=== PATIENT | female | born 1970 ===

== ENCOUNTER 2020-08-23 11:00 | Outpatient (REF) | payer OTHER, SELFPAY ==
[2020-08-27 07:53] LABS: FIT1 NEGATIVE (NEGATIVE)
[2020-08-27 07:54] LABS: FIT Int Ctl YES; FIT2 NEGATIVE (NEGATIVE)
== END 2020-08-23 11:01 | disposition home or self-care (01) ==
LOC: HO.LNP 11:00
PROVIDERS: Visit Provider Internal Medicine Gastroenterology
DX: Z12.11 Encounter for screening for malignant neoplasm of colon (principal)
CPT/HCPCS: 82274

== ENCOUNTER 2020-08-27 07:40 | Outpatient (REF) | payer OTHER, SELFPAY ==
[2020-08-27 08:12] LABS: MANUAL DIFF FLAG NO
[2020-08-27 08:19] LABS: Basophils Percent Auto 0.7 % (0-2); Eosinophils Absolute Auto 0.1 X10*3/uL (0.0-0.4); Eosinophils Percent Auto 2.4 % (0-4); Hematocrit 40.2 % (37-47); Hemoglobin 13.2 g/dl (12.0-16.0); Imm Gran Abs Auto 0.01 X10*3/uL (0.00-0.03); Imm Gran Pct Auto 0.2 % (0.0-0.4); Lymphocytes Percent Auto 43.7 % (20-40); Mean Corpuscular HGB Conc 32.8 g/dl (31.0-35.0); Mean Corpuscular Hemoglobin 31.3 pg (27.0-33.0); Mean Corpuscular Volume 95.3 fL (80-98); Monocytes Absolute Auto 0.3 X10*3/uL (0.1-1.2); Monocytes Percent Auto 6.8 % (2-11); Neutrophils Absolute Auto 2.1 X10*3/uL (2.0-8.3); Neutrophils Percent Auto 46.2 % (45-73); Platelet Count 242 X10*3/uL (160-400); Red Blood Count 4.22 X10*6/uL (4.20-5.50); Red Cell Distribution Width 12.1 % (11.0-16.0); White Blood Count 4.6 X10*3/uL (4.8-10.8)
[2020-08-27 08:42] LABS: Alanine Aminotransferase 59 U/L (0-31); Albumin Level 4.7 g/dL (3.5-5.0); Alkaline Phosphatase 55 U/L (39-117); Anion Gap 12 (12-20); Aspartate Amino Transferase 37 U/L (5-31); Bilirubin Total 1.2 mg/dL (0.0-1.0); Blood Urea Nitrogen 8 mg/dL (9-16); Calcium 9.5 mg/dL (8.4-10.2); Carbon Dioxide 29 mmol/L (22-29); Chloride 105 mmol/L (96-108); Cholesterol 155 mg/dL; Estimated Glomerular Filt Rate > 60; Glucose Fasting 98 mg/dL (60-99); HDL Cholesterol 49 mg/dL; LDL Cholesterol Calculated 83 mg/dl; Potassium 5.1 mmol/l (3.3-5.1); Sodium 141 mmol/L (135-145); Total Protein 8.3 g/dL (6.5-8.0); Triglycerides 116 mg/dL
[2020-08-27 09:03] LABS: TSH reflex Free T4 2.47 mIU/mL (0.32-4.0)
[2020-08-27 09:08] LABS: Erythrocyte Sedimentation Rate 13 MM/HR (0-20)
[2020-08-27 09:14] LABS: Folate 17.6 ng/mL (> or = 4.0); Vitamin B12 463 pg/mL (200-900)
== END 2020-08-27 07:41 | disposition home or self-care (01) ==
LOC: HO.LAB 07:40
PROVIDERS: PCP Internal Medicine; Visit Provider Internal Medicine
DX: E78.00 Pure hypercholesterolemia, unspecified (principal); R79.89 Other specified abnormal findings of blood chemistry; R20.2 Paresthesia of skin; D72.819 Decreased white blood cell count, unspecified; L40.50 Arthropathic psoriasis, unspecified; E66.3 Overweight
CPT/HCPCS: 36415; 80053; 80061; 82607; 82746; 84443; 85025; 85652

== ENCOUNTER → 2020-09-10 15:22 | Outpatient (BNVA) | payer OTHER, SELFPAY | PROVIDERS: PCP Internal Medicine; Referring Provider Internal Medicine; Visit Provider Student in an Organized Health Care Education/Training Program | DX: L40.50 Arthropathic psoriasis, unspecified (principal); Z79.899 Other long term (current) drug therapy | CPT/HCPCS: 99212 ==

== ENCOUNTER 2020-12-31 07:41 | Outpatient (REF) | payer OTHER, SELFPAY ==
[2020-12-31 08:42] LABS: MANUAL DIFF FLAG NO
[2020-12-31 08:47] LABS: Basophils Percent Auto 0.7 % (0-2); Eosinophils Absolute Auto 0.2 X10*3/uL (0.0-0.4); Eosinophils Percent Auto 2.7 % (0-4); Hematocrit 40.3 % (37-47); Hemoglobin 13.6 g/dl (12.0-16.0); Imm Gran Abs Auto 0.01 X10*3/uL (0.00-0.03); Imm Gran Pct Auto 0.2 % (0.0-0.4); Lymphocytes Absolute Auto 2.9 X10*3/uL (1.2-4.9); Lymphocytes Percent Auto 51.3 % (20-40); Mean Corpuscular HGB Conc 33.7 g/dl (31.0-35.0); Mean Corpuscular Hemoglobin 31.5 pg (27.0-33.0); Mean Corpuscular Volume 93.3 fL (80-98); Mean Platelet Volume 10.1 fL (9.4-12.3); Monocytes Absolute Auto 0.3 X10*3/uL (0.1-1.2); Monocytes Percent Auto 6.1 % (2-11); Neutrophils Absolute Auto 2.2 X10*3/uL (2.0-8.3); Platelet Count 249 X10*3/uL (160-400); Red Blood Count 4.32 X10*6/uL (4.20-5.50); Red Cell Distribution Width 11.7 % (11.0-16.0); White Blood Count 5.6 X10*3/uL (4.8-10.8)
[2020-12-31 09:11] LABS: Alanine Aminotransferase 40 U/L (0-31); Albumin Level 4.5 g/dL (3.5-5.0); Alkaline Phosphatase 58 U/L (39-117); Anion Gap 13 (12-20); Aspartate Amino Transferase 27 U/L (5-31); Bilirubin Total 1.3 mg/dL (0.0-1.0); Blood Urea Nitrogen 10 mg/dL (9-16); Calcium 9.6 mg/dL (8.4-10.2); Carbon Dioxide 28 mmol/L (22-29); Chloride 106 mmol/L (96-108); Cholesterol 160 mg/dL; Estimated Glomerular Filt Rate > 60; Glucose Fasting 95 mg/dL (60-99); HDL Cholesterol 46 mg/dL; LDL Cholesterol Calculated 93 mg/dl; Sodium 142 mmol/L (135-145); Triglycerides 109 mg/dL
[2020-12-31 09:14] LABS: Glucose Urine UA NEG (NEG); Leukocyte Esterase Urine NEG (NEG); Nitrite Urine NEG (NEG); PH 5.5 (5.0-8.0); Specific Gravity - Urine >= 1.030 (1.005-1.025); Urine Blood TRACE (NEG); Urine Ketones NEG (NEG); Urine Protein NEG (NEG-TRACE)
[2020-12-31 09:15] LABS: Appearance Urine HAZY; Color Urine YELLOW
[2020-12-31 09:41] LABS: Bacteria Urine TRACE /LPF; Mucus Urine 2+ /LPF; Squamous Epithelial Cell Urine 2+ /LPF; WBC Urine 0-2 /HPF (0-4)
[2020-12-31 10:09] LABS: Erythrocyte Sedimentation Rate 14 MM/HR (0-20)
== END 2020-12-31 07:42 | disposition home or self-care (01) ==
LOC: HO.LAB 07:41
PROVIDERS: PCP Internal Medicine; Visit Provider Internal Medicine
DX: E78.00 Pure hypercholesterolemia, unspecified (principal); L40.50 Arthropathic psoriasis, unspecified; K58.1 Irritable bowel syndrome with constipation; J45.20 Mild intermittent asthma, uncomplicated
CPT/HCPCS: 36415; 80053; 80061; 81001; 81003; 85025; 85652

== ENCOUNTER → 2021-01-08 13:46 | Outpatient (BNVA) | payer OTHER, SELFPAY | PROVIDERS: PCP Internal Medicine; Visit Provider Internal Medicine Gastroenterology | DX: K58.1 Irritable bowel syndrome with constipation (principal); K76.0 Fatty (change of) liver, not elsewhere classified | CPT/HCPCS: Q3014 ==

== ENCOUNTER 2021-05-02 10:25 | Outpatient (REF) | payer OTHER, SELFPAY ==
[2021-05-02 11:05] LABS: MANUAL DIFF FLAG NO
[2021-05-02 11:12] LABS: Basophils Percent Auto 0.5 % (0-2); Eosinophils Absolute Auto 0.1 X10*3/uL (0.0-0.4); Eosinophils Percent Auto 1.9 % (0-4); Hemoglobin 13.1 g/dl (12.0-16.0); Lymphocytes Absolute Auto 1.7 X10*3/uL (1.2-4.9); Lymphocytes Percent Auto 41.4 % (20-40); Mean Corpuscular HGB Conc 33.6 g/dl (31.0-35.0); Mean Corpuscular Hemoglobin 30.7 pg (27.0-33.0); Mean Corpuscular Volume 91.3 fL (80-98); Mean Platelet Volume 10.2 fL (9.4-12.3); Monocytes Absolute Auto 0.3 X10*3/uL (0.1-1.2); Monocytes Percent Auto 7.1 % (2-11); Neutrophils Absolute Auto 2.1 X10*3/uL (2.0-8.3); Neutrophils Percent Auto 49.1 % (45-73); Platelet Count 224 X10*3/uL (160-400); Red Blood Count 4.27 X10*6/uL (4.20-5.50); Red Cell Distribution Width 11.9 % (11.0-16.0); White Blood Count 4.2 X10*3/uL (4.8-10.8)
[2021-05-02 11:47] LABS: Alanine Aminotransferase 30 U/L (0-31); Albumin Level 4.3 g/dL (3.5-5.0); Alkaline Phosphatase 61 U/L (39-117); Anion Gap 12 (12-20); Aspartate Amino Transferase 25 U/L (5-31); Bilirubin Total 1.5 mg/dL (0.0-1.0); Blood Urea Nitrogen 7 mg/dL (9-16); Calcium 9.7 mg/dL (8.4-10.2); Carbon Dioxide 27 mmol/L (22-29); Chloride 107 mmol/L (96-108); Cholesterol 164 mg/dL; Estimated Glomerular Filt Rate > 60; Glucose Fasting 93 mg/dL (60-99); HDL Cholesterol 45 mg/dL; LDL Cholesterol Calculated 93 mg/dl; Potassium 4.5 mmol/L (3.3-5.1); Sodium 141 mmol/L (135-145); Total Protein 7.6 g/dL (6.5-8.0); Triglycerides 131 mg/dL
[2021-05-02 11:49] LABS: Glucose Urine UA NEG (NEG); Leukocyte Esterase Urine 1+ (NEG); Nitrite Urine NEG (NEG); UACC Culture Trigger YES; Urine Blood TRACE (NEG); Urine Ketones NEG (NEG); Urine Protein NEG (NEG-TRACE)
[2021-05-02 11:56] LABS: Erythrocyte Sedimentation Rate 9 MM/HR (0-20)
[2021-05-02 11:59] LABS: TSH reflex Free T4 0.98 uIU/mL (0.32-4.0)
[2021-05-02 12:12] LABS: Appearance Urine CLEAR; Color Urine YELLOW
[2021-05-02 12:15] LABS: Mucus Urine 2+ /LPF; RBC Urine 0 /HPF (0); Squamous Epithelial Cell Urine 3+ /LPF
== END 2021-05-02 10:26 | disposition home or self-care (01) ==
LOC: HO.LAB 10:25
PROVIDERS: PCP Internal Medicine; Visit Provider Internal Medicine
DX: J45.20 Mild intermittent asthma, uncomplicated (principal); K58.1 Irritable bowel syndrome with constipation; E78.00 Pure hypercholesterolemia, unspecified; E66.3 Overweight; L40.50 Arthropathic psoriasis, unspecified
CPT/HCPCS: 36415; 80053; 80061; 81001; 81003; 84443; 85025; 85652; 87086; 87147

== ENCOUNTER 2021-07-17 13:20 | Outpatient (REF) | payer OTHER, SELFPAY ==
[2021-07-17 13:49] LABS: MANUAL DIFF FLAG NO
[2021-07-17 14:14] LABS: Basophils Percent Auto 0.5 % (0-2); Eosinophils Absolute Auto 0.1 X10*3/uL (0.0-0.4); Eosinophils Percent Auto 2.2 % (0-4); Hematocrit 40.3 % (37-47); Hemoglobin 13.5 g/dl (12.0-16.0); Imm Gran Abs Auto 0.02 X10*3/uL (0.00-0.03); Imm Gran Pct Auto 0.3 % (0.0-0.4); Lymphocytes Absolute Auto 2.2 X10*3/uL (1.2-4.9); Lymphocytes Percent Auto 36.7 % (20-40); Mean Corpuscular HGB Conc 33.5 g/dl (31.0-35.0); Mean Corpuscular Hemoglobin 31.4 pg (27.0-33.0); Mean Corpuscular Volume 93.7 fL (80-98); Mean Platelet Volume 10.1 fL (9.4-12.3); Monocytes Absolute Auto 0.4 X10*3/uL (0.1-1.2); Monocytes Percent Auto 7.5 % (2-11); Neutrophils Absolute Auto 3.1 X10*3/uL (2.0-8.3); Neutrophils Percent Auto 52.8 % (45-73); Platelet Count 255 X10*3/uL (160-400); Red Cell Distribution Width 12.2 % (11.0-16.0); White Blood Count 5.9 X10*3/uL (4.8-10.8)
[2021-07-17 14:48] LABS: Alanine Aminotransferase 34 U/L (0-31); Albumin Level 4.8 g/dL (3.5-5.0); Alkaline Phosphatase 65 U/L (39-117); Anion Gap 12 (12-20); Aspartate Amino Transferase 25 U/L (5-31); Bilirubin Total 1.2 mg/dL (0.0-1.0); Blood Urea Nitrogen 12 mg/dL (9-16); C Reactive Protein 0.05 mg/dL (< or = 0.50); Calcium 9.8 mg/dL (8.4-10.2); Carbon Dioxide 28 mmol/L (22-29); Chloride 105 mmol/L (96-108); Estimated Glomerular Filt Rate > 60; Glucose Random 87 mg/dL (60-115); Potassium 4.5 mmol/L (3.3-5.1); Sodium 140 mmol/L (135-145); Total Protein 8.3 g/dL (6.5-8.0)
[2021-07-17 15:03] LABS: Erythrocyte Sedimentation Rate 14 MM/HR (0-20)
[2021-07-17 17:08] LABS: Appearance Urine CLEAR; Color Urine YELLOW; Glucose Urine UA NEG (NEG); Leukocyte Esterase Urine NEG (NEG); Nitrite Urine NEG (NEG); Urine Blood NEG (NEG); Urine Ketones NEG (NEG); Urine Protein NEG (NEG-TRACE)
== END 2021-07-17 13:21 | disposition home or self-care (01) ==
LOC: HO.LAB 13:20
PROVIDERS: PCP Internal Medicine; Visit Provider Student in an Organized Health Care Education/Training Program
DX: L40.50 Arthropathic psoriasis, unspecified (principal); K58.1 Irritable bowel syndrome with constipation; Z79.899 Other long term (current) drug therapy
CPT/HCPCS: 36415; 80053; 81003; 85025; 85652; 86140; 99212

== ENCOUNTER 2021-07-22 15:50 | Outpatient (REF) | payer OTHER, SELFPAY ==
--- NOTE | ~2021-07-22 | MM_ITS ---
EXAMINATION: MM SCREENING DIGITAL BREAST TOMOSYNTHESIS, BILATERAL CLINICAL INFORMATION: Screening. Asymptomatic. The lifetime risk of breast cancer based on the Tyrer-Cuzick Model is 6%. COMPARISON: Mammography: 07/10/2020, 08/11/2019, 05/10/2019, 03/06/2018 TECHNIQUE: Digital breast tomosynthesis is performed in both the craniocaudal and mediolateral oblique views along with computer-aided detection (CAD). Synthesized 2D images are generated from the tomosynthesis. Additional right MLO view is provided. FINDINGS: There are scattered areas of fibroglandular density (ACR BI-RADS breast composition Category b). There are no significant masses, abnormal calcifications, or other abnormalities. There is a chronic circumscribed nodule mid 8:30 o'clock right breast similar to prior studies. Low left axillary tail node is stable. No significant changes. MM/MM tomosynthesis screening BI IMPRESSION: No mammographic evidence of malignancy. ASSESSMENT: BI-RADS 2: Benign RECOMMENDATION: Routine annual mammography screening. This patient's information was entered into a reminder system with a target due date for their next mammogram.
== END 2021-07-22 15:51 | disposition home or self-care (01) ==
LOC: HO.MAMMO 15:50
PROVIDERS: Visit Provider Internal Medicine
DX: Z12.31 Encounter for screening mammogram for malignant neoplasm of breast (principal)
CPT/HCPCS: 77063; 77067

== ENCOUNTER → 2021-07-29 10:42 | Outpatient (BNVA) | payer OTHER, SELFPAY | PROVIDERS: PCP Internal Medicine; Referring Provider Internal Medicine; Visit Provider Nurse Practitioner Family | DX: K76.0 Fatty (change of) liver, not elsewhere classified (principal); K58.1 Irritable bowel syndrome with constipation | CPT/HCPCS: 99212 ==

== ENCOUNTER 2021-09-02 09:23 | Outpatient (REF) | payer OTHER, SELFPAY ==
--- NOTE | ~2021-09-02 | US_ITS ---
EXAMINATION: US COMPLETE ABDOMEN WITH LIVER ELASTOGRAPHY CLINICAL INFORMATION: Hepatic steatosis COMPARISON: Abdominal ultrasound 05/30/2020 TECHNIQUE: Real-time imaging of the abdominal viscera. Noninvasive ultrasound liver fibrosis assessment is performed using Gayla ElastPQ point quantification shear wave elastography (pSWE) with a C5-2 MHz transducer. Multiple elastography samples are obtained. FINDINGS: PANCREAS: Visualized portions of pancreas are normal in appearance. ABDOMINAL AORTA: The proximal, middle, and distal aortic segments are normal in caliber. INFERIOR VENA CAVA: Visualized portions are normal. LIVER: The liver is normal in size. The liver demonstrates diffusely increased echogenicity. No focal hepatic lesion or intrahepatic biliary ductal dilatation noted. The right lobe measures 17 cm in length. The left lobe measures 10.5 cm in length. Portal flow is hepatopedal Shear wave liver elastography median stiffness is 1.74 m/s (reference: normal median stiffness is 1.3 m/s or less). IQR/median stiffness to assess sampling precision is 0.18 (reference: good quality data set is IQR/median stiffness of 0.15 or less). GALLBLADDER: Normal. The gallbladder is physiologically distended without evidence of stones, sludge, polyps, wall thickening or pericholecystic fluid. Negative sonographic Mejia's sign. COMMON BILE DUCT: 0.8 cm in diameter. RIGHT KIDNEY: The kidney measures 12.6 cm in maximum dimension. Millimeters simple appearing midpole cyst. No renal calculi or hydronephrosis. LEFT KIDNEY: The kidney measures 10.5 cm in maximum dimension. 3 mm nonobstructing lower pole calculus. No hydronephrosis. SPLEEN: Normal. The spleen measures 9.2 cm in maximum dimension. FREE FLUID: None. US/US abdomen comp w elastography IMPRESSION: 1. Diffusely increased liver echogenicity suggesting hepatic steatosis. Correlation with liver enzymes recommended. 2. Liver elastography: Although measurements are suggestive of compensated advanced chronic liver disease, there is statistical variability of the sampling which decreases accuracy. No significant change from imaging last year. REFERENCE: Society of Radiologists in Ultrasound Liver Stiffness Thresholds (2019): LIVER STIFFNESS THRESHOLDS: *Liver Stiffness equal or less than 1.3 m/s: High probability of being normal. *Liver Stiffness less than 1.7 m/s: In the absence of other known clinical signs, rules out compensated advanced chronic liver disease. *Liver Stiffness 1.7-2.1 m/s: Suggestive of compensated advanced chronic liver disease but need further test for confirmation. *Liver Stiffness over 2.1 m/s: Rules in compensated advanced chronic liver disease. *Liver Stiffness over 2.4 m/s: Suggestive of clinically significant portal hypertension. QUALITY OF DATA SET: *IQR/Median value equal or less than 0.15 implies a quality data set. *IQR/Median value over 0.15 implies a poor quality data set. SIGNIFICANT CHANGE FROM PRIOR EXAM: Significant change if liver stiffness measurement is 10% or greater from prior exam. OTHER CONSIDERATIONS: The stage of liver fibrosis may be overestimated in the setting of acute hepatitis, liver inflammation, elevated liver function tests, hepatic vascular congestion, obstructive cholestasis, non-fasting state, and infiltrative diseases such as amyloidosis and lymphoma. In some patients with NAFLD, the liver stiffness thresholds for compensated advanced chronic liver disease may be lower. In causes other than viral hepatitis and NAFLD, liver stiffness thresholds are not well established.
== END 2021-09-02 09:24 | disposition home or self-care (01) ==
LOC: HO.US 09:23
PROVIDERS: PCP Internal Medicine; Visit Provider Nurse Practitioner Family
DX: R79.89 Other specified abnormal findings of blood chemistry (principal)
CPT/HCPCS: 76705; 76981

== ENCOUNTER 2021-10-01 09:52 | Outpatient (REF) | payer OTHER, SELFPAY ==
[2021-10-01 10:10] LABS: MANUAL DIFF FLAG NO
[2021-10-01 10:22] LABS: Basophils Percent Auto 0.7 % (0-2); Eosinophils Absolute Auto 0.3 X10*3/uL (0.0-0.4); Hematocrit 41.6 % (37.0-47.0); Hemoglobin 14.1 g/dl (12.0-16.0); Imm Gran Abs Auto 0.01 X10*3/uL (0.00-0.03); Imm Gran Pct Auto 0.2 % (0.0-0.4); Lymphocytes Percent Auto 36.9 % (20-40); Mean Corpuscular HGB Conc 33.9 g/dl (31.0-35.0); Mean Corpuscular Hemoglobin 31.7 pg (27.0-33.0); Mean Corpuscular Volume 93.5 fL (80.0-98.0); Mean Platelet Volume 9.7 fL (9.4-12.3); Monocytes Absolute Auto 0.4 X10*3/uL (0.1-1.2); Monocytes Percent Auto 6.3 % (2-11); Neutrophils Absolute Auto 2.8 x10*3/uL (2.0-8.3); Neutrophils Percent Auto 49.9 % (45-73); Platelet Count 244 X10*3/uL (160-400); Red Blood Count 4.45 X10*6/uL (4.20-5.50); White Blood Count 5.5 X10*3/uL (4.8-10.8)
[2021-10-01 10:47] LABS: Alanine Aminotransferase 37 U/L (0-31); Albumin Level 4.5 g/dL (3.5-5.0); Alkaline Phosphatase 64 U/L (39-117); Anion Gap 12 (12-20); Aspartate Amino Transferase 29 U/L (5-31); Bilirubin Total 1.4 mg/dL (0.0-1.0); Blood Urea Nitrogen 11 mg/dL (9-16); C Reactive Protein 0.06 mg/dL (< or = 0.50); Calcium 9.7 mg/dL (8.4-10.2); Carbon Dioxide 27 mmol/L (22-29); Chloride 106 mmol/L (96-108); Cholesterol 186 mg/dL; Estimated Glomerular Filt Rate > 60; Glucose Fasting 93 mg/dL (60-99); HDL Cholesterol 41 mg/dL; LDL Cholesterol Calculated 106 mg/dl; Potassium 4.9 mmol/L (3.3-5.1); Sodium 140 mmol/L (135-145); Total Protein 8.2 g/dL (6.5-8.0); Triglycerides 195 mg/dL
[2021-10-01 11:13] LABS: Erythrocyte Sedimentation Rate 16 MM/HR (0-20)
== END 2021-10-01 09:53 | disposition home or self-care (01) ==
LOC: HO.LAB 09:52
PROVIDERS: PCP Internal Medicine; Visit Provider Internal Medicine
DX: I10 Essential (primary) hypertension (principal); E78.00 Pure hypercholesterolemia, unspecified; L40.50 Arthropathic psoriasis, unspecified
CPT/HCPCS: 36415; 80053; 80061; 85025; 85652; 86140

== ENCOUNTER 2021-11-10 10:30 | Outpatient (REF) | payer OTHER, SELFPAY ==
[2021-11-10 10:56] LABS: Binax Internal Control QC Valid; Binax Now Covid-19 Ag Negative (Negative)
== END 2021-11-10 10:31 | disposition home or self-care (01) ==
LOC: HO.LAB 10:30
PROVIDERS: PCP Internal Medicine; Visit Provider Internal Medicine
DX: Z20.822 Contact with and (suspected) exposure to COVID-19 (principal)
CPT/HCPCS: C9803

== ENCOUNTER → 2021-11-12 12:42 | Outpatient (BNVA) | payer OTHER, SELFPAY | PROVIDERS: PCP Internal Medicine; Visit Provider Nurse Practitioner Family | DX: L40.50 Arthropathic psoriasis, unspecified (principal) | CPT/HCPCS: 99212 ==

== ENCOUNTER 2022-02-26 07:39 | Outpatient (REF) | payer SELFPAY ==
[2022-02-26 08:04] LABS: MANUAL DIFF FLAG NO
[2022-02-26 08:41] LABS: Basophils Percent Auto 0.4 % (0-2); Eosinophils Absolute Auto 0.1 X10*3/uL (0.0-0.4); Eosinophils Percent Auto 2.8 % (0-4); Hematocrit 38.3 % (37.0-47.0); Hemoglobin 12.8 g/dl (12.0-16.0); Imm Gran Abs Auto 0.01 X10*3/uL (0.00-0.03); Imm Gran Pct Auto 0.2 % (0.0-0.4); Lymphocytes Percent Auto 40.8 % (20-40); Mean Corpuscular HGB Conc 33.4 g/dl (31.0-35.0); Mean Corpuscular Hemoglobin 30.8 pg (27.0-33.0); Mean Corpuscular Volume 92.3 fL (80.0-98.0); Mean Platelet Volume 9.9 fL (9.4-12.3); Monocytes Absolute Auto 0.4 X10*3/uL (0.1-1.2); Monocytes Percent Auto 7.5 % (2-11); Neutrophils Absolute Auto 2.4 x10*3/uL (2.0-8.3); Neutrophils Percent Auto 48.3 % (45-73); Platelet Count 213 X10*3/uL (160-400); Red Blood Count 4.15 X10*6/uL (4.20-5.50); Red Cell Distribution Width 12.3 % (11.0-16.0)
[2022-02-26 09:25] LABS: Alanine Aminotransferase 34 U/L (0-31); Albumin Level 4.3 g/dL (3.5-5.0); Alkaline Phosphatase 52 U/L (39-117); Anion Gap 14 (12-20); Aspartate Amino Transferase 24 U/L (5-31); Bilirubin Total 0.8 mg/dL (0.0-1.0); Blood Urea Nitrogen 14 mg/dL (9-16); C Reactive Protein 0.04 mg/dL (< or = 0.50); Calcium 9.6 mg/dL (8.4-10.2); Carbon Dioxide 21 mmol/L (22-29); Chloride 108 mmol/L (96-108); Cholesterol 181 mg/dL; Erythrocyte Sedimentation Rate 12 MM/HR (0-20); Estimated Glomerular Filt Rate > 60; Glucose Fasting 104 mg/dL (60-99); HDL Cholesterol 33 mg/dL; Potassium 4.3 mmol/L (3.3-5.1); Sodium 139 mmol/L (135-145); Total Protein 7.7 g/dL (6.5-8.0); Triglycerides 412 mg/dL
[2022-02-26 09:32] LABS: TSH reflex Free T4 2.14 uIU/mL (0.32-4.0); Vitamin D 25-OH Total 21.6 ng/mL (>30)
== END 2022-02-26 07:40 | disposition home or self-care (01) ==
LOC: HO.LAB 07:39
PROVIDERS: Absent Provider Nurse Practitioner Family; PCP Internal Medicine; Visit Provider Internal Medicine
DX: E78.00 Pure hypercholesterolemia, unspecified (principal); E55.9 Vitamin D deficiency, unspecified; L40.50 Arthropathic psoriasis, unspecified
CPT/HCPCS: 36415; 80053; 80061; 82306; 84443; 85025; 85652; 86140

== ENCOUNTER 2022-03-09 11:26 | Outpatient (REF) | payer SELFPAY ==
--- NOTE | ~2022-03-09 | XR_ITS ---
EXAMINATION: X-RAY BILATERAL FEET CLINICAL INFORMATION: Psoriatic arthritis COMPARISON: X-ray 04/09/2014 TECHNIQUE: Left foot 3 views. Right foot 3 views. FINDINGS: Left foot: No acute fracture or malalignment. No periarticular osteopenia or active erosions are seen. Mild fourth DIP joint osteoarthritis. Mild fifth tarsometatarsal joint osteoarthritis. Plantar and posterior calcaneus spurring. No abnormal soft tissue calcification. Right foot: No acute fracture or malalignment. Toes are flexed in positioning. No significant arthropathy is otherwise seen. No active erosions or periarticular osteopenia. Moderate plantar and posterior calcaneus spurring. XR/XR foot LT 2V IMPRESSION: No evidence of active inflammatory arthropathy in bilateral feet. Bilateral calcaneus spurring.
--- NOTE | ~2022-03-09 | XR_ITS ---
EXAMINATION: X-RAY BILATERAL HANDS CLINICAL INFORMATION: Psoriatic arthropathy COMPARISON: X-ray right hand 09/04/2018 TECHNIQUE: Right hand 3 views. Left hand 3 views. FINDINGS: Left hand: Normal bone mineralization. No fracture or dislocation. Minimal first CMC osteoarthritis. No significant arthropathy is otherwise evident. No erosions or periosteal changes seen. No abnormal soft tissue calcification. Right hand: Normal bone mineralization. No fracture or dislocation. Minimal first IP joint arthritis. Minimal first CMC joint arthritis. No erosions or abnormal soft tissue calcification is seen. XR/XR hand RT min 3V IMPRESSION: -Mild left first CMC osteoarthritis. -Minimal right first IP joint and CMC joint osteoarthritis.
--- NOTE | ~2022-03-09 | XR_ITS ---
EXAMINATION: X-RAY BILATERAL FEET CLINICAL INFORMATION: Psoriatic arthritis COMPARISON: X-ray 04/09/2014 TECHNIQUE: Left foot 3 views. Right foot 3 views. FINDINGS: Left foot: No acute fracture or malalignment. No periarticular osteopenia or active erosions are seen. Mild fourth DIP joint osteoarthritis. Mild fifth tarsometatarsal joint osteoarthritis. Plantar and posterior calcaneus spurring. No abnormal soft tissue calcification. Right foot: No acute fracture or malalignment. Toes are flexed in positioning. No significant arthropathy is otherwise seen. No active erosions or periarticular osteopenia. Moderate plantar and posterior calcaneus spurring. XR/XR foot RT 2V IMPRESSION: No evidence of active inflammatory arthropathy in bilateral feet. Bilateral calcaneus spurring.
--- NOTE | ~2022-03-09 | XR_ITS ---
EXAMINATION: X-RAY BILATERAL HANDS CLINICAL INFORMATION: Psoriatic arthropathy COMPARISON: X-ray right hand 09/04/2018 TECHNIQUE: Right hand 3 views. Left hand 3 views. FINDINGS: Left hand: Normal bone mineralization. No fracture or dislocation. Minimal first CMC osteoarthritis. No significant arthropathy is otherwise evident. No erosions or periosteal changes seen. No abnormal soft tissue calcification. Right hand: Normal bone mineralization. No fracture or dislocation. Minimal first IP joint arthritis. Minimal first CMC joint arthritis. No erosions or abnormal soft tissue calcification is seen. XR/XR hand LT min 3V IMPRESSION: -Mild left first CMC osteoarthritis. -Minimal right first IP joint and CMC joint osteoarthritis.
== END 2022-03-09 11:27 | disposition home or self-care (01) ==
LOC: HO.XRAY 11:26
PROVIDERS: PCP Internal Medicine; Visit Provider Nurse Practitioner Family
DX: L40.50 Arthropathic psoriasis, unspecified (principal); E55.9 Vitamin D deficiency, unspecified
CPT/HCPCS: 73130; 73620; 99212

== ENCOUNTER → 2022-04-01 13:09 | Outpatient (BNVA) | payer SELFPAY | PROVIDERS: PCP Internal Medicine; Referring Provider Internal Medicine; Visit Provider Nurse Practitioner Family | DX: K58.1 Irritable bowel syndrome with constipation (principal); K76.0 Fatty (change of) liver, not elsewhere classified | CPT/HCPCS: 99212 ==

== ENCOUNTER 2022-04-30 09:25 | Outpatient (REF) | payer SELFPAY ==
[2022-05-01 04:58] LABS: CT PCR NOT DETECTED (Not Detect.); NG PCR NOT DETECTED (Not Detect.)
[2022-05-01 09:22] LABS: BV Int Neg Control Negative (Negative); BV Int Pos Control Positive (Positive)
[2022-05-04 21:12] LABS: HPV mRNA E6/E7 rflx Not Detected (Not Detected)
== END 2022-04-30 09:26 | disposition home or self-care (01) ==
LOC: HO.LAB 09:25
PROVIDERS: Visit Provider Advanced Practice Midwife
DX: Z01.419 Encounter for gynecological examination (general) (routine) without abnormal findings (principal); Z11.51 Encounter for screening for human papillomavirus (HPV)
CPT/HCPCS: 87480; 87491; 87510; 87591; 87624; 87660; 88142

== ENCOUNTER 2022-11-23 13:11 | Outpatient (REF) | payer OTHER, SELFPAY ==
--- NOTE | ~2022-11-23 | XR_ITS ---
EXAMINATION: XR CHEST 2 VIEWS CLINICAL INFORMATION: Fatigue. COMPARISON: Chest radiographs dated 12/20/2019. TECHNIQUE: Frontal and lateral views of the chest were obtained. FINDINGS: The heart, great vessels, pulmonary vasculature and mediastinum are normal. The lungs show no focal infiltrate, effusion or pneumothorax. There is no acute osseous abnormality. XR/XR chest 2V IMPRESSION: No active cardiopulmonary disease.
[2022-11-23 16:36] LABS: Hematocrit 38.9 % (37.0-47.0); Mean Corpuscular HGB Conc 33.4 g/dl (31.0-35.0); Mean Corpuscular Hemoglobin 30.2 pg (27.0-33.0); Mean Corpuscular Volume 90.5 fL (80.0-98.0); Mean Platelet Volume 9.8 fL (9.4-12.3); Platelet Count 315 X10*3/uL (160-400); Red Cell Distribution Width 12.2 % (11.0-16.0); White Blood Count 6.2 X10*3/uL (4.8-10.8)
[2022-11-23 17:09] LABS: Alanine Aminotransferase 24 U/L (0-31); Albumin Level 4.5 g/dL (3.5-5.0); Alkaline Phosphatase 77 U/L (39-117); Anion Gap 12 (12-20); Aspartate Amino Transferase 20 U/L (5-31); Bilirubin Direct 0.2 mg/dL (0.0-0.5); Bilirubin Total 1.3 mg/dL (0.0-1.0); Blood Urea Nitrogen 8 mg/dL (9-16); C Reactive Protein 0.59 mg/dL (< or = 0.50); Calcium 9.5 mg/dL (8.4-10.2); Carbon Dioxide 26 mmol/L (22-29); Chloride 105 mmol/L (96-108); Cholesterol 241 mg/dL; Estimated Glomerular Filt Rate > 60; Glucose Random 85 mg/dL (60-115); HDL Cholesterol 42 mg/dL; LDL Cholesterol Calculated 166 mg/dl; Potassium 3.8 mmol/L (3.3-5.1); Sodium 139 mmol/L (135-145); Total Protein 8.2 g/dL (6.5-8.0); Triglycerides 168 mg/dL
[2022-11-23 17:25] LABS: Thyroid Stimulating Hormone 1.24 uIU/mL (0.32-4.0)
== END 2022-11-23 13:12 | disposition home or self-care (01) ==
LOC: HO.HMGCX 13:11
PROVIDERS: PCP Internal Medicine; Visit Provider Internal Medicine
DX: R53.83 Other fatigue (principal)
CPT/HCPCS: 36415; 71046; 80048; 80061; 80076; 84443; 85027; 86140

== ENCOUNTER → 2022-11-25 10:50 | Outpatient (BNVA) | payer OTHER, SELFPAY | PROVIDERS: PCP Internal Medicine; Visit Provider Nurse Practitioner Family | DX: L40.50 Arthropathic psoriasis, unspecified (principal) | CPT/HCPCS: 99212 ==

== ENCOUNTER 2022-12-01 12:14 | Outpatient (REF) | payer OTHER, SELFPAY ==
[2022-12-01 14:39] LABS: Erythrocyte Sedimentation Rate 65 MM/HR (0-20)
[2022-12-01 15:21] LABS: C Reactive Protein 0.84 mg/dL (< or = 0.50); Rheumatoid Factor < 13.0 IU/mL (<15.0)
[2022-12-03 06:59] LABS: Prot Elec - Albumin 4.2 g/dL (3.8-4.8); Prot Elec - Alpha1 0.6 g/dL (0.2-0.3); Prot Elec - Alpha2 0.9 g/dL (0.5-0.9); Prot Elec - Beta 1 0.5 g/dL (0.4-0.6); Prot Elec - Beta 2 0.5 g/dL (0.2-0.5); Prot Elec - Gamma 1.5 g/dL (0.8-1.7); Prot Elec - Total Protein 8.2 g/dL (6.1-8.1)
[2022-12-03 14:23] LABS: Anti Nuclear Antibody Screen NEGATIVE (NEGATIVE)
== END 2022-12-01 12:15 | disposition home or self-care (01) ==
LOC: HO.LAB 12:14
PROVIDERS: PCP Internal Medicine; Visit Provider Internal Medicine
DX: M25.50 Pain in unspecified joint (principal); M79.10 Myalgia, unspecified site; R53.83 Other fatigue
CPT/HCPCS: 36415; 84165; 85652; 86038; 86039; 86140; 86431

== ENCOUNTER 2023-01-19 14:53 | Outpatient (REF) | payer OTHER, SELFPAY ==
[2023-01-19 18:16] LABS: Erythrocyte Sedimentation Rate 96 MM/HR (0-20)
[2023-01-20 07:49] LABS: HBS Num1 12.74 mIU/mL (0-7.99); HBc Num1 0.07 S/CO (0.00-0.79); HBsAGNum1 0.32 S/CO (0.00-0.99); Hepatitis A Antibody IgM 0.27 Index (0-0.79); Hepatitis B Core Antibody Nonreactive (Nonreactive); Hepatitis B Surface Antigen Negative (Negative); ~HepC Num1 0.16 S/CO (0.00-0.79); ~Hepatitis A Antibody IgM Nonreactive (Nonreactive); ~Hepatitis B Surface Antibody REACTIVE (Nonreactive); ~Hepatitis C Antibody Nonreactive (Nonreactive)
[2023-01-21 15:14] LABS: TS Negative Control Passed; TS Panel A 0; TS Panel B 0; TS Positive Control Passed; TSpotTB Negative (Negative)
== END 2023-01-19 14:54 | disposition home or self-care (01) ==
LOC: HO.LAB 14:53
PROVIDERS: PCP Internal Medicine; Visit Provider Nurse Practitioner Family
DX: L40.50 Arthropathic psoriasis, unspecified (principal)
CPT/HCPCS: 36415; 85652; 86481; 86704; 86706; 86709; 86803; 87340; 99212

== ENCOUNTER → 2023-01-26 10:39 | Outpatient (BNVA) | payer OTHER, SELFPAY | PROVIDERS: PCP Internal Medicine; Visit Provider Nurse Practitioner Family | DX: L40.50 Arthropathic psoriasis, unspecified (principal) | CPT/HCPCS: 99212 ==

== ENCOUNTER 2023-02-19 09:16 | Outpatient (REF) | payer OTHER, SELFPAY ==
[2023-02-19 09:25] LABS: MANUAL DIFF FLAG NO
[2023-02-19 09:54] LABS: Basophils Percent Auto 0.6 % (0-2); Eosinophils Absolute Auto 0.1 X10*3/uL (0.0-0.4); Hematocrit 36.2 % (37.0-47.0); Hemoglobin 11.4 g/dl (12.0-16.0); Imm Gran Abs Auto 0.02 X10*3/uL (0.00-0.03); Imm Gran Pct Auto 0.3 % (0.0-0.4); Lymphocytes Absolute Auto 1.4 X10*3/uL (1.2-4.9); Lymphocytes Percent Auto 22.4 % (20-40); Mean Corpuscular HGB Conc 31.5 g/dl (31.0-35.0); Mean Corpuscular Hemoglobin 27.8 pg (27.0-33.0); Mean Corpuscular Volume 88.3 fL (80.0-98.0); Mean Platelet Volume 9.1 fL (9.4-12.3); Monocytes Absolute Auto 0.4 X10*3/uL (0.1-1.2); Monocytes Percent Auto 6.9 % (2-11); Neutrophils Absolute Auto 4.3 x10*3/uL (2.0-8.3); Neutrophils Percent Auto 67.8 % (45-73); Platelet Count 361 X10*3/uL (160-400); Red Cell Distribution Width 13.1 % (11.0-16.0); White Blood Count 6.4 X10*3/uL (4.8-10.8)
[2023-02-19 10:31] LABS: Erythrocyte Sedimentation Rate 88 MM/HR (0-20)
[2023-02-19 10:32] LABS: Alanine Aminotransferase 14 U/L (0-31); Albumin Level 4.1 g/dL (3.5-5.0); Alkaline Phosphatase 84 U/L (39-117); Anion Gap 15 (12-20); Aspartate Amino Transferase 16 U/L (5-31); Bilirubin Total 0.7 mg/dL (0.0-1.0); Blood Urea Nitrogen 7 mg/dL (9-16); C Reactive Protein 2.78 mg/dL (< or = 0.50); Calcium 9.8 mg/dL (8.4-10.2); Carbon Dioxide 25 mmol/L (22-29); Chloride 106 mmol/L (96-108); Cholesterol 187 mg/dL; Estimated Glomerular Filt Rate > 60; Glucose Fasting 87 mg/dL (60-99); Glucose Random 87 mg/dL (60-115); HDL Cholesterol 36 mg/dL; LDL Cholesterol Calculated 120 mg/dl; Potassium 4.7 mmol/L (3.3-5.1); Sodium 141 mmol/L (135-145); Total Protein 7.8 g/dL (6.5-8.0); Triglycerides 158 mg/dL
[2023-02-19 10:43] LABS: TSH reflex Free T4 1.01 uIU/mL (0.32-4.0)
== END 2023-02-19 09:17 | disposition home or self-care (01) ==
LOC: HO.LAB 09:16
PROVIDERS: Absent Provider Internal Medicine; PCP Internal Medicine; Visit Provider Nurse Practitioner Family
DX: E78.00 Pure hypercholesterolemia, unspecified (principal); L40.50 Arthropathic psoriasis, unspecified
CPT/HCPCS: 36415; 80053; 80061; 84443; 85025; 85652; 86140

== ENCOUNTER 2023-02-22 15:14 | Outpatient (AMB) | payer OTHER, SELFPAY ==
[2023-02-22 15:15] VITALS: BP 98/62; PULSE 91; O2SAT 98; BMI 25.1
--- NOTE | 2023-02-22 15:15 | A.OFFPC_ITS ---
Vital Signs 02/22/23 15:15 Height 5 ft 2 in Weight 137 lb 2 oz BMI 25.1 BP 98/62 Blood Pressure Location Lt brachial Position Sitting Pulse 91 Pulse Source Pulse Oximeter Pulse Oximetry (%) 98 Oxygen Delivery Method Room Air Intake Visit Reasons: hyperlipdiemia, psoriatic arthritis, fibromyalgia Intake Note: Patient is here to follow up hyperlipidemia, psoriatic arthritis, and fibromyalgia. Instructional Coach Required: No Accompanied by: Self / Same As Patient Allergies acetaminophen [From Vicodin] Adverse Reaction (Intermediate, Verified 09/08/23 15:30) Nausea, vomiting, dizziness hydrocodone [From Vicodin] Adverse Reaction (Intermediate, Verified 09/08/23 15:30) Nausea, vomiting, dizziness atorvastatin Adverse Reaction (Mild, Verified 09/08/23 15:30) Swelling Medication List - Last Reconciled 02/22/23 by Jared Hernandez MD albuterol sulfate 1.25 mg (3 mL) continuous nebulization QID PRN 30 days clotrimazole 1% 1 appful vaginal BEDTIME fluticasone furoate-vilanterol 200-25 mcg/dose (Breo Ellipta) 1 inh inhalation DAILY 30 days hydrocortisone 2.5% 1 appl topical BID PRN hydrocortisone 1% (Anti-Itch (hydrocortisone)) 1 appl topical BID-QID PRN linaclotide (Linzess) 290 mcg PO DAILY magnesium oxide 400 mg PO BID [id number]-eypw-FA-lutein 8 mg iron-400 mcg-300 mcg (Multivitamin Women 50 Plus) 1 tab PO DAILY naproxen 500 mg PO BID [nebulizer Use as directed 4 times a day as needed] omega-3 fatty acids 1,000 mg PO DAILY triamcinolone acetonide 0.1% 1 appl topical BID PRN ustekinumab (Stelara) 45 mg (0.5 mL) subcut Q12W ustekinumab (Stelara) 45 mg (0.5 mL) subcut Q4W 2 doses vitamin E (dl, acetate) 400 units PO BID Tobacco use date assessed: 02/22/23 HPI hyperlipdiemia, psoriatic arthritis, fibromyalgia HPI Details Patient comes in today for her follow up visit States that her left hand is currently still swollen - has been swollen since November 2022 and she presently cannot even make a fist with her hand due to the swelling Also relates (+) increased right shoulder pain lately, and that she is unable to lift her right arm on her own without assistance at present She was started on Stelara by rheumatology a couple of weeks ago for psoriatic arthritis States that she feels okay otherwise She denies any fever, headaches or dizziness Denies any chest pains, no SOB No nausea/vomiting, no abdominal pain No change in bowel habits noted Had her follow up labs done a few days ago - to discuss her results [facility] Medical History Depression Hepatic steatosis Overweight (BMI 25.0-29.9) Psoriatic arthritis Carpal tunnel syndrome of right wrist Irritable bowel syndrome with constipation Pure hypercholesterolemia Asthma Surgical History Hx of colonoscopy History of tubal ligation Family History Mother Arthritis Diabetes Sister Uterine cancer Maternal Aunt Cervical cancer Colon cancer Maternal Uncle Colon cancer Household Members: Family and Children Housing: Apartment Alcohol intake: never Patient Tobacco Use Status: Never used Tobacco e-Cigarette/Vaping Use: Never Used Second Hand Smoke Exposure: Yes service: No Current occupational status: employed 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 1. Little interest or pleasure in doing things: several days 2. Feeling down, depressed, or hopeless: several days 3. Trouble falling or staying asleep, or sleeping too much: several days 4. Feeling tired or having little energy: several days 5. Poor appetite or overeating: not at all 6. Feeling bad about yourself - or that you are a failure or have let yourself or your family down: not at all 7. Trouble concentrating on things, such as reading the newspaper or watching television: not at all 8. Moving or speaking so slowly that other people could have noticed. Or the opposite - being so fidgety or restless that you have been moving around a lot more than usual: not at all 9. Thoughts that you would be better off or of hurting yourself in some way: not at all Total score: 4 Depression Screening Interpretation: Positive Depression Screening Follow-up: Existing condition, New Medication prescribed and Follow-up Visit Requested 13906 - PHQ-9 Billing: Yes Source: Developed by Drs. Bonifacio Prince, Shaila Cano, eRyes Palmer and colleagues, with an educational christiane from [employer]. Thrive Questionnaire Date Thrive assessed: 02/22/23 I am a: Patient What is your living situation today?: I have a steady place to live Within the past 12 months, did the food you bought not last and you didn't have the money to get more?: Never true Within the past 12 months, did you worry whether your food would run out before you got money to buy more?: Never true Currently or been in a relationship where the following occur: no concerns reported AUDIT C Alcohol Use Questionnaire (AUDIT-C) 1. How often do you have a drink containing alcohol?: Never 3. How often do you have six or more drinks on one occasion?: Never Total Score: 0 Score Reviewed/Action Taken: Yes JUANITA-7 AMB Questionnaire JUANITA-7 Date JUAINTA - 7 assessed: 02/22/23 Feeling nervous, anxious, or on edge: 1 = Several days Not being able to stop or control worryin = Not at all Worrying too much about different things: 0 = Not at all Trouble relaxin = Not at all Being so restless that it is hard to sit still: 0 = Not at all Becoming easily annoyed or irritable: 0 = Not at all Feeling afraid as if something awful might happen: 0 = Not at all Total JUANITA-7 score (0-4 normal; 5-9 mild; 10-14 moderate; 15-21 severe): 1 Source: Developed by Drs. Bonifacio Prince, Shaila Cano, Reyes Palmer and colleagues, with an educational christiane from [employer]. Review of Systems Const Reports body aches (diffuse), Reports fatigue, Denies fever(s) and Denies headache(s) ENT Denies dysphagia, Denies dizziness, Denies otalgia, Denies headache(s), Reports neck pain, Denies odynophagia and Denies sore throat Card Denies chest pain, Denies rapid heart rate, Denies palpitations and Denies dyspnea Resp Denies chest congestion, Denies cough, Denies dyspnea and Denies wheezing GI Denies abdominal pain, Denies constipation (controlled on Rx), Denies dysphagia, Denies diarrhea, Denies nausea, Denies odynophagia and Denies vomiting Denies hematuria, Denies difficulty voiding, Denies nocturia and Denies dysuria Musc Reports back pain, Reports myalgias, Reports arthralgias (involving multiple joints), Reports neck pain and Reports stiffness Skin/Breast Reports rash (on and off scaling rash) Neuro Denies dizziness and Denies headache(s) Psych Reports anxiety and Reports depression Endo Reports fatigue and Denies palpitations Aller/Immun Denies wheezing Physical exam (Primary Care) Vital Signs: Last Vital Signs Pulse 91 02/22/23 15:15 BP 98/62 02/22/23 15:15 Pulse Ox 98 02/22/23 15:15 Oxygen Delivery Method Room Air 02/22/23 15:15 BMI result Body Mass Index 25.1 Tobacco/Smoking Status: Tobacco use Status Tobacco use date assessed 02/22/23 02/22/23 15:22 Patient Tobacco Use Status Never used Tobacco 02/22/23 15:22 e-Cigarette/Vaping Use Never Used 02/22/23 15:22 PHQ-9: PHQ-9 Score PHQ-9: Total score 4 02/22/23 16:10 Depression Screening Interpretation: Positive Depression Screening Follow-up: Existing condition, New Medication prescribed and Follow-up Visit Requested Thrive Assessment: Date of Thrive Assessment Date Thrive assessed 02/22/23 02/22/23 15:22 Currently or been in a relationship where the following occur: no concerns reported Const General: no acute distress and alert HENMT Ears: TM's normal bilaterally and EAC's normal Throat: Yes posterior oropharynx normal and Yes tonsils normal Neck Neck: Yes no lymphadenopathy and Yes supple Resp Auscultation: clear to auscultation bilaterally, no crackles, no rales and no wheezes Cardio Rate: regular rate Rhythm: regular rhythm Heart sounds: no murmurs GI Palpation (GI): Soft to palpation and nontender Auscultation: normal bowel sounds General: Yes no CVA tenderness Back/Spine/Pelvis Back: no CVA tenderness Extrem Other: (+) tenderness and swelling noted on several fingers of both hands General: Yes no clubbing, cyanosis or edema Results Reviewed Results Reviewed: Laboratory Tests 02/19/23 02/19/23 09:24 09:24 WBC 6.4 Hgb 11.4 L Hct 36.2 L Plt Count 361 Sodium 141 Potassium 4.7 D Creatinine 0.75 Estimated GFR > 60 Fasting Glucose 87 Calcium 9.8 AST 16 ALT 14 Triglycerides 158 Cholesterol 187 LDL Cholesterol, Calc 120 HDL Cholesterol 36 TSH 1.01 Assessment and Plan Assessment & Plan (1) Psoriatic arthritis: Comment: Methotrexate- October 2013 stopped due to elevated LFTs, Enbrel- 09/2014- stopped due to fatigue, and feeling sick, injection site r eaction. Humira- 11/2014- April 202201/2023-03/2023 Stelara, not helpful 04/2023 - Jason Code(s): L40.50 - Arthropathic psoriasis, unspecified Plan: Is currently on Stelara - started by rheumatology a couple of weeks ago Follow up with rheumatology as scheduled Have discussed consideration of starting her on Gabapentin for pain if her pain gets worse - patient does not wish to take more Rx at this time but will consider it if needed (2) Pure hypercholesterolemia: Code(s): E78.00 - Pure hypercholesterolemia, unspecified Plan: Results of her labs done a few days ago reviewed and discussed with patient - is advised that her cholesterol levels have improved significantly from previous She was started back on Atorvastatin 20 mg QD earlier this year but could not tolerate the Rx and had to stop taking it after a few weeks due to increasing edema Reinforced low cholesterol diet - patient is advised to try to continue working on her diet for now as she does not wish to be started on any other Rx for her cholesterol at this time Will recheck her labs and fasting lipids in 3 months for follow up (3) Asthma: Code(s): J45.909 - Unspecified asthma, uncomplicated Qualifiers: Asthma severity: mild Asthma persistence: persistent Asthma complication type: with acute exacerbation Qualified Code(s): J45.31 - Mild persistent asthma with (acute) exacerbation Plan: Appears stable Continue Breo Ellipta to 200-25 mcg 1 inhalation QD and Albuterol HFA 2 inhalations every 6 hours PRN - goal is again to not have to use her Albuterol inhaler more than 3 to 4 times a week Continue Albuterol via nebulizer as well every 6 to 8 hours as needed - advised using this rather than her Albuterol inhaler when she has access to her n ebulizer (4) Myalgia: Code(s): M79.10 - Myalgia, unspecified site Plan: Advised that her current symptoms are most likely related to her psoriatic arthritis and also suggestive of fibromyalgia She was started on Naproxen by rheumatology previously but could not tolerate Rx (GI symptoms) She was started on Duloxetine 60 mg QD in the past but it appears that she is no longer on this Rx - is not clear at this time why she is not on it but she does not wish to go back on it at this time (5) Irritable bowel syndrome with constipation: Code(s): K58.1 - Irritable bowel syndrome with constipation Plan: Continue Linzess 290 mcg QD - symptoms have been well-controlled on Rx so far Patient has failed to respond to Amitiza and other laxatives/stool softeners in the past Follow up with GI as scheduled (6) Hepatic steatosis: Code(s): K76.0 - Fatty (change of) liver, not elsewhere classified Plan: LFTs have improved and have remained normal on her recent labs done yesterday Will continue to monitor her LFTs regularly Last ultrasound done on 01/29/2020 showed (+) potential risk of developing fibrosis and a repeat ultrasound with elastography would be needed in 18-24 months for follow up (7) Right shoulder pain: Code(s): M25.511 - Pain in right shoulder Qualifiers: Chronicity: unspecified Qualified Code(s): M25.511 - Pain in right shoulder Plan: Will send her for x-rays of the right shoulder for further evaluation (8) Carpal tunnel syndrome of right wrist: Code(s): G56.01 - Carpal tunnel syndrome, right upper limb Plan: NCV done back in May 2020 revealed (+) findings of mild CTS on the right wrist; EMG was normal (NCV in 2010 revealed moderate CTS) Encouraged to continue using her wrist splints as often as she can to help minimize/manage her wrist symptoms (9) Depression: Code(s): F32.A - Depression, unspecified Qualifiers: Depression Type: unspecified Qualified Code(s): F32.A - Depression, unspecified Plan: Was started on Duloxetine 60 mg QD earlier this year - is again not sure why she is no longer taking this (10) Overweight (BMI 25.0-29.9): Code(s): E66.3 - Overweight Plan: Reinforced diet; exercise and weight loss are unrealistic at this time given her current multiple issues and conditions Plan Follow up in 3 months Orders: Orders XR shoulder RT min 2V 02/23/23 M25.511 - Pain in right shoulder Complete Blood Count Auto Diff 3 Months I10 - Essential (primary) hypertension Lipid Panel 3 Months E78.00 - Pure hypercholesterolemia, unspecified TSH reflex Free T4 3 Months E78.00 - Pure hypercholesterolemia, unspecified UA CC w/rflx Micro + Cult 3 Months R30.0 - Dysuria C Reactive Protein 3 Months L40.50 - Arthropathic psoriasis, unspecified Comprehensive [place]. Panel Fast 3 Months E78.00 - Pure hypercholesterolemia, unspecified Vitamin D 25-OH Total 3 Months E55.9 - Vitamin D deficiency, unspecified Erythrocyte Sedimentation Rate 3 Months L40.50 - Arthropathic psoriasis, unspecified Coding Level of Care Code Est Pt Level 4 (19475) Diagnoses Psoriatic arthritis L40.50 Pure hypercholesterolemia E78.00 Mild persistent asthma with acute exacerbation J45.31 Asthma severity: mild Asthma persistence: persistent Asthma complication type: with acute exacerbation Myalgia M79.10 Irritable bowel syndrome with constipation K58.1 Hepatic steatosis K76.0 Right shoulder pain, unspecified chronicity M25.511 Chronicity: unspecified Carpal tunnel syndrome of right wrist G56.01 Depression, unspecified depression type F32.A Depression Type: unspecified Overweight (BMI 25.0-29.9) E66.3
== END 2023-02-22 16:24 | disposition home or self-care (01) ==
LOC: HO.HMGH 15:14
PROVIDERS: PCP Internal Medicine; Visit Provider Internal Medicine
DX: L40.50 Arthropathic psoriasis, unspecified (principal); E78.00 Pure hypercholesterolemia, unspecified; J45.31 Mild persistent asthma with (acute) exacerbation; M79.10 Myalgia, unspecified site; K58.1 Irritable bowel syndrome with constipation; K76.0 Fatty (change of) liver, not elsewhere classified; M25.511 Pain in right shoulder; G56.01 Carpal tunnel syndrome, right upper limb; F32.A Depression, unspecified; E66.3 Overweight
CPT/HCPCS: 99214

== ENCOUNTER 2023-02-23 15:02 | Outpatient (REF) | payer OTHER, SELFPAY ==
--- NOTE | ~2023-02-23 | XR_ITS ---
EXAMINATION: XR SHOULDER, RIGHT CLINICAL INFORMATION: Pain COMPARISON: None available. TECHNIQUE: AP external rotation, Grashey, scapular Y, and axillary views of the right shoulder. FINDINGS: There is mild loss of right AC joint space.. The glenohumeral joint space is preserved. No visible acute fracture, dislocation or loose body seen. No bony erosive changes. Soft tissues are normal. XR/XR shoulder RT min 2V IMPRESSION: Mild degenerative changes right AC joint. No visible acute fracture, dislocation or subluxation seen. Mild degenerative changes right AC joint.
== END 2023-02-23 15:03 | disposition home or self-care (01) ==
LOC: HO.XRAY 15:02
PROVIDERS: PCP Internal Medicine; Visit Provider Internal Medicine
DX: M25.511 Pain in right shoulder (principal)
CPT/HCPCS: 73030

== ENCOUNTER 2023-03-29 14:39 | Outpatient (REF) | payer OTHER, SELFPAY ==
[2023-03-29 16:09] LABS: MANUAL DIFF FLAG NO
[2023-03-29 16:15] LABS: Basophils Percent Auto 0.5 % (0-2); Eosinophils Absolute Auto 0.1 X10*3/uL (0.0-0.4); Eosinophils Percent Auto 1.6 % (0-4); Hematocrit 36.2 % (37.0-47.0); Hemoglobin 11.4 g/dl (12.0-16.0); Imm Gran Abs Auto 0.03 X10*3/uL (0.00-0.03); Imm Gran Pct Auto 0.5 % (0.0-0.4); Lymphocytes Absolute Auto 1.5 X10*3/uL (1.2-4.9); Lymphocytes Percent Auto 23.4 % (20-40); Mean Corpuscular HGB Conc 31.5 g/dl (31.0-35.0); Mean Corpuscular Hemoglobin 27.5 pg (27.0-33.0); Mean Corpuscular Volume 87.4 fL (80.0-98.0); Mean Platelet Volume 8.9 fL (9.4-12.3); Monocytes Absolute Auto 0.5 X10*3/uL (0.1-1.2); Monocytes Percent Auto 7.3 % (2-11); Neutrophils Absolute Auto 4.3 x10*3/uL (2.0-8.3); Neutrophils Percent Auto 66.7 % (45-73); Platelet Count 372 X10*3/uL (160-400); Red Blood Count 4.14 X10*6/uL (4.20-5.50); Red Cell Distribution Width 13.5 % (11.0-16.0); White Blood Count 6.4 X10*3/uL (4.8-10.8)
[2023-03-29 17:01] LABS: Alanine Aminotransferase 12 U/L (0-31); Albumin Level 4.2 g/dL (3.5-5.0); Alkaline Phosphatase 79 U/L (39-117); Anion Gap 15 (12-20); Aspartate Amino Transferase 14 U/L (5-31); Bilirubin Total 0.5 mg/dL (0.0-1.0); Blood Urea Nitrogen 10 mg/dL (9-16); C Reactive Protein 2.57 mg/dL (< or = 0.50); Calcium 10.3 mg/dL (8.4-10.2); Carbon Dioxide 27 mmol/L (22-29); Chloride 104 mmol/L (96-108); Estimated Glomerular Filt Rate > 60; Glucose Random 96 mg/dL (60-115); Potassium 4.7 mmol/L (3.3-5.1); Sodium 141 mmol/L (135-145); Total Protein 8.3 g/dL (6.5-8.0)
[2023-03-29 17:14] LABS: Erythrocyte Sedimentation Rate 86 MM/HR (0-20)
[2023-03-31 19:23] LABS: TS Negative Control Passed; TS Panel A 0; TS Panel B 0; TS Positive Control Passed; TSpotTB Negative (Negative)
== END 2023-03-29 14:40 | disposition home or self-care (01) ==
LOC: HO.LAB 14:39
PROVIDERS: PCP Internal Medicine; Visit Provider Internal Medicine Rheumatology
DX: Z11.1 Encounter for screening for respiratory tuberculosis (principal); M75.81 Other shoulder lesions, right shoulder; L40.50 Arthropathic psoriasis, unspecified; Z79.60 Long term (current) use of unspecified immunomodulators and immunosuppressants
CPT/HCPCS: 36415; 80053; 85025; 85652; 86140; 86481; 99212

== ENCOUNTER 2023-04-05 15:14 | Outpatient (REF) | payer OTHER, SELFPAY ==
--- NOTE | ~2023-04-05 | MM_ITS ---
EXAMINATION: MM SCREENING DIGITAL BREAST TOMOSYNTHESIS, BILATERAL CLINICAL INFORMATION: Screening. Asymptomatic. The lifetime risk of breast cancer based on the Tyrer-Cuzick Model is 5%. COMPARISON: Mammography: 07/22/2021, 07/10/2020, 08/11/2019, 05/10/2019 TECHNIQUE: Digital breast tomosynthesis is performed in both the craniocaudal and mediolateral oblique views along with computer-aided detection (CAD). Synthesized 2D images are generated from the tomosynthesis. FINDINGS: There are scattered areas of fibroglandular density (ACR BI-RADS breast composition Category b). There are no significant masses, abnormal calcifications, or other abnormalities. Parenchymal pattern is similar to prior studies and there is no developing density or architectural abnormality. There is a chronic circumscribed nodule mid 9:00 right breast possibly intramammary node. The axilla and skin contours are unremarkable. MM/MM tomosynthesis screening BI IMPRESSION: No mammographic evidence of malignancy. ASSESSMENT: BI-RADS 2: Benign RECOMMENDATION: Routine annual mammography screening. This patient's information was entered into a reminder system with a target due date for their next mammogram.
== END 2023-04-05 15:15 | disposition home or self-care (01) ==
LOC: HO.MAMMO 15:14
PROVIDERS: PCP Internal Medicine; Visit Provider Internal Medicine
DX: Z12.31 Encounter for screening mammogram for malignant neoplasm of breast (principal)
CPT/HCPCS: 77063; 77067

== ENCOUNTER → 2023-04-21 10:21 | Outpatient (BNVA) | payer OTHER, SELFPAY | PROVIDERS: PCP Internal Medicine; Visit Provider Physician Assistant | DX: S63.502D Unspecified sprain of left wrist, subsequent encounter (principal); W50.2XXD Accidental twist by another person, subsequent encounter | CPT/HCPCS: 29125; 73110; 99204 ==

== ENCOUNTER → 2023-04-28 15:23 | Outpatient (BNVA) | payer OTHER, SELFPAY | PROVIDERS: PCP Internal Medicine; Visit Provider Physician Assistant | DX: M25.532 Pain in left wrist (principal) | CPT/HCPCS: 99213 ==

== ENCOUNTER 2023-05-10 13:21 | Outpatient (AMB) | payer OTHER, SELFPAY ==
--- NOTE | 2023-05-10 13:24 | A.OFFVIS_ITS ---
Intake Vital Signs 05/10/23 13:28 Height 5 ft 2 in Weight 139 lb 5.314 oz BMI 25.5 BP 116/62 Blood Pressure Location Rt brachial Position Sitting Pulse 84 Pulse Source Pulse Oximeter Temp 97.0 F Temp Source Skin Pulse Oximetry (%) 99 Intake Visit Reasons: PSA Intake Note: * Pt seen today for PsA follow up. * C/o bl hand pain, left is worse * States hand pain is not better and is making her depressed * ? hand specialist [employer] Required: No Accompanied by: Self / Same As Patient Allergies acetaminophen [From Vicodin] Adverse Reaction (Intermediate, Verified 05/10/23 13:30) Nausea, vomiting, dizziness hydrocodone [From Vicodin] Adverse Reaction (Intermediate, Verified 05/10/23 13:30) Nausea, vomiting, dizziness atorvastatin Adverse Reaction (Mild, Verified 05/10/23 13:30) Swelling Medication List - Last Reconciled 05/10/23 by Franklin Hernandez MD albuterol sulfate 1.25 mg (3 mL) continuous nebulization QID PRN 30 days clotrimazole 1% 1 appful vaginal BEDTIME PRN fluticasone furoate-vilanterol 200-25 mcg/dose (Breo Ellipta) 1 inh inhalation DAILY 30 days hydrocortisone 2.5% 1 appl topical BID PRN hydrocortisone 1% (Anti-Itch (hydrocortisone)) 1 appl topical BID-QID PRN linaclotide (Linzess) 290 mcg PO DAILY magnesium oxide 400 mg PO BID [id number]-[id number]-FA-lutein 8 mg iron-400 mcg-300 mcg (Multivitamin Women 50 Plus) 1 tab PO DAILY naproxen 500 mg PO BID [nebulizer Use as directed 4 times a day as needed] omega-3 fatty acids 1,000 mg PO DAILY prednisone 3 tablet once daily for 3 days, then 2 tablets once daily for 3 days, then 1 tablet daily thereafter. risankizumab-rzaa (Skyrizi) 150 mg SC at weeks 0, 4 and then every 12 weeks triamcinolone acetonide 0.1% 1 appl topical BID PRN vitamin E (dl, acetate) 400 units PO BID HPI HPI Comments History of Present Illness Details The patient returns today for evaluation of her psoriatic arthritis. She has received 1 shot of the Skyrizi so far. This went okay without any adverse effects. It was about 2 and half to 3 weeks ago that she got the shot. She is due for another one at the 4 week interval. Unfortunately there has not really been much improvement in her symptoms. I had given her a course of prednisone and she felt better at the 20-30 mg daily dose but when she got down to 10 mg daily there was some return of symptoms particularly in the left hand. This is more notable over the MCP and the thumb region. The shoulder remains painful as well. She also gets back pain in the night. That seems to get better when she is up and about. She is out of work currently. She had some overuse of the hand at work and then got seen by were connection. 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 There has been no psoriasis recently. [facility] Medical History Asthma Carpal tunnel syndrome of right wrist Depression Hepatic steatosis Irritable bowel syndrome with constipation Overweight (BMI 25.0-29.9) Psoriatic arthritis Pure hypercholesterolemia Surgical History History of tubal ligation Hx of colonoscopy Family History Mother Arthritis Diabetes Sister Uterine cancer Maternal Aunt Cervical cancer Colon cancer Maternal Uncle Colon cancer Social History Household Members: Family and Children Housing: Apartment Alcohol intake: never Patient Tobacco Use Status: Never used Tobacco e-Cigarette/Vaping Use: Never Used Second Hand Smoke Exposure: Yes service: No Current occupational status: employed Current occupational exposures/hazards: No Cognitive needs: No Hearing needs: No Vision needs: No Female Reproductive History Menstrual Age of Menarche: 13 Review of Systems Const Details: Negative for appetite change, weight change, fever, chills, malaise and fatigue Eyes Details: Negative for vision change, dry eyes,headaches and dizziness ENT Details: Negative for hearing change, tinnitus, oral ulcer, nose bleeds and oral dryness. Card Details: Negative chest pain, edema and syncope Resp Details: Negative for SOB, cough and wheezing GI Details: Negative indigestion/heartburn, nausea, abdominal pain, bowel changes, diarrhea, constipation and bloody stool. Skin/Breast Details: Negative for itching, rash, hives, Raynaud's symptoms, sun sensitivity, and skin cancer Kan/Lymph Details: Negative for excessive bruising or bleeding. Physical Exam Vital Signs: Last Vital Signs Temp 97.0 F 05/10/23 13:28 Pulse 84 05/10/23 13:28 BP 116/62 05/10/23 13:28 Pulse Ox 99 05/10/23 13:28 BMI result Body Mass Index 25.5 APPEARANCE: Patient in no acute distress EYES no redness, pupils equal and reactive to light, eyelids normal EARS: External ear normal, canal clear and tympanic membrane normal. NOSE/SINUS: Airflow through both nares, no nasal discharge, no bleeding THROAT: Oral mucosa moist, no ulcerations NECK: No thyromegaly or masses, no adenopathy, trachea midline. HEART: Regulrar rhythm, S1-S2 heard, no murmurs, rubs or gallops. LUNG: Clear to percussion and auscultation ABD: Normal bowel sounds, no organomegaly, masses or tenderness. EXTREMITIES: No edema, no calf tenderness, normal peripheral pulses. NEURO: Oriented and alert x3. No focal weakness. Reflexes symmetric. Gait normal. SKIN: No inflammatory or neoplastic lesions. Normal color and turgor JOINT EXAM:.?? Cervical Spine:.? Full range of motion without pain; no tenderness. Thoracic Spine:.? No scoliosis.? No tenderness on palpation. Lumbar Spine:.? Alignment normal.? Full range of motion without pain, no tenderness. Chest Wall:.? No tenderness, swelling, increased warmth or erythema. Hands:.? Normal pain-free range of motion without tenderness, swelling, increased warmth or erythema. Able to make a full fist and has a good rn clinical resource strength. Wrists:.? Normal pain-free range of motion without tenderness, swelling, increased warmth or erythema. Elbows:. Normal pain-free range of motion without tenderness, swelling, increased warmth or erythema. Shoulders:.?? Full range of motion without pain. No tenderness, weakness, swelling, increased warmth or erythema. Hips:.? Full range of motion without pain. Hip bursa:.? No tenderness. Knees:.?? Normal pain-free range of motion without tenderness, swelling, increased warmth or erythema.? There is no effusion or crepitation Ankles:.? Normal pain-free range of motion without tenderness, swelling, increased warmth or erythema. Feet:.? Normal pain-free range of motion without tenderness, swelling, increased warmth or erythema. Tender points:.? No tenderness to digital palpation at the occiput, trapezius, second rib, lateral epicondyle, knees, greater trochanter and gluteal area bilaterally. ? Office Procedures Joint Injection/Drain Joint Injection/Drain Primary Site: other Injected: 20 mg of, Kenalog, with 0.25 mL of and 1% plain lidocaine Coding Details: The dorsum of the left wrist was prepped with ChloraPrep and alcohol. Under topical ethyl chloride spray the left thumb extensor tendon sheath was injected with 20 mg of triamcinolone and 0.2 cc of 1% lidocaine. The patient tolerated the procedure without any acute complications. 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 Humira- 11/2014- April 2022 Code(s): L40.50 - Arthropathic psoriasis, unspecified Plan There still is synovitis evident, even with the 10 mg daily prednisone. As expected the prednisone improvement wears off towards the night. She has an asymmetric inflammatory picture currently with some tendinitis of the left thumb and some dactylitis of the left 2nd finger. 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 This is certainly likely to be part of her active psoriatic arthritis. So far the psoriasis remains controlled. We will switch the prednisone to 5 mg b.i.d. to give her a bit more coverage on the anti-inflammatory effect. It is still too early to decide whether not the Skrizi is going to be effective. Most of her pain seems to be localized along the thumb extensor tendon indicating some de Quervain tenosynovitis as part of her psoriatic arthritis. So today a corticosteroid injection there is recommended. We reviewed potential benefits and side effects of such injection. The dorsum of the left wrist was prepped with ChloraPrep and alcohol. Under topical ethyl chloride spray the thumb extensor flexor tendon sheath was injected with 20 mg of triamcinolone and 0.2 cc of 1% lidocaine. The patient tolerated the procedure without any acute complications. She will follow through with the the Isabellai injection. We will see her back in about 6 weeks to see if there has been any response so far. Orders: Orders AMB Joint Injection/Aspiration Today M65.4 - Radial styloid tenosynovitis [de Quervain] Medications: New prednisone 5 mg PO BID 60 tabs 3RF L40.50 - Arthropathic psoriasis, unspecified Discontinued naproxen Discontinued Reason: Doctor's Order 500 mg PO BID 60 tabs 1RF M94.0 - Chondrocostal junction syndrome [Tietze] prednisone Discontinued Reason: Patient Completed Course 3 tablet once daily for 3 days, then 2 tablets once daily for 3 days, then 1 tablet daily thereafter. 40 tabs 0RF L40.50 - Arthropathic psoriasis, unspecified Coding Level of Care Code Est Pt Level 3 (62491) Diagnoses De Quervain's tenosynovitis, left M65.4 Long-term use of immunosuppressant medication Z79.60 Psoriatic arthritis L40.50
[2023-05-10 13:28] VITALS: BP 116/62; PULSE 84; TEMP 36.1; O2SAT 99; BMI 25.5
== END 2023-05-10 14:14 | disposition home or self-care (01) ==
PROVIDERS: PCP Internal Medicine; Visit Provider Internal Medicine Rheumatology
DX: M65.4 Radial styloid tenosynovitis [de Quervain] (principal); Z79.60 Long term (current) use of unspecified immunomodulators and immunosuppressants; L40.50 Arthropathic psoriasis, unspecified
CPT/HCPCS: 20550; 99213

== ENCOUNTER → 2023-05-10 13:21 | Outpatient (BNVA) | payer OTHER, SELFPAY | PROVIDERS: PCP Internal Medicine; Visit Provider Internal Medicine Rheumatology | DX: M65.4 Radial styloid tenosynovitis [de Quervain] (principal); Z79.60 Long term (current) use of unspecified immunomodulators and immunosuppressants; L40.50 Arthropathic psoriasis, unspecified | CPT/HCPCS: 20550; 99212; J3301 ==

== ENCOUNTER → 2023-05-12 11:02 | Outpatient (BNVA) | payer OTHER, SELFPAY | PROVIDERS: PCP Internal Medicine; Visit Provider Physician Assistant | DX: S63.502D Unspecified sprain of left wrist, subsequent encounter (principal); S63.602D Unspecified sprain of left thumb, subsequent encounter; W50.2XXD Accidental twist by another person, subsequent encounter | CPT/HCPCS: 99213 ==

== ENCOUNTER → 2023-06-02 10:51 | Outpatient (BNVA) | payer OTHER, SELFPAY | PROVIDERS: PCP Internal Medicine; Visit Provider Physician Assistant | DX: S63.502D Unspecified sprain of left wrist, subsequent encounter (principal); W50.2XXD Accidental twist by another person, subsequent encounter | CPT/HCPCS: 99213 ==

== ENCOUNTER 2023-06-03 09:03 | Outpatient (REF) | payer OTHER, SELFPAY ==
[2023-06-03 10:02] LABS: Basophils Absolute Auto 0.1 X10*3/uL (0.0-0.2); Basophils Percent Auto 0.9 % (0-2); Eosinophils Absolute Auto 0.1 X10*3/uL (0.0-0.4); Eosinophils Percent Auto 1.2 % (0-4); Hematocrit 39.7 % (37.0-47.0); Hemoglobin 12.5 g/dl (12.0-16.0); Imm Gran Abs Auto 0.03 X10*3/uL (0.00-0.03); Imm Gran Pct Auto 0.4 % (0.0-0.4); Lymphocytes Absolute Auto 2.8 X10*3/uL (1.2-4.9); Lymphocytes Percent Auto 40.6 % (20-40); MANUAL DIFF FLAG NO; Mean Corpuscular HGB Conc 31.5 g/dl (31.0-35.0); Mean Corpuscular Hemoglobin 28.1 pg (27.0-33.0); Mean Corpuscular Volume 89.2 fL (80.0-98.0); Mean Platelet Volume 9.8 fL (9.4-12.3); Monocytes Absolute Auto 0.4 X10*3/uL (0.1-1.2); Monocytes Percent Auto 5.9 % (2-11); Neutrophils Absolute Auto 3.5 x10*3/uL (2.0-8.3); Platelet Count 259 X10*3/uL (160-400); Red Blood Count 4.45 X10*6/uL (4.20-5.50); Red Cell Distribution Width 14.2 % (11.0-16.0); White Blood Count 6.9 X10*3/uL (4.8-10.8)
[2023-06-03 10:49] LABS: Erythrocyte Sedimentation Rate 25 MM/HR (0-20)
[2023-06-03 11:15] LABS: Alanine Aminotransferase 19 U/L (0-31); Alkaline Phosphatase 51 U/L (39-117); Anion Gap 12 (12-20); Aspartate Amino Transferase 16 U/L (5-31); Bilirubin Total 0.5 mg/dL (0.0-1.0); Blood Urea Nitrogen 10 mg/dL (9-16); C Reactive Protein 0.31 mg/dL (< or = 0.50); Calcium 9.6 mg/dL (8.4-10.2); Carbon Dioxide 28 mmol/L (22-29); Chloride 108 mmol/L (96-108); Cholesterol 214 mg/dL; Estimated Glomerular Filt Rate > 60; Glucose Fasting 77 mg/dL (60-99); HDL Cholesterol 54 mg/dL; LDL Cholesterol Calculated 131 mg/dl; Potassium 4.1 mmol/L (3.3-5.1); Sodium 144 mmol/L (135-145); Total Protein 7.7 g/dL (6.5-8.0); Triglycerides 149 mg/dL
[2023-06-03 11:16] LABS: Appearance Urine Clear; Color Urine Yellow; Glucose Urine UA Negative (Negative); Leukocyte Esterase Urine Small (1+) (Negative); Nitrite Urine Negative (Negative); PH 5.5 (5.0-9.0); Specific Gravity - Urine 1.015 (1.005-1.025); UMIC TRIGGER UACC YES; Urine Blood Negative (Negative); Urine Ketones Negative (Negative); Urine Protein Negative (Neg-Trace)
[2023-06-03 11:22] LABS: TSH reflex Free T4 2.55 uIU/mL (0.32-4.0); Vitamin D 25-OH Total 30.4 ng/mL (>30)
[2023-06-03 11:30] LABS: Bacteria Urine None Seen (None Seen); Hyaline Casts Urine 0-2 /LPF (0-2); RBC Urine 0-2 /HPF (0-2); UACC Culture Trigger YES; WBC Urine 0-5 /HPF (0-5)
== END 2023-06-03 09:04 | disposition home or self-care (01) ==
LOC: HO.LAB 09:03
PROVIDERS: PCP Internal Medicine; Visit Provider Internal Medicine
DX: E55.9 Vitamin D deficiency, unspecified (principal); E78.00 Pure hypercholesterolemia, unspecified; I10 Essential (primary) hypertension; L40.50 Arthropathic psoriasis, unspecified; R30.0 Dysuria
CPT/HCPCS: 36415; 80053; 80061; 81001; 81003; 82306; 84443; 85025; 85652; 86140; 87086; 87147

== ENCOUNTER 2023-06-04 14:40 | Outpatient (AMB) | payer OTHER, SELFPAY ==
[2023-06-04 14:41] VITALS: BP 116/80; PULSE 70; O2SAT 98; BMI 25.7
--- NOTE | 2023-06-04 14:41 | MHC.PC.OV ---
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 Accompanied by: Self / Same As Patient Allergies acetaminophen [From Vicodin] Adverse Reaction (Intermediate, Verified 06/04/23 15:23) Nausea, vomiting, dizziness hydrocodone [From Vicodin] Adverse Reaction (Intermediate, Verified 06/04/23 15:23) Nausea, vomiting, dizziness atorvastatin Adverse Reaction (Mild, Verified 06/04/23 15:23) Swelling Medication List - Last Reconciled 06/04/23 by Jared Hernandez MD albuterol sulfate 1.25 mg (3 mL) continuous nebulization QID PRN 30 days clotrimazole 1% 1 appful vaginal BEDTIME PRN fluticasone furoate-vilanterol 200-25 mcg/dose (Breo Ellipta) 1 inh inhalation DAILY 30 days hydrocortisone 2.5% 1 appl topical BID PRN hydrocortisone 1% (Anti-Itch (hydrocortisone)) 1 appl topical BID-QID PRN linaclotide (Linzess) 290 mcg PO DAILY magnesium oxide 400 mg PO BID ozdsedxb-dvt-furh-FA-vit K-lut 8 mg iron-400 mcg-50 mcg (Multivitamin Women 50 Plus) 1 tab PO DAILY [nebulizer Use as directed 4 times a day as needed] omega-3 fatty acids 1,000 mg PO DAILY prednisone 5 mg PO BID risankizumab-rzaa (Skyrizi) 150 mg SC at weeks 0, 4 and then every 12 weeks triamcinolone acetonide 0.1% 1 appl topical BID PRN vitamin E (dl, acetate) 400 units PO BID Tobacco use date assessed: 06/04/23 Dental Screening Dental Screen Date: 06/04/23 Did you have a dental visit in the last 12 months?: No Did you have a dental problem in the last 6 months where you did not have access to dental care?: No Was dental information given to patient?: No HPI 3 month f/u HPI Details Patient comes in today for her follow up visit States that she continues to experience increased pain all over - has mutliple joint pains due to her psoriatic arthritis Was just switched over from Stelara to Skyrizi last month (April 2023) as Stelara did not seem to be helping her any longer Had one dose of Skyrizi last month and her second dose a few days ago and so far she's had no adverse effects from the medication States that she has been out of work for a month and a half now and was just reassessed whether she can return to work or not last week, and that her employer will try to see if they can start easing her slowly back to work sometime in the next few weeks Relates (+) fatigue; denies any headaches or dizziness States that she has frequent chest wall/rib cage pains that feel worse with increased activity and exertion and sometimes even when she is just taking deep breaths Denies any increased SOB No nausea/vomiting, no abdominal pain No change in bowel habits noted Had her follow up labs done yesterday - to discuss her results [facility] Medical History Asthma Carpal tunnel syndrome of right wrist Depression Hepatic steatosis Irritable bowel syndrome with constipation Overweight (BMI 25.0-29.9) Psoriatic arthritis Pure hypercholesterolemia Surgical History History of tubal ligation Hx of colonoscopy Family History Mother Arthritis Diabetes Sister Uterine cancer Maternal Aunt Cervical cancer Colon cancer Maternal Uncle Colon cancer Social History Household Members: Family and Children Housing: Apartment Alcohol intake: never Patient Tobacco Use Status: Never used Tobacco e-Cigarette/Vaping Use: Never Used Second Hand Smoke Exposure: Yes service: No Current occupational status: employed Current occupational exposures/hazards: No Cognitive needs: No Hearing needs: No Vision needs: No Female Reproductive History Menstrual Age of Menarche: 13 Questionnaire PHQ-9 Over the last 2 weeks, how often have you been bothered by any of the following problems? 1. Little interest or pleasure in doing things: several days 2. Feeling down, depressed, or hopeless: several days 3. Trouble falling or staying asleep, or sleeping too much: several days 4. Feeling tired or having little energy: several days 5. Poor appetite or overeating: not at all 6. Feeling bad about yourself - or that you are a failure or have let yourself or your family down: not at all 7. Trouble concentrating on things, such as reading the newspaper or watching television: not at all 8. Moving or speaking so slowly that other people could have noticed. Or the opposite - being so fidgety or restless that you have been moving around a lot more than usual: not at all 9. Thoughts that you would be better off or of hurting yourself in some way: not at all Total score: 4 Depression Screening Interpretation: Positive Depression Screening Follow-up: Existing condition and Follow-up Visit Requested [id number] - PHQ-9 Billing: Yes Source: Developed by Drs. Bonifacio Prince, Shaila Cano, Reyes Palmer and colleagues, with an educational christiane from [employer]. Thrive Questionnaire Date Thrive assessed: 06/04/23 I am a: Patient What is your living situation today?: I have a steady place to live Within the past 12 months, did the food you bought not last and you didn't have the money to get more?: Never true Within the past 12 months, did you worry whether your food would run out before you got money to buy more?: Never true Do you have trouble paying for medicines?: No Do you have trouble getting transportation to medical appointments?: No Do you have trouble paying your heating and electricity bill?: No Do you have trouble taking care of your child, family member or friend?: No Do you have trouble with day-to-day activities such as bathing, preparing meals, shopping, managing finances, etc.?: No Are you currently unemployed and looking for a job?: No Are you interested in more education?: No Please select the resources that you would like help with: None Currently or been in a relationship where the following occur: no concerns reported AUDIT C Alcohol Use Questionnaire (AUDIT-C) 1. How often do you have a drink containing alcohol?: Never 3. How often do you have six or more drinks on one occasion?: Never Total Score: 0 Score Reviewed/Action Taken: Yes JUANITA-7 AMB Questionnaire JUANITA-7 Date JUANITA - 7 assessed: 06/04/23 Feeling nervous, anxious, or on edge: 1 = Several days Not being able to stop or control worryin = Not at all Worrying too much about different things: 0 = Not at all Trouble relaxin = Not at all Being so restless that it is hard to sit still: 0 = Not at all Becoming easily annoyed or irritable: 0 = Not at all Feeling afraid as if something awful might happen: 0 = Not at all Total JUANITA-7 score (0-4 normal; 5-9 mild; 10-14 moderate; 15-21 severe): 1 Source: Developed by Drs. Bonifacio Prince, Shaila Cano, Reyes Palmer and colleagues, with an educational christiane from [employer]. Review of Systems Const Reports body aches (diffuse), Denies chills, Reports fatigue, Denies fever(s) and Denies headache(s) ENT Denies dysphagia, Denies dizziness, Denies otalgia, Denies headache(s), Reports neck pain, Denies odynophagia and Denies sore throat Card Reports chest pain (mostly over anterior chest wall/rib cage), Denies rapid heart rate, Denies palpitations and Denies dyspnea Resp Denies chest congestion, Denies cough, Denies dyspnea and Denies wheezing GI Denies abdominal pain, Denies constipation, Denies dysphagia, Denies diarrhea, Denies nausea, Denies odynophagia and Denies vomiting Denies difficulty voiding, Denies nocturia and Denies dysuria Musc Reports back pain, Reports myalgias, Reports arthralgias (involving multiple joints), Reports neck pain and Reports stiffness Skin/Breast Denies rash Neuro Denies dizziness and Denies headache(s) Psych Reports anxiety and Reports depression Endo Reports fatigue and Denies palpitations Aller/Immun Denies wheezing Physical exam (Primary Care) Vital Signs: Last Vital Signs Pulse 70 06/04/23 14:41 BP 116/80 06/04/23 14:41 Pulse Ox 98 06/04/23 14:41 Oxygen Delivery Method Room Air 06/04/23 14:41 BMI result Body Mass Index 25.7 Tobacco/Smoking Status: Tobacco use Status Tobacco use date assessed 06/04/23 06/04/23 14:45 Patient Tobacco Use Status Never used Tobacco 06/04/23 14:45 e-Cigarette/Vaping Use Never Used 06/04/23 14:45 PHQ-9: PHQ-9 Score PHQ-9: Total score 4 06/04/23 14:45 Depression Screening Interpretation: Positive Depression Screening Follow-up: Existing condition and Follow-up Visit Requested Thrive Assessment: Date of Thrive Assessment Date Thrive assessed 06/04/23 06/04/23 14:45 Currently or been in a relationship where the following occur: no concerns reported Const General: no acute distress and alert HENMT Ears: TM's normal bilaterally and EAC's normal Throat: Yes posterior oropharynx normal and Yes tonsils normal Neck Neck: Yes no lymphadenopathy and Yes supple Chest Chest palpation & inspection: tenderness (over the rib cage on palpation bilaterally) Resp Auscultation: clear to auscultation bilaterally, no crackles, no rales and no wheezes Cardio Rate: regular rate Rhythm: regular rhythm Heart sounds: no murmurs GI Palpation (GI): Soft to palpation and nontender Auscultation: normal bowel sounds Extrem Other: (+) tenderness and swelling noted on several fingers of both hands General: Yes no pedal edema, No clubbing and No cyanosis Results Reviewed Results Reviewed: Laboratory Tests 06/03/23 06/03/23 06/03/23 09:06 09:23 Unknown WBC 6.9 Hgb 12.5 Hct 39.7 Plt Count 259 D ESR 25 H Sodium Potassium Creatinine Estimated GFR Fasting Glucose Calcium AST ALT C-Reactive Protein Triglycerides Cholesterol LDL Cholesterol, Calc HDL Cholesterol 25-OH Vitamin D Total TSH Ur Specific [place] 1.015 Urine Protein Negative Urine Glucose (UA) Negative Urine Blood Negative 06/03/23 Unknown WBC Hgb Hct Plt Count ESR Sodium 144 Potassium 4.1 Creatinine 0.78 Estimated GFR > 60 Fasting Glucose 77 Calcium 9.6 D AST 16 ALT 19 C-Reactive Protein 0.31 Triglycerides 149 Cholesterol 214 LDL Cholesterol, Calc 131 HDL Cholesterol 54 25-OH Vitamin D Total 30.4 TSH 2.55 Ur Specific [place] Urine Protein Urine Glucose (UA) Urine Blood Assessment and Plan Assessment & Plan (1) Psoriatic arthritis: Comment: Methotrexate- October 2013 stopped due to elevated LFTs, Enbrel- 09/2014- stopped due to fatigue, and feeling sick, injection site reaction. Humira- 11/2014- April 2022 Code(s): L40.50 - Arthropathic psoriasis, unspecified Plan: Was recently switched over from Stelara to Skyrizi by rheumatology last month Patient has had a couple of doses of Skyrizi already and appears to be tolerating the medication so far although she states that she has not yet noticed any significant improvement in terms of her symptoms Still has recurrent pain and swelling of her joints, especially of her fingers Have discussed previously that if necessary, we can start her on a trial of Gabapentin to help manage her chronic pain but she declined as she does not wishto take any more medications at this time if she can avoid them Follow up with rheumatology (Dr. Hernandez) as scheduled (2) Pure hypercholesterolemia: Code(s): E78.00 - Pure hypercholesterolemia, unspecified Plan: Results of her labs done yesterday reviewed and discussed with patient - cautioned that her cholesterol levels have increased again slightly from previous, especially her LDL cholesterol She was started back on Atorvastatin 10 mg QD earlier this year but could not tolerate the Rx and had to stop taking it due to increasing edema Reinforced low cholesterol diet - patient is advised to try to continue working on her diet for now and that if her cholesterol numbers really cannot be improved with diet alone, then we will need to explore other options and Rx Will recheck her labs in 3 months for follow up (3) Asthma: Code(s): J45.909 - Unspecified asthma, uncomplicated Qualifiers: Asthma severity: mild Asthma persistence: persistent Asthma complication type: with acute exacerbation Qualified Code(s): J45.31 - Mild persistent asthma with (acute) exacerbation Plan: Appears stable Continue Breo Ellipta to 200-25 mcg 1 inhalation QD and Albuterol HFA 2 inhalations every 6 hours PRN - goal is again to not have to use her Albuterol inhaler more than 3 to 4 times a week Continue Albuterol via nebulizer as well every 6 to 8 hours as needed - advised using this rather than her Albuterol inhaler when she has access to her nebulizer (4) Myalgia: Code(s): M79.10 - Myalgia, unspecified site Plan: Advised that majority of her current symptoms are most likely related to her psoriatic arthritis flare up Symptoms are also suggestive of possible fibromyalgia Was started on Naproxen by rheumatology previously but patient could not tolerate Rx (GI symptoms) She was started on Duloxetine 60 mg QD in the past but it appears that she is no longer on this Rx - is not clear at this time why she is not on it (5) Irritable bowel syndrome with constipation: Code(s): K58.1 - Irritable bowel syndrome with constipation Plan: Continue Linzess 290 mcg QD - symptoms have been well-controlled on Rx so far Patient has failed to respond to Amitiza and other laxatives/stool softeners in the past Follow up with GI as scheduled (6) Hepatic steatosis: Code(s): K76.0 - Fatty (change of) liver, not elsewhere classified Plan: LFTs have improved and have remained normal on her recent labs done yesterday Will continue to monitor her LFTs regularly Last ultrasound done on 01/29/2020 showed (+) potential risk of developing fibrosis and a repeat ultrasound with elastography would be needed in 18-24 months for follow up (7) Carpal tunnel syndrome of right wrist: Code(s): G56.01 - Carpal tunnel syndrome, right upper limb Plan: NCV done back in May 2020 revealed (+) findings of mild CTS on the right wrist; EMG was normal (NCV in 2010 revealed moderate CTS) Encouraged to continue using her wrist splints as often as she can to help minimize/manage her wrist symptoms (8) Depression: Code(s): F32.A - Depression, unspecified Qualifiers: Depression Type: unspecified Qualified Code(s): F32.A - Depression, unspecified Plan: Was started on Duloxetine 60 mg QD earlier this year - is again not sure why she is no longer taking this (9) Overweight (BMI 25.0-29.9): Code(s): E66.3 - Overweight Plan: Reinforced diet; exercise and weight loss are unrealistic at this time given her current multiple issues and conditions Plan Follow up in 3 months Orders: Orders Comprehensive [facility]. Panel Fast 3 Months E78.00 - Pure hypercholesterolemia, unspecified Lipid Panel 3 Months E78.00 - Pure hypercholesterolemia, unspecified C Reactive Protein 3 Months L40.50 - Arthropathic psoriasis, unspecified TSH reflex Free T4 3 Months E78.00 - Pure hypercholesterolemia, unspecified, L40.50 - Arthropathic psoriasis, unspecified Vitamin D 25-OH Total 3 Months E55.9 - Vitamin D deficiency, unspecified, L40.50 - Arthropathic psoriasis, unspecified Complete Blood Count Auto Diff 3 Months I10 - Essential (primary) hypertension, L40.50 - Arthropathic psoriasis, unspecified Erythrocyte Sedimentation Rate 3 Months L40.50 - Arthropathic psoriasis, unspecified, M79.7 - Fibromyalgia UA CC w/rflx Micro + Cult 3 Months L40.50 - Arthropathic psoriasis, unspecified, R30.0 - Dysuria Coding Level of Care Code Est Pt Level 4 (81391) Diagnoses Psoriatic arthritis L40.50 Pure hypercholesterolemia E78.00 Asthma J45.31 Asthma severity: mild Asthma persistence: persistent Asthma complication type: with acute exacerbation Myalgia M79.10 Irritable bowel syndrome with constipation K58.1 Hepatic steatosis K76.0 Carpal tunnel syndrome of right wrist G56.01 Depression F32.A Depression Type: unspecified Overweight (BMI 25.0-29.9) E66.3
== END 2023-06-04 15:42 | disposition home or self-care (01) ==
PROVIDERS: Visit Provider Internal Medicine
DX: J45.31 Mild persistent asthma with (acute) exacerbation (principal); L40.50 Arthropathic psoriasis, unspecified; K58.1 Irritable bowel syndrome with constipation; E78.00 Pure hypercholesterolemia, unspecified; M79.10 Myalgia, unspecified site; K76.0 Fatty (change of) liver, not elsewhere classified; G56.01 Carpal tunnel syndrome, right upper limb; F32.A Depression, unspecified; E66.3 Overweight
CPT/HCPCS: 99214

== ENCOUNTER → 2023-06-14 13:02 | Outpatient (BNVA) | payer OTHER, SELFPAY | PROVIDERS: PCP Internal Medicine; Visit Provider Physician Assistant Medical | DX: S63.502D Unspecified sprain of left wrist, subsequent encounter (principal); S63.602D Unspecified sprain of left thumb, subsequent encounter; W50.2XXD Accidental twist by another person, subsequent encounter | CPT/HCPCS: 99213 ==

== ENCOUNTER 2023-06-16 14:30 | Outpatient (RCR) | payer OTHER, SELFPAY ==
--- NOTE | 2023-06-24 12:09 | MHC.OT.DC ---
[address] [phone] F: [phone] Occupational Therapy Discharge Note Patient Name: Yessenia Woody Provider: Jyothi Marie Diagnosis: Left wrist /thumb sprain (pre multi joint stiffness , pain, edema from reaction from statin drug. Thumb and index worsening after accident in March) Date of Surgery: Date of Evaluation: 05/14/23 Date of Discharge: Treatments to Date: 10 Cancellations to Date: No Shows to Date: Discharge Status: Achieved Goals Improved Function Discharge Summary: Improved left hand and wrist pain, ROM and strength. Goals met. Pt reports she is at her prior level with home and work tasks Continued left hand thumb IPj and index stiffness due to arthritis Continued complaint of constant paresthesia. Positive Tinels , with impaired light touch sensation on the right hand and diminished light touch on the left . Pt has been encouraged to continue to wear wrist splint at night for CTS sx and continue tendon glides and median nerve glides Electronically Signed By: Ramona Jiménez OT CHT CLT Reviewed/agree with student documentation: Therapist: Please Sign and return to therapist, thank you for your referral.
== END 2023-06-24 12:10 | disposition home or self-care (01) ==
LOC: HO.OT 14:30
PROVIDERS: PCP Internal Medicine; Visit Provider Physician Assistant
DX: S63.502D Unspecified sprain of left wrist, subsequent encounter (principal); S63.602D Unspecified sprain of left thumb, subsequent encounter
CPT/HCPCS: 97035; 97110; 97166; 97530

== ENCOUNTER 2023-06-22 11:33 | Outpatient (AMB) | payer OTHER, SELFPAY ==
--- NOTE | 2023-06-22 11:36 | MHC.OFFVIS ---
Intake Vital Signs 06/22/23 11:37 Height 5 ft 2 in Weight 143 lb 8.335 oz BMI 26.2 BP 132/60 Blood Pressure Location Lt brachial Position Sitting Pulse 70 Pulse Source Pulse Oximeter Temp 98 F Temp Source Skin Pulse Oximetry (%) 97 Oxygen Delivery Method Room Air Intake Visit Reasons: psa Intake Note: Here to follow up on PsA. 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 She is currently taking prednisone 5 mg twice a day and takes Skyrizi. She has received 2 doses of the Skyrizi and would be due for the next interval dose( 12 weeks) around mid July. She thinks there has been improvement but she still has discomfort aching across a few the MCPs in the left hand and the left 2nd PIP which is also somewhat swollen. She takes Tylenol on days that she goes to work and that helps her. She did get back to work on June 16 after having taking time off because of the painful hand swelling. She does not seem to have any side effects with the Skyrizi. She is complaining of some pleuritic pains in her chest. Basically this is in the lower rib margins. She does have asthma but it sounds like she takes the Breo Ellipta inhaler just when she thinks she needs it. She also has some albuterol inhaler. She lives in apartment complex with apparently a lot of smokers so feels she gets exposed to lot of secondhand smoke. [facility] Medical History (Updated 06/22/23 @ 13:01 by Franklin Hernandez MD) Asthma Carpal tunnel syndrome of right wrist Depression Hepatic steatosis Irritable bowel syndrome with constipation Overweight (BMI 25.0-29.9) Psoriatic arthritis Pure hypercholesterolemia Surgical History History of tubal ligation Hx of colonoscopy Family History Mother Arthritis Diabetes Sister Uterine cancer Maternal Aunt Cervical cancer Colon cancer Maternal Uncle Colon cancer Social History (Updated 06/22/23 @ 11:47 by MADISYN Nick) Household Members: Family and Children Housing: Apartment Alcohol intake: never Patient Tobacco Use Status: Never used Tobacco e-Cigarette/Vaping Use: Never Used Second Hand Smoke Exposure: Yes service: No Current occupational status: employed 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 Negative palpitations, edema and syncope Resp Details: Negative for SOB, cough and wheezing GI Details: Negative indigestion/heartburn, nausea, abdominal pain, bowel changes, diarrhea, constipation and bloody stool. Skin/Breast Details: Negative for itching, rash, hives, Raynaud's symptoms, sun sensitivity, and skin cancer Endo Details: Negative for polyuria and polydypsia Kan/Lymph Details: Negative for excessive bruising or bleeding. Physical Exam Vital Signs: Last Vital Signs Temp 98 F 06/22/23 11:37 Pulse 70 06/22/23 11:37 BP 132/60 06/22/23 11:37 Pulse Ox 97 06/22/23 11:37 Oxygen Delivery Method Room Air 06/22/23 11:37 BMI result Body Mass Index 26.2 APPEARANCE: Patient in no acute distress EYES no redness, pupils equal and reactive to light, eyelids normal LUNG: Clear to percussion and auscultation ABD: Normal bowel sounds, no organomegaly, masses or tenderness. EXTREMITIES: No edema, no calf tenderness, normal peripheral pulses. SKIN: Some dryness over the elbows but otherwise no psoriatic lesions. JOINT EXAM:.?? Cervical Spine:.? Full range of motion without pain; no tenderness. Thoracic Spine:.? No scoliosis.? No tenderness on palpation. Lumbar Spine:.? Alignment normal.? Full range of motion without pain, no tenderness. Chest Wall:.? No tenderness, swelling, increased warmth or erythema. Hands:.? Left: Mild tenderness and questionable swelling of the 1st 3 MCP joints. There is slight swelling and mild tenderness at the 2nd PIP where there is painful range of motion. Other joints seem to have no tenderness or swelling. Right: Normal pain-free range of motion without tenderness, swelling, increased warmth or erythema. Able to make a full fist and has a good slitter and rewinder strength. Wrists:.? Left: Slight discomfort with 75 degrees flexion or extension with some mild tenderness but no swelling. Right: Normal pain-free range of motion without tenderness, swelling, increased warmth or erythema. Elbows:. Normal pain-free range of motion without tenderness, swelling, increased warmth or erythema. Shoulders:.?? Full range of motion without pain. No tenderness, weakness, swelling, increased warmth or erythema. Hips:.? Full range of motion without pain. Hip bursa:.? No tenderness. Knees:.?? Normal pain-free range of motion without tenderness, swelling, increased warmth or erythema.? There is no effusion or crepitation Ankles:.? Normal pain-free range of motion without tenderness, swelling, increased warmth or erythema. Feet:.? Normal pain-free range of motion without tenderness, swelling, increased warmth or erythema. Results Reviewed Results Reviewed: Laboratory Tests 01/19/23 02/19/23 03/29/23 16:24 09:24 16:06 WBC 6.4 Hgb 11.4 L ESR 86 H Creatinine AST ALT C-Reactive Protein Hep Bs Antigen Negative Hep Bs Antibody REACTIVE Hepatitis C Ab (EIA) Nonreactive 03/29/23 06/03/23 06/03/23 16:06 09:06 Unknown WBC 6.9 Hgb 12.5 ESR 25 H Creatinine AST ALT C-Reactive Protein 2.57 H Hep Bs Antigen Hep Bs Antibody Hepatitis C Ab (EIA) 06/03/23 Unknown WBC Hgb ESR Creatinine 0.78 AST 16 ALT 19 C-Reactive Protein 0.31 Hep Bs Antigen Hep Bs Antibody Hepatitis C Ab (EIA) Assessment & Plan Assessment & Plan (1) Long-term use of immunosuppressant medication: Code(s): Z79.60 - long term acute care registered nurse (current) use of unspecified immunomodulators and immunosuppressants (2) Psoriasis: Code(s): L40.9 - Psoriasis, unspecified (3) Psoriatic arthritis: Comment: Methotrexate- October 2013 stopped due to elevated LFTs, Enbrel- 09/2014- stopped due to fatigue, and feeling sick, injection site reaction. Humira- 11/2014- April 202201/2023-03/2023 Guilhermelara, not helpful 04/2023 - Skyrizi Code(s): L40.50 - Arthropathic psoriasis, unspecified Plan She still has some swelling and tenderness at 2nd MCP and some tenderness at the MCPs in that left hand. This is an improvement from previously but still she has some synovitis. She is also on prednisone which may be giving her more improvement than the Skyrizi. The ESR and CRP have shown good improvement on the new medication. We will recheck her blood work before next visit. We will try to get her in before the next dose of Skyrizi to see if the improvement continues or backs off. I put in lab work to be done before that visit. The pleuritic pains do sound like chest wall pains; I told her to get back on regular use of the Breo Ellipta inhaler to control her asthma. She may have some intercostal inflammation from her inflammatory disease but if the asthma is not well controlled there porsha be more stress on those joints. She will stay with the prednisone at 5 mg twice a day for now. Orders: Orders Alanine Aminotransferase Today L40.50 - Arthropathic psoriasis, unspecified, Z79.899 - Other parts counterman (current) drug therapy Aspartate Amino Transferase Today L40.50 - Arthropathic psoriasis, unspecified, Z79.899 - Other parts counterman (current) drug therapy Creatinine Today L40.50 - Arthropathic psoriasis, unspecified, Z79.899 - Other senior care (current) drug therapy C Reactive Protein Today L40.50 - Arthropathic psoriasis, unspecified Complete Blood Count Auto Diff Today L40.50 - Arthropathic psoriasis, unspecified, Z79.899 - Other senior care (current) drug therapy Erythrocyte Sedimentation Rate Today L40.50 - Arthropathic psoriasis, unspecified Coding Level of Care Code Est Pt Level 3 (11834) Diagnoses Long-term use of immunosuppressant medication Z79.60 Psoriasis L40.9 Psoriatic arthritis L40.50
[2023-06-22 11:37] VITALS: BP 132/60; PULSE 70; TEMP 36.6; O2SAT 97; BMI 26.2
== END 2023-06-22 12:15 | disposition home or self-care (01) ==
PROVIDERS: PCP Internal Medicine; Visit Provider Internal Medicine Rheumatology
DX: Z79.60 Long term (current) use of unspecified immunomodulators and immunosuppressants (principal); L40.9 Psoriasis, unspecified; L40.50 Arthropathic psoriasis, unspecified
CPT/HCPCS: 99213

== ENCOUNTER → 2023-06-22 11:33 | Outpatient (BNVA) | payer OTHER, SELFPAY | PROVIDERS: PCP Internal Medicine; Visit Provider Internal Medicine Rheumatology | DX: L40.50 Arthropathic psoriasis, unspecified (principal); L40.9 Psoriasis, unspecified; Z79.52 Long term (current) use of systemic steroids; Z79.60 Long term (current) use of unspecified immunomodulators and immunosuppressants | CPT/HCPCS: 99212 ==

== ENCOUNTER 2023-08-03 11:55 | Outpatient (REF) | payer OTHER, SELFPAY ==
[2023-08-03 12:20] LABS: MANUAL DIFF FLAG NO
[2023-08-03 12:44] LABS: Basophils Absolute Auto 0.1 X10*3/uL (0.0-0.2); Eosinophils Absolute Auto 0.1 X10*3/uL (0.0-0.4); Hematocrit 39.1 % (37.0-47.0); Hemoglobin 12.9 g/dl (12.0-16.0); Imm Gran Abs Auto 0.01 X10*3/uL (0.00-0.03); Imm Gran Pct Auto 0.2 % (0.0-0.4); Lymphocytes Absolute Auto 1.3 X10*3/uL (1.2-4.9); Lymphocytes Percent Auto 25.9 % (20-40); Mean Corpuscular Hemoglobin 29.3 pg (27.0-33.0); Mean Corpuscular Volume 88.9 fL (80.0-98.0); Mean Platelet Volume 9.8 fL (9.4-12.3); Monocytes Absolute Auto 0.3 X10*3/uL (0.1-1.2); Monocytes Percent Auto 5.3 % (2-11); Neutrophils Absolute Auto 3.3 x10*3/uL (2.0-8.3); Neutrophils Percent Auto 65.6 % (45-73); Platelet Count 281 X10*3/uL (160-400); Red Cell Distribution Width 13.5 % (11.0-16.0); White Blood Count 5.1 X10*3/uL (4.8-10.8)
[2023-08-03 13:18] LABS: Alanine Aminotransferase 17 U/L (0-31); Aspartate Amino Transferase 28 U/L (5-31); C Reactive Protein 0.18 mg/dL (< or = 0.50); Estimated Glomerular Filt Rate > 60
[2023-08-03 13:32] LABS: Erythrocyte Sedimentation Rate 28 MM/HR (0-20)
== END 2023-08-03 11:56 | disposition home or self-care (01) ==
LOC: HO.LAB 11:55
PROVIDERS: PCP Internal Medicine; Visit Provider Internal Medicine Rheumatology
DX: L40.50 Arthropathic psoriasis, unspecified (principal); Z79.899 Other long term (current) drug therapy
CPT/HCPCS: 36415; 82565; 84450; 84460; 85025; 85652; 86140

== ENCOUNTER 2023-08-04 08:58 | Outpatient (AMB) | payer OTHER, SELFPAY ==
--- NOTE | 2023-08-04 09:06 | MHC.OFFVIS ---
Intake Vital Signs 08/04/23 09:07 Height 5 ft 2 in Weight 143 lb 4.807 oz BMI 26.2 BP 102/70 Blood Pressure Location Lt brachial Position Sitting Pulse 85 Pulse Source Pulse Oximeter Temp 97.9 F Temp Source Skin Pulse Oximetry (%) 97 Oxygen Delivery Method Room Air Intake Visit Reasons: PSA Intake Note: Patient presents today to follow up on PsA and test results. 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 Accompanied by: Self / Same As Patient Allergies acetaminophen [From Vicodin] Adverse Reaction (Intermediate, Verified 08/04/23 09:09) Nausea, vomiting, dizziness hydrocodone [From Vicodin] Adverse Reaction (Intermediate, Verified 08/04/23 09:09) Nausea, vomiting, dizziness atorvastatin Adverse Reaction (Mild, Verified 08/04/23 09:09) Swelling Medication List - Last Reconciled 08/04/23 by Franklin Hernandez MD albuterol sulfate 1.25 mg (3 mL) continuous nebulization QID PRN 30 days magnesium oxide 400 mg PO BID phmfxcoe-[id number]-[id number]-FA-vit K-lut 8 mg iron-400 mcg-50 mcg (Multivitamin Women 50 Plus) 1 tab PO DAILY [nebulizer Use as directed 4 times a day as needed] omega-3 fatty acids 1,000 mg PO DAILY prednisone 5 mg PO BID risankizumab-rzaa (Skyrizi) 150 mg SC at weeks 0, 4 and then every 12 weeks vitamin E (dl, acetate) 400 units PO BID HPI HPI Comments History of Present Illness Details The patient returns for evaluation of her psoriatic arthritis. She remains on prednisone 5 mg tablets, supposedly 5 mg twice a day. 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 On other days when she is not going to work she does not take any prednisone. This does not seem to make a difference in terms of synovitis on the non-working days. 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 She has received now 3 doses of the Skyrizi. There has been no evidence of psoriasis recently. Most of her pain when it occurs seems to be in the left hand across the MCP and PIP regions. There is also some left ankle and left shoulder pain at times. [facility] Medical History (Updated 06/22/23 @ 13:01 by Franklin Hernandez MD) Depression Hepatic steatosis Overweight (BMI 25.0-29.9) Psoriatic arthritis Carpal tunnel syndrome of right wrist Irritable bowel syndrome with constipation Pure hypercholesterolemia Asthma Surgical History Hx of colonoscopy History of tubal ligation Family History Mother Arthritis Diabetes Sister Uterine cancer Maternal Aunt Cervical cancer Colon cancer Maternal Uncle Colon cancer Social History Household Members: Family and Children Housing: Apartment Alcohol intake: never Patient Tobacco Use Status: Never used Tobacco e-Cigarette/Vaping Use: Never Used Second Hand Smoke Exposure: Yes service: No Current occupational status: employed 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 Skin/Breast Details: Negative for itching, rash, hives, Raynaud's symptoms, sun sensitivity, and skin cancer Endo Details: Negative for polyuria and polydypsia Kan/Lymph Details: Negative for excessive bruising or bleeding. Physical Exam Vital Signs: Last Vital Signs Temp 97.9 F 08/04/23 09:07 Pulse 85 08/04/23 09:07 BP 102/70 08/04/23 09:07 Pulse Ox 97 08/04/23 09:07 Oxygen Delivery Method Room Air 08/04/23 09:07 BMI result Body Mass Index 26.2 APPEARANCE: Patient in no acute distress EYES no redness, pupils equal and reactive to light, eyelids normal EXTREMITIES: No edema, no calf tenderness, normal peripheral pulses. NEURO: Oriented and alert x3. No focal weakness. Reflexes symmetric. Gait normal. SKIN: No inflammatory or neoplastic lesions. Normal color and turgor JOINT EXAM: Cervical Spine:.? Full range of motion without pain; no tenderness. Thoracic Spine:.? No scoliosis.? No tenderness on palpation. Lumbar Spine:.? Alignment normal.? Full range of motion without pain, no tenderness. Chest Wall:.? No tenderness, swelling, increased warmth or erythema. Hands:.? Left: There is slight swelling of the 1st 3 MCP joints. The 2nd 3rd have some minimal tenderness. There is slight swelling and mild tenderness at the 2nd PIP where there is painful range of motion. Other joints seem to have no tenderness or swelling. Right: Normal pain-free range of motion without tenderness, swelling, increased warmth or erythema. Able to make a full fist and has a good forest biometrics professor strength. Wrists:.? Left: Slight discomfort with 75 degrees flexion or extension with some mild tenderness but no swelling. Right: Normal pain-free range of motion without tenderness, swelling, increased warmth or erythema. Elbows:. Normal pain-free range of motion without tenderness, swelling, increased warmth or erythema. Shoulders:.?? Full range of motion without pain. No tenderness, weakness, swelling, increased warmth or erythema. Hips:.? Full range of motion without pain. Hip bursa:.? No tenderness. Knees:.?? Normal pain-free range of motion without tenderness, swelling, increased warmth or erythema.? There is no effusion or crepitation Ankles:.? Normal pain-free range of motion without tenderness, swelling, increased warmth or erythema. Feet:.? Normal pain-free range of motion without tenderness, swelling, increased warmth or erythema. epicondyle, knees, greater trochanter and gluteal area bilaterally. ? Results Reviewed Results Reviewed: Laboratory Tests 08/03/23 08/03/23 08/03/23 12:16 12:16 Unknown WBC 5.1 Hgb 12.9 ESR 28 H Creatinine 0.76 C-Reactive Protein 0.[address] [address] XRay Report Signed Patient: Yessenia Woody MR#: [id number] : [birth year] Acct:[id number] Age/Sex: 51 / F ADM Date: 03/09/[address]: Cathy Jacobs NP Ordering Physician: Cathy Jacobs NP Date of Service: 03/09/22 Procedure(s): XR hand RT min 3V Accession Number(s): [id number] cc: Cathy Jacobs GENERAL MACHINE OPERATOR~ EXAMINATION: X-RAY BILATERAL HANDS CLINICAL INFORMATION: Psoriatic arthropathy COMPARISON: X-ray right hand 09/04/2018 TECHNIQUE: Right hand 3 views. Left hand 3 views. FINDINGS: Left hand: Normal bone mineralization. No fracture or dislocation. Minimal first CMC osteoarthritis. No significant arthropathy is otherwise evident. No erosions or periosteal changes seen. No abnormal soft tissue calcification. Right hand: Normal bone mineralization. No fracture or dislocation. Minimal first IP joint arthritis. Minimal first CMC joint arthritis. No erosions or abnormal soft tissue calcification is seen. XR/XR hand RT min 3V IMPRESSION: -Mild left first CMC osteoarthritis. -Minimal right first IP joint and CMC joint osteoarthritis. Dictated By: Bryson Hawkins MD Assessment & Plan Assessment & Plan (1) Long-term use of immunosuppressant medication: Code(s): Z79.60 - penitentiary (current) use of unspecified immunomodulators and immunosuppressants (2) Psoriatic arthritis: Comment: Methotrexate- October 2013 stopped due to elevated LFTs, Enbrel- 09/2014- stopped due to fatigue, and feeling sick, injection site reaction. Humira- 11/2014- April 202201/2023-03/2023 Guilhermela, not helpful 04/2023 - Skyrizi Code(s): L40.50 - Arthropathic psoriasis, unspecified Plan The patient still has a few tender joints in the left hand but there is minimal swelling. There also some radiographic changes suggesting that previous synovitis may have caused some damage to the joints. I think in general she has done better with the Skyrizi, particularly there has been improvement in the acute phase reactant levels. We will continue with the Skyrizi for now. I think she could do with less prednisone. We discussed potential side effects with even low-dose prednisone. I told her to reduce the prednisone to just 5 mg on the nights she does do her work. We will see how that helps her over the next few months. A return in 3 months or so is reasonable. 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
[2023-08-04 09:07] VITALS: BP 102/70; PULSE 85; TEMP 36.6; O2SAT 97; BMI 26.2
== END 2023-08-04 10:12 | disposition home or self-care (01) ==
PROVIDERS: PCP Internal Medicine; Visit Provider Internal Medicine Rheumatology
DX: Z79.60 Long term (current) use of unspecified immunomodulators and immunosuppressants (principal); L40.50 Arthropathic psoriasis, unspecified
CPT/HCPCS: 99213

== ENCOUNTER → 2023-08-04 08:58 | Outpatient (BNVA) | payer OTHER, SELFPAY | PROVIDERS: PCP Internal Medicine; Visit Provider Internal Medicine Rheumatology | DX: L40.50 Arthropathic psoriasis, unspecified (principal); Z79.60 Long term (current) use of unspecified immunomodulators and immunosuppressants | CPT/HCPCS: 99212 ==

== ENCOUNTER 2023-09-07 07:45 | Outpatient (REF) | payer OTHER, SELFPAY ==
[2023-09-07 07:57] LABS: MANUAL DIFF FLAG NO
[2023-09-07 08:01] LABS: Basophils Percent Auto 0.8 % (0-2); Eosinophils Absolute Auto 0.1 X10*3/uL (0.0-0.4); Hematocrit 40.7 % (37.0-47.0); Hemoglobin 13.3 g/dl (12.0-16.0); Imm Gran Abs Auto 0.02 X10*3/uL (0.00-0.03); Imm Gran Pct Auto 0.4 % (0.0-0.4); Lymphocytes Absolute Auto 1.7 X10*3/uL (1.2-4.9); Lymphocytes Percent Auto 32.8 % (20-40); Mean Corpuscular HGB Conc 32.7 g/dl (31.0-35.0); Mean Corpuscular Volume 91.9 fL (80.0-98.0); Mean Platelet Volume 9.2 fL (9.4-12.3); Monocytes Absolute Auto 0.3 X10*3/uL (0.1-1.2); Monocytes Percent Auto 6.7 % (2-11); Neutrophils Absolute Auto 2.9 x10*3/uL (2.0-8.3); Neutrophils Percent Auto 57.3 % (45-73); Platelet Count 278 X10*3/uL (160-400); Red Blood Count 4.43 X10*6/uL (4.20-5.50); White Blood Count 5.1 X10*3/uL (4.8-10.8)
[2023-09-07 08:25] LABS: Alanine Aminotransferase 23 U/L (0-31); Albumin Level 4.6 g/dL (3.5-5.0); Alkaline Phosphatase 70 U/L (39-117); Anion Gap 10 (12-20); Aspartate Amino Transferase 20 U/L (5-31); Bilirubin Total 0.9 mg/dL (0.0-1.0); Blood Urea Nitrogen 10 mg/dL (9-16); C Reactive Protein 0.21 mg/dL (< or = 0.50); Calcium 10.1 mg/dL (8.4-10.2); Carbon Dioxide 30 mmol/L (22-29); Chloride 104 mmol/L (96-108); Cholesterol 249 mg/dL (<200); Estimated Glomerular Filt Rate > 60; Glucose Fasting 93 mg/dL (60-99); HDL Cholesterol 41 mg/dL (>40); LDL Cholesterol Calculated 158 mg/dL (<100); Potassium 4.2 mmol/L (3.3-5.1); Sodium 140 mmol/L (135-145); Total Protein 8.7 g/dL (6.5-8.0); Triglycerides 251 mg/dL (<150)
[2023-09-07 08:32] LABS: Appearance Urine Clear; Color Urine Yellow; Glucose Urine UA Negative (Negative); Leukocyte Esterase Urine Trace (Negative); Nitrite Urine Negative (Negative); PH 5.5 (5.0-9.0); UMIC TRIGGER UACC YES; Urine Blood Negative (Negative); Urine Ketones Negative (Negative); Urine Protein Negative (Neg-Trace)
[2023-09-07 08:42] LABS: TSH reflex Free T4 1.36 uIU/mL (0.32-4.0); Vitamin D 25-OH Total 35.6 ng/mL (>30)
[2023-09-07 08:44] LABS: Bacteria Urine None Seen (None Seen); Hyaline Casts Urine 0-2 /LPF (0-2); Other Crystals Urine Present; WBC Urine 0-5 /HPF (0-5)
[2023-09-07 08:47] LABS: Erythrocyte Sedimentation Rate 32 MM/HR (0-20)
== END 2023-09-07 07:46 | disposition home or self-care (01) ==
LOC: HO.LAB 07:45
PROVIDERS: Internal Medicine Rheumatology; PCP Internal Medicine; Visit Provider Internal Medicine
DX: E78.00 Pure hypercholesterolemia, unspecified (principal); E55.9 Vitamin D deficiency, unspecified; L40.50 Arthropathic psoriasis, unspecified; I10 Essential (primary) hypertension; Z79.60 Long term (current) use of unspecified immunomodulators and immunosuppressants
CPT/HCPCS: 36415; 80053; 80061; 81001; 82306; 84443; 85025; 85652; 86140

== ENCOUNTER 2023-09-08 15:01 | Outpatient (AMB) | payer OTHER, SELFPAY ==
[2023-09-08 15:02] VITALS: BP 122/86; PULSE 70; O2SAT 98; BMI 25.5
--- NOTE | 2023-09-08 15:02 | A.OFFPC_ITS ---
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 Accompanied by: Self / Same As Patient Allergies acetaminophen [From Vicodin] Adverse Reaction (Intermediate, Verified 09/08/23 15:30) Nausea, vomiting, dizziness hydrocodone [From Vicodin] Adverse Reaction (Intermediate, Verified 09/08/23 15:30) Nausea, vomiting, dizziness atorvastatin Adverse Reaction (Mild, Verified 09/08/23 15:30) Swelling Medication List - Last Reconciled 09/08/23 by Jared Hernandez MD albuterol sulfate 1.25 mg (3 mL) continuous nebulization QID PRN 30 days magnesium oxide 400 mg PO BID vjbtkrmn-[id number]-uskx-FA-vit K-lut 8 mg iron-400 mcg-50 mcg (Multivitamin Women 50 Plus) 1 tab PO DAILY [nebulizer Use as directed 4 times a day as needed] omega-3 fatty acids 1,000 mg PO DAILY prednisone 5 mg PO BID risankizumab-rzaa (Skyrizi) 150 mg SC at weeks 0, 4 and then every 12 weeks vitamin E (dl, acetate) 400 units PO BID Tobacco use date assessed: 09/08/23 Dental Screening Dental Screen Date: 09/08/23 Did you have a dental visit in the last 12 months?: No Did you have a dental problem in the last 6 months where you did not have access to dental care?: No Was dental information given to patient?: No HPI 3 month f/u HPI Details Patient comes in today for her follow up visit States that she has been experiencing a frequent sensation of increased mucus/phlegm in her throat and chest area often lately and she is unable to clear up or relieve her sensation of congestion no matter how hard or how often she coughs or tries to clear her throat States that the symptoms will get so bad sometimes that she feels like she is choking when she swallows during eating or drinking She denies any fever or sore throat and denies any recent cough/cold symptoms Her psoriatic arthritis is currently being treated with Skyrizi, which is managed by Dr. Hernandez but she was informed at her recent follow up visit with him that he is planning on retiring soon and she will be seeing another provider for her next follow up visit She denies any headaches or dizziness lately Denies any chest pains, no increased SOB No nausea/vomiting, no abdominal pain No change in bowel habits noted She would also like to get a dermatology referral to see if she can have her numerous skin tags on the right side of her neck removed as they are started to irritate/bother her Had her follow up labs done yesterday - to discuss her results Would also like to get her flu shot today [facility] Medical History Depression Hepatic steatosis Overweight (BMI 25.0-29.9) Psoriatic arthritis Carpal tunnel syndrome of right wrist Irritable bowel syndrome with constipation Pure hypercholesterolemia Asthma Surgical History Hx of colonoscopy History of tubal ligation Family History Mother Arthritis Diabetes Sister Uterine cancer Maternal Aunt Cervical cancer Colon cancer Maternal Uncle Colon cancer Household Members: Family and Children Housing: Apartment Alcohol intake: never Patient Tobacco Use Status: Never used Tobacco e-Cigarette/Vaping Use: Never Used Second Hand Smoke Exposure: Yes service: No Current occupational status: employed 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 1. Little interest or pleasure in doing things: several days 2. Feeling down, depressed, or hopeless: several days 3. Trouble falling or staying asleep, or sleeping too much: several days 4. Feeling tired or having little energy: several days 5. Poor appetite or overeating: not at all 6. Feeling bad about yourself - or that you are a failure or have let yourself or your family down: not at all 7. Trouble concentrating on things, such as reading the newspaper or watching television: not at all 8. Moving or speaking so slowly that other people could have noticed. Or the opposite - being so fidgety or restless that you have been moving around a lot more than usual: not at all 9. Thoughts that you would be better off or of hurting yourself in some way: not at all Total score: 4 Depression Screening Interpretation: Positive Depression Screening Follow-up: Existing condition and Declines treatment Depression Screening Done: Yes 15350 - PHQ-9 Billing: Yes Source: Developed by Drs. Bonifacio Prince, Shaila Cano, Reyes Palmer and colleagues, with an educational christiane from [employer]. Thrive Questionnaire Date Thrive assessed: 09/08/23 I am a: Patient What is your living situation today?: I have a steady place to live Within the past 12 months, did the food you bought not last and you didn't have the money to get more?: Never true Within the past 12 months, did you worry whether your food would run out before you got money to buy more?: Never true Do you have trouble paying for medicines?: No Do you have trouble getting transportation to medical appointments?: No Do you have trouble paying your heating and electricity bill?: No Do you have trouble taking care of your child, family member or friend?: No Do you have trouble with day-to-day activities such as bathing, preparing meals, shopping, managing finances, etc.?: No Are you currently unemployed and looking for a job?: No Are you interested in more education?: No Please select the resources that you would like help with: None Currently or been in a relationship where the following occur: no concerns reported AUDIT C Alcohol Use Questionnaire (AUDIT-C) 1. How often do you have a drink containing alcohol?: Never 3. How often do you have six or more drinks on one occasion?: Never Total Score: 0 Score Reviewed/Action Taken: Yes JUANITA-7 AMB Questionnaire JUANITA-7 Date JUANITA - 7 assessed: 09/08/23 Feeling nervous, anxious, or on edge: 1 = Several days Not being able to stop or control worryin = Not at all Worrying too much about different things: 0 = Not at all Trouble relaxin = Not at all Being so restless that it is hard to sit still: 0 = Not at all Becoming easily annoyed or irritable: 0 = Not at all Feeling afraid as if something awful might happen: 0 = Not at all Total JUANITA-7 score (0-4 normal; 5-9 mild; 10-14 moderate; 15-21 severe): 1 Source: Developed by Drs. Bonifacio Prince, Shaila Cano, Reyes Palmer and colleagues, with an educational christiaen from [employer]. Review of Systems Const Reports body aches (diffuse), Denies chills, Reports fatigue, Denies fever(s) and Denies headache(s) Eyes Denies blurry vision ENT Details: frequent sensation of increased mucus/phlegm in her throat and chest area often Denies dysphagia (but feels like choking at times due to the increased phlegm in throat), Denies dizziness, Denies otalgia, Denies headache(s), Denies nasal congestion, Reports neck pain, Denies odynophagia and Denies sore throat Card Denies chest pain, Denies rapid heart rate, Denies palpitations and Denies dyspnea Resp Denies chest congestion, Denies cough, Denies dyspnea and Denies wheezing GI Denies abdominal pain, Denies constipation, Denies dysphagia (but feels like choking at times due to the increased phlegm in throat), Denies diarrhea, Denies nausea, Denies odynophagia and Denies vomiting Denies difficulty voiding, Denies nocturia and Denies dysuria Musc Reports back pain, Reports myalgias, Reports arthralgias (involving multiple joints), Reports neck pain and Reports stiffness Skin/Breast Denies rash Neuro Denies dizziness and Denies headache(s) Psych Reports anxiety and Reports depression Endo Reports fatigue and Denies palpitations Aller/Immun Denies wheezing Physical exam (Primary Care) Vital Signs: Last Vital Signs Pulse 70 09/08/23 15:02 BP 122/86 09/08/23 15:02 Pulse Ox 98 09/08/23 15:02 Oxygen Delivery Method Room Air 09/08/23 15:02 BMI result Body Mass Index 25.5 Tobacco/Smoking Status: Tobacco use Status Tobacco use date assessed 09/08/23 09/08/23 15:03 Patient Tobacco Use Status Never used Tobacco 09/08/23 15:03 e-Cigarette/Vaping Use Never Used 09/08/23 15:03 PHQ-9: PHQ-9 Score PHQ-9: Total score 4 09/08/23 15:31 Depression Screening Interpretation: Positive Depression Screening Follow-up: Existing condition and Declines treatment Thrive Assessment: Date of Thrive Assessment Date Thrive assessed 09/08/23 09/08/23 15:03 Currently or been in a relationship where the following occur: no concerns reported Const General: no acute distress and alert HENMT Ears: TM's normal bilaterally and EAC's normal Throat: Yes posterior oropharynx normal, Yes tonsils normal, Yes uvula midline and No postnasal drainage Neck Neck: Yes no lymphadenopathy and Yes supple Chest Chest palpation & inspection: normal inspection of the chest and no tenderness Resp Auscultation: clear to auscultation bilaterally, no crackles, no rales and no wheezes Cardio Rate: regular rate Rhythm: regular rhythm Heart sounds: no murmurs GI Palpation (GI): Soft to palpation and nontender Auscultation: normal bowel sounds General: Yes no CVA tenderness Back/Spine/Pelvis Back: no CVA tenderness Skin Rashes: no rashes Extrem Other: (+) tenderness and swelling noted on several fingers of both hands General: Yes no clubbing, cyanosis or edema Office Procedures Flu Questionnaire Does the patient have a severe egg allergy?: No Does the patient have severe life threatening allergies?: No Does the patient have a fever or illness today?: No Has the patient ever had Guillain-Axson Syndrome?: No Has the patient ever had any past reaction to a flu shot?: No Immunizations flu vacc [id number] 6mos up(PF) 60 mcg(15 mcgx4)/0.5 mL IM syringe Performing Provider: Jared Hernandez MD [facility] Administered by: Soledad Pretty on 09/08/23 15:33 Dose Route Admin Location Dispensed Lot Number Expiration Date NDC [employer] 0.5 mL IM Left Deltoid 0.5 mL [id number] 04/16/24 [id number] Amanda Huff DBA [employer] VIS Given Date VIS Provided VIS Publication Date 09/08/23 Single Vaccine 21 Eligibility Eligibility Date Funding Source Not [facility] Eligible 09/08/23 Private Results Reviewed Results Reviewed: Laboratory Tests 09/07/23 09/07/23 07:50 07:53 WBC 5.1 Hgb 13.3 Hct 40.7 Plt Count 278 ESR 32 H Sodium 140 Potassium 4.2 Creatinine 0.75 Estimated GFR > 60 Fasting Glucose 93 Calcium 10.1 AST 20 ALT 23 Triglycerides 251 H Cholesterol 249 H LDL Cholesterol, Calc 158 H HDL Cholesterol 41 25-OH Vitamin D Total 35.6 TSH 1.36 Ur Specific [place] 1.020 Urine Protein Negative Urine Glucose (UA) Negative Urine Blood Negative Assessment and Plan Assessment & Plan (1) Psoriatic arthritis: Comment: Methotrexate- October 2013 stopped due to elevated LFTs, Enbrel- 09/2014- stopped due to fatigue, and feeling sick, injection site reaction. Humira- 11/2014- April 202201/2023-03/2023 Guilhermelara, not helpful 04/2023 - Skyrizi Code(s): L40.50 - Arthropathic psoriasis, unspecified Plan: Is currently on Skyrizi that is being managed by rheumatology (Dr. Hernandez) - has had 3 doses so far and she appears to be tolerating the medication Rx also seems to be helping as she's had no breakouts of psoriasis so far lately although she still has recurrent pain of her joints, especially of her fingers Have discussed previously that if needed, we can start her on a trial of Gabapentin to help manage her chronic pain - patient previously declined and continues to decline as she does not wish to take any more medications if she can avoid them Follow up with rheumatology as scheduled (2) Pure hypercholesterolemia: Code(s): E78.00 - Pure hypercholesterolemia, unspecified Plan: Results of her labs done yesterday reviewed and discussed with patient - cautioned that her cholesterol levels have increased again from previous; her LDL cholesterol is now at 148 mg/dl and her total cholesterol is at 249 mg/dl She was started back on Atorvastatin 10 mg QD earlier this year but could not tolerate the Rx and had to stop taking it due to increasing edema Does not wish to take anything else for her cholesterol at this time and would like to continue working on her diet for now Reinforced low cholesterol diet - is advised that if her cholesterol numbers really cannot be improved with diet alone, then we will need to explore other options and Rx, including the new PCSK( inhibitors Will recheck her labs and fasting lipids in 4 months for follow up (3) Asthma: Code(s): J45.909 - Unspecified asthma, uncomplicated Qualifiers: Asthma complication type: with acute exacerbation Asthma persistence: persistent Asthma severity: mild Qualified Code(s): J45.31 - Mild persistent asthma with (acute) exacerbation Plan: Appears stable Continue Breo Ellipta to 200-25 mcg 1 inhalation QD and Albuterol HFA 2 inhalations every 6 hours PRN - goal is again to not have to use her Albuterol inhaler more than 3 to 4 times a week Continue Albuterol via nebulizer as well every 6 to 8 hours as needed - advised using this rather than her Albuterol inhaler when she has access to her nebulizer (4) Throat congestion: Code(s): R68.89 - Other general symptoms and signs Plan: She is advised that her exam today did not reveal any abnormality to help explain her throat and upper chest symptoms Discussed that allergy is a likely possibility although patient refutes this Will refer her to ENT for further evaluation and management (5) Myalgia: Code(s): M79.10 - Myalgia, unspecified site Plan: Were most likely related to her psoriatic arthritis flare up as her myalgia seems to have subsided somewhat lately Her symptoms are also suggestive of fibromyalgia Was started on Naproxen by rheumatology previously but patient could not tolerate Rx (due to GI symptoms) She was started on Duloxetine 60 mg QD in the past but it appears that she is no longer on this Rx - is not clear at this time why she is not on it and she has no interest to go back on it at this time (6) Irritable bowel syndrome with constipation: Code(s): K58.1 - Irritable bowel syndrome with constipation Plan: Continue Linzess 290 mcg QD - symptoms have been well-controlled on Rx so far Patient has failed to respond to Amitiza and other laxatives/stool softeners in the past Follow up with GI as scheduled (7) Hepatic steatosis: Code(s): K76.0 - Fatty (change of) liver, not elsewhere classified Plan: LFTs have improved and have remained normal on her recent labs done yesterday Will continue to monitor her LFTs regularly Last ultrasound done on 01/29/2020 showed (+) potential risk of developing fibrosis and a repeat ultrasound with elastography would be needed in 18-24 months for follow up She did have a liver elastography done back in 08/2021 that revealed (+) diffusely increased liver echogenicity suggesting hepatic steatosis. Liver elastography showed that although measurements are suggestive of compensated advanced chronic liver disease, there is statistical variability of the sampling which decreases accuracy. No significant change from imaging from a year ago (8) Carpal tunnel syndrome of right wrist: Code(s): G56.01 - Carpal tunnel syndrome, right upper limb Plan: NCV done back in May 2020 revealed (+) findings of mild CTS on the right wrist; EMG was normal (NCV in 2010 revealed moderate CTS) She is encouraged to continue using her wrist splints as often as she can to help minimize/manage her wrist symptoms (9) Skin tags, multiple acquired: Code(s): L91.8 - Other hypertrophic disorders of the skin Plan: Per request, will refer her to dermatology for consideration for excision/removal of the numnerous skin tags that she's had over the right side of her neck (10) Depression: Code(s): F32.A - Depression, unspecified Qualifiers: Depression Type: unspecified Qualified Code(s): F32.A - Depression, unspecified Plan: Was started on Duloxetine 60 mg QD earlier this year - is again not sure why she is no longer taking this and she states that she does not want to be started back on Rx at this time (11) Overweight (BMI 25.0-29.9): Code(s): E66.3 - Overweight Plan: Reinforced diet; exercise and weight loss are unrealistic at this time given her current multiple issues and conditions Plan Flu vaccine given today Follow up in 4 months Orders: Orders Complete Blood Count Auto Diff 4 Months I10 - Essential (primary) hypertension Comprehensive [place]. Panel Fast 4 Months E78.00 - Pure hypercholesterolemia, unspecified TSH reflex Free T4 4 Months E78.00 - Pure hypercholesterolemia, unspecified UA CC w/rflx Micro + Cult 4 Months R30.0 - Dysuria Influenza [id number] Immunization Today Z23 - Encounter for immunization Lipid Panel 4 Months E78.00 - Pure hypercholesterolemia, unspecified Referrals Ear/Nose/Throat Referral R68.89 - Other general symptoms and signs Dermatology Referral L91.8 - Other hypertrophic disorders of the skin Coding Level of Care Code Est Pt Level 4 (63799) Diagnoses Psoriatic arthritis L40.50 Pure hypercholesterolemia E78.00 Mild persistent asthma with acute exacerbation J45.31 Asthma complication type: with acute exacerbation Asthma persistence: persistent Asthma severity: mild Throat congestion R68.89 Myalgia M79.10 Irritable bowel syndrome with constipation K58.1 Hepatic steatosis K76.0 Carpal tunnel syndrome of right wrist G56.01 Skin tags, multiple acquired L91.8 Depression, unspecified depression type F32.A Depression Type: unspecified Overweight (BMI 25.0-29.9) E66.3
== END 2023-09-08 15:45 | disposition home or self-care (01) ==
PROVIDERS: PCP Internal Medicine; Visit Provider Internal Medicine
DX: L40.50 Arthropathic psoriasis, unspecified (principal); E78.00 Pure hypercholesterolemia, unspecified; J45.31 Mild persistent asthma with (acute) exacerbation; R68.89 Other general symptoms and signs; M79.10 Myalgia, unspecified site; K58.1 Irritable bowel syndrome with constipation; K76.0 Fatty (change of) liver, not elsewhere classified; G56.01 Carpal tunnel syndrome, right upper limb; L91.8 Other hypertrophic disorders of the skin; F32.A Depression, unspecified; E66.3 Overweight; Z23 Encounter for immunization
CPT/HCPCS: 90471; 90686; 99214

== ENCOUNTER 2023-11-03 12:40 | Outpatient (AMB) | payer OTHER, SELFPAY ==
[2023-11-03 13:02] VITALS: BP 100/70; PULSE 74; TEMP 36.1; O2SAT 98; BMI 25.7
--- NOTE | 2023-11-03 13:02 | MHC.OFFVIS ---
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 Hernandez, presents today for follow up and test results. Reports left hand swelling is still present. 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 Casas 53yoF patient returns for follow-up of her psoriatic arthritis. She has stopped the prednisone 5 mg tablets QD since last visit (08/2023). On other days when she is not going to work she does not take any prednisone. This does not seem to make a difference in terms of synovitis on the non-working days. 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 She has received now 3 doses of the Skyrizi. There has been no evidence of psoriasis recently. Most of her pain when it occurs seems to be in the left hand across the MCP and PIP regions. There is also some left ankle and left shoulder pain at times. [facility] Medical History Depression Hepatic steatosis Overweight (BMI 25.0-29.9) Psoriatic arthritis Carpal tunnel syndrome of right wrist Irritable bowel syndrome with constipation Pure hypercholesterolemia Asthma Surgical History Hx of colonoscopy History of tubal ligation Family History Mother Arthritis Diabetes Sister Uterine cancer Maternal Aunt Cervical cancer Colon cancer Maternal Uncle Colon cancer Social History Household Members: Family and Children Housing: Apartment Alcohol intake: never Patient Tobacco Use Status: Never used Tobacco e-Cigarette/Vaping Use: Never Used Second Hand Smoke Exposure: Yes service: No Current occupational status: employed 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 Current occupational exposures/hazards: No Cognitive needs: No Hearing needs: No Vision needs: No Female Reproductive History Menstrual Age of Menarche: 13 Review of Systems Const All systems reviewed & are unremarkable except as noted in HPI and below Physical Exam Vital Signs: Last Vital Signs Temp 97 F 11/03/23 13:02 Pulse 74 11/03/23 13:02 BP 100/70 11/03/23 13:02 Pulse Ox 98 11/03/23 13:02 Oxygen Delivery Method Room Air 11/03/23 13:02 BMI result Body Mass Index 25.7 APPEARANCE: Patient in no acute distress EYES no redness, pupils equal and reactive to light, eyelids normal EXTREMITIES: No edema, no calf tenderness, normal peripheral pulses. NEURO: Oriented and alert x3. No focal weakness. Reflexes symmetric. Gait normal. SKIN: No inflammatory or neoplastic lesions. Normal color and turgor JOINT EXAM: Cervical Spine:.? Full range of motion without pain; no tenderness. Thoracic Spine:.? No scoliosis.? No tenderness on palpation. Lumbar Spine:.? Alignment normal.? Full range of motion without pain, no tenderness. Chest Wall:.? No tenderness, swelling, increased warmth or erythema. Hands:.? Left: There is slight swelling of the 1st 3 MCP joints. The 2nd 3rd have some minimal tenderness. There is slight swelling and mild tenderness at the 2nd PIP where there is painful range of motion. Other joints seem to have no tenderness or swelling. Right: Normal pain-free range of motion without tenderness, swelling, increased warmth or erythema. Able to make a full fist and has a good pediatric associate strength. Wrists:.? Left: Slight discomfort with 75 degrees flexion or extension with some mild tenderness but no swelling. Right: Normal pain-free range of motion without tenderness, swelling, increased warmth or erythema. Elbows:. Normal pain-free range of motion without tenderness, swelling, increased warmth or erythema. Shoulders:.?? Full range of motion without pain. No tenderness, weakness, swelling, increased warmth or erythema. Hips:.? Full range of motion without pain. Hip bursa:.? No tenderness. Knees:.?? Normal pain-free range of motion without tenderness, swelling, increased warmth or erythema.? There is no effusion or crepitation Ankles:.? Normal pain-free range of motion without tenderness, swelling, increased warmth or erythema. Feet:.? Normal pain-free range of motion without tenderness, swelling, increased warmth or erythema. epicondyle, knees, greater trochanter and gluteal area bilaterally. ? Assessment & Plan Assessment & Plan (1) Long-term use of immunosuppressant medication: Code(s): Z79.60 - superintendent container terminal (current) use of unspecified immunomodulators and immunosuppressants (2) Psoriatic arthritis: Comment: Methotrexate- October 2013 stopped due to elevated LFTs, Enbrel- 09/2014- stopped due to fatigue, and feeling sick, injection site reaction. Humira- 11/2014- April 202201/2023-03/2023 Stelara, not helpful 04/2023 - Skyrizi Code(s): L40.50 - Arthropathic psoriasis, unspecified (3) Psoriasis: Code(s): L40.9 - Psoriasis, unspecified Plan #PsA/PsO: Ms. Casas 53 yoF here for follow-up of PsA/PsO. The patient still has a few tender joints in the left hand but there is minimal swelling. There also some radiographic changes suggesting that previous synovitis may have caused some damage to the joints. I think she continues to do well with the Skyrizi, particularly there has been improvement in the acute phase reactant levels. We will continue with the Skyrizi for now. I will consider to start her on Leflunomide at next visit and reassess. It does not appear that the hand pain has worsened other joints has flared since she stopped the prednisone. 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 Patient knows to stop her medication if she develops fever or any infections. I spent 30 minutes reviewing chart, evaluating patient and documenting. A return in 3 months or so is reasonable. Orders: Orders Erythrocyte Sedimentation Rate Today L40.50 - Arthropathic psoriasis, unspecified, Z79.60 - superintendent container terminal (current) use of unspecified immunomodulators and immunosuppressants Complete Blood Count Auto Diff Today L40.50 - Arthropathic psoriasis, unspecified, Z79.60 - superintendent container terminal (current) use of unspecified immunomodulators and immunosuppressants, Z79.899 - Other long term care pharmacist (current) drug therapy Alanine Aminotransferase Today L40.50 - Arthropathic psoriasis, unspecified, Z79.60 - residential (current) use of unspecified immunomodulators and immunosuppressants, Z79.899 - Other long term care pharmacist (current) drug therapy Creatinine Today L40.50 - Arthropathic psoriasis, unspecified, Z79.60 - superintendent container terminal (current) use of unspecified immunomodulators and immunosuppressants, Z79.899 - Other long term care pharmacist (current) drug therapy C Reactive Protein Today L40.50 - Arthropathic psoriasis, unspecified, Z79.60 - superintendent container terminal (current) use of unspecified immunomodulators and immunosuppressants Aspartate Amino Transferase Today L40.50 - Arthropathic psoriasis, unspecified, Z79.60 - superintendent container terminal (current) use of unspecified immunomodulators and immunosuppressants, Z79.899 - Other long term care pharmacist (current) drug therapy Medications: New diclofenac sodium 3% Apply to hands and fingers twice per day 1 appl topical BID 100 grams 0RF L40.50 - Arthropathic psoriasis, unspecified Coding Level of Care Code Est Pt Level 3 (58056) Diagnoses Long-term use of immunosuppressant medication Z79.60 Psoriatic arthritis L40.50 Psoriasis L40.9
== END 2023-11-03 13:48 | disposition home or self-care (01) ==
PROVIDERS: PCP Internal Medicine; Visit Provider Nurse Practitioner Family
DX: Z79.60 Long term (current) use of unspecified immunomodulators and immunosuppressants (principal); L40.50 Arthropathic psoriasis, unspecified; L40.9 Psoriasis, unspecified
CPT/HCPCS: 99213

== ENCOUNTER → 2023-11-03 12:40 | Outpatient (BNVA) | payer OTHER, SELFPAY | PROVIDERS: PCP Internal Medicine; Visit Provider Nurse Practitioner Family | DX: L40.50 Arthropathic psoriasis, unspecified (principal); L40.9 Psoriasis, unspecified; Z79.60 Long term (current) use of unspecified immunomodulators and immunosuppressants | CPT/HCPCS: 99212 ==

== ENCOUNTER 2024-01-31 09:28 | Outpatient (REF) | payer OTHER, SELFPAY ==
[2024-01-31 09:46] LABS: MANUAL DIFF FLAG NO
[2024-01-31 10:54] LABS: Basophils Percent Auto 0.7 % (0-2); Eosinophils Absolute Auto 0.1 X10*3/uL (0.0-0.4); Eosinophils Percent Auto 2.2 % (0-4); Hematocrit 39.8 % (37.0-47.0); Hemoglobin 13.2 g/dl (12.0-16.0); Imm Gran Abs Auto 0.01 X10*3/uL (0.00-0.03); Imm Gran Pct Auto 0.2 % (0.0-0.4); Lymphocytes Absolute Auto 1.7 X10*3/uL (1.2-4.9); Lymphocytes Percent Auto 37.9 % (20-40); Mean Corpuscular HGB Conc 33.2 g/dl (31.0-35.0); Mean Corpuscular Hemoglobin 30.3 pg (27.0-33.0); Mean Corpuscular Volume 91.3 fL (80.0-98.0); Mean Platelet Volume 10.2 fL (9.4-12.3); Monocytes Absolute Auto 0.3 X10*3/uL (0.1-1.2); Monocytes Percent Auto 6.5 % (2-11); Neutrophils Absolute Auto 2.4 x10*3/uL (2.0-8.3); Neutrophils Percent Auto 52.5 % (45-73); Platelet Count 264 X10*3/uL (160-400); Red Blood Count 4.36 X10*6/uL (4.20-5.50); Red Cell Distribution Width 12.6 % (11.0-16.0); White Blood Count 4.5 X10*3/uL (4.8-10.8)
[2024-01-31 11:59] LABS: Alanine Aminotransferase 44 U/L (0-31); Albumin Level 4.6 g/dL (3.5-5.0); Alkaline Phosphatase 59 U/L (39-117); Anion Gap 14 (12-20); Aspartate Amino Transferase 31 U/L (5-31); Bilirubin Total 0.7 mg/dL (0.0-1.0); Blood Urea Nitrogen 10 mg/dL (9-16); Calcium 9.9 mg/dL (8.4-10.2); Carbon Dioxide 26 mmol/L (22-29); Chloride 106 mmol/L (96-108); Cholesterol 264 mg/dL (<200); Estimated Glomerular Filt Rate > 60; Glucose Fasting 102 mg/dL (60-99); HDL Cholesterol 42 mg/dL (>40); LDL Cholesterol Calculated 183 mg/dL (<100); Potassium 4.7 mmol/L (3.3-5.1); Sodium 141 mmol/L (135-145); Total Protein 8.3 g/dL (6.5-8.0); Triglycerides 199 mg/dL (<150)
[2024-01-31 12:00] LABS: TSH reflex Free T4 1.23 uIU/mL (0.32-4.0)
[2024-01-31 14:10] LABS: Appearance Urine Clear; Color Urine Yellow; Glucose Urine UA Negative (Negative); Leukocyte Esterase Urine Negative (Negative); Nitrite Urine Negative (Negative); Urine Blood Negative (Negative); Urine Ketones Negative (Negative); Urine Protein Negative (Neg-Trace)
== END 2024-01-31 09:29 | disposition home or self-care (01) ==
LOC: HO.LAB 09:28
PROVIDERS: PCP Internal Medicine; Visit Provider Nurse Practitioner Family
DX: E78.00 Pure hypercholesterolemia, unspecified (principal); R30.0 Dysuria; L40.50 Arthropathic psoriasis, unspecified; I10 Essential (primary) hypertension
CPT/HCPCS: 36415; 80053; 80061; 81003; 84443; 85025

== ENCOUNTER 2024-02-03 14:22 | Outpatient (AMB) | payer OTHER, SELFPAY ==
--- NOTE | 2024-02-03 14:27 | A.OFFVIS_ITS ---
Vital Signs 02/03/24 14:34 Height 5 ft 2 in Weight 145 lb 15.136 oz BMI 26.7 BP 110/80 Blood Pressure Location Rt brachial Pulse 72 Pulse Source Pulse Oximeter Pulse Oximetry (%) 98 Oxygen Delivery Method Room Air Intake Visit Reasons: PsA/PSO Finger pain left Intake Note: Patient last seen 11/03/23, presents today for follow up and test results. Channel Account Manager Required: No Accompanied by: Self / Same As Patient Allergies acetaminophen [From Vicodin] Adverse Reaction (Intermediate, Verified 02/03/24 14:29) Nausea, vomiting, dizziness hydrocodone [From Vicodin] Adverse Reaction (Intermediate, Verified 02/03/24 14:29) Nausea, vomiting, dizziness atorvastatin Adverse Reaction (Mild, Verified 02/03/24 14:29) Swelling HPI Comments Details: Ms. Casas 53yoF patient returns for follow-up of her psoriatic arthritis. She has stopped the prednisone 5 mg tablets QD since last visit (08/2023). On other days when she is not going to work she does not take any prednisone. This does not seem to make a difference in terms of synovitis on the non-working days. 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 She has received now 4 doses of the Skyrizi. There has been no evidence of psoriasis recently. Most of her pain when it occurs seems to be in the left hand across the MCP and PIP regions - There is also some left ankle and left shoulder pain at times. [facility] Medical History Depression Hepatic steatosis Overweight (BMI 25.0-29.9) Psoriatic arthritis Carpal tunnel syndrome of right wrist Irritable bowel syndrome with constipation Pure hypercholesterolemia Asthma Surgical History Hx of colonoscopy History of tubal ligation Family History Mother Arthritis Diabetes Sister Uterine cancer Maternal Aunt Cervical cancer Colon cancer Maternal Uncle Colon cancer Social History Household Members: Family and Children Housing: Apartment Alcohol intake: never Patient Tobacco Use Status: Never used Tobacco e-Cigarette/Vaping Use: Never Used Second Hand Smoke Exposure: Yes service: No Current occupational status: employed 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 Current occupational exposures/hazards: No Cognitive needs: No Hearing needs: No Vision needs: No Female Reproductive History Menstrual Age of Menarche: 13 Review of Systems Const All systems reviewed & are unremarkable except as noted in HPI and below Physical Exam Vital Signs: Last Vital Signs Pulse 72 02/03/24 14:34 BP 110/80 02/03/24 14:34 Pulse Ox 98 02/03/24 14:34 Oxygen Delivery Method Room Air 02/03/24 14:34 BMI result Body Mass Index 26.7 APPEARANCE: Patient in no acute distress EYES no redness, pupils equal and reactive to light, eyelids normal EXTREMITIES: No edema, no calf tenderness, normal peripheral pulses. NEURO: Oriented and alert x3. No focal weakness. Reflexes symmetric. Gait normal. SKIN: No inflammatory or neoplastic lesions. Normal color and turgor JOINT EXAM: Cervical Spine:.? Full range of motion without pain; no tenderness. Thoracic Spine:.? No scoliosis.? No tenderness on palpation. Lumbar Spine:.? Alignment normal.? Full range of motion without pain, no tenderness. Chest Wall:.? No tenderness, swelling, increased warmth or erythema. Hands:.? Left: There is slight swelling of the 1st 3 MCP joints. The 2nd 3rd have some minimal tenderness. There is slight swelling and mild tenderness at the 2nd PIP where there is painful range of motion. Other joints seem to have no tenderness or swelling. Right: Normal pain-free range of motion without tenderness, swelling, increased warmth or erythema. Able to make a full fist and has a good electronic drafter strength. Wrists:.? Left: Slight discomfort with 75 degrees flexion or extension with some mild tenderness but no swelling. Right: Normal pain-free range of motion without tenderness, swelling, increased warmth or erythema. Elbows:. Normal pain-free range of motion without tenderness, swelling, increased warmth or erythema. Shoulders:.?? Full range of motion without pain. No tenderness, weakness, swelling, increased warmth or erythema. Hips:.? Full range of motion without pain. Hip bursa:.? No tenderness. Knees:.?? Normal pain-free range of motion without tenderness, swelling, increased warmth or erythema.? There is no effusion or crepitation Ankles:.? Normal pain-free range of motion without tenderness, swelling, increased warmth or erythema. Feet:.? Normal pain-free range of motion without tenderness, swelling, increased warmth or erythema. epicondyle, knees, greater trochanter and gluteal area bilaterally. ? 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 Humira- 11/2014- April 202201/2023-03/2023 Stelara, not helpful 04/2023 - Skyrizi Code(s): L40.50 - Arthropathic psoriasis, unspecified Category: Medical (3) Psoriasis: Code(s): L40.9 - Psoriasis, unspecified Category: Medical Plan #PsA/PsO: Ms. Casas 53 yoF here for follow-up of PsA/PsO. The patient still has a few tender joints in the left hand but there is minimal swelling. There also some radiographic changes suggesting that previous synovitis may have caused some damage to the joints. I think she continues to do well with the Skyrizi, particularly there has been improvement in the acute phase reactant levels. We will continue with the Skyrizi for now. I recommended to start her on Otezla but she refuses any other oral medication. It does not appear that the hand pain has worsened other joints has flared since she stopped the prednisone. There has been a small increase in the CRP which appears chronic, but ESR is at goal #[facility] Use of Immunosupp: Mild Elevation in AST. I will continue to monitor labs for blood dyscrasia and liver toxicity. Patient knows to stop her medication if she develops fever or any infections. I spent 30 minutes reviewing chart, evaluating patient and documenting. A return in 3 months or so is reasonable.
[2024-02-03 14:34] VITALS: BP 110/80; PULSE 72; O2SAT 98; BMI 26.7
== END 2024-02-03 15:16 | disposition home or self-care (01) ==
PROVIDERS: PCP Internal Medicine; Visit Provider Nurse Practitioner Family
DX: Z79.60 Long term (current) use of unspecified immunomodulators and immunosuppressants (principal); L40.50 Arthropathic psoriasis, unspecified; L40.9 Psoriasis, unspecified
CPT/HCPCS: 99214

== ENCOUNTER → 2024-02-03 14:22 | Outpatient (BNVA) | payer OTHER, SELFPAY | PROVIDERS: PCP Internal Medicine; Visit Provider Nurse Practitioner Family | DX: L40.50 Arthropathic psoriasis, unspecified (principal); L40.9 Psoriasis, unspecified; Z79.60 Long term (current) use of unspecified immunomodulators and immunosuppressants | CPT/HCPCS: 99212 ==

== ENCOUNTER 2024-02-23 16:14 | Outpatient (AMB) | payer OTHER, SELFPAY ==
[2024-02-23 16:17] VITALS: BP 108/64; PULSE 89; O2SAT 98; BMI 26.7
--- NOTE | 2024-02-23 16:17 | A.OFFPC_ITS ---
Vital Signs 02/23/24 16:17 Height 5 ft 2 in Weight 146 lb 0.6 oz BMI 26.7 BP 108/64 Blood Pressure Location Lt brachial Position Sitting Pulse 89 Pulse Source Pulse Oximeter Pulse Oximetry (%) 98 Oxygen Delivery Method Room Air Intake Visit Reasons: hyperlipidemia, psoriatic arthritis Uniform Designer Required: No Allergies acetaminophen [From Vicodin] Adverse Reaction (Intermediate, Verified 02/24/24 05:44) Nausea, vomiting, dizziness hydrocodone [From Vicodin] Adverse Reaction (Intermediate, Verified 02/24/24 05:44) Nausea, vomiting, dizziness atorvastatin Adverse Reaction (Mild, Verified 02/24/24 05:44) Swelling Medication List - Last Reconciled 02/24/24 by Jared Hernandez MD albuterol sulfate 1.25 mg (3 mL) continuous nebulization QID PRN 30 days diclofenac sodium 3% 1 appl topical BID magnesium oxide 400 mg PO BID fsecouzd-wcg-llrs-FA-vit K-lut 8 mg iron-400 mcg-50 mcg (Multivitamin Women 50 Plus) 1 tab PO DAILY [nebulizer Use as directed 4 times a day as needed] omega-3 fatty acids 1,000 mg PO DAILY risankizumab-rzaa (Skyrizi) 150 mg SC at weeks 0, 4 and then every 12 weeks vitamin E (dl, acetate) 400 units PO BID Tobacco use date assessed: 02/23/24 Dental Screening Dental Screen Date: 02/23/24 HPI hyperlipidemia, psoriatic arthritis HPI Details Patient comes in today for her follow up visit States that she feels okay She has been on Skyrizi for her psoriatic arthritis for at least a couple of months now and has stopped taking her oral Prednisone few months ago - notes that she does not feel much difference in her symptoms whether she is on Prednisone or not She feels that Skyrizi has not been helping as much as she thought it would as she still has on and off stiffness and pain, especially in her hands (L>R) She has failed or was unable to tolerate multiple other meds in the past, including Methotrexate, Enbrel, Humira and Stelara She was seen by rheumatology last month and was advised that she appears to be doing well on her current regimen, which she disagrees with She denies any headaches or dizziness Denies any chest pains, no SOB No nausea/vomiting, no abdominal pain No change in bowel habits noted She had her follow up labs done last month - to discuss her results [facility] Medical History (Updated 02/24/24 @ 05:55 by Jared Hernandez MD) Depression Hepatic steatosis Overweight (BMI 25.0-29.9) Psoriatic arthritis Carpal tunnel syndrome of right wrist Irritable bowel syndrome with constipation Pure hypercholesterolemia Asthma Surgical History Hx of colonoscopy History of tubal ligation Family History Mother Arthritis Diabetes Sister Uterine cancer Maternal Aunt Cervical cancer Colon cancer Maternal Uncle Colon cancer Social History Household Members: Family and Children Housing: Apartment Alcohol intake: never Patient Tobacco Use Status: Never used Tobacco e-Cigarette/Vaping Use: Never Used Second Hand Smoke Exposure: Yes service: No Current occupational status: employed 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 1. Little interest or pleasure in doing things: several days 2. Feeling down, depressed, or hopeless: several days 3. Trouble falling or staying asleep, or sleeping too much: several days 4. Feeling tired or having little energy: several days 5. Poor appetite or overeating: not at all 6. Feeling bad about yourself - or that you are a failure or have let yourself or your family down: not at all 7. Trouble concentrating on things, such as reading the newspaper or watching television: not at all 8. Moving or speaking so slowly that other people could have noticed. Or the opposite - being so fidgety or restless that you have been moving around a lot more than usual: not at all 9. Thoughts that you would be better off or of hurting yourself in some way: not at all Total score: 4 Depression Screening Interpretation: Positive Depression Screening Follow-up: Existing condition and Declines treatment Depression Screening Done: Yes 21494 - PHQ-9 Billing: Yes Source: Developed by Drs. Bonifacio Prince, Shaila Cano, Reyes Palmer and colleagues, with an educational christiane from [employer]. Thrive Questionnaire Date Thrive assessed: 02/23/24 I am a: Patient What is your living situation today?: I have a steady place to live Within the past 12 months, did the food you bought not last and you didn't have the money to get more?: Never true Within the past 12 months, did you worry whether your food would run out before you got money to buy more?: Never true Do you have trouble paying for medicines?: No Do you have trouble getting transportation to medical appointments?: No Do you have trouble paying your heating and electricity bill?: No Do you have trouble taking care of your child, family member or friend?: No Do you have trouble with day-to-day activities such as bathing, preparing meals, shopping, managing finances, etc.?: No Are you currently unemployed and looking for a job?: No Are you interested in more education?: No Please select the resources that you would like help with: None Currently or been in a relationship where the following occur: no concerns reported THRIVE Score: 0 AUDIT C Alcohol Use Questionnaire (AUDIT-C) 1. How often do you have a drink containing alcohol?: Never 3. How often do you have six or more drinks on one occasion?: Never Total Score: 0 Score Reviewed/Action Taken: Yes JUANITA-7 AMB Questionnaire JUANITA-7 Date JUANITA - 7 assessed: 02/23/24 Feeling nervous, anxious, or on edge: 0 = Not at all Not being able to stop or control worryin = Not at all Worrying too much about different things: 0 = Not at all Trouble relaxin = Not at all Being so restless that it is hard to sit still: 0 = Not at all Becoming easily annoyed or irritable: 0 = Not at all Feeling afraid as if something awful might happen: 0 = Not at all Total JUANITA-7 score (0-4 normal; 5-9 mild; 10-14 moderate; 15-21 severe): 0 Source: Developed by Drs. Bonifacio Prince, Reyes Gaxiola and colleagues, with an educational christiane from [employer]. Review of Systems Const Reports body aches (diffuse), Denies chills, Reports fatigue, Denies fever(s) and Denies headache(s) ENT Denies dysphagia, Denies dizziness, Denies otalgia, Denies headache(s), Reports neck pain, Denies odynophagia and Denies sore throat Card Denies chest pain, Denies rapid heart rate, Denies palpitations and Denies dyspnea Resp Denies chest congestion, Denies cough, Denies dyspnea and Denies wheezing GI Denies abdominal pain, Denies constipation, Denies dysphagia, Denies diarrhea, Denies nausea, Denies odynophagia and Denies vomiting Denies difficulty voiding, Denies nocturia, Denies dysuria and Denies urinary urgency Musc Reports back pain, Reports myalgias, Reports arthralgias (involving multiple joints), Reports neck pain and Reports stiffness Skin/Breast Denies rash Neuro Denies dizziness and Denies headache(s) Psych Reports anxiety and Reports depression Endo Reports fatigue and Denies palpitations Aller/Immun Denies wheezing Physical exam (Primary Care) Vital Signs: Last Vital Signs Pulse 89 02/23/24 16:17 BP 108/64 02/23/24 16:17 Pulse Ox 98 02/23/24 16:17 Oxygen Delivery Method Room Air 02/23/24 16:17 BMI result Body Mass Index 26.7 Tobacco/Smoking Status: Tobacco use Status Tobacco use date assessed 02/23/24 02/23/24 16:18 Patient Tobacco Use Status Never used Tobacco 02/23/24 16:18 e-Cigarette/Vaping Use Never Used 02/23/24 16:18 PHQ-9: PHQ-9 Score PHQ-9: Total score 4 02/23/24 16:51 Depression Screening Interpretation: Positive Depression Screening Follow-up: Existing condition and Declines treatment Thrive Assessment: Date of Thrive Assessment Date Thrive assessed 09/08/23 02/23/24 16:18 Currently or been in a relationship where the following occur: no concerns reported Const General: no acute distress and alert HENMT Ears: TM's normal bilaterally and EAC's normal Throat: Yes posterior oropharynx normal and Yes tonsils normal Neck Neck: Yes no lymphadenopathy and Yes supple Thyroid: Thyroid normal Resp Auscultation: clear to auscultation bilaterally, no rales and no wheezes Cardio Rate: regular rate Rhythm: regular rhythm Heart sounds: no murmurs GI Palpation (GI): Soft to palpation and nontender Auscultation: normal bowel sounds General: Yes no CVA tenderness Back/Spine/Pelvis Back: no CVA tenderness Thoracic/Lumbar Spine: lumbar spinal tenderness Skin Rashes: no rashes Extrem Other: (+) tenderness and swelling noted on several fingers of both hands General: Yes no clubbing, cyanosis or edema Results Reviewed Results Reviewed: Laboratory Tests 01/31/24 01/31/24 09:44 13:49 WBC 4.5 L Hgb 13.2 Hct 39.8 Plt Count 264 Sodium 141 Potassium 4.7 Creatinine 0.74 Estimated GFR > 60 Fasting Glucose 102 H Calcium 9.9 AST 31 ALT 44 H Triglycerides 199 H Cholesterol 264 H LDL Cholesterol, Calc 183 H HDL Cholesterol 42 TSH 1.23 Ur Specific Whitman 1.020 Urine Protein Negative Urine Glucose (UA) Negative Urine Blood Negative Urine Nitrite Negative Ur Leukocyte Esterase Negative Assessment and Plan Assessment & Plan (1) Psoriatic arthritis: Comment: Methotrexate: October 2013 - stopped due to elevated LFTs; Enbrel: 09/2014- stopped due to fatigue, and feeling sick, injection site reaction; Humira: Nov 2014 to April 2022; Stelara: 01/2023 to 03/2023 - not helpful; Skyrizi: 04/2023 to present Code(s): L40.50 - Arthropathic psoriasis, unspecified Plan: Patient is currently still on Skyrizi that is being managed by rheumatology (was started on by Dr. Hernandez last year) - she has had 4 doses so far and she appears to be tolerating the medication Rx also seems to be helping as she's had no breakouts of psoriasis so far lately although she still has recurrent pain of her joints, especially of her fingers on the left hand Have discussed with her previously and again at present that if needed, we can start her on a trial of Gabapentin to help manage her chronic pain - patient continues to decline as she does not wish to take any more oral medications if she can avoid them Follow up with rheumatology as scheduled - she states that she does not completely agree with rheumatology that her current Rx is effective enough although rheumatology has apparently discussed with her the option of trying her on Otezla instead that she declined Per request, will refer her to rheumatology at [facility] for a second opinion (2) Pure hypercholesterolemia: Code(s): E78.00 - Pure hypercholesterolemia, unspecified Plan: Results of her labs done last month reviewed and discussed with patient - cautioned that her cholesterol levels have increased again from previous; her LDL cholesterol is now at 183 mg/dl and her total cholesterol is at 264 mg/dl She was started back on Atorvastatin 10 mg QD last year but could not tolerate the Rx and had to stop taking it due to increasing edema She still does NOT wish to take or try anything else for her cholesterol (at this time) and would like to continue working on her diet for now Reinforced low cholesterol diet - is advised that if her cholesterol numbers really cannot be improved with diet alone, then we will need to explore other options and Rx, including the new PCSK9 inhibitors, which she seems opposed to as well Will recheck her labs and fasting lipids in 4 months for follow up (3) Asthma: Code(s): J45.909 - Unspecified asthma, uncomplicated Qualifiers: Asthma complication type: with acute exacerbation Asthma persistence: persistent Asthma severity: mild Qualified Code(s): J45.31 - Mild persistent asthma with (acute) exacerbation Plan: Appears stable Continue Breo Ellipta to 200-25 mcg 1 inhalation QD and Albuterol HFA 2 inhalations every 6 hours PRN - goal is again to not have to use her Albuterol inhaler more than 3 to 4 times a week Continue Albuterol via nebulizer as well every 6 to 8 hours as needed - advised using this rather than her Albuterol inhaler when she has access to her nebulizer (4) Myalgia: Code(s): M79.10 - Myalgia, unspecified site Plan: Were most likely related to her psoriatic arthritis flare up as her myalgia seems to have subsided somewhat lately Her symptoms are also suggestive of fibromyalgia Was started on Naproxen by rheumatology previously but patient could not tolerate Rx (due to GI symptoms) She was started on Duloxetine 60 mg QD in the past but it appears that she is no longer on this Rx - is not clear at this time why she is not on it and she has no interest to go back on it at this time as she remains very opposed to taking medications in general (5) Irritable bowel syndrome with constipation: Code(s): K58.1 - Irritable bowel syndrome with constipation Plan: She was on Linzess 290 mcg QD in the past and her symptoms were apparently well- controlled on the Rx but she has also self-discontinued the medication at some point - states that her symptoms have not flared up so far since she quit taking her meds Patient has also failed to respond to Amitiza and other laxatives/stool softeners in the past Follow up with GI as scheduled (6) Hepatic steatosis: Code(s): K76.0 - Fatty (change of) liver, not elsewhere classified Plan: Her LFTs have improved although her serum ALT level remains slightly elevated on her recent labs Will continue to monitor her LFTs regularly Last ultrasound done on 01/29/2020 showed (+) potential risk of developing fibrosis and a repeat ultrasound with elastography would be needed in 18-24 months for follow up She did have a liver elastography done back in 08/2021 that revealed (+) diffusely increased liver echogenicity suggesting hepatic steatosis. Liver elastography showed that although measurements are suggestive of compensated advanced chronic liver disease, there is statistical variability of the sampling which decreases accuracy. No significant change from imaging from a year ago (7) Carpal tunnel syndrome of right wrist: Code(s): G56.01 - Carpal tunnel syndrome, right upper limb Plan: NCV done back in May 2020 revealed (+) findings of mild CTS on the right wrist; EMG was normal (NCV in 2010 revealed moderate CTS) She is encouraged to continue using her wrist splints as often as she can to help minimize/manage her wrist symptoms (8) Depression: Code(s): F32.A - Depression, unspecified Qualifiers: Depression Type: unspecified Qualified Code(s): F32.A - Depression, unspecified Plan: Was started on Duloxetine 60 mg QD earlier this year - is again not sure why she is no longer taking this and she states that she does not want to be started back on Rx at this time (9) Overweight (BMI 25.0-29.9): Code(s): E66.3 - Overweight Plan: Reinforced diet; exercise and weight loss are unrealistic at this time given her current multiple issues and conditions Plan Follow up in 4 months Orders: Orders Complete Blood Count Auto Diff 4 Months D64.9 - Anemia, unspecified, E78.00 - Pure hypercholesterolemia, unspecified, L40.50 - Arthropathic psoriasis, unspecified Comprehensive [place]. Panel Fast 4 Months E78.00 - Pure hypercholesterolemia, unspecified, L40.50 - Arthropathic psoriasis, unspecified TSH reflex Free T4 4 Months E78.00 - Pure hypercholesterolemia, unspecified, L40.50 - Arthropathic psoriasis, unspecified Vitamin D 25-OH Total 4 Months E55.9 - Vitamin D deficiency, unspecified, E78.00 - Pure hypercholesterolemia, unspecified, L40.50 - Arthropathic psoriasis, unspecified Lipid Panel 4 Months E78.00 - Pure hypercholesterolemia, unspecified, L40.50 - Arthropathic psoriasis, unspecified UA CC w/rflx Micro + Cult 4 Months E78.00 - Pure hypercholesterolemia, unspecified, L40.50 - Arthropathic psoriasis, unspecified, R30.0 - Dysuria Homocysteine 4 Months E78.00 - Pure hypercholesterolemia, unspecified, L40.50 - Arthropathic psoriasis, unspecified Referrals Rheumatology Referral L40.50 - Arthropathic psoriasis, unspecified Coding Level of Care Code Est Pt Level 4 (18757) Diagnoses Psoriatic arthritis L40.50 Pure hypercholesterolemia E78.00 Mild persistent asthma with acute exacerbation J45.31 Asthma complication type: with acute exacerbation Asthma persistence: persistent Asthma severity: mild Myalgia M79.10 Irritable bowel syndrome with constipation K58.1 Hepatic steatosis K76.0 Carpal tunnel syndrome of right wrist G56.01 Depression, unspecified depression type F32.A Depression Type: unspecified Overweight (BMI 25.0-29.9) E66.3
== END 2024-02-23 17:06 | disposition home or self-care (01) ==
PROVIDERS: PCP Internal Medicine; Visit Provider Internal Medicine
DX: L40.50 Arthropathic psoriasis, unspecified (principal); E78.00 Pure hypercholesterolemia, unspecified; J45.31 Mild persistent asthma with (acute) exacerbation; M79.10 Myalgia, unspecified site; K58.1 Irritable bowel syndrome with constipation; K76.0 Fatty (change of) liver, not elsewhere classified; G56.01 Carpal tunnel syndrome, right upper limb; F32.A Depression, unspecified; E66.3 Overweight
CPT/HCPCS: 99214

== ENCOUNTER 2024-04-06 14:55 | Outpatient (REF) | payer OTHER, SELFPAY | END 2024-04-06 14:56 | disposition home or self-care (01) | LOC: HO.MAMMO 14:55 | PROVIDERS: PCP Internal Medicine; Visit Provider Internal Medicine | DX: Z12.31 Encounter for screening mammogram for malignant neoplasm of breast (principal) | CPT/HCPCS: 77063; 77067 ==

== ENCOUNTER → 2024-04-06 15:30 | Outpatient (BNV) | payer OTHER, SELFPAY | PROVIDERS: PCP Internal Medicine; Visit Provider Radiology Diagnostic Radiology | DX: Z12.31 Encounter for screening mammogram for malignant neoplasm of breast (principal) | CPT/HCPCS: 77063; 77067 ==

== ENCOUNTER 2024-06-26 08:47 | Outpatient (REF) | payer OTHER, SELFPAY ==
[2024-06-26 09:15] LABS: MANUAL DIFF FLAG NO
[2024-06-26 09:34] LABS: Basophils Percent Auto 0.9 % (0-2); Eosinophils Absolute Auto 0.1 X10*3/uL (0.0-0.4); Eosinophils Percent Auto 2.8 % (0-4); Hematocrit 41.7 % (37.0-47.0); Hemoglobin 13.9 g/dl (12.0-16.0); Imm Gran Abs Auto 0.01 X10*3/uL (0.00-0.03); Imm Gran Pct Auto 0.2 % (0.0-0.4); Lymphocytes Absolute Auto 1.8 X10*3/uL (1.2-4.9); Lymphocytes Percent Auto 38.7 % (20-40); Mean Corpuscular HGB Conc 33.3 g/dl (31.0-35.0); Mean Corpuscular Hemoglobin 30.2 pg (27.0-33.0); Mean Corpuscular Volume 90.7 fL (80.0-98.0); Monocytes Absolute Auto 0.3 X10*3/uL (0.1-1.2); Monocytes Percent Auto 6.1 % (2-11); Neutrophils Absolute Auto 2.4 x10*3/uL (2.0-8.3); Neutrophils Percent Auto 51.3 % (45-73); Platelet Count 250 X10*3/uL (160-400); Red Cell Distribution Width 12.4 % (11.0-16.0); White Blood Count 4.6 X10*3/uL (4.8-10.8)
[2024-06-26 09:35] LABS: Basophils Percent Auto 0.8 % (0-2); Eosinophils Absolute Auto 0.2 X10*3/uL (0.0-0.4); Eosinophils Percent Auto 3.1 % (0-4); Hematocrit 41.6 % (37.0-47.0); Hemoglobin 13.9 g/dl (12.0-16.0); Imm Gran Abs Auto 0.01 X10*3/uL (0.00-0.03); Imm Gran Pct Auto 0.2 % (0.0-0.4); Lymphocytes Absolute Auto 1.9 X10*3/uL (1.2-4.9); Lymphocytes Percent Auto 39.4 % (20-40); Mean Corpuscular HGB Conc 33.4 g/dl (31.0-35.0); Mean Corpuscular Hemoglobin 30.2 pg (27.0-33.0); Mean Corpuscular Volume 90.2 fL (80.0-98.0); Mean Platelet Volume 10.2 fL (9.4-12.3); Monocytes Absolute Auto 0.3 X10*3/uL (0.1-1.2); Monocytes Percent Auto 6.7 % (2-11); Neutrophils Absolute Auto 2.4 x10*3/uL (2.0-8.3); Neutrophils Percent Auto 49.8 % (45-73); Platelet Count 244 X10*3/uL (160-400); Red Blood Count 4.61 X10*6/uL (4.20-5.50); Red Cell Distribution Width 12.5 % (11.0-16.0); White Blood Count 4.8 X10*3/uL (4.8-10.8)
[2024-06-26 09:46] LABS: Appearance Urine Clear; Color Urine Yellow; Glucose Urine UA Negative (Negative); Leukocyte Esterase Urine Trace (Negative); Nitrite Urine Negative (Negative); Specific Gravity - Urine 1.015 (1.005-1.025); UMIC TRIGGER UACC YES; Urine Blood Negative (Negative); Urine Ketones Negative (Negative); Urine Protein Negative (Neg-Trace)
[2024-06-26 09:50] LABS: Bacteria Urine None Seen (None Seen); Hyaline Casts Urine 0-2 /LPF (0-2); RBC Urine 0-2 /HPF (0-2); WBC Urine 0-5 /HPF (0-5)
[2024-06-26 10:01] LABS: Alanine Aminotransferase 39 U/L (0-31); Aspartate Amino Transferase 28 U/L (5-31)
[2024-06-26 10:10] LABS: Erythrocyte Sedimentation Rate 14 MM/HR (0-20)
[2024-06-26 10:13] LABS: Alanine Aminotransferase 38 U/L (0-31); Albumin Level 4.4 g/dL (3.5-5.0); Alkaline Phosphatase 69 U/L (39-117); Anion Gap 13 (12-20); Aspartate Amino Transferase 29 U/L (5-31); Bilirubin Total 0.8 mg/dL (0.0-1.0); Blood Urea Nitrogen 7 mg/dL (9-16); C Reactive Protein 0.14 mg/dL (< or = 0.50); Calcium 9.9 mg/dL (8.4-10.2); Carbon Dioxide 25 mmol/L (22-29); Chloride 107 mmol/L (96-108); Cholesterol 240 mg/dL (<200); Estimated Glomerular Filt Rate > 60; Glucose Fasting 93 mg/dL (60-99); HDL Cholesterol 38 mg/dL (>40); LDL Cholesterol Calculated 139 mg/dL (<100); Potassium 4.3 mmol/L (3.3-5.1); Sodium 141 mmol/L (135-145); Triglycerides 319 mg/dL (<150)
[2024-06-26 10:19] LABS: TSH reflex Free T4 1.47 uIU/mL (0.32-4.0); Vitamin D 25-OH Total 22.8 ng/mL (>30)
[2024-06-27 17:54] LABS: Homocysteine 8.1 umol/L (<10.4)
== END 2024-06-26 08:48 | disposition home or self-care (01) ==
LOC: HO.LAB 08:47
PROVIDERS: Nurse Practitioner Family; PCP Internal Medicine; Visit Provider Internal Medicine
DX: L40.50 Arthropathic psoriasis, unspecified (principal); E78.00 Pure hypercholesterolemia, unspecified; D64.9 Anemia, unspecified; E55.9 Vitamin D deficiency, unspecified; Z79.60 Long term (current) use of unspecified immunomodulators and immunosuppressants; Z79.899 Other long term (current) drug therapy
CPT/HCPCS: 36415; 80053; 80061; 81001; 82306; 83090; 84443; 84450; 84460; 85025; 85652; 86140

== ENCOUNTER 2024-06-28 14:08 | Outpatient (AMB) | payer OTHER, SELFPAY ==
[2024-06-28 14:14] VITALS: BP 102/78; PULSE 78; O2SAT 97; BMI 26.3
--- NOTE | 2024-06-28 14:14 | MHC.PC.OV ---
Vital Signs 06/28/24 14:14 Height 5 ft 2 in Weight 144 lb BMI 26.3 BP 102/78 Blood Pressure Location Lt brachial Position Sitting Pulse 78 Pulse Source Pulse Oximeter Pulse Oximetry (%) 97 Oxygen Delivery Method Room Air Intake Visit Reasons: 4 Months Glass Calibrator Required: No Accompanied by: Self / Same As Patient Allergies acetaminophen [From Vicodin] Adverse Reaction (Intermediate, Verified 06/28/24 14:49) Nausea, vomiting, dizziness hydrocodone [From Vicodin] Adverse Reaction (Intermediate, Verified 06/28/24 14:49) Nausea, vomiting, dizziness atorvastatin Adverse Reaction (Mild, Verified 06/28/24 14:49) Swelling Medication List - Last Reconciled 06/28/24 by Jared Hernandez MD albuterol sulfate 1.25 mg (3 mL) continuous nebulization QID PRN 30 days diclofenac sodium 3% 1 appl topical BID magnesium oxide 400 mg PO BID hmrmglwh-gov-ilmo-FA-vit K-lut 8 mg iron-400 mcg-50 mcg (Multivitamin Women 50 Plus) 1 tab PO DAILY [nebulizer Use as directed 4 times a day as needed] omega-3 fatty acids 1,000 mg PO DAILY Skyrizi (risankizumab-rzaa) 150 mg subcut Q12W NS vitamin E (dl, acetate) 400 units PO BID Tobacco use date assessed: 06/28/24 Dental Screening Dental Screen Date: 06/28/24 Did you have a dental visit in the last 12 months?: No Did you have a dental problem in the last 6 months where you did not have access to dental care?: No Was dental information given to patient?: Patient has dentist HPI 4 Months HPI Details Patient comes in today for her follow up visit States that she is currently still experiencing diffuse joint stiffness and pain due to her psoriatic arthritis She is currently still on Skyrizi and at her last [place] [facility] [place] advised to continue on her current Rx as she appears to be responding well to her Tx, which patient disagrees with She requested for a referral to another fruit 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 for another opinion at her last visit - a referral was made out then to rheumatology at [facility] and she is now scheduled to be seen sometime in October 2024 She has again failed or was unable to tolerate multiple other meds in the past, including Methotrexate, Enbrel, Humira and Stelara and Skyrizi is the most recent Rx that she was tried on since last year She denies any headaches or dizziness; denies any fever Denies any chest pains, no increased SOB No nausea/vomiting, no abdominal pain No change in bowel habits noted She had her follow up labs done a couple of days ago - to discuss her results [facility] Medical History Depression Hepatic steatosis Overweight (BMI 25.0-29.9) Psoriatic arthritis Carpal tunnel syndrome of right wrist Irritable bowel syndrome with constipation Pure hypercholesterolemia Asthma Surgical History Hx of colonoscopy History of tubal ligation Family History Mother Arthritis Diabetes Sister Uterine cancer Maternal Aunt Cervical cancer Colon cancer Maternal Uncle Colon cancer Social History Household Members: Family and Children Housing: Apartment Alcohol intake: never Patient Tobacco Use Status: Never used Tobacco e-Cigarette/Vaping Use: Never Used Second Hand Smoke Exposure: Yes service: No Current occupational status: employed 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 1. Little interest or pleasure in doing things: several days 2. Feeling down, depressed, or hopeless: several days 3. Trouble falling or staying asleep, or sleeping too much: several days 4. Feeling tired or having little energy: several days 5. Poor appetite or overeating: not at all 6. Feeling bad about yourself - or that you are a failure or have let yourself or your family down: not at all 7. Trouble concentrating on things, such as reading the newspaper or watching television: not at all 8. Moving or speaking so slowly that other people could have noticed. Or the opposite - being so fidgety or restless that you have been moving around a lot more than usual: not at all 9. Thoughts that you would be better off or of hurting yourself in some way: not at all Total score: 4 Depression Screening Interpretation: Positive Depression Screening Follow-up: Existing condition and Declines treatment Depression Screening Done: Yes 53587 - PHQ-9 Billing: Yes Source: Developed by Drs. Bonifacio Prince, Shaila Cano, Reyes Palmer and colleagues, with an educational christiane from [employer]. Thrive Questionnaire Date Thrive assessed: 06/28/24 I am a: Patient What is your living situation today?: I have a steady place to live Within the past 12 months, did the food you bought not last and you didn't have the money to get more?: Never true Within the past 12 months, did you worry whether your food would run out before you got money to buy more?: Never true Do you have trouble paying for medicines?: No Do you have trouble getting transportation to medical appointments?: No Do you have trouble paying your heating and electricity bill?: No Do you have trouble taking care of your child, family member or friend?: No Do you have trouble with day-to-day activities such as bathing, preparing meals, shopping, managing finances, etc.?: No Are you currently unemployed and looking for a job?: No Are you interested in more education?: No Please select the resources that you would like help with: None Currently or been in a relationship where the following occur: No concerns reported THRIVE Score: 0 AUDIT C Alcohol Use Questionnaire (AUDIT-C) 1. How often do you have a drink containing alcohol?: Never 3. How often do you have six or more drinks on one occasion?: Never Total Score: 0 Score Reviewed/Action Taken: Yes JUANITA-7 AMB Questionnaire JUANITA-7 Date JUANITA - 7 assessed: 06/28/24 Feeling nervous, anxious, or on edge: 0 = Not at all Not being able to stop or control worryin = Not at all Worrying too much about different things: 0 = Not at all Trouble relaxin = Not at all Being so restless that it is hard to sit still: 0 = Not at all Becoming easily annoyed or irritable: 0 = Not at all Feeling afraid as if something awful might happen: 0 = Not at all Total JUANITA-7 score (0-4 normal; 5-9 mild; 10-14 moderate; 15-21 severe): 0 Source: Developed by Drs. Bonifacio Prince, Shaila Cano, Reyes Palmer and colleagues, with an educational christiane from [employer]. Review of Systems Const Reports body aches (diffuse), Denies chills, Reports fatigue, Denies fever(s) and Denies headache(s) ENT Denies dysphagia, Denies dizziness, Denies otalgia, Denies headache(s), Reports neck pain, Denies odynophagia and Denies sore throat Card Denies chest pain, Denies rapid heart rate, Denies palpitations and Denies dyspnea Resp Denies chest congestion, Denies cough, Denies dyspnea and Denies wheezing GI Denies abdominal pain, Denies constipation, Denies dysphagia, Denies diarrhea, Denies nausea, Denies odynophagia and Denies vomiting Denies difficulty voiding, Denies nocturia, Denies dysuria and Denies urinary urgency Musc Reports back pain, Reports myalgias, Reports arthralgias (involving multiple joints), Reports neck pain and Reports stiffness Skin/Breast Denies rash Neuro Denies dizziness and Denies headache(s) Psych Reports anxiety and Reports depression Endo Reports fatigue and Denies palpitations Aller/Immun Denies wheezing Physical exam (Primary Care) Vital Signs: Last Vital Signs Pulse 78 06/28/24 14:14 BP 102/78 06/28/24 14:14 Pulse Ox 97 06/28/24 14:14 Oxygen Delivery Method Room Air 06/28/24 14:14 BMI result Body Mass Index 26.3 Tobacco/Smoking Status: Tobacco use Status Tobacco use date assessed 06/28/24 06/28/24 14:19 Patient Tobacco Use Status Never used Tobacco 06/28/24 14:19 e-Cigarette/Vaping Use Never Used 06/28/24 14:19 PHQ-9: PHQ-9 Score PHQ-9: Total score 4 06/28/24 14:51 Depression Screening Interpretation: Positive Depression Screening Follow-up: Existing condition and Declines treatment Thrive Assessment: Date of Thrive Assessment Date Thrive assessed 06/28/24 06/28/24 14:19 Currently or been in a relationship where the following occur: No concerns reported Const General: no acute distress and alert HENMT Ears: TM's normal bilaterally and EAC's normal Throat: Yes posterior oropharynx normal and Yes tonsils normal Neck Neck: Yes no lymphadenopathy and Yes supple Thyroid: Thyroid normal Resp Auscultation: clear to auscultation bilaterally, no rales and no wheezes Cardio Rate: regular rate Rhythm: regular rhythm Heart sounds: no murmurs GI Palpation (GI): Soft to palpation and nontender Auscultation: normal bowel sounds General: Yes no CVA tenderness Back/Spine/Pelvis Back: no CVA tenderness Thoracic/Lumbar Spine: lumbar spinal tenderness Skin Rashes: no rashes Extrem Other: (+) tenderness and swelling noted on several fingers of both hands General: Yes no clubbing, cyanosis or edema Results Reviewed Results Reviewed: Laboratory Tests 06/26/24 06/26/24 09:13 Unknown WBC 4.8 Hgb 13.9 Hct 41.6 Plt Count 244 ESR 14 Sodium 141 Potassium 4.3 Creatinine 0.75 Estimated GFR > 60 Fasting Glucose 93 Calcium 9.9 AST 29 ALT 38 H Triglycerides 319 H Cholesterol 240 H LDL Cholesterol, Calc 139 H HDL Cholesterol 38 L 25-OH Vitamin D Total 22.8 L Homocysteine 8.1 TSH 1.47 Ur Specific [place] 1.015 Urine Protein Negative Urine Glucose (UA) Negative Urine Blood Negative Urine Nitrite Negative Ur Leukocyte Esterase Trace H Assessment and Plan Assessment & Plan (1) Psoriatic arthritis: Comment: Methotrexate: October 2013 - stopped due to elevated LFTs; Enbrel: 09/2014- stopped due to fatigue, and feeling sick, injection site reaction; Humira: Nov 2014 to April 2022; Stelara: 01/2023 to 03/2023 - not helpful; Skyrizi: 04/2023 to present Code(s): L40.50 - Arthropathic psoriasis, unspecified Plan: Patient is currently still on Skyrizi that is being managed by rheumatology (was started on Rx by Dr. Hernandez last year) - she has had 4 doses so far and she appears to be tolerating the medication Rx seems to be helping as she's had no breakouts of psoriasis so far lately although she still has recurrent pain of her joints, especially of her fingers on the left hand so she feels that this is not helping enough Patient states that she does not completely agree with rheumatology that her current Rx is effective enough although rheumatology has apparently discussed with her the option of trying her on Otezla instead that she declined Per request, we referred her to rheumatology at [facility] for a second opinion at her last visit and she is now scheduled to be seen there sometime in October 2024 We have discussed with patient previously and again at present that if she wants, we can start her on a trial of Gabapentin to help manage her chronic pain but patient continues to decline as she states that she does not wish to take any more oral medications if she can avoid them (2) Pure hypercholesterolemia: Code(s): E78.00 - Pure hypercholesterolemia, unspecified Plan: Results of her labs done a couple of days ago reviewed and discussed with patient She is advised that her cholesterol levels have improved slightly from previous but they are still elevated - her LDL cholesterol is now at 139 mg/dl (183 previously) and her total cholesterol is at 240 mg/dl (264 previously) She was started back on Atorvastatin 10 mg QD last year but could not tolerate the Rx and had to stop taking it due to increasing edema She still does NOT wish to take or try anything else for her cholesterol at this time and would like to continue working on her diet Reinforced low cholesterol diet Will recheck her labs and fasting lipids in 4 months for follow up (3) Asthma: Code(s): J45.909 - Unspecified asthma, uncomplicated Qualifiers: Asthma complication type: with acute exacerbation Asthma persistence: persistent Asthma severity: mild Qualified Code(s): J45.31 - Mild persistent asthma with (acute) exacerbation Plan: Appears stable Continue Breo Ellipta to 200-25 mcg 1 inhalation QD and Albuterol HFA 2 inhalations every 6 hours PRN - goal is again to not have to use her Albuterol inhaler more than 3 to 4 times a week Continue Albuterol via nebulizer as well every 6 to 8 hours as needed - advised using this rather than her Albuterol inhaler when she has access to her nebulizer (4) Myalgia: Code(s): M79.10 - Myalgia, unspecified site Plan: Were most likely related to her psoriatic arthritis flare up as her myalgia seems to have subsided somewhat lately Her symptoms are also suggestive of fibromyalgia She was started on Naproxen by rheumatology previously but patient could not tolerate Rx (due to GI symptoms) She was started on Duloxetine 60 mg QD in the past but it appears that she is no longer on this Rx - is not clear at this time why she is not on it and she has no interest to go back on it at this time as she personally remains very opposed to taking medications in general (5) Irritable bowel syndrome with constipation: Code(s): K58.1 - Irritable bowel syndrome with constipation Plan: She was on Linzess 290 mcg QD in the past and her symptoms were apparently well-controlled on the Rx but she has also self-discontinued the medication at some point - states that her symptoms have not flared up so far since she quit taking her meds Patient has also failed to respond to Amitiza and other laxatives/stool softeners in the past Follow up with GI as scheduled (6) Hepatic steatosis: Code(s): K76.0 - Fatty (change of) liver, not elsewhere classified Plan: Her LFTs have improved although her serum ALT level remains slightly elevated on her recent labs Will continue to monitor her LFTs regularly Last ultrasound done on 01/29/2020 showed (+) potential risk of developing fibrosis and a repeat ultrasound with elastography would be needed in 18-24 months for follow up She did have a liver elastography done back in 08/2021 that revealed (+) diffusely increased liver echogenicity suggesting hepatic steatosis. Liver elastography showed that although measurements are suggestive of compensated advanced chronic liver disease, there is statistical variability of the sampling which decreases accuracy. No significant change from imaging from a year ago Will repeat a liver fibrosis panel in a few months for follow up (7) Carpal tunnel syndrome of right wrist: Code(s): G56.01 - Carpal tunnel syndrome, right upper limb Plan: NCV done back in May 2020 revealed (+) findings of mild CTS on the right wrist; EMG was normal (NCV in 2010 revealed moderate CTS) She is encouraged to continue using her wrist splints as often as she can to help minimize/manage her wrist symptoms (8) Depression: Code(s): F32.A - Depression, unspecified Qualifiers: Depression Type: unspecified Qualified Code(s): F32.A - Depression, unspecified Plan: She was started on Duloxetine 60 mg QD earlier this year - is again not sure why she is no longer taking this and she states that she does not want to be started back on any Rx at this time (9) Overweight (BMI 25.0-29.9): Code(s): E66.3 - Overweight Plan: Reinforced diet; exercise and weight loss are unrealistic at this time given her current multiple issues and conditions Plan Follow up in 4 months Orders: Orders Comprehensive [place]. Panel Fast 4 Months E78.00 - Pure hypercholesterolemia, unspecified Erythrocyte Sedimentation Rate 4 Months L40.50 - Arthropathic psoriasis, unspecified, M79.7 - Fibromyalgia C Reactive Protein 4 Months L40.50 - Arthropathic psoriasis, unspecified Complete Blood Count Auto Diff 4 Months D64.9 - Anemia, unspecified Lipid Panel 4 Months E78.00 - Pure hypercholesterolemia, unspecified Liver Fibrosis Pnl 4 Months L40.50 - Arthropathic psoriasis, unspecified, R79.89 - Other specified abnormal findings of blood chemistry UA CC w/rflx Micro + Cult 4 Months L40.50 - Arthropathic psoriasis, unspecified, R30.0 - Dysuria Vitamin D 25-OH Total 4 Months E55.9 - Vitamin D deficiency, unspecified, L40.50 - Arthropathic psoriasis, unspecified Coding Level of Care Code Est Pt Level 4 (20334) Diagnoses Psoriatic arthritis L40.50 Pure hypercholesterolemia E78.00 Mild persistent asthma with acute exacerbation J45.31 Asthma complication type: with acute exacerbation Asthma persistence: persistent Asthma severity: mild Myalgia M79.10 Irritable bowel syndrome with constipation K58.1 Hepatic steatosis K76.0 Carpal tunnel syndrome of right wrist G56.01 Depression, unspecified depression type F32.A Depression Type: unspecified Overweight (BMI 25.0-29.9) E66.3
== END 2024-06-28 14:57 | disposition home or self-care (01) ==
PROVIDERS: PCP Internal Medicine; Visit Provider Internal Medicine
DX: L40.50 Arthropathic psoriasis, unspecified (principal); E78.00 Pure hypercholesterolemia, unspecified; J45.31 Mild persistent asthma with (acute) exacerbation; M79.10 Myalgia, unspecified site; K58.1 Irritable bowel syndrome with constipation; K76.0 Fatty (change of) liver, not elsewhere classified; G56.01 Carpal tunnel syndrome, right upper limb; F32.A Depression, unspecified; E66.3 Overweight
CPT/HCPCS: 99214

== ENCOUNTER 2024-07-27 10:47 | Outpatient (AMB) | payer OTHER, SELFPAY ==
--- NOTE | 2024-07-27 10:58 | A.OFFPC_ITS ---
Vital Signs 07/27/24 11:01 Height 5 ft 2 in Weight 144 lb 4 oz BMI 26.4 BP 110/62 Blood Pressure Location Lt brachial Position Sitting Pulse 78 Pulse Source Pulse Oximeter Pulse Oximetry (%) 97 Oxygen Delivery Method Room Air Intake Visit Reasons: [facility] 08/14 Intake Note: Patient is here for a Pre-op for upper eyelid surgery scheduled with [facility] in [place] on 08/14/24. 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 Allergies acetaminophen [From Vicodin] Adverse Reaction (Intermediate, Verified 07/27/24 11:25) Nausea, vomiting, dizziness hydrocodone [From Vicodin] Adverse Reaction (Intermediate, Verified 07/27/24 11:25) Nausea, vomiting, dizziness atorvastatin Adverse Reaction (Mild, Verified 07/27/24 11:25) Swelling Medication List - Last Reconciled 07/27/24 by Jared Hernandez MD albuterol sulfate 1.25 mg (3 mL) continuous nebulization QID PRN 30 days diclofenac sodium 3% 1 appl topical BID magnesium oxide 400 mg PO BID xlesceyf-yjk-pift-FA-vit K-lut 8 mg iron-400 mcg-50 mcg (Multivitamin Women 50 Plus) 1 tab PO DAILY [nebulizer Use as directed 4 times a day as needed] omega-3 fatty acids 1,000 mg PO DAILY Skyrizi (risankizumab-rzaa) 150 mg subcut Q12W NS vitamin E (dl, acetate) 400 units PO BID Tobacco use date assessed: 06/28/24 Dental Screening Dental Screen Date: 06/28/24 HPI [facility] 08/14 HPI Details Patient comes in today at the request of Dr. Hilton Nichole for a preoperative medical examination for clearance for surgery She is scheduled for bilateral upper eyelid blepharoplasty and bilateral upper eyelid ptosis repair under MAC on 08/14/2024 Patient's medical history is significant for psoriatic arthritis, for which she is on Skyrizi injections She has been seeing rheumatology here at [facility] but is scheduled to see another assistant to the vice president at [facility] sometime in October 2024 for a second opinion regarding her treatment, which she feels is not helping with her joint symptoms as much as she thinks it should She also has (+) Hx of asthma and hyperlipidemia but otherwise has no concerning cardiac or significant pulmonary issues She denies any headaches or dizziness; denies any fever Denies any chest pains, no increased SOB No nausea/vomiting, no abdominal pain No change in bowel habits noted She would also like to get her flu shot today [facility] Medical History (Updated 07/28/24 @ 04:56 by Jared Hernandez MD) 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 Depression Hepatic steatosis Overweight (BMI 25.0-29.9) Psoriatic arthritis Carpal tunnel syndrome of right wrist Irritable bowel syndrome with constipation Pure hypercholesterolemia Asthma Surgical History Hx of colonoscopy History of tubal ligation Family History Mother Arthritis Diabetes Sister Uterine cancer Maternal Aunt Cervical cancer Colon cancer Maternal Uncle Colon cancer Social History Household Members: Family and Children Housing: Apartment Alcohol intake: never Patient Tobacco Use Status: Never used Tobacco e-Cigarette/Vaping Use: Never Used Second Hand Smoke Exposure: Yes service: No Current occupational status: employed 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 Bonifacio Prince, Shaila Cano, Reyes Palmer and colleagues, with an educational christiane from [employer]. Review of Systems Const Reports body aches (diffuse), Reports fatigue, Denies fever(s) and Denies headache(s) ENT Denies dysphagia, Denies dizziness, Denies otalgia, Denies headache(s), Reports neck pain, Denies odynophagia and Denies sore throat Card Denies chest pain, Denies rapid heart rate, Denies palpitations and Denies dyspnea Resp Denies chest congestion, Denies cough, Denies dyspnea and Denies wheezing GI Denies abdominal pain, Denies constipation, Denies dysphagia, Denies diarrhea, Denies nausea, Denies odynophagia and Denies vomiting Denies difficulty voiding, Denies nocturia, Denies dysuria and Denies urinary urgency Musc Reports back pain, Reports myalgias, Reports arthralgias (involving multiple joints), Reports neck pain and Reports stiffness Skin/Breast Denies rash Neuro Denies dizziness and Denies headache(s) Psych Reports anxiety and Reports depression Endo Reports fatigue and Denies palpitations Aller/Immun Denies wheezing Physical exam (Primary Care) Vital Signs: Last Vital Signs Pulse 78 07/27/24 11:01 BP 110/62 07/27/24 11:01 Pulse Ox 97 07/27/24 11:01 Oxygen Delivery Method Room Air 07/27/24 11:01 BMI result Body Mass Index 26.4 Tobacco/Smoking Status: Tobacco use Status Tobacco use date assessed 06/28/24 07/27/24 11:02 Patient Tobacco Use Status Never used Tobacco 07/27/24 11:02 e-Cigarette/Vaping Use Never Used 07/27/24 11:02 Thrive Assessment: Date of Thrive Assessment Date Thrive assessed 06/28/24 07/27/24 11:02 Const General: no acute distress and alert HENMT Throat: Yes posterior oropharynx normal and Yes tonsils normal Neck Neck: Yes no lymphadenopathy and Yes supple Thyroid: Thyroid normal Resp Auscultation: clear to auscultation bilaterally, no rales and no wheezes Cardio Rate: regular rate Rhythm: regular rhythm Heart sounds: no murmurs GI Palpation (GI): Soft to palpation and nontender Auscultation: normal bowel sounds General: Yes no CVA tenderness Back/Spine/Pelvis Back: no CVA tenderness Thoracic/Lumbar Spine: lumbar spinal tenderness Skin Rashes: no rashes Extrem Other: (+) tenderness and swelling noted on several fingers of both hands General: Yes no clubbing, cyanosis or edema Office Procedures Flu Questionnaire Does the patient have a severe egg allergy?: No Does the patient have severe life threatening allergies?: No Does the patient have a fever or illness today?: No Has the patient ever had Guillain-[place] Syndrome?: No Has the patient ever had any past reaction to a flu shot?: No Immunizations Fluarix Triv 6652-4144 (PF) 45 mcg (15 mcg x 3)/0.5 mL IM syringe Performing Provider: Jared Hernandez MD Performing Location: [facility] Administered by: ALISE Tomlinson on 07/27/24 11:10 Dose Route Admin Location Dispensed Lot Number Expiration Date [facility] Pearler 0.5 mL IM Left Deltoid 0.5 mL [id number] 04/16/25 20114-828-16 GLAXOSMZulaKLINE VIS Given Date VIS Provided VIS Publication Date 07/27/24 Single Vaccine 21 Eligibility Eligibility Date Funding Source Not [facility] Eligible 07/27/24 Private Coding Level of Care Code Est Pt Level 3 (47458) Diagnoses Preoperative examination Z01.818 Dermatochalasis of both upper eyelids H02.831; H02.834 Ptosis of both upper eyelids H02.403 Psoriatic arthritis L40.50 Mild persistent asthma with acute exacerbation J45.31 Asthma severity: mild Asthma persistence: persistent Asthma complication type: with acute exacerbation Pure hypercholesterolemia E78.00 Myalgia M79.10 Irritable bowel syndrome with constipation K58.1 Depression, unspecified depression type F32.A Depression Type: unspecified Overweight (BMI 25.0-29.9) E66.3 Assessment & Plan Assessment & Plan (1) Preoperative examination: Code(s): Z01.818 - Encounter for other preprocedural examination Category: Medical Plan: Patient presents with acceptable risks for planned low cardiac risk procedure and currently appears to be medically optimized for surgery She had some follow up labs done last month and other than high cholesterol levels (which are improving), her labs were mostly okay (2) Dermatochalasis of both upper eyelids: Code(s): H02.831 - Dermatochalasis of right upper eyelid; H02.834 - Dermatochalasis of left upper eyelid Category: Medical Plan: She is scheduled for bilateral upper eyelid blepharoplasty under MAC with Dr. Nichole on 08/14/2024 (3) Ptosis of both upper eyelids: Code(s): H02.403 - Unspecified ptosis of bilateral eyelids Category: Medical Plan: She is also scheduled for bilateral upper eyelid ptosis repair under MAC on 08/14/2024 (4) Psoriatic arthritis: Comment: Methotrexate: October 2013 - stopped due to elevated LFTs; Enbrel: 09/2014- stopped due to fatigue, and feeling sick, injection site reaction; Humira: Nov 2014 to April 2022; Stelara: 01/2023 to 03/2023 - not helpful; Skyrizi: 04/2023 to present Code(s): L40.50 - Arthropathic psoriasis, unspecified Category: Medical Plan: Patient is currently still on Skyrizi that is being managed by rheumatology (was started on Rx by Dr. Hernandez last year in April 2023) - she has had 4 doses so far and she appears to be tolerating the medication Rx appears to be helping as she's had no breakouts of psoriasis so far lately although she still has recurrent pain of her joints, especially of her fingers on the left hand so she feels that the Rx is not helping well enough Patient did not completely agree with her current assistant to the vice president that her Rx is effective enough although they have apparently discussed with her the option of trying her on Otezla instead, which she declined She is scheduled to see another assistant to the vice president at [facility] for a second opinion sometime in October 2024 She has also declined our offer to start her on Gabapentin to see if this will help with her pain (5) Asthma: Code(s): J45.909 - Unspecified asthma, uncomplicated Category: Medical Qualifiers: Asthma severity: mild Asthma persistence: persistent Asthma complication type: with acute exacerbation Qualified Code(s): J45.31 - Mild persistent asthma with (acute) exacerbation Plan: Stable lately Continue Breo Ellipta to 200-25 mcg 1 inhalation QD and Albuterol HFA 2 inhalations every 6 hours PRN - goal is again to not have to use her Albuterol inhaler more than 3 to 4 times a week Continue Albuterol via nebulizer as well every 6 to 8 hours as needed - advised using this rather than her Albuterol inhaler when she has access to her nebulizer (6) Pure hypercholesterolemia: Code(s): E78.00 - Pure hypercholesterolemia, unspecified Category: Medical Plan: Patient could not tolerate Atorvastatin (edema) and still does NOT wish to take or try anything else for her cholesterol at this time She wants to continue working on her diet alone for now and not have to take any additional medication yet Reinforced low cholesterol diet (7) Myalgia: Code(s): M79.10 - Myalgia, unspecified site Category: Medical Plan: These were most likely related to her psoriatic arthritis flare up; are also suggestive of fibromyalgia She was started on Naproxen by rheumatology previously but patient could not tolerate Rx (due to GI symptoms) She was started on Duloxetine 60 mg QD in the past but it appears that she is no longer on this Rx - she personally remains very opposed to taking medications in general and wants to take as minimum as possible (8) Irritable bowel syndrome with constipation: Code(s): K58.1 - Irritable bowel syndrome with constipation Category: Medical Plan: She was on Linzess 290 mcg QD in the past and her symptoms were apparently well- controlled on the Rx but she self-discontinued the medication at some point - states that her symptoms have not flared up so far since she quit taking her meds Patient has also failed to respond to Amitiza and other laxatives/stool softeners in the past Follow up with GI as scheduled (9) Depression: Code(s): F32.A - Depression, unspecified Category: Medical Qualifiers: Depression Type: unspecified Qualified Code(s): F32.A - Depression, unspecified Plan: She was previously on Duloxetine but she self-discontinued taking the Rx at some point and states that she feels okay without any Rx for her mood disorder (10) Overweight (BMI 25.0-29.9): Code(s): E66.3 - Overweight Category: Medical Plan: Reinforced diet/exercise as tolerated/lose weight Plan Patient is currently medically optimized and has no contraindications to undergo her proposed eye surgeries bilaterally under MAC as planned on 08/14/2024 As requested , flu vaccine given to patient today Follow up as scheduled in October 2024 Orders: Orders Influenza [id number] Immunization 07/27/24 Z23 - Encounter for immunization
[2024-07-27 11:01] VITALS: BP 110/62; PULSE 78; O2SAT 97; BMI 26.4
== END 2024-07-27 11:31 | disposition home or self-care (01) ==
PROVIDERS: PCP Internal Medicine; Visit Provider Internal Medicine
DX: L40.50 Arthropathic psoriasis, unspecified (principal); Z01.818 Encounter for other preprocedural examination; E66.811 Obesity, class 1; Z68.26 Body mass index [BMI] 26.0-26.9, adult; H02.831 Dermatochalasis of right upper eyelid; H02.834 Dermatochalasis of left upper eyelid; H02.403 Unspecified ptosis of bilateral eyelids; J45.31 Mild persistent asthma with (acute) exacerbation; E78.00 Pure hypercholesterolemia, unspecified; M79.10 Myalgia, unspecified site; K58.1 Irritable bowel syndrome with constipation; F32.A Depression, unspecified

== ENCOUNTER → 2024-07-27 10:47 | Outpatient (BNVA) | payer OTHER, SELFPAY | PROVIDERS: PCP Internal Medicine; Visit Provider Internal Medicine | DX: Z01.818 Encounter for other preprocedural examination (principal); Z23 Encounter for immunization; H02.831 Dermatochalasis of right upper eyelid; H02.834 Dermatochalasis of left upper eyelid; H02.403 Unspecified ptosis of bilateral eyelids; L40.50 Arthropathic psoriasis, unspecified; J45.31 Mild persistent asthma with (acute) exacerbation; E78.00 Pure hypercholesterolemia, unspecified; M79.10 Myalgia, unspecified site; K58.1 Irritable bowel syndrome with constipation; F32.A Depression, unspecified; E66.3 Overweight | CPT/HCPCS: 90471; 90656; 99212 ==

== ENCOUNTER 2024-10-27 08:30 | Outpatient (REF) | payer OTHER, SELFPAY ==
--- OUTSIDE RECORDS SUMMARY | 2024-10-27 08:37 | XMS_ITS | Data Portability ---
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 Fiberoptic laryngoscopy today was benign. Her symptoms have been present for over 5 years. Recommend modified barium swallow. We may review results through the portal [facility] Access Not available 05/23/2024 14:20:43 Plan of Treatment Reminders Order Date Submit Date Provider Last Modified By Organization Details Last Modified Time Details Appointments None recorded. Lab None recorded. Referral None recorded. Procedures None recorded. Surgeries None recorded. Imaging [place], modified barium swallow study 2023 08 024 [facility] Diagnosit Imaging Dept, [address] [place] [address], [place], [address], 10:35:54 Medication Orders None recorded. Patient TargetsNo targets recorded. Patient InstructionsNo instructions recorded. Reason for Referral None Reported. Results Created Date Observation Date Name Description Value Unit Range Abnormal Flag Note LastModifiedBy Organization Detail LastModifiedTime 08/29/2008/29/2024 kristie kern No observ ation record ed. [email or web address] [facility] ([facility] Central Scheduling) Any [facility], [place], [address], 09/19/2024 12:16:55 08/29/20 08/29/2024 xr bariu m swall ow with video and speec h See Note [facility] , a member of [facility] Masha rothman Name: YESSENIA WOODY Date of : 1969 Reason for Exam: dyspha celso Exam Date: 2023 [id number] EST Report Status : Final Orderi ng Provid er: TABATHA CHAMBERS PCP: AALIYAH JORDAN NO HISTOR Y: Masha rothman is a 54-yea r-old female with histor y of dyspha celso. COMPAR VERO: None. TECHNI QUE: Multip le sequen tial fluoro scopic images of the latera l neck were obtain ed for a swallo wing functi on study. Barium enhanc ed consis tencie s of puddin g, honey, nectar , thin liquid , semi-s olid, and a 13 mm barium tablet were utiliz ed for evalua tion. Examin ation was perfor med with the speech therap ist presen t. FINDIN GS: Flash laryng eal penetr ation withou t radha aspira tion noted with thin barium consis tency. There was no eviden ce for penetr ation or aspira tion with any of the other variou s consis tencie s. 13mm barium tablet was swallo wed withou t diffic ulty with prompt passag e of pill from the esopha ad into the stomac h. IMPRES LYNDSEY: No eviden ce of trache al aspira tion. Please refer to the [facility] speech pathol ogist report for furthe r detail s as clinic paras [place]. DAP: 0.55 Gycm^2 Exam perfor med and dictat ed by: DANIEL Mckenna physic sobeida: Quique nj MD ------ -- FINAL REPORT ------ -- Dictat ed By: Trudi Garnett Dictat ed Date: 2023 12:43 ET Assign ed Physic sobeida: Quique Bergman Review ed and Electr onical ly Signed By: Quique Bergman Signed Date: 2023 18:14 ET Workst ation ID: [id number] Transc ribed By: Self Edit Transc ribed Date: 2023 12:46 ET Reside nt/PA/ CHIROPRACTIC PHYSICIAN: Garnett Trudi [address] (Central Scheduling Radiology) [address] [place], [address], 09/19/2024 12:16:55 Result Notes None recorded. 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 Procedures Surgical History Date Name Laterality Status Provider Name and Address Organization Details Recorded Time 05/23/2024 FOL_DP completed TABATHA CHAMBERS MD [address] [place] [address], [phone], [facility] 05/23/2024 08:16:21 Imaging Results Imaging Date Name Status LastModified by Organiz ation Details LastModified Time 08/29/2024 procedures completed [address] ([facility] Central Scheduling) Any [facility], [place], [address], 09/19/2024 12:16:55 08/29/2024 xr barium swallow with video and speech completed [address] (Central Scheduling Radiology) [address] [place], [address], 09/19/2024 12:16:55 Procedure Notes None recorded. Medical Equipment None Reported. Allergies Allergen ID Allergen Name Allergen Category Reaction Reaction Severity Criticality Documentation Date Start Date Code Code System Note Provider Name and Address Organization Details Recorded Time 620178 acetamino phen / hydrocodo ne medicatio n other Not available Not available 02/29/2024 69022 2 RxNorm React ion: unkno wn, unspe cifie d;; Not Available [facility] 4 01:22:21 Medications Name Sig Start Date Stop Date Status Note LastModified by Organization Details LastModified Time diclofenac 3 % topical gel USE 1 APPL TOPICALLY 2 TIMES A DAY APPLY TO HANDS AND FINGERS TWICE PER DAY active Not Available Not Available No t Available azithromyc in 250 mg tablet TAKE 2 TABLETS BY MOUTH TODAY, THEN TAKE 1 TABLET DAILY FOR 4 DAYS DIRECTED active Not Available Not Available No t Available albuterol sulfate 1.25 mg/3 mL solution for nebulizati on INHALE 1 VIAL VIA NEBULIZER 4 TIMES A DAY NEEDED FOR SHORTNESS OF BREATH OR WHEEZING FOR 30 DAYS active Not Available Not Available No t Available prednisone 5 mg tablet TAKE 1 TABLET BY MOUTH TWICE A DAY active Not Available Not Available No t Available Humira Pen 40 mg/0.8 mL subcutaneo us kit 2018 active Medicatio n ID: [id number] Du ration Value: 28 Brand Name: Humira Pen Send Method: E-Prescri bed Subs Allowed: subs [place] Medica tionGener icName: Humira Pen Not Available Not Available Not Available Linzess 290 mcg capsule 2018 active Medicatio n ID: [id number] Du ration Value: 30 Brand Name: Linzess S end Method: E-Prescri bed Subs Allowed: subs [place] Specia l Instructi on: TAKE 1 CAPSULE BY MOUTH EVERY DAY Medic ationGene ricName: Linzess Not Available Not Available Not Available Skyrizi 150 mg/mL subcutaneo us pen injector active Not Available Not Available Not Available Vitals None Recorded Social History None recorded. Functional Status None recorded. Mental Status None recorded. Family History Nothing Reported. Medical History No medical history recorded. Gynecological HistoryNo gynecological history recorded. Obstetrics History GPAL:G 0 P 0 0 0 0 Past Encounters Encounter ID Performer Location Encounter Start Date Encounter Closed Date Diagnosis/Indication Diagnosis SNOMED-CT Code Diagnosis ICD10 Code Diagnosis Note [id number] TABATHA CAHMBERS MD [facility] [address] [place] [address] 05/23/2024 13:36:37 05/23/2024 14:27:22 Dysphagia 67150556 R13.10 Health Concerns Section Related Observation LastModified by Organization Detai ls LastModified Time None Recorded Concern Status LastModified by Organization Details LastModified Time None Recorded Advance Directives Directive None Recorded Payers Encounter Date Sequence Insurance Name Policy Number Policy Parrish Covered Member ID Parrish Member ID Guarantor Name 05/23/2024 1 [facility] [id number] Yessenia Woody [id number] Yessenia Woody Notes Date Note Type Note Provider Name and Address Organization Details Recorded Time 05/23/2024 text/html dysphagia with h er saliva and liquidsfrequency is intermittentthroat clearing is non productiveonset earlier than 2019no relief with cough medicinesindicates it is located mid neck to mid chestdenies heartburn - no relief with empiric trial of reflux meds TABATHA CHAMBERS MD [address] [address], [place], [phone], [facility] - [facility] 05/23/2024 14:21:15 OBGyn Episode No OBEpisode recorded.
[2024-10-27 09:04] LABS: MANUAL DIFF FLAG NO
[2024-10-27 09:29] LABS: Basophils Percent Auto 0.6 % (0-2); Eosinophils Absolute Auto 0.2 X10*3/uL (0.0-0.4); Eosinophils Percent Auto 3.2 % (0-4); Hematocrit 40.9 % (37.0-47.0); Hemoglobin 13.9 g/dl (12.0-16.0); Imm Gran Abs Auto 0.02 X10*3/uL (0.00-0.03); Imm Gran Pct Auto 0.4 % (0.0-0.4); Lymphocytes Absolute Auto 1.6 X10*3/uL (1.2-4.9); Lymphocytes Percent Auto 34.7 % (20-40); Mean Corpuscular Hemoglobin 30.3 pg (27.0-33.0); Mean Corpuscular Volume 89.3 fL (80.0-98.0); Mean Platelet Volume 9.6 fL (9.4-12.3); Monocytes Absolute Auto 0.4 X10*3/uL (0.1-1.2); Monocytes Percent Auto 7.6 % (2-11); Neutrophils Absolute Auto 2.5 x10*3/uL (2.0-8.3); Neutrophils Percent Auto 53.5 % (45-73); Platelet Count 251 X10*3/uL (160-400); Red Blood Count 4.58 X10*6/uL (4.20-5.50); Red Cell Distribution Width 12.7 % (11.0-16.0); White Blood Count 4.7 X10*3/uL (4.8-10.8)
[2024-10-27 09:47] LABS: Appearance Urine Clear; Color Urine Yellow; Glucose Urine UA Negative (Negative); Leukocyte Esterase Urine Negative (Negative); Nitrite Urine Negative (Negative); Specific Gravity - Urine 1.015 (1.005-1.025); Urine Blood Negative (Negative); Urine Ketones Negative (Negative); Urine Protein Negative (Neg-Trace)
[2024-10-27 10:09] LABS: Erythrocyte Sedimentation Rate 12 MM/HR (0-20)
[2024-10-27 10:17] LABS: Alanine Aminotransferase 61 U/L (0-31); Albumin Level 4.3 g/dL (3.5-5.0); Alkaline Phosphatase 60 U/L (39-117); Anion Gap 11 (12-20); Aspartate Amino Transferase 40 U/L (5-31); Bilirubin Total 0.9 mg/dL (0.0-1.0); Blood Urea Nitrogen 8 mg/dL (9-16); C Reactive Protein 0.13 mg/dL (< or = 0.50); Calcium 9.6 mg/dL (8.4-10.2); Carbon Dioxide 27 mmol/L (22-29); Chloride 107 mmol/L (96-108); Cholesterol 251 mg/dL (<200); Estimated Glomerular Filt Rate > 60; Glucose Fasting 95 mg/dL (60-99); HDL Cholesterol 37 mg/dL (>40); LDL Cholesterol Calculated 165 mg/dL (<100); Potassium 4.4 mmol/L (3.3-5.1); Sodium 141 mmol/L (135-145); Total Protein 7.8 g/dL (6.5-8.0); Triglycerides 249 mg/dL (<150)
[2024-11-01 15:37] LABS: FIB-ALT 44 U/L (6-29); FIB-Alpha-2-Macroglobulin 285 mg/dL (106-279); FIB-Apolipoprotein A1 143 mg/dL (101-198); FIB-GGT 21 U/L (3-70); FIB-Haptoglobin 113 mg/dL (43-212); FIB-Total Bilirubin 0.7 mg/dL (0.2-1.2); Liver Fibrosis Score 0.37; Liver Fibrosis Stage F1-F2; Nec Inflam Act Grade A0-A1; Nec Inflam Act Score 0.27; Reference ID 5287128
== END 2024-10-27 08:31 | disposition home or self-care (01) ==
LOC: HO.LAB 08:30
PROVIDERS: PCP Internal Medicine; Visit Provider Internal Medicine
DX: E78.00 Pure hypercholesterolemia, unspecified (principal); M79.7 Fibromyalgia; L40.50 Arthropathic psoriasis, unspecified; R30.0 Dysuria; D64.9 Anemia, unspecified; R79.89 Other specified abnormal findings of blood chemistry; E55.9 Vitamin D deficiency, unspecified
CPT/HCPCS: 36415; 80053; 80061; 81003; 81596; 82306; 85025; 85652; 86140

== ENCOUNTER 2024-10-30 12:58 | Outpatient (AMB) | payer OTHER, SELFPAY ==
--- NOTE | 2024-10-29 22:46 | MHC.PC.OV ---
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: No Accompanied by: Self / Same As Patient Allergies acetaminophen [From Vicodin] Adverse Reaction (Intermediate, Verified 10/30/24 13:14) Nausea, vomiting, dizziness hydrocodone [From Vicodin] Adverse Reaction (Intermediate, Verified 10/30/24 13:14) Nausea, vomiting, dizziness atorvastatin Adverse Reaction (Mild, Verified 10/30/24 13:14) Swelling Medication List - Last Reconciled 10/30/24 by AURELIA Perkins albuterol sulfate 1.25 mg (3 mL) continuous nebulization QID PRN 30 days diclofenac sodium 3% 1 appl topical BID magnesium oxide 400 mg PO BID vwtnsgts-nel-azzl-FA-vit K-lut 8 mg iron-400 mcg-50 mcg (Multivitamin Women 50 Plus) 1 tab PO DAILY [nebulizer Use as directed 4 times a day as needed] omega-3 fatty acids 1,000 mg PO DAILY Skyrizi (risankizumab-rzaa) 150 mg subcut Q12W NS vitamin E (dl, acetate) 400 units PO BID Tobacco use date assessed: 10/30/24 Dental Screening Dental Screen Date: 10/30/24 Did you have a dental visit in the last 12 months?: No Did you have a dental problem in the last 6 months where you did not have access to dental care?: No Was dental information given to patient?: Patient has dentist HPI 4 month f/u HPI Details Patient is a 54 year old female with significant past medical history of psoriasis arthritis, pure hypercholesterolemia, dermatochalasis of both upper eyelids, asthma myalgia, IBS with constipation and depression The patient is presenting for a follow up appointment-she had labs done few days ago- to discuss She reports that she continues on the skyrizi but this medication wears off close to when the medication is due and sometimes intermittently when the medication is not due. She reports that she has a follow up appointment in November and plans to address this with her Care Program Resident. She also reports that she has an upcoming appointment with another Care Program Resident for a 2nd opinion. She also reports that they are a lot of smokers in her apartment building and she lives on the top floor and the smoke rises and comes into her apartment. She has been addressing this situation with the landlord with no positive outcome so far. She denies chest pain, shortness of breath, dizziness, heart palpitation She reports that her constipation has been better she has been doing some natural remedies and she had been going like two times a day. [facility] Medical History 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 Depression Hepatic steatosis Overweight (BMI 25.0-29.9) Psoriatic arthritis Carpal tunnel syndrome of right wrist Irritable bowel syndrome with constipation Pure hypercholesterolemia Asthma Surgical History Hx of colonoscopy History of tubal ligation Family History Mother Arthritis Diabetes Sister Uterine cancer Maternal Aunt Cervical cancer Colon cancer Maternal Uncle Colon cancer Social History Household Members: Family and Children Housing: Apartment Alcohol intake: never Patient Tobacco Use Status: Never used Tobacco e-Cigarette/Vaping Use: Never Used Second Hand Smoke Exposure: Yes service: No Current occupational status: employed 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 1. Little interest or pleasure in doing things: several days 2. Feeling down, depressed, or hopeless: several days 3. Trouble falling or staying asleep, or sleeping too much: several days 4. Feeling tired or having little energy: several days 5. Poor appetite or overeating: not at all 6. Feeling bad about yourself - or that you are a failure or have let yourself or your family down: not at all 7. Trouble concentrating on things, such as reading the newspaper or watching television: not at all 8. Moving or speaking so slowly that other people could have noticed. Or the opposite - being so fidgety or restless that you have been moving around a lot more than usual: not at all 9. Thoughts that you would be better off or of hurting yourself in some way: not at all Total score: 4 Depression Screening Interpretation: Positive Depression Screening Follow-up: Existing condition and Declines treatment Depression Screening Done: Yes 53675 - PHQ-9 Billing: Yes Source: Developed by Drs. Bonifacio Prince, Shaila Cano, Reyes Palmer and colleagues, with an educational christiane from [employer]. Thrive Questionnaire Date Thrive assessed: 10/30/24 I am a: Patient What is your living situation today?: I have a steady place to live Within the past 12 months, did the food you bought not last and you didn't have the money to get more?: Never true Within the past 12 months, did you worry whether your food would run out before you got money to buy more?: Never true Do you have trouble paying for medicines?: No Do you have trouble getting transportation to medical appointments?: No Do you have trouble paying your heating and electricity bill?: No Do you have trouble taking care of your child, family member or friend?: No Do you have trouble with day-to-day activities such as bathing, preparing meals, shopping, managing finances, etc.?: No Are you currently unemployed and looking for a job?: No Are you interested in more education?: No Please select the resources that you would like help with: None Currently or been in a relationship where the following occur: No concerns reported THRIVE Score: 0 AUDIT C Alcohol Use Questionnaire (AUDIT-C) 1. How often do you have a drink containing alcohol?: Never 3. How often do you have six or more drinks on one occasion?: Never Total Score: 0 Score Reviewed/Action Taken: Yes JUANITA-7 AMB Questionnaire JUANITA-7 Date JUANITA - 7 assessed: 10/30/24 Feeling nervous, anxious, or on edge: 0 = Not at all Not being able to stop or control worryin = Not at all Worrying too much about different things: 0 = Not at all Trouble relaxin = Not at all Being so restless that it is hard to sit still: 0 = Not at all Becoming easily annoyed or irritable: 0 = Not at all Feeling afraid as if something awful might happen: 0 = Not at all Total JUANITA-7 score (0-4 normal; 5-9 mild; 10-14 moderate; 15-21 severe): 0 Source: Developed by Drs. Bonifacio Prince, Shaila Cano, Reyes Palmer and colleagues, with an educational christiane from [employer]. JUANITA-7 Assessment Billing JUANITA-7 Assessment Tool: JUANITA-7 Assessment 51286 Review of Systems Const Details: Denies chills, Denies fatigue, Denies fever(s), Denies headache(s) and Denies weakness HEENT Denies change in vision, Denies dizziness, Denies headache(s), Denies hearing loss, Denies nasal congestion, Denies sinus pain, Denies sinus pressure and Denies sore throat Card Denies chest pain, Denies lightheadedness, Denies dyspnea and Denies other (palpitations) Resp Denies cough, Denies dyspnea and Denies wheezing GI Denies abdominal pain, Denies melena, Denies hematochezia, reports decrease constipation, more frequent bowel movements with home remedies, Denies dyspepsia and Denies nausea Denies hematuria and Denies dysuria Musc Denies abnormal gait, reports recurrent myalgias, reports recurrent arthralgias and stiffness, Denies numbness and Denies tingling Skin/Breast Denies rash, Denies unusual bruising and Denies wounds Neuro Denies abnormal gait, Denies dizziness, Denies headache(s), Denies memory loss, Denies numbness, Denies Sensory deficit (Neuro), Denies tingling and Denies weakness Psych Denies anxiety, reports situational depression(right now is her living condition and feeling like she is not being heard by the landlord) and Denies memory loss Endo Denies cold intolerance, Denies fatigue, Denies heat intolerance, Denies polydipsia and Denies polyuria Kan/Lymph Denies easy bleeding and Denies easy bruising Aller/Immun Denies wheezing Physical exam (Primary Care) Vital Signs: Last Vital Signs Temp 97.9 F 10/30/24 13:00 Pulse 84 10/30/24 13:00 BP 102/68 10/30/24 13:00 Pulse Ox 97 10/30/24 13:00 Oxygen Delivery Method Room Air 10/30/24 13:00 BMI result Body Mass Index 26.7 Tobacco/Smoking Status: Tobacco use Status Tobacco use date assessed 10/30/24 10/30/24 13:06 Patient Tobacco Use Status Never used Tobacco 10/29/24 22:49 e-Cigarette/Vaping Use Never Used 10/29/24 22:49 PHQ-9: PHQ-9 Score PHQ-9: Total score 4 10/30/24 21:00 Depression Screening Interpretation: Positive Depression Screening Follow-up: Existing condition and Declines treatment Thrive Assessment: Date of Thrive Assessment Date Thrive assessed 10/30/24 10/30/24 13:06 Currently or been in a relationship where the following occur: No concerns reported Const Other: General: no acute distress, well developed, alert and awake Nutritional Appearance: well nourished Orientation/consciousness: patient oriented x3 HENMT Head: Yes normocephalic and Yes atraumatic Pupils: Equal, round and reactive pupils present and Pupil accommodation reflex normal EOM: EOMs intact bilaterally Neck Lymphatic: no lymphadenopathy noted Resp Effort & Inspection: normal respiratory effort Auscultation: clear to auscultation bilaterally Cardio Rate: regular rate Rhythm: regular rhythm Heart sounds: S1 normal heart sound present, S2 normal heart sound present, no gallops, no murmurs and no rubs GI Palpation (GI): No Abdominal aortic bruit present, Soft to palpation, nontender, No hepatosplenomegaly present and No Rebound tenderness present Auscultation: normal bowel sounds General: Yes no CVA tenderness Back/Spine/Pelvis Back: no CVA tenderness Cervical Spine: cervical ROM normal and No Cervical spine tenderness Thoracic/Lumbar Spine: lumbar spinal tenderness. Puffiness in fingers bilateral hands Skin General: warm and dry. Normal skin color. Normal skin turgor Lesions: no lesions Rashes: no rashes Trauma: no lacerations or abrasions Wounds: no wounds Nails: normal Neuro General: patient oriented x3, gait normal and CN's II-XI intact bilaterally Cranial nerves: Yes Equal, round and reactive pupils present Cognition (Neuro): normal cognition Gait exam (Neuro): Normal gait present Sensory Exam: No Sensory deficit (Neuro) Extrem General: Yes normal to inspection, No calf tenderness Psych Appearance: grossly normal Affect: normal affect Attitude: cooperative Thought process: Normal thought process present Results Reviewed Results Reviewed: Laboratory Tests 10/27/24 10/27/24 08:59 09:02 WBC 4.7 L RBC 4.58 Hgb 13.9 Hct 40.9 Plt Count 251 ESR 12 Sodium 141 Potassium 4.4 Chloride 107 Carbon Dioxide 27 BUN 8 L Creatinine 0.78 Estimated GFR > 60 Fasting Glucose 95 AST 40 H ALT 61 H C-Reactive Protein 0.13 Triglycerides 249 H Cholesterol 251 H LDL Cholesterol, Calc 165 H HDL Cholesterol 37 L 25-OH Vitamin D Total 20.0 L Urine Color Yellow Urine Appearance Clear Urine pH 8.0 Ur Specific [place] 1.015 Urine Protein Negative Urine Glucose (UA) Negative Urine Ketones Negative Urine Blood Negative Urine Nitrite Negative Ur Leukocyte Esterase Negative Coding Level of Care Code Est Pt Level 4 (37860) Diagnoses Psoriatic arthritis L40.50 Irritable bowel syndrome with constipation K58.1 Pure hypercholesterolemia E78.00 Mild persistent asthma with acute exacerbation J45.31 Asthma complication type: with acute exacerbation Asthma persistence: persistent Asthma severity: mild Elevated transaminase level R74.01 Vitamin D deficiency E55.9 Dermatochalasis of both upper eyelids H02.831; H02.834 Depression, unspecified depression type F32.A Depression Type: unspecified Overweight (BMI 25.0-29.9) E66.3 Additional Codes JUANITA-7 Assessment Billing - JUANITA-7 Assessment Tool: JUANITA-7 Assessment 90480 ([id number]) PHQ-9 - 59381 - PHQ-9 Billing: Yes ([id number]) Assessment & Plan Assessment & Plan (1) Psoriatic arthritis: Comment: Methotrexate: October 2013 - stopped due to elevated LFTs; Enbrel: 09/2014- stopped due to fatigue, and feeling sick, injection site reaction; Humira: Nov 2014 to April 2022; Stelara: 01/2023 to 03/2023 - not helpful; Skyrizi: 04/2023 to present Code(s): L40.50 - Arthropathic psoriasis, unspecified Category: Medical Plan: She this Currently on skyrizi- reports that the medication is working-but prior to getting the other shot, that is when her joints start swelling up. 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 --Follow up with rheumatology as scheduled (2) Irritable bowel syndrome with constipation: Code(s): K58.1 - Irritable bowel syndrome with constipation Category: Medical Plan: She was on Linzess 290 mcg QD in the past and her symptoms were apparently well-controlled on the Rx but she self-discontinued the medication at some point - states that her symptoms have not flared up so far since she quit taking her meds Patient has also failed to respond to Amitiza and other laxatives/stool softeners in the past: reports that she has not follow up with GI over two years now. She has been doing her own natural remedy with positive effect: Reports that she is going to make an appt with GI soon. Follow up with GI as scheduled (3) Pure hypercholesterolemia: Code(s): E78.00 - Pure hypercholesterolemia, unspecified Category: Medical Plan: ASCVD: 2.6%, discussed with patient that even though her triglycerides are still elevated even though it is trending down. In addition, her to the cholesterol and LDL both are elevated and trending upward. Patient reports that her diet has not been the best over the holidays and she will continue to work on this. -Encouraged low in cholesterol/activity as tolerated (4) Asthma: Code(s): J45.909 - Unspecified asthma, uncomplicated Category: Medical Qualifiers: Asthma complication type: with acute exacerbation Asthma persistence: persistent Asthma severity: mild Qualified Code(s): J45.31 - Mild persistent asthma with (acute) exacerbation Plan: Stable lately: Continue Breo Ellipta to 200-25 mcg 1 inhalation QD and Albuterol HFA 2 inhalations every 6 hours PRN - goal is again to not have to use her Albuterol inhaler more than 3 to 4 times a week Continue Albuterol via nebulizer as well every 6 to 8 hours as needed - advised using this rather than her Albuterol inhaler when she has access to her nebulizer. She lives in a building with a lot of smokers, she is trying to get into a non-smoking apartment. Reports that she is unable to avoid the triggers at this time but she is still doing ok. (5) Elevated transaminase level: Code(s): R74.01 - Elevation of levels of liver transaminase levels Category: Medical Plan: Discussed with patient that her AST/ALT are elevated. The patient has an US abdomin in the past that showed: Diffusely increased liver echogenicity suggesting hepatic steatosis --Discussed with the patient that her elevated triglycerides, and cholesterol might be playing a role in the increase of these enzymes Will repeat labs in few months. Continue working on lower cholesterol by changing diet and increasing activity as tolerated. (6) Vitamin D deficiency: Code(s): E55.9 - Vitamin D deficiency, unspecified Category: Medical Plan: The patient was informed that her vitamin-D level continues to trend downward Patient verbalized understanding but is adamant on dealing with this issue through the natural route. The patient report that the vitamin-D cause her to be constipated in the past and she rather not taking the chance. (7) Dermatochalasis of both upper eyelids: Code(s): H02.831 - Dermatochalasis of right upper eyelid; H02.834 - Dermatochalasis of left upper eyelid Category: Medical Plan: She had bilateral upper eyelid blepharoplasty under MAC with Dr. Nichole on 08/14/24, resolved with procedure (8) Depression: Code(s): F32.A - Depression, unspecified Category: Medical Qualifiers: Depression Type: unspecified Qualified Code(s): F32.A - Depression, unspecified Plan: She previously was on Duloxetine but she self-discontinued taking the Rx at some point and states that she feels okay without any Rx for her mood disorder: Today the patient reports that her depression is situational but does not last (it is not present all the time). She still would like to deal with her depression through the natural route. --She denies si/hi (9) Overweight (BMI 25.0-29.9): Code(s): E66.3 - Overweight Category: Medical Plan: Diet/exercise discussed in detail Encouraged to exercise for at least 30 minutes a day/5 days a week Healthy eating discussed. Encouraged to eat fruits/vegetables, protein-fish/baked chicken, and to avoid salty/fried foods, sweets, caffeine and carbohydrates. Encouraged to increase water intake 6-8 glasses a day Plan Follow up in 4 months Orders: Orders Comprehensive [place]. Panel Fast 4 Months E55.9 - Vitamin D deficiency, unspecified, E66.3 - Overweight, E78.00 - Pure hypercholesterolemia, unspecified, F32.A - Depression, unspecified, J45.31 - Mild persistent asthma with (acute) exacerbation, K58.1 - Irritable bowel syndrome with constipation, K76.0 - Fatty (change of) liver, not elsewhere classified, L40.9 - Psoriasis, unspecified, R68.89 - Other general symptoms and signs Glucose Fasting 4 Months E55.9 - Vitamin D deficiency, unspecified, E66.3 - Overweight, E78.00 - Pure hypercholesterolemia, unspecified, F32.A - Depression, unspecified, J45.31 - Mild persistent asthma with (acute) exacerbation, K58.1 - Irritable bowel syndrome with constipation, K76.0 - Fatty (change of) liver, not elsewhere classified, L40.9 - Psoriasis, unspecified, R68.89 - Other general symptoms and signs Complete Blood Count Auto Diff 4 Months E55.9 - Vitamin D deficiency, unspecified, E66.3 - Overweight, E78.00 - Pure hypercholesterolemia, unspecified, F32.A - Depression, unspecified, J45.31 - Mild persistent asthma with (acute) exacerbation, K58.1 - Irritable bowel syndrome with constipation, K76.0 - Fatty (change of) liver, not elsewhere classified, L40.9 - Psoriasis, unspecified, R68.89 - Other general symptoms and signs Lipid Panel 4 Months E55.9 - Vitamin D deficiency, unspecified, E66.3 - Overweight, E78.00 - Pure hypercholesterolemia, unspecified, F32.A - Depression, unspecified, J45.31 - Mild persistent asthma with (acute) exacerbation, K58.1 - Irritable bowel syndrome with constipation, K76.0 - Fatty (change of) liver, not elsewhere classified, L40.9 - Psoriasis, unspecified, R68.89 - Other general symptoms and signs Vitamin D 25-OH Total 4 Months E55.9 - Vitamin D deficiency, unspecified, E66.3 - Overweight, E78.00 - Pure hypercholesterolemia, unspecified, F32.A - Depression, unspecified, J45.31 - Mild persistent asthma with (acute) exacerbation, K58.1 - Irritable bowel syndrome with constipation, K76.0 - Fatty (change of) liver, not elsewhere classified, L40.9 - Psoriasis, unspecified, R68.89 - Other general symptoms and signs UA CC w/rflx Micro + Cult 4 Months E55.9 - Vitamin D deficiency, unspecified, E66.3 - Overweight, E78.00 - Pure hypercholesterolemia, unspecified, F32.A - Depression, unspecified, J45.31 - Mild persistent asthma with (acute) exacerbation, K58.1 - Irritable bowel syndrome with constipation, K76.0 - Fatty (change of) liver, not elsewhere classified, L40.9 - Psoriasis, unspecified, R68.89 - Other general symptoms and signs
[2024-10-30 13:00] VITALS: BP 102/68; PULSE 84; TEMP 36.6; O2SAT 97; BMI 26.7
== END 2024-10-30 13:40 | disposition home or self-care (01) ==
PROVIDERS: PCP Internal Medicine
DX: K58.1 Irritable bowel syndrome with constipation (principal); L40.50 Arthropathic psoriasis, unspecified; E78.00 Pure hypercholesterolemia, unspecified; J45.31 Mild persistent asthma with (acute) exacerbation; R74.01 Elevation of levels of liver transaminase levels; E55.9 Vitamin D deficiency, unspecified; H02.831 Dermatochalasis of right upper eyelid; H02.834 Dermatochalasis of left upper eyelid; F32.A Depression, unspecified; E66.3 Overweight

== ENCOUNTER → 2024-10-30 12:58 | Outpatient (BNVA) | payer OTHER, SELFPAY | PROVIDERS: PCP Internal Medicine | DX: L40.50 Arthropathic psoriasis, unspecified (principal); K58.1 Irritable bowel syndrome with constipation; E78.00 Pure hypercholesterolemia, unspecified; J45.31 Mild persistent asthma with (acute) exacerbation; R74.01 Elevation of levels of liver transaminase levels; E55.9 Vitamin D deficiency, unspecified; H02.831 Dermatochalasis of right upper eyelid; H02.834 Dermatochalasis of left upper eyelid; F32.A Depression, unspecified; E66.3 Overweight; Z68.26 Body mass index [BMI] 26.0-26.9, adult; Z71.3 Dietary counseling and surveillance | CPT/HCPCS: 96127; 99212 ==

== ENCOUNTER 2025-01-26 15:14 | Outpatient (AMB) | payer OTHER, SELFPAY ==
--- OUTSIDE RECORDS SUMMARY | 2025-01-26 15:18 | XMS_ITS | Data Portability ---
Author Organization [place] - [facility], Allergy Address [address] [place] [address] Care Team Providers Care Manager Of Recruiting Name Role Phone MICHAEL LORENZ Primary Care Provider [phone] Assessment Encounter Date Assessment Date Assessment LastModified by Organization Details LastModified Time 05/23/2024 05/23/2024 Patient describes dysphagia for liquids with frequent cough and clearing of the throat. Fiberoptic laryngoscopy today was benign. Her symptoms have been present for over 5 years. Recommend modified barium swallow. We may review results through the portal General Assembly Not available 05/23/2024 14:20:43 Plan of Treatment Reminders Order Date Submit Date Provider Last Modified By Organization Details Last Modified Time Details Appointments None recorded. Lab None recorded. Referral None recorded. Procedures None recorded. Surgeries None recorded. Imaging [place], modified barium swallow study 2023 024 [facility] Dept, [address] [place] [address], [place], [address], 10:35:54 Medication Orders None recorded. Patient TargetsNo targets recorded. Patient InstructionsNo instructions recorded. Reason for Referral None Reported. Results Created Date Observation Date Name Description Value Unit Range Abnormal Flag Note LastModifiedBy Organization Detail LastModifiedTime 08/29/2008/29/2024 kristie kern No observ ation record ed. [email or web address] [facility] ([facility] Central Scheduling) Any [facility], [place], [address], 09/19/2024 12:16:55 08/29/20 08/29/2024 xr bariu m swall ow with video and speec h See Note [facility] , a member of [facility] Masha rothman Name: YESSENIA WOODY Date of : 1969 Reason for Exam: dyspha celso Exam Date: 2023 [id number] EST Report Status : Final Orderi ng [...] perfor med and dictat ed by: DANIEL Mcknena physic sobeida: Quique nj MD ------ -- FINAL REPORT ------ -- Dictat ed By: Trudi Garnett Dictat ed Date: 2023 12:43 ET Assign ed Physic sobeida: Quique Bergman Review ed and Electr onical ly Signed By: Quique Bergman Signed Date: 2023 18:14 ET Workst ation ID: [id number] Transc ribed By: Self Edit Transc ribed Date: 2023 12:46 ET Reside nt/PA/ TRANSMISSION INSPECTOR: Garnett Trudi [address] (Central Scheduling Radiology) [address] [place], [address], 09/19/2024 12:16:55 Result Notes None recorded. Problems Name Problem SNOMED Code Status Onset Date Resolution Date Notes Provider Name and Address Organization Details Recorded Time Bilateral tinnitus 53218707260 02 Active 2018 Tinnitus, bilateral ; Note: Date Diagnosed : 03/15/2019 11:18 AM (H93.13) Not Available [facility] 4 03:15:22 Somatofor m disorder 78443230 Active 2018 Psychogen ic dysphagia , including 'globus hystericu s'; Note: Date Diagnosed : 04/06/2019 1:58 PM (F45.8) Not Available [facility] 4 03:15:23 Dysphagia 62053154 Active 2023 TABATHA CHAMBERS MD [address] [place] [address], [phone] , [facility] 4 14:18:50 Problem Notes None recorded. Procedures Surgical History Date Name Laterality Status Provider Name and Address Organization Details Recorded Time 05/23/2024 FOL_DP completed TABATHA CHAMBERS MD [address] [place] [address], [phone], [facility] 05/23/2024 08:16:21 Imaging Results Imaging Date Name Status LastModified by Organiz ation Details LastModified Time 08/29/2024 procedures completed [address] ([facility] Central Scheduling) Any [facility], [place], [address], 09/19/2024 12:16:55 08/29/2024 xr barium swallow with video and speech completed [address] (Central Scheduling Radiology) [address] [place], [address], 09/19/2024 12:16:55 Procedure Notes None recorded. Medical Equipment None Reported. Allergies Allergen ID Allergen Name Allergen Category Reaction Reaction Severity Criticality Documentation Date Start Date Code Code System Note Provider Name and Address Organization Details Recorded Time 049348 acetamino phen / hydrocodo ne medicatio n other Not available Not available 02/29/2024 01026 2 RxNorm React ion: unkno wn, unspe cifie d;; Not Available [facility] 4 01:22:21 Medications Name Sig Start Date [...] us kit 2018 active Medicatio n ID: [id number] Du ration Value: 28 Brand Name: Humira Pen Send Method: E-Prescri bed Subs Allowed: subs [place] Medica tionGener icName: Humira Pen Not Available Not Available Not Available Linzess 290 mcg capsule 2018 active Medicatio n ID: [id number] Du ration Value: 30 Brand Name: Linzess [...] SNOMED-CT Code Diagnosis ICD10 Code Diagnosis Note [id number] TABATHA CHAMBERS MD ENTS [facility] [address] [place] [address] 05/23/2024 13:36:37 05/23/2024 14:27:22 Dysphagia 05960394 R13.10 Health Concerns Section Related Observation LastModified by Organization Detai ls LastModified Time None Recorded Concern Status LastModified by Organization Details LastModified Time None Recorded Advance Directives Directive None Recorded Payers Encounter Date Sequence Insurance Name Policy Number Policy Parrish Covered Member ID Parrish Member ID Guarantor Name 05/23/2024 1 [facility] [id number] Yessenia Woody [id number] 1 Yessenia Woody Notes Date Note Type Note Provider Name and Address Organization Details Recorded Time 05/23/2024 text/html dysphagia with h er saliva and liquidsfrequency is intermittentthroat clearing is non productiveonset earlier than 2019no relief with cough medicinesindicates it is located mid neck to mid chestdenies heartburn - no relief with empiric trial of reflux meds TABATHA CHAMBERS MD [address] [address], [place], [address], [facility] - [facility] 05/23/2024 14:21:15 OBGyn Episode No OBEpisode recorded.
--- OUTSIDE RECORDS SUMMARY | 2025-01-26 15:18 | XMS_ITS | Clinical Summary ---
Author Organization [facility] Address [address] [place] [address] Care Team Providers Care Residential Fee Appraiser Name Role Phone Jared Hernandez MD Primary Care Provider Social History Tobacco Use Types Packs/Day Years Used Date Smoking Tobacco: Never Assessed Comments Unknown Sex and Gender Information Value Date Recorded Sex Assigned at Not on file Legal Sex Female 11:12 AM EDT Gender Identity Not on file Sexual Orientation Not on file Plan of Treatment Health Maintenance Due Date Last Done Comments Breast Cancer Screening 1970 Hepatitis B Vaccines (1 of 3 - 19+ 3-dose series) 1989 Cervical Cancer Screening: Pap Smear 1991 Pneumococcal Vaccine: 50+ Years (1 of 1 - PCV) 2020 Zoster Vaccines (1 of 2) 2020 DTaP,Tdap,and Td Vaccines (2 - Td or Tdap) 01/03/2024 01/02/2014 COVID-19 Vaccine (2 - season) 2024 12/03/2021 Colorectal Cancer Screening: Colonoscopy 08/05/2024 Depression Screening 08/05/2024 HIV Screening 08/05/2024 Hepatitis C Screening 08/05/2024 Social Influencers of Health Screening 08/05/2024 Influenza Vaccine Completed 07/27/2024, , 08/12/2022, Additional history exists HIB Vaccines Aged Out No longer eligi ble based on patient's age to complete this topic HPV Vaccines Aged Out No longer eligi ble based on patient's age to complete this topic Hepatitis A Vaccines Aged Out No long er eligible based on patient's age to complete this topic IPV Vaccines Aged Out No longer eligi ble based on patient's age to complete this topic MMR Vaccines Aged Out No longer eligi ble based on patient's age to complete this topic Meningococcal ACWY Vaccine Aged Out N o longer eligible based on patient's age to complete this topic Meningococcal B Vaccine Aged Out No l onger eligible based on patient's age to complete this topic Pneumococcal Vaccine: Pediatrics (0 to 5 Years) and At-Risk Patients (6 to 64 Years) Aged Out No longer eligible based on patient's age to complete this topic RSV Immunization Patients Under 20 months Aged Out No longer eligible based on patient's age to complete this topic Varicella Vaccines Aged Out No longer eligible based on patient's age to complete this topic Insurance [facility] Care Teams Residential Fee Appraiser Relationship Specialty Start Date End Date Jared Hernandez MD [address] [place] [address] PCP - General Internal Medicine 08/29/24
--- NOTE | 2025-01-26 15:34 | A.OFFVIS_ITS ---
Vital Signs 01/26/25 15:39 Height 5 ft 2 in Weight 145 lb 15.136 oz BMI 26.7 BP 112/66 Blood Pressure Location Rt brachial Position Sitting Pulse 74 Pulse Source Pulse Oximeter Pulse Oximetry (%) 100 Oxygen Delivery Method Room Air Intake Visit Reasons: Hepatic steatosis Intake Note: ESTABLISHED PATIENT for mgmt of hepatic steatosis and CIC. Chief Complaint; Pt denies any GI sx or concerns at this time. Pt reports her PCP had her come back to GI for a periodic eval / monitoring of FINCH. 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 Discussed with patient increase activity. Eat food that is low in fat, lose weight Irritable bowel syndrome with constipation Occasional postprandial cramping and constipation. Patient reports that she has been doing much better and is able to move her bowels without issues. Continue current treatment. I will see her in 1 year, sooner on as needed basis. Patient is agreeable to this plan and verbalizes understanding of instructions. She was given the opportunity to ask questions all questions answered. TODAY'S VISIT Patient is here today for follow-up. Has not been seen since 2021. Patient had repeated liver enzymes repeated in October were elevated. Liver fibrosis panel F1/F2. Patient is here for evaluation and further workup. Currently she is moving her bowels without any issues. Stop taking Linzess and reports that currently she is moving her bowels daily. Denies any epigastric pain or discomfort. Denies any GI concerning symptoms today. ? PFSH Medical History 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 Depression Hepatic steatosis Overweight (BMI 25.0-29.9) Psoriatic arthritis Carpal tunnel syndrome of right wrist Irritable bowel syndrome with constipation Pure hypercholesterolemia Asthma Surgical History Hx of colonoscopy History of tubal ligation Family History Mother Arthritis Diabetes Sister Uterine cancer Maternal Aunt Cervical cancer Colon cancer Maternal Uncle Colon cancer Social History Household Members: Family and Children Housing: Apartment Alcohol intake: never Patient Tobacco Use Status: Never used Tobacco e-Cigarette/Vaping Use: Never Used Second Hand Smoke Exposure: Yes service: No Current occupational status: employed 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 Current occupational exposures/hazards: No Cognitive needs: No Hearing needs: No Vision needs: No Female Reproductive History Menstrual Age of Menarche: 13 Review of Systems Const Denies weight gain and Denies weight loss ENT Reports no additional complaints, Denies dysphagia and Denies odynophagia Card Reports no additional complaints Resp Reports no additional complaints GI Denies abdominal pain, Denies belching, Denies melena, Denies bloating, Denies change in bowel habits, Denies dysphagia, Denies excessive flatus, Denies dyspepsia, Denies heartburn, Denies diarrhea, Denies loose stools, Denies nausea, Denies odynophagia and Denies vomiting Musc Reports no additional complaints Neuro Reports no additional complaints Psych Reports no additional complaints Endo Reports no additional complaints Physical Exam Vital Signs: Last Vital Signs Pulse 74 01/26/25 15:39 BP 112/66 01/26/25 15:39 Pulse Ox 100 01/26/25 15:39 Oxygen Delivery Method Room Air 01/26/25 15:39 BMI result Body Mass Index 26.7 Const General: healthy appearing, no acute distress and well developed Nutritional Appearance: well nourished Orientation/consciousness: patient oriented x3 Resp Effort & Inspection: normal respiratory effort, able to speak in complete sentences, no tracheal deviation and symmetric chest movement Auscultation: clear to auscultation bilaterally Cardio Rate: regular rate GI Inspection: Yes normal to inspection and No distended Palpation (GI): Soft to palpation, not firm, nontender and No hepatosplenomegaly present Auscultation: normal bowel sounds General: Yes no CVA tenderness Back/Spine/Pelvis Back: no CVA tenderness Skin General skin exam: elasticity normal, turgor normal and dry skin Neuro General: patient oriented x3 Psych Appearance: grossly normal Mental Status: mental status grossly normal Results Reviewed Results Reviewed: Laboratory Tests 01/31/24 06/26/24 10/27/24 09:44 09:13 09:02 AST 31 28 40 H ALT 44 H 39 H 61 H Alkaline Phosphatase 59 69 60 Liver Fibrosis Stage F1-F2 Assessment & Plan Assessment & Plan (1) Elevated transaminase level: Code(s): R74.01 - Elevation of levels of liver transaminase levels Category: Medical (2) Hepatic steatosis: Code(s): K76.0 - Fatty (change of) liver, not elsewhere classified Category: Medical (3) Irritable bowel syndrome with constipation: Code(s): K58.1 - Irritable bowel syndrome with constipation Category: Medical Plan FIB-4 fibrosis calculated 1.10?points Advanced fibrosis excluded Approximate fibrosis stage: Antolin 0-1 (Dinh et al 2006) However we will rule out any autoimmune disorders. Patient will be sent for ultrasound of the liver with elastography. Patient was encouraged to follow a low-fat, low-salt, low carb and high protein diet. Patient was encouraged to exercise. Patient will return in 3 months, we will discuss going for colonoscopy. Patient is agreeable to this plan and verbalizes understanding of instructions. She was given the opportunity to ask questions and all questions answered. Thank you for allowing me to participate in her care Orders: Orders Smooth Muscle Antibody 01/29/25. - Other specified abnormal findings of blood chemistry Mitochondrial Antibody 01/29/25 - Other specified abnormal findings of blood chemistry Alpha Fetoprotein 01/29/25 - Other specified abnormal findings of blood chemistry Hepatitis A,B,C Profile 01/29/25 - Other specified abnormal findings of blood chemistry C Reactive Protein 01/29/25 K58.9 - Irritable bowel syndrome, unspecified HIV Ab/Ag 04/14/25 R79.89 - Other specified abnormal findings of blood chemistry Prothrombin Time INR 01/29/25 R74.8 - Abnormal levels of other serum enzymes Ceruloplasmin 01/29/25 R79.89 - Other specified abnormal findings of blood chemistry Liver Panel 01/29/25 R74.01 - Elevation of levels of liver transaminase levels Ferritin 01/29/25 R74.8 - Abnormal levels of other serum enzymes US abdomen delgado w elastography 01/26/25 K76.0 - Fatty (change of) liver, not elsewhere classified Coding Level of Care Code Est Pt Level 3 (93567) Diagnoses Elevated transaminase level R74.01 Hepatic steatosis K76.0 Irritable bowel syndrome with constipation K58.1 Time Spent (min) 30 Comment 20 minutes spent with patient and additional 10 minutes spent reviewing her records
[2025-01-26 15:39] VITALS: BP 112/66; PULSE 74; O2SAT 100; BMI 26.7
== END 2025-01-26 16:06 | disposition home or self-care (01) ==
PROVIDERS: PCP Internal Medicine; Visit Provider Nurse Practitioner Family
DX: R74.01 Elevation of levels of liver transaminase levels (principal); K76.0 Fatty (change of) liver, not elsewhere classified; K58.1 Irritable bowel syndrome with constipation
CPT/HCPCS: 99213

== ENCOUNTER → 2025-01-26 15:14 | Outpatient (BNVA) | payer OTHER, SELFPAY | PROVIDERS: PCP Internal Medicine; Visit Provider Nurse Practitioner Family | DX: K76.0 Fatty (change of) liver, not elsewhere classified (principal); K58.1 Irritable bowel syndrome with constipation; R74.01 Elevation of levels of liver transaminase levels | CPT/HCPCS: 99212 ==

== ENCOUNTER 2025-01-29 07:30 | Outpatient (REF) | payer OTHER, SELFPAY ==
--- OUTSIDE RECORDS SUMMARY | 2025-01-29 07:33 | XMS_ITS | Data Portability ---
Author Organization [place] - [facility], Allergy Address [address] [place] [address] Care Team Providers Care Sterilization Tech Name Role Phone MICHAEL LORENZ Primary Care Provider [phone] Assessment Encounter Date Assessment Date Assessment LastModified by Organization Details LastModified Time 05/23/2024 05/23/2024 Patient describes dysphagia for liquids with frequent cough and clearing of the throat. Fiberoptic laryngoscopy today was benign. Her symptoms have been present for over 5 years. Recommend modified barium swallow. We may review results through the portal [place] Not available 05/23/2024 14:20:43 Plan of Treatment Reminders Order Date Submit Date Provider Last Modified By Organization Details Last Modified Time Details Appointments None recorded. Lab None recorded. Referral None recorded. Procedures None recorded. Surgeries None recorded. Imaging [place], modified barium swallow study 2023 024 [facility] Imaging Dept, [address] [place] [address], [place], [address], 10:35:54 Medication Orders None recorded. Patient TargetsNo targets recorded. Patient InstructionsNo instructions recorded. Reason for Referral None Reported. Results Created Date Observation Date Name Description Value Unit Range Abnormal Flag Note LastModifiedBy Organization Detail LastModifiedTime 08/29/2008/29/2024 kristie kern No observ ation record ed. [email or web address] [facility] ([facility] Central Scheduling) Any [facility], [place], [address], 09/19/2024 12:16:55 08/29/20 08/29/2024 xr bariu m swall ow with video and speec h See Note [facility] , a member of [facility] Masha rothman Name: YESSENIA WOODY Date of : 1969 Reason for Exam: dyspha celso Exam Date: 2023 [id number] EST Report Status : Final Orderi ng [...] ribed Date: 2023 12:46 ET Reside nt/PA/ IT BUSINESS PROCESS ARCHITECT: Garnett Trudi [address] (Central Scheduling Radiology) [address] [place], [address], 09/19/2024 12:16:55 Result Notes None recorded. Problems Name Problem SNOMED Code Status Onset Date Resolution Date Notes Provider Name and Address Organization Details Recorded Time Bilateral tinnitus 69919626030 02 Active 2018 Tinnitus, bilateral ; Note: Date Diagnosed : 03/15/2019 11:18 AM (H93.13) Not Available [facility] 4 03:15:22 Somatofor m disorder 52943430 Active 2018 Psychogen ic dysphagia , including 'globus hystericu s'; Note: Date Diagnosed : 04/06/2019 1:58 PM (F45.8) Not Available [facility] 4 03:15:23 Dysphagia 18134039 Active 2023 TABATHA CHAMBERS MD [address] [place] [address], [phone] , [facility] 4 14:18:50 Problem Notes None recorded. Procedures Surgical History Date Name Laterality Status Provider Name and Address Organization Details Recorded Time 05/23/2024 FOL_DP completed TABATHA CHAMBERS MD [address] [place] [address], [phone], [facility] 05/23/2024 08:16:21 Imaging Results Imaging Date Name Status LastModified by Organiz ation Details LastModified Time 08/29/2024 procedures completed [address] ([facility] Central Scheduling) Any [facility], [place], [address], 09/19/2024 12:16:55 08/29/2024 xr barium swallow with video and speech completed [address] (Central Scheduling Radiology) [address] [place], [address], 09/19/2024 12:16:55 Procedure Notes None recorded. Medical Equipment None Reported. Allergies Allergen ID Allergen Name Allergen Category Reaction Reaction Severity Criticality Documentation Date Start Date Code Code System Note Provider Name and Address Organization Details Recorded Time 293233 acetamino phen / hydrocodo ne medicatio n other Not available Not available 02/29/2024 77807 2 RxNorm React ion: unkno wn, unspe cifie d;; Not Available [facility] 4 01:22:21 Medications Name Sig Start [...] us kit 2018 active Medicatio n ID: [id number] Du ration Value: 28 Brand Name: Humira Pen Send Method: E-Prescri bed Subs Allowed: subs [place] Medica tionGener icName: Humira Pen Not Available Not Available Not Available Linzess 290 mcg capsule 2018 active Medicatio n ID: [id number] Du ration Value: 30 Brand Name: Linzess [...] SNOMED-CT Code Diagnosis ICD10 Code Diagnosis Note [id number] TABATHA CHAMBERS MD E[facility] [address] [place] [address] 05/23/2024 13:36:37 05/23/2024 14:27:22 Dysphagia 97601275 R13.10 Health Concerns Section Related Observation LastModified by Organization Detai ls LastModified Time None Recorded Concern Status LastModified by Organization Details LastModified Time None Recorded Advance Directives Directive None Recorded Payers Encounter Date Sequence Insurance Name Policy Number Policy Parrish Covered Member ID Parrish Member ID Guarantor Name 05/23/2024 1 [facility] [id number] Yessenia Woody [id number] 1 Yessenia Woody Notes Date Note Type Note Provider Name and Address Organization Details Recorded Time 05/23/2024 text/html dysphagia with h er saliva and liquidsfrequency is intermittentthroat clearing is non productiveonset earlier than 2019no relief with cough medicinesindicates it is located mid neck to mid chestdenies heartburn - no relief with empiric trial of reflux meds TABATHA CHAMBERS MD [address] [address], [place], [address], [facility] - [facility] 05/23/2024 14:21:15 OBGyn Episode No OBEpisode recorded.
--- OUTSIDE RECORDS SUMMARY | 2025-01-29 07:33 | XMS_ITS | Clinical Summary ---
Author Organization [employer] [facility] Address [address] [place] [address] Care Team Providers Care Swatcher Name Role Phone Jared Hernandez MD Primary [...] patient's age to complete this topic Insurance [facility] [employer] Care Teams Swatcher Relationship Specialty Start Date End Date Jared Hernandez MD [address] [place] [address] PCP - General Internal Medicine 08/29/24
[2025-01-29 08:13] LABS: Prothrombin Time 11.2 SEC (10.9-12.4)
[2025-01-29 08:51] LABS: Alanine Aminotransferase 56 U/L (0-31); Albumin Level 4.8 g/dL (3.5-5.0); Alkaline Phosphatase 61 U/L (39-117); Aspartate Amino Transferase 36 U/L (5-31); Bilirubin Direct 0.2 mg/dL (0.0-0.5); Bilirubin Total 0.7 mg/dL (0.0-1.0); Total Protein 8.4 g/dL (6.5-8.0)
[2025-01-29 09:10] LABS: Ferritin 76 ng/mL (10-250)
[2025-01-29 09:30] LABS: HBS Num1 14.82 mIU/mL (0-7.99); HBc Num1 0.11 S/CO (0.00-0.79); HBsAGNum1 0.63 S/CO (0.00-0.99); HIV AB/AG Nonreactive (Nonreactive); HIV Num 1 0.06 S/CO (0.00-0.99); Hepatitis B Core Antibody Nonreactive (Nonreactive); Hepatitis B Surface Antigen Negative (Negative); ~HepC Num1 0.16 S/CO (0.00-0.79); ~Hepatitis B Surface Antibody REACTIVE (Nonreactive); ~Hepatitis C Antibody Nonreactive (Nonreactive)
[2025-01-30 08:13] LABS: Hepatitis A Antibody IgM 0.17 Index (0-0.79); ~Hepatitis A Antibody IgM Nonreactive (Nonreactive)
[2025-01-30 11:24] LABS: Alpha Fetoprotein 3.3 ng/mL
[2025-01-30 11:28] LABS: Ceruloplasmin 22 mg/dL (14-48)
[2025-01-30 15:03] LABS: Mitochondrial Antibodies NEGATIVE (NEGATIVE)
[2025-02-01 05:31] LABS: Smooth Muscle Antibody <20 U (<20)
== END 2025-01-29 07:31 | disposition home or self-care (01) ==
LOC: HO.LAB 07:30
PROVIDERS: PCP Internal Medicine; Visit Provider Nurse Practitioner Family
DX: R79.89 Other specified abnormal findings of blood chemistry (principal); K58.9 Irritable bowel syndrome, unspecified; R74.8 Abnormal levels of other serum enzymes; R74.01 Elevation of levels of liver transaminase levels
CPT/HCPCS: 36415; 80076; 82105; 82390; 82728; 85610; 86015; 86140; 86381; 86704; 86706; 86709; 86803; 87340; 87389

== ENCOUNTER 2025-02-24 09:11 | Outpatient (REF) | payer OTHER, SELFPAY ==
[2025-02-24 09:28] LABS: MANUAL DIFF FLAG NO
[2025-02-24 10:13] LABS: Basophils Percent Auto 0.9 % (0-2); Eosinophils Absolute Auto 0.2 X10*3/uL (0.0-0.4); Eosinophils Percent Auto 3.2 % (0-4); Hematocrit 41.3 % (37.0-47.0); Hemoglobin 13.7 g/dl (12.0-16.0); Imm Gran Abs Auto 0.01 X10*3/uL (0.00-0.03); Imm Gran Pct Auto 0.2 % (0.0-0.4); Lymphocytes Absolute Auto 1.4 X10*3/uL (1.2-4.9); Lymphocytes Percent Auto 29.2 % (20-40); Mean Corpuscular HGB Conc 33.2 g/dl (31.0-35.0); Mean Corpuscular Hemoglobin 30.1 pg (27.0-33.0); Mean Corpuscular Volume 90.8 fL (80.0-98.0); Monocytes Absolute Auto 0.4 X10*3/uL (0.1-1.2); Monocytes Percent Auto 7.5 % (2-11); Neutrophils Absolute Auto 2.8 x10*3/uL (2.0-8.3); Platelet Count 258 X10*3/uL (160-400); Red Blood Count 4.55 X10*6/uL (4.20-5.50); Red Cell Distribution Width 12.5 % (11.0-16.0); White Blood Count 4.7 X10*3/uL (4.8-10.8)
[2025-02-24 10:16] LABS: Appearance Urine Clear; Color Urine Yellow; Glucose Urine UA Negative (Negative); Leukocyte Esterase Urine Moderate (2+) (Negative); Nitrite Urine Negative (Negative); Specific Gravity - Urine 1.025 (1.005-1.025); UMIC TRIGGER UACC YES; Urine Blood Negative (Negative); Urine Ketones Trace mg/dL (Negative); Urine Protein Trace mg/dL (Neg-Trace)
[2025-02-24 10:20] LABS: Alanine Aminotransferase 53 U/L (0-31); Albumin Level 4.4 g/dL (3.5-5.0); Alkaline Phosphatase 60 U/L (39-117); Anion Gap 13 (12-20); Aspartate Amino Transferase 35 U/L (5-31); Bilirubin Total 1.2 mg/dL (0.0-1.0); Blood Urea Nitrogen 13 mg/dL (9-16); Calcium 9.4 mg/dL (8.4-10.2); Carbon Dioxide 25 mmol/L (22-29); Chloride 108 mmol/L (96-108); Cholesterol 251 mg/dL (<200); Estimated Glomerular Filt Rate > 60; Glucose Fasting 100 mg/dL (60-99); HDL Cholesterol 41 mg/dL (>40); LDL Cholesterol Calculated 183 mg/dL (<100); Sodium 142 mmol/L (135-145); Total Protein 7.9 g/dL (6.5-8.0); Triglycerides 139 mg/dL (<150)
[2025-02-24 10:39] LABS: Vitamin D 25-OH Total 18.7 ng/mL (>30)
[2025-02-24 11:04] LABS: Bacteria Urine None Seen (None Seen); Hyaline Casts Urine 0-2 /LPF (0-2); RBC Urine 0-2 /HPF (0-2); UACC Culture Trigger YES
== END 2025-02-24 09:12 | disposition home or self-care (01) ==
LOC: HO.LAB 09:11
PROVIDERS: PCP Internal Medicine; Visit Provider Internal Medicine
DX: J45.31 Mild persistent asthma with (acute) exacerbation (principal); E78.00 Pure hypercholesterolemia, unspecified; K58.1 Irritable bowel syndrome with constipation; E66.3 Overweight; K76.0 Fatty (change of) liver, not elsewhere classified; E55.9 Vitamin D deficiency, unspecified; F32.A Depression, unspecified; L40.9 Psoriasis, unspecified; R68.89 Other general symptoms and signs
CPT/HCPCS: 36415; 80053; 80061; 81001; 82306; 85025; 87086

== ENCOUNTER 2025-02-27 12:25 | Outpatient (AMB) | payer OTHER, SELFPAY ==
--- NOTE | 2025-02-27 12:40 | A.OFFPC_ITS ---
Vital Signs 02/27/25 12:41 Height 5 ft 2 in Weight 146 lb 2 oz BMI 26.7 BP 100/78 Blood Pressure Location Lt brachial Position Sitting Pulse 75 Pulse Source Pulse Oximeter Pulse Oximetry (%) 98 Oxygen Delivery Method Room Air Intake Visit Reasons: hld/asthma Event Decorator Required: No Accompanied by: Self / Same As Patient Allergies acetaminophen [From Vicodin] Adverse Reaction (Intermediate, Verified 02/27/25 13:12) Nausea, vomiting, dizziness hydrocodone [From Vicodin] Adverse Reaction (Intermediate, Verified 02/27/25 13:12) Nausea, vomiting, dizziness atorvastatin Adverse Reaction (Mild, Verified 02/27/25 13:12) Swelling Medication List - Last Reconciled 02/27/25 by Jared Hernandez MD albuterol sulfate 1.25 mg (3 mL) continuous nebulization QID PRN 30 days diclofenac sodium 3% 1 appl topical BID magnesium oxide 400 mg PO BID hxnhcocr-rhn-cbqe-FA-vit K-lut 8 mg iron-400 mcg-50 mcg (Multivitamin Women 50 Plus) 1 tab PO DAILY [nebulizer Use as directed 4 times a day as needed] omega-3 fatty acids 1,000 mg PO DAILY Skyrizi (risankizumab-rzaa) 150 mg subcut Q12W NS vitamin E (dl, acetate) 400 units PO BID Tobacco use date assessed: 02/27/25 Dental Screening Dental Screen Date: 02/27/25 Did you have a dental visit in the last 12 months?: No Did you have a dental problem in the last 6 months where you did not have access to dental care?: No Was dental information given to patient?: No HPI hld/asthma HPI Details Patient comes in today for her follow up visit States that she feels okay Relates that she still feels fatigued often but is aware that this is because she is working too much and does not allow any time for herself to relax and she often feels exhausted when she gets home from work everyday She denies any headaches or dizziness Denies any chest pains, no SOB No nausea/vomiting, no abdominal pain No change in bowel habits noted She continues to experience diffuse joint pains and is scheduled to see Dr. 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 Depression Hepatic steatosis Overweight (BMI 25.0-29.9) Psoriatic arthritis Carpal tunnel syndrome of right wrist Irritable bowel syndrome with constipation Pure hypercholesterolemia Asthma Surgical History Hx of colonoscopy History of tubal ligation Family History Mother Arthritis Diabetes Sister Uterine cancer Maternal Aunt Cervical cancer Colon cancer Maternal Uncle Colon cancer Social History Household Members: Family and Children Housing: Apartment Alcohol intake: never Patient Tobacco Use Status: Never used Tobacco e-Cigarette/Vaping Use: Never Used Second Hand Smoke Exposure: Yes service: No Current occupational status: employed 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 1. Little interest or pleasure in doing things: not at all 2. Feeling down, depressed, or hopeless: not at all 3. Trouble falling or staying asleep, or sleeping too much: not at all 4. Feeling tired or having little energy: not at all 5. Poor appetite or overeating: not at all 6. Feeling bad about yourself - or that you are a failure or have let yourself or your family down: not at all 7. Trouble concentrating on things, such as reading the newspaper or watching television: not at all 8. Moving or speaking so slowly that other people could have noticed. Or the opposite - being so fidgety or restless that you have been moving around a lot more than usual: not at all 9. Thoughts that you would be better off or of hurting yourself in some way: not at all Total score: 0 Depression Screening Interpretation: Negative Depression Screening Done: Yes 28986 - PHQ-9 Billing: Yes Source: Developed by Drs. Bonifacio Prince, Shaila Cano, Reyes Palmer and colleagues, with an educational christiane from [employer]. Thrive Questionnaire Date Thrive assessed: 02/27/25 I am a: Patient What is your living situation today?: I choose not to answer this question Within the past 12 months, did the food you bought not last and you didn't have the money to get more?: I choose not to answer this question Within the past 12 months, did you worry whether your food would run out before you got money to buy more?: I choose not to answer this question Do you have trouble paying for medicines?: I choose not to answer this question Do you have trouble getting transportation to medical appointments?: I choose not to answer this question Do you have trouble paying your heating and electricity bill?: I choose not to answer this question Do you have trouble taking care of your child, family member or friend?: I choose not to answer this question Do you have trouble with day-to-day activities such as bathing, preparing meals, shopping, managing finances, etc.?: I choose not to answer this question Are you currently unemployed and looking for a job?: I choose not to answer this question Are you interested in more education?: I choose not to answer this question Please select the resources that you would like help with: None Currently or been in a relationship where the following occur: I choose not to answer THRIVE Score: 0 AUDIT C Alcohol Use Questionnaire (AUDIT-C) 1. How often do you have a drink containing alcohol?: Never 3. How often do you have six or more drinks on one occasion?: Never Total Score: 0 Score Reviewed/Action Taken: Yes JUANITA-7 AMB Questionnaire JUANITA-7 Date JUANITA - 7 assessed: 02/27/25 Feeling nervous, anxious, or on edge: 0 = Not at all Not being able to stop or control worryin = Not at all Worrying too much about different things: 0 = Not at all Trouble relaxin = Not at all Being so restless that it is hard to sit still: 0 = Not at all Becoming easily annoyed or irritable: 0 = Not at all Feeling afraid as if something awful might happen: 0 = Not at all Total JUANITA-7 score (0-4 normal; 5-9 mild; 10-14 moderate; 15-21 severe): 0 Source: Developed by Drs. Bonifacio Prince, Shaila Cano, Reyes Palmer and colleagues, with an educational christiane from [employer]. Review of Systems Const Reports body aches (diffuse), Reports fatigue, Denies fever(s) and Denies headache(s) ENT Denies dysphagia, Denies dizziness, Denies otalgia, Denies headache(s), Reports neck pain, Denies odynophagia and Denies sore throat Card Denies chest pain, Denies rapid heart rate, Denies palpitations and Denies dyspnea Resp Denies chest congestion, Denies cough and Denies dyspnea GI Denies abdominal pain, Denies constipation, Denies dysphagia, Denies diarrhea, Denies nausea, Denies odynophagia and Denies vomiting Denies difficulty voiding, Denies nocturia, Denies dysuria and Denies urinary urgency Musc Reports back pain, Reports myalgias, Reports arthralgias (involving multiple joints), Reports neck pain and Reports stiffness Skin/Breast Denies rash Neuro Denies dizziness and Denies headache(s) Psych Reports anxiety and Reports depression Endo Reports fatigue and Denies palpitations Physical exam (Primary Care) Vital Signs: Last Vital Signs Pulse 75 02/27/25 12:41 BP 100/78 02/27/25 12:41 Pulse Ox 98 02/27/25 12:41 Oxygen Delivery Method Room Air 02/27/25 12:41 BMI result Body Mass Index 26.7 Tobacco/Smoking Status: Tobacco use Status Tobacco use date assessed 02/27/25 02/27/25 12:48 Patient Tobacco Use Status Never used Tobacco 02/27/25 12:48 e-Cigarette/Vaping Use Never Used 02/27/25 12:48 PHQ-9: PHQ-9 Score PHQ-9: Total score 0 02/27/25 13:14 Depression Screening Interpretation: Negative Thrive Assessment: Date of Thrive Assessment Date Thrive assessed 02/27/25 02/27/25 12:48 Currently or been in a relationship where the following occur: I choose not to answer Const General: no acute distress and alert HENMT Ears: TM's normal bilaterally and EAC's normal Throat: Yes posterior oropharynx normal and Yes tonsils normal Neck Neck: Yes supple and No lymphadenopathy Thyroid: Thyroid normal Resp Auscultation: clear to auscultation bilaterally, no rales and no wheezes Cardio Rate: regular rate Rhythm: regular rhythm Heart sounds: no murmurs GI Palpation (GI): Soft to palpation and nontender Auscultation: normal bowel sounds General: Yes no CVA tenderness Back/Spine/Pelvis Back: no CVA tenderness Thoracic/Lumbar Spine: lumbar spinal tenderness Skin Rashes: no rashes Extrem Other: (+) tenderness and swelling noted on several fingers of both hands General: Yes no clubbing, cyanosis or edema Results Reviewed Results Reviewed: Laboratory Tests 06/26/24 02/24/25 02/24/25 09:13 09:20 09:25 WBC 4.8 4.7 L Hgb 13.7 Hct 41.3 Plt Count 258 Sodium 142 Potassium 4.0 Creatinine 0.78 Estimated GFR > 60 Fasting Glucose 100 H Calcium 9.4 AST 35 H ALT 53 H Triglycerides 139 Cholesterol 251 H LDL Cholesterol, Calc 183 H HDL Cholesterol 41 25-OH Vitamin D Total 18.7 L Ur Specific [place] 1.025 Urine Protein Trace Urine Glucose (UA) Negative Urine Blood Negative Urine Nitrite Negative Ur Leukocyte Esterase Moderate (2+) H Coding Level of Care Code Est Pt Level 4 (31878) Complex EM visit Add On G2211 Diagnoses Psoriatic arthritis L40.50 Mild persistent asthma with acute exacerbation J45.31 Asthma complication type: with acute exacerbation Asthma persistence: persistent Asthma severity: mild Pure hypercholesterolemia E78.00 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 K76.0; K74.00 Myalgia M79.10 Irritable bowel syndrome with constipation K58.1 Depression, unspecified depression type F32.A Depression Type: unspecified Overweight (BMI 25.0-29.9) E66.3 Additional Codes PHQ-9 - 44759 - PHQ-9 Billing: Yes ([id number]) Assessment & Plan Assessment & Plan (1) Psoriatic arthritis: Comment: Methotrexate: October 2013 - stopped due to elevated LFTs; Enbrel: 09/2014- stopped due to fatigue, and feeling sick, injection site reaction; Humira: Nov 2014 to April 2022; Stelara: 01/2023 to 03/2023 - not helpful; Skyrizi: 04/2023 to present Code(s): L40.50 - Arthropathic psoriasis, unspecified Category: Medical Plan: Patient is currently still on Skyrizi 150 mg SQ Q 12 weeks that is being managed by rheumatology (she was started on the Rx by Dr. Hernandez back in April 2023) - she has been tolerating the medication so far and Rx appears to be helping as she's had no significant breakouts of psoriasis so far although she still has recurrent pain of her joints, especially of her fingers on the left hand so she feels that the Rx may not helping as well as it should Rheumatology has apparently discussed with her the option of trying her on Otezla instead, which she declined She will be seeing Dr. Jaskaran francisco at [facility] next month for rheumatology follow up She has declined our offer to start her on Gabapentin in the past to see if this will help with her pain (2) Asthma: Code(s): J45.909 - Unspecified asthma, uncomplicated Category: Medical Qualifiers: Asthma complication type: with acute exacerbation Asthma persistence: persistent Asthma severity: mild Qualified Code(s): J45.31 - Mild persistent asthma with (acute) exacerbation Plan: Controlled lately Continue Breo Ellipta to 200-25 mcg 1 inhalation QD and Albuterol HFA 2 inhalations every 6 hours PRN - goal is again to not have to use her Albuterol inhaler more than 3 to 4 times a week Continue Albuterol via nebulizer as well every 6 to 8 hours as needed - she is advised to use her nebulizer rather than her Albuterol inhaler when she has access to her nebulizer (3) Pure hypercholesterolemia: Code(s): E78.00 - Pure hypercholesterolemia, unspecified Category: Medical Plan: Reinforced low cholesterol diet Results of her labs done a few days ago reviewed and discussed with patient - she is advised that her cholesterol levels are still elevated and has not changed much from previous Patient could not tolerate Atorvastatin (edema) in the past and still does NOT wish to take or try anything else for her cholesterol at this time and wants to continue working on her diet alone for now Have cautioned patient that her recent liver fibrosis score is already at F1-F2 (minimal fibrosis) and that high cholesterol alone can contribute to and make liver fibrosis and fatty liver disease worse so she should reconsider addressing this urgently Have advised her of the newer PCSK9 inhibitors as an option and that these have absolutely nothing to do with the statins Patient states that she will look into these and will call us back if she decides to try these newer meds Will recheck her labs and fasting lipids in 4 months for follow up (4) 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: Code(s): K76.0 - Fatty (change of) liver, not elsewhere classified; K74.00 - Hepatic fibrosis, unspecified Category: Medical Plan: Her most recent liver fibrosis score is F1-F2 (minimal fibrosis) She is advised that this is most likely related to her FINCH (fatty liver) but her high cholesterol can also contribute to this significantly so she should try to get her cholesterol levels down and better controlled as much as possible (5) Myalgia: Code(s): M79.10 - Myalgia, unspecified site Category: Medical Plan: These were most likely related to her psoriatic arthritis flare up; are also likely partly due to her fibromyalgia She was started on Naproxen by rheumatology previously but patient could not tolerate Rx (due to GI symptoms) She was started on Duloxetine 60 mg QD in the past but it appears that she is no longer on this Rx - she personally remains very opposed to taking medications in general and wants to take as minimum as possible (6) Irritable bowel syndrome with constipation: Code(s): K58.1 - Irritable bowel syndrome with constipation Category: Medical Plan: She was on Linzess 290 mcg QD in the past and her symptoms were apparently well- controlled on the Rx but she self-discontinued the medication at some point - states that her symptoms have not flared up so far since she quit taking her meds Patient has also failed to respond to Amitiza and other laxatives/stool softeners in the past Follow up with GI as scheduled (7) Depression: Code(s): F32.A - Depression, unspecified Category: Medical Qualifiers: Depression Type: unspecified Qualified Code(s): F32.A - Depression, unspecified Plan: She was previously on Duloxetine but she self-discontinued her Rx as well at some point and states that she feels okay without any Rx for her mood disorder (8) Overweight (BMI 25.0-29.9): Code(s): E66.3 - Overweight Category: Medical Plan: Reinforced diet/exercise as tolerated/lose weight Plan Follow up in 4 months Orders: Orders Lipid Panel 4 Months E78.00 - Pure hypercholesterolemia, unspecified Comprehensive [place]. Panel Fast 4 Months E78.00 - Pure hypercholesterolemia, unspecified TSH reflex Free T4 4 Months E78.00 - Pure hypercholesterolemia, unspecified Vitamin D 25-OH Total 4 Months E55.9 - Vitamin D deficiency, unspecified Complete Blood Count Auto Diff 4 Months D64.9 - Anemia, unspecified UA CC w/rflx Micro + Cult 4 Months R30.0 - Dysuria
[2025-02-27 12:41] VITALS: BP 100/78; PULSE 75; O2SAT 98; BMI 26.7
--- OUTSIDE RECORDS SUMMARY | 2025-02-27 13:33 | XMS_ITS | Clinical Summary ---
Author Organization [employer] [facility] Address [address] [place] [address] Care Team Providers Care Fitness Director Name Role Phone Jared Hernandez MD Primary [...] patient's age to complete this topic Insurance [facility] Care Teams Fitness Director Relationship Specialty Start Date End Date Jared Hernandez MD [address] [place] [address] PCP - General Internal Medicine 08/29/24
== END 2025-02-27 13:24 | disposition home or self-care (01) ==
LOC: HO.HMCH 12:27
PROVIDERS: PCP Internal Medicine; Visit Provider Internal Medicine
DX: L40.50 Arthropathic psoriasis, unspecified (principal); J45.31 Mild persistent asthma with (acute) exacerbation; E78.00 Pure hypercholesterolemia, unspecified; K76.0 Fatty (change of) liver, not elsewhere classified; K74.00 Hepatic fibrosis, unspecified; M79.10 Myalgia, unspecified site; K58.1 Irritable bowel syndrome with constipation; F32.A Depression, unspecified; E66.3 Overweight

== ENCOUNTER → 2025-02-27 12:25 | Outpatient (BNVA) | payer OTHER, SELFPAY | PROVIDERS: PCP Internal Medicine; Visit Provider Internal Medicine | DX: L40.50 Arthropathic psoriasis, unspecified (principal); J45.31 Mild persistent asthma with (acute) exacerbation; E78.00 Pure hypercholesterolemia, unspecified; K76.0 Fatty (change of) liver, not elsewhere classified; K74.00 Hepatic fibrosis, unspecified; M79.10 Myalgia, unspecified site; K58.1 Irritable bowel syndrome with constipation; F32.A Depression, unspecified; E66.3 Overweight; Z68.26 Body mass index [BMI] 26.0-26.9, adult | CPT/HCPCS: 96127; 99212 ==

== ENCOUNTER 2025-03-15 09:10 | Outpatient (REF) | payer OTHER, SELFPAY ==
--- NOTE | ~2025-03-15 | US_ITS ---
EXAMINATION: US ABDOMEN LIMITED WITH LIVER ELASTOGRAPHY HISTORY: K76.0 - Fatty (change of) liver, not elsewhere classified TECHNIQUE: Real-time grayscale ultrasound imaging of the right upper quadrant was performed and images were reviewed. COMPARISON: Comparison is made with the prior examination dated 09/02/2021. FINDINGS: Liver: The right lobe of the liver measures 15.7 cm in size. The left lobe of the liver measures 10.3 cm in size. The liver demonstrates increased echotexture, consistent with steatosis. There is focal fatty sparing adjacent to the gallbladder. No focal mass or intrahepatic biliary ductal dilatation is identified. There is normal hepatopedal flow in the portal vein. Ultrasound elastography of the liver was performed with 10 separate measurements of the liver parenchyma with the patient in the supine position. Measurements were obtained approximately 2 cm below Sven's capsule and perpendicular to the capsule. Images are of satisfactory quality. The median shear wave velocity is 1.30 m/s (previously 1.74 m/s). The interquartile range/median (IQR/median) is 0.11. Gallbladder and biliary tree: The gallbladder is unremarkable, without evidence of calculi, wall thickening, or pericholecystic fluid. There is no sonographic Mejia sign. The common bile duct is normal in caliber measuring 4 mm. Right Kidney: The right kidney measures 11.5 cm in length. The right kidney is unremarkable, without evidence of masses, hydronephrosis, or calculi. Pancreas: The pancreatic head, neck, and body are unremarkable. The pancreatic tail is obscured by bowel gas. Abdominal aorta and inferior vena cava: The visualized portions of the abdominal aorta and inferior vena cava are normal in caliber. There is no free fluid in the right upper quadrant. US/US abdomen delgado w elastography IMPRESSION: Hepatic steatosis. The median shear wave velocity in the liver is 1.30 m/s, corresponding to a median liver stiffness of 5.11 kPa. The IQR/median value is 0.11. This is indicative of a quality data set. Findings are indicative of a low elastography value which rules out advanced chronic liver disease in asymptomatic patients. This is improved from the prior study. REFERENCE: Society of Radiologists in Ultrasound Liver Stiffness Thresholds (2020): LIVER STIFFNESS THRESHOLDS: *Shear wave velocity less than 1.3 m/s (Liver Stiffness equal or less than 5 kPa): High probability of being normal. *Shear wave velocity less than 1.7 m/s (Liver Stiffness less than 9 kPa): In the absence of other known clinical signs, rules out compensated advanced chronic liver disease. *Shear wave velocity between 1.7-2.1 m/s (Liver Stiffness 9-13 kPa): Suggestive of compensated advanced chronic liver disease but need further test for confirmation. *Shear wave velocity between 2.1-2.4 m/s (Liver Stiffness 13-17 kPa): Rules in compensated advanced chronic liver disease. *Shear wave velocity greater than 2.4 m/s (Liver Stiffness over 17 kPa): Suggestive of clinically significant portal hypertension. QUALITY OF DATA SET: *IQR/Median value equal or less than 0.15 implies a quality data set. *IQR/Median value over 0.15 implies a poor quality data set. SIGNIFICANT CHANGE FROM PRIOR EXAM: Significant change if liver stiffness measurement is 10% or greater from prior exam. OTHER CONSIDERATIONS: The stage of liver fibrosis may be overestimated in the setting of acute hepatitis, liver inflammation, elevated liver function tests, hepatic vascular congestion, obstructive cholestasis, non-fasting state, and infiltrative diseases such as amyloidosis and lymphoma. In some patients with NAFLD, the liver stiffness thresholds for compensated advanced chronic liver disease may be lower. In causes other than viral hepatitis and NAFLD, liver stiffness thresholds are not well established. Electronically signed by: Bonifacio Garcia MD 03/15/2025 10:15 AM EDT
== END 2025-03-15 09:11 | disposition home or self-care (01) ==
LOC: HO.US 09:10
PROVIDERS: PCP Internal Medicine; Visit Provider Nurse Practitioner Family
DX: K76.0 Fatty (change of) liver, not elsewhere classified (principal)
CPT/HCPCS: 76705; 76981

== ENCOUNTER → 2025-03-15 09:13 | Outpatient (BNV) | payer OTHER, SELFPAY | PROVIDERS: PCP Internal Medicine; Visit Provider Radiology Diagnostic Radiology | DX: K76.0 Fatty (change of) liver, not elsewhere classified (principal) | CPT/HCPCS: 76705; 76981 ==

== ENCOUNTER 2025-03-30 13:21 | Outpatient (AMB) | payer OTHER, SELFPAY ==
[2025-03-30 13:28] VITALS: BP 110/62; PULSE 78; O2SAT 97; BMI 26.7
--- NOTE | 2025-03-30 13:28 | A.OFFVIS_ITS ---
Vital Signs 03/30/25 13:28 Height 5 ft 2 in Weight 146 lb 2.664 oz BMI 26.7 BP 110/62 Blood Pressure Location Lt brachial Position Sitting Pulse 78 Pulse Source Pulse Oximeter Pulse Oximetry (%) 97 Oxygen Delivery Method Room Air Intake Visit Reasons: PsA / labs Intake Note: Patient last seen by Rebekah Famrer on 02/03/24. Patient presents for PsA follow up and test results. Patient complains of swelling in both of her hands today. Allergies acetaminophen (From Vicodin) Adverse Reaction (Intermediate, Verified 03/30/25 13:32) Nausea, vomiting, dizziness hydrocodone (From Vicodin) Adverse Reaction (Intermediate, Verified 03/30/25 13:32) Nausea, vomiting, dizziness atorvastatin Adverse Reaction (Mild, Verified 03/30/25 13:32) Swelling Medication List - Last Reconciled 03/30/25 by Marisol Jessica MD albuterol sulfate 1.25 mg (3 mL) continuous nebulization QID PRN 30 days cholecalciferol (vitamin D3) 10 mcg PO DAILY magnesium oxide 400 mg PO BID qhdqkawc-gld-swue-FA-vit K-lut 8 mg iron-400 mcg-50 mcg (Multivitamin Women 50 Plus) 1 tab PO DAILY [nebulizer Use as directed 4 times a day as needed] omega-3 fatty acids 1,000 mg PO DAILY Skyrizi (risankizumab-rzaa) 150 mg subcut Q12W NS vitamin E (dl, acetate) 400 units PO BID HPI Comments Details: Patient is a 54 y.o. 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 At that time she was on prednisone prn without any improvement in her joint pain or swelling. At that time she did not want to add any medication to her regimen and no changes were made Today, She continues to complain of joint pain and swelling Rheumatologic History: PsA Methotrexate- October 2013 stopped due to elevated LFTs, Enbrel- 09/2014- stopped due to fatigue, and feeling sick, injection site r eaction. 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 Depression Hepatic steatosis Overweight (BMI 25.0-29.9) Psoriatic arthritis Carpal tunnel syndrome of right wrist Irritable bowel syndrome with constipation Pure hypercholesterolemia Asthma Surgical History Hx of colonoscopy History of tubal ligation Family History Mother Arthritis Diabetes Sister Uterine cancer Maternal Aunt Cervical cancer Colon cancer Maternal Uncle Colon cancer Social History Household Members: Family and Children Housing: Apartment Alcohol intake: never Patient Tobacco Use Status: Never used Tobacco e-Cigarette/Vaping Use: Never Used Second Hand Smoke Exposure: Yes service: No Current occupational status: employed 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 Current occupational exposures/hazards: No Cognitive needs: No Hearing needs: No Vision needs: No Female Reproductive History Menstrual Age of Menarche: 13 Review of Systems Const Details: Review of Systems Constitutional: Denies fever, chills, weight loss ENT: Denies vision changes, eye pain or eye redness, dental caries, dry mouth GI: Denies nausea, vomiting, diarrhea, abdominal pain, change in BM Pulm: Denies SOB, PRAKASH, hemoptysis, wheezing Cards: Denies chest pain, palpitations Skin: Denies Raynaud's, rash, nail changes, photosensitivity, [employer] SALESPERSON: Denies headaches, weakness, paresthesias, recurrent falls MSK: as per HPI All other systems reviewed and are unremarkable except noted above Physical Exam Vital Signs: Last Vital Signs Pulse 78 03/30/25 13:28 BP 110/62 03/30/25 13:28 Pulse Ox 97 03/30/25 13:28 Oxygen Delivery Method Room Air 03/30/25 13:28 BMI result Body Mass Index 26.7 Vital signs reviewed Physical Examination CONSTITUITIONAL Patient alert and cooperative. Well appearing and in no apparent painful distress HEENT Conjunctiva and sclera clear. ?Pupils equal round and reactive to light. ?No lymphadenopathy. ? CHEST/RESPIRATORY SYSTEM Normal respiratory effort and able to speak in complete sentences. ?Clear to auscultation bilaterally. ?No crackles, rales, rhonchi, wheezes heard. CARDIAC SYSTEM Regular rate and rhythm. ?S1 and S2 heard no murmurs. ?Radial pulses intact bilaterally MSK Hands: ?Not able to make a fist. swelling noted to fingers with TTP of the 2nd and 3rd MCPs, 2nd and 3rd DIPs and 2-4th PIPs bilaterally. Herbeden's nodes. positive 1st CMC grind test Wrists: ?Full range of motion at the wrists without pain. ?No tenderness to palpation or synovitis noted to the wrists. Elbows: Full range of motion without pain. No tenderness, weakness, swelling, increased warmth or erythema. Shoulders: Full range of active range of motion without pain. No tenderness, weakness, swelling, increased warmth or erythema. Knees: ?Full range of motion. ?No tenderness, swelling, increased warmth or erythema.?No effusion. Crepitations felt bilaterally Ankles: Full range of motion. ?No tenderness, swelling, increased warmth or erythema.? Feet: ?Negative squeeze test. ?No tenderness to palpation or swelling of the MTPs. Tender points:?No tenderness to palpation of the bilateral trapezius, supraspin atus, greater trochanters, anterior costochondral junctions, bilateral gluteal areas, bilateral suboccipital muscle insertions SKIN Skin intact without rashes. Results Reviewed Results Reviewed: Laboratory Tests 10/27/24 01/29/25 02/24/25 09:02 07:41 09:25 WBC 4.7 L RBC 4.55 Hgb 13.7 Hct 41.3 Plt Count 258 ESR 12 Sodium 142 Potassium 4.0 Chloride 108 Carbon Dioxide 25 BUN 13 Creatinine 0.78 Total Bilirubin 0.7 1.2 H AST 36 H 35 H ALT 56 H 53 H Alkaline Phosphatase 61 60 C-Reactive Protein 0.10 Total Protein 8.4 H 7.9 Albumin 4.8 4.4 25-OH Vitamin D Total 18.7 L Infectious serologies 03/29/23 01/29/25 16:06 07:41 Hepatitis A IgM Ab Nonreactive Hep Bs Antigen Negative Hep Bs Antibody REACTIVE Hep B Core Total Ab Nonreactive Hepatitis C Ab (EIA) Nonreactive HIV 1&2 Ab/P24 Ag 4thGn Nonreactive TB Test (T-Spot) Com Negative Assessment & Plan Assessment & Plan (1) Psoriatic arthritis: Comment: Methotrexate: October 2013 - stopped due to elevated LFTs; Enbrel: 09/2014- stopped due to fatigue, and feeling sick, injection site reaction; Humira: Nov 2014 to April 2022; Stelara: 01/2023 to 03/2023 - not helpful; Skyrizi: 04/2023 to present Code(s): L40.50 - Arthropathic psoriasis, unspecified Category: Medical Plan: #PsA Patient is a 54 y.o. 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 Evidence of synovitis despite Skyrizi and hydroxychloroquine. PsA not controlled. Start additional DMARD with leflunomide. If no improvement will switch to otezla Plan - Start Leflunomide 10mg - Plaquenil 400mg daily - Skyrizi 150mg every 12 weeks - RTC 3 months - Labs before visit: CBC, CMP, ESR, CRP (2) shelter current use of risankizumab: Code(s): Z79.620 - shelter (current) use of immunosuppressive biologic Plan: #Long-term IL 23 Inhibitors: Rizankizumab Risks and benefits of IL 23 inhibitors in the management of psoriatic arthritis and psoriasis discussed with the patient Benefits include improved psoriasis and psoriatic arthritis Risks include GI upset, injection site reactions, increased risk of fungal infections and other serious infections (3) Long-term use of Plaquenil: Code(s): Z79.899 - Other alf (current) drug therapy Plan: #Long-term Use of Hydroxychloroquine Discussed with patient the risks and benefits of hydroxychloroquine in managing the rheumatic condition Benefits include: - Reduced pain, reduce mortality, maintenance of remission and reduction of flares Risks include: - GI upset, skin hyperpigmentation, retinal toxicity (especially after more than 5 years of use), myopathy Advised yearly ophthalmology visits (4) Encounter for monitoring leflunomide therapy: Code(s): Z51.81 - Encounter for therapeutic drug level monitoring; Z79.69 - buttermaker continuous churn (current) use of other immunomodulators and immunosuppressants Plan: #Long-term leflunomide Discussed with patient the benefits and risks of leflunomide for managing the rheumatic condition Benefits include: - Reduced pain, maintenance of remission and reduction of flares Risks include: - GI upset especially diarrhea, skin rash, cytopenias, hepatotoxicity, weight loss, neuropathy Initiation: CBC, BMP, LFTs, hepatitis-B and C serologies every 2-4 weeks for 3 months Monitoring: CBC, BMP, LFTs, hepatitis B and C serologies Plan I spent 38 minutes reviewing the record and labs, taking a history, examining the patient, discussing the treatment plan, ordering diagnostic work up and documenting in the medical record Orders: Orders Complete Blood Count Auto Diff 3 Months L40.50 - Arthropathic psoriasis, unspecified C Reactive Protein 3 Months L40.50 - Arthropathic psoriasis, unspecified Erythrocyte Sedimentation Rate 3 Months L40.50 - Arthropathic psoriasis, unspecified Comprehensive Met. Panel 3 Months L40.50 - Arthropathic psoriasis, unspecified Medications: New hydroxychloroquine (Plaquenil) 400 mg (2 x 200 mg) PO DAILY 180 tabs 0RF 90 days L40.50 - Arthropathic psoriasis, unspecified leflunomide 10 mg PO DAILY 90 tabs 1RF 90 days L40.50 - Arthropathic psoriasis, unspecified Coding Level of Care Code Est Pt Level 4 (36830) Complex EM visit Add On G2211 Diagnoses Psoriatic arthritis L40.50 buttermaker continuous churn current use of risankizumab Z79.620 Long-term use of Plaquenil Z79.899 Encounter for monitoring leflunomide therapy Z51.81; Z79.69
--- OUTSIDE RECORDS SUMMARY | 2025-03-30 13:40 | XMS_ITS | Data Portability ---
Author Organization [place] - [facility], Allergy Address [address] [place] [phone] Care Team Providers Care Skiing Instructor Name Role Phone MICHAEL LORENZ Primary Care Provider Assessment Encounter Date Assessment Date Assessment LastModified by Organization Details LastModified Time 05/23/2024 05/23/2024 Patient describes dysphagia for liquids with frequent cough and clearing of the throat. Fiberoptic laryngoscopy today was benign. Her symptoms have been present for over 5 years. Recommend modified barium swallow. We may review results through the portal [email or web address] Not available 05/23/2024 14:20:43 Plan of Treatment Reminders Order Date Submit Date Provider Last Modified By Organization Details Last Modified Time Details Appointments None recorded. Lab None recorded. Referral None recorded. Procedures None recorded. Surgeries None recorded. Imaging [place], modified barium swallow study [address] [facility] Diagnosit Imaging Dept, [address] [place] [address], [place], [address], 10:35:54 Medication Orders None recorded. Patient TargetsNo targets recorded. Patient InstructionsNo instructions recorded. Reason for Referral None Reported. Results Created Date Observation Date Name Description Value Unit Range Abnormal Flag Note LastModifiedBy Organization Detail LastModifiedTime 08/29/2008/29/2024 kristie kern No observ ation record ed. [email or web address] [facility] ([facility] Central Scheduling) Any [facility], [place], [address], 09/19/2024 12:16:55 08/29/20 08/29/2024 xr bariu m swall ow with video and speec h See Note [facility] , a member of [employer] Masha rothman Name: YESSENIA WOODY Date of : 1969 Reason for Exam: dyspha celso Exam Date: 2023 [id number] EST Report Status : Final Orderi ng Provid er: TABATHA CHAMBERS PCP: AALIYAH JORDAN NO HISTOR Y: Masha rothamn is a 54-yea r-old female with histor [...] Date: 2023 18:14 ET Workst ation ID: [id number] Transc ribed By: Self Edit Transc ribed Date: 2023 12:46 ET Reside nt/PA/ MARKET EDITOR: Trudi Garnett [email or web address] [facility] (Central Scheduling Radiology) [address] [facility], [place], [address], 09/19/2024 12:16:55 Result Notes None recorded. 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 Procedures Surgical History Date Name Laterality Status Provider Name and Address Organization Details Recorded Time 05/23/2024 FOL_DP completed TABATHA CHAMBERS MD [address] [place] [address], [phone], [facility] 05/23/2024 08:16:21 Imaging Results None recorded. Procedure Notes None recorded. Medical Equipment None Reported. Allergies Allergen ID Allergen Name Allergen Category Reaction Reaction Severity Criticality Documentation Date Start Date Code Code System Note Provider Name and Address Organization Details Recorded Time 951659 acetamino phen / hydrocodo ne medicatio n other Not available Not available 02/29/2024 93496 2 RxNorm React ion: unkno wn, unspe cifie d;; Not Available [facility] 4 01:22:21 Medications Name Sig Start [...] us kit 2018 active Medicatio n ID: [id number] Du ration Value: 28 Brand Name: Humira Pen Send Method: E-Prescri bed Subs Allowed: subs [place] Medica tionGener icName: Humira Pen Not Available Not Available Not Available Linzess 290 mcg capsule 2018 active Medicatio n ID: [id number] Du ration Value: 30 Brand Name: Linzess [...] SNOMED-CT Code Diagnosis ICD10 Code Diagnosis Note [id number] TABATHA CHAMBERS MD [facility] [address] [address] 05/23/2024 13:36:37 05/23/2024 14:27:22 Dysphagia 44996178 R13.10 Health Concerns Section Related Observation LastModified by Organization Detai ls LastModified Time None Recorded Concern Status LastModified by Organization Details LastModified Time None Recorded Advance Directives Directive None Recorded Payers Insurance Date Sequence Insurance Name Policy Number Policy Parrish Covered Member ID Parrish Member ID Guarantor Name 05/23/2024 1 [facility] [id number] Yessenia Woody [id number] 1 Yessenia Woody 05/23/2024 1 [facility] [id number] Yessenia Woody [id number] 1 Yessenia Woody Notes Date Note Type Note Provider Name and Address Organization Details Recorded Time 05/23/2024 text/html dysphagia with h er saliva and liquidsfrequency is intermittentthroat clearing is non productiveonset earlier than 2019no relief with cough medicinesindicates it is located mid neck to mid chestdenies heartburn - no relief with empiric trial of reflux meds TABATHA CHAMBERS MD [address] [place] [address], [phone], [place] - [facility] 05/23/2024 14:21:15 OBGyn Episode No OBEpisode recorded.
== END 2025-03-30 14:07 | disposition home or self-care (01) ==
LOC: HO.RHE 13:22
PROVIDERS: PCP Internal Medicine; Visit Provider Student in an Organized Health Care Education/Training Program
DX: L40.50 Arthropathic psoriasis, unspecified (principal); Z79.620 Long term (current) use of immunosuppressive biologic; Z79.899 Other long term (current) drug therapy; Z51.81 Encounter for therapeutic drug level monitoring; Z79.69 Long term (current) use of other immunomodulators and immunosuppressants
CPT/HCPCS: 99214; G2211

== ENCOUNTER → 2025-03-30 13:21 | Outpatient (BNVA) | payer OTHER, SELFPAY | PROVIDERS: PCP Internal Medicine; Visit Provider Student in an Organized Health Care Education/Training Program | DX: R22.33 Localized swelling, mass and lump, upper limb, bilateral (principal); L40.50 Arthropathic psoriasis, unspecified; Z79.620 Long term (current) use of immunosuppressive biologic; Z79.899 Other long term (current) drug therapy; Z51.81 Encounter for therapeutic drug level monitoring; Z76.89 Persons encountering health services in other specified circumstances; J45.909 Unspecified asthma, uncomplicated | CPT/HCPCS: 99212 ==

== ENCOUNTER → 2025-04-03 08:36 | Outpatient (BNVA) | payer OTHER, SELFPAY | PROVIDERS: PCP Internal Medicine; Visit Provider Physician Assistant Medical | DX: Z77.21 Contact with and (suspected) exposure to potentially hazardous body fluids (principal) | CPT/HCPCS: 92002; 99202 ==

== ENCOUNTER 2025-04-12 13:56 | Outpatient (REF) | payer OTHER, SELFPAY ==
--- NOTE | ~2025-04-12 | MM_ITS ---
EXAMINATION: MM SCREENING DIGITAL BREAST TOMOSYNTHESIS, BILATERAL CLINICAL INFORMATION: Screening. Asymptomatic. COMPARISON: Mammography: Comparison is made with available priors TECHNIQUE: Digital breast mammography with tomosynthesis is performed in both the craniocaudal and mediolateral oblique views along with computer-aided detection (CAD). FINDINGS: There are scattered areas of fibroglandular density (ACR BI-RADS breast composition Category b). There are no significant masses, abnormal calcifications, or other abnormalities. MM/MM tomosynthesis screening BI IMPRESSION: No mammographic evidence of malignancy. ASSESSMENT: BI-RADS BI-RADS 1 - Negative RECOMMENDATION: Routine annual mammography screening. 1 year F/U This examination should not preclude the clinical evaluation of a suspicious palpable abnormality. This patient's information was entered into a reminder system with a target due date for their next mammogram. Electronically signed by: Debbie Villatoro DO 04/28/2025 04:46 PM EDT
--- OUTSIDE RECORDS SUMMARY | 2025-04-12 16:48 | XMS_ITS | Data Portability ---
Author Organization [place] - [facility], Allergy Address [address] [address] Care Team Providers Care Welfare Worker Name Role Phone MICHAEL LORENZ Primary Care Provider Assessment Encounter Date Assessment Date Assessment LastModified by Organization Details LastModified Time 05/23/2024 05/23/2024 Patient describes dysphagia for liquids with frequent cough and clearing of the throat. Fiberoptic laryngoscopy today was benign. Her symptoms have been present for over 5 years. Recommend modified barium swallow. We may review results through the portal Flywheel Not available 05/23/2024 14:20:43 Plan of Treatment Reminders Order Date Submit Date Provider Last Modified By Organization Details Last Modified Time Details Appointments None recorded. Lab None recorded. Referral None recorded. Procedures None recorded. Surgeries None recorded. Imaging [place], modified barium swallow study 2023 08 024 [facility] Diagnosit Imaging Dept, [address] [place] [address], [address], 10:35:54 Medication Orders None recorded. Patient TargetsNo targets recorded. Patient InstructionsNo instructions recorded. Reason for Referral None Reported. Results Created Date Observation Date Name Description Value Unit Range Abnormal Flag Note LastModifiedBy Organization Detail LastModifiedTime 08/29/20 24 08/29/2024 kristie kern No observ ation record ed. [email or web address] [facility] ([facility] Central Scheduling) Any [facility], [place], [address], 09/19/2024 12:16:55 08/29/20 24 08/29/2024 xr bariu m swall ow with video and speec h See Note [facility] , a member of [facility] [facility] [employer] Masha rothman Name: YESSENIA WOODY Date of : 1969 Reason for Exam: dyspha celso Exam Date: 2023 [id number] EST Report Status : Final Orderi ng [...] for furthe r detail s as [facility] [place]. DAP: 0.55 Gycm^2 Exam perfor med [...] ribed Date: 2023 12:46 ET Reside nt/PA/ FOUNDATION ASSISTANT: Trudi Garnett [email or web address] [facility] (Central Scheduling Radiology) [address] [facility], [place], [address], 09/19/2024 12:16:55 Result Notes None recorded. Problems Name Problem SNOMED Code Status Onset Date Resolution Date Notes Provider Name and Address Organization Details Recorded Time Bilateral tinnitus 32088810753 02 Active 2018 Tinnitus, bilateral ; Note: Date Diagnosed : 03/15/2019 11:18 AM (H93.13) Not Available [facility] 4 03:15:22 Somatofor m disorder 43582149 Active 2018 Psychogen ic dysphagia , including 'globus hystericu s'; Note: Date Diagnosed : 04/06/2019 1:58 PM (F45.8) Not Available [facility] 4 03:15:23 Dysphagia 56847885 Active 2023 TABATHA CHAMBERS MD [address] [place] [address], [phone] , [facility] 4 14:18:50 Problem Notes None recorded. Procedures Surgical History Date Name Laterality Status Provider Name and Address Organization Details Recorded Time 05/23/2024 FOL_DP completed TABATHA CHAMBERS MD [address] [place] [address], [phone], [place] [facility] 05/23/2024 08:16:21 Imaging Results None recorded. Procedure Notes None recorded. Medical Equipment None Reported. Allergies Allergen ID Allergen Name Allergen Category Reaction Reaction Severity Criticality Documentation Date Start Date Code Code System Note Provider Name and Address Organization Details Recorded Time 349869 acetamino phen / hydrocodo ne medicatio n other Not available Not available 02/29/2024 93507 2 RxNorm React ion: unkno wn, unspe cifie d;; Not Available [facility] 4 01:22:21 Medications Name Sig Start Date [...] us kit 2018 active Medicatio n ID: [id number] Du ration Value: 28 Brand Name: Humira Pen Send Method: E-Prescri bed Subs Allowed: subs [place] Medica tionGener icName: Humira Pen Not Available Not Available Not Available Linzess 290 mcg capsule 2018 active Medicatio n ID: [id number] Du ration Value: 30 Brand Name: Linzess [...] SNOMED-CT Code Diagnosis ICD10 Code Diagnosis Note [id number] TABATHA CHAMBERS MD [facility] [address] [address] 05/23/2024 13:36:37 05/23/2024 14:27:22 Dysphagia 57599251 R13.10 Health Concerns Section Related Observation LastModified by Organization Detai ls LastModified Time None Recorded Concern Status LastModified by Organization Details LastModified Time None Recorded Advance Directives Directive None Recorded Payers Insurance Date Sequence Insurance Name Policy Number Policy Parrish Covered Member ID Parrish Member ID Guarantor Name 05/23/2024 1 [facility] [id number] Yessenia Woody [id number] 1 Yessenia Woody 05/23/2024 1 [facility] [id number] Yessenia Woody [id number] 1 Yessenia Woody Notes Date Note Type Note Provider Name and Address Organization Details Recorded Time 05/23/2024 text/html dysphagia with h er saliva and liquidsfrequency is intermittentthroat clearing is non productiveonset earlier than 2019no relief with cough medicinesindicates it is located mid neck to mid chestdenies heartburn - no relief with empiric trial of reflux meds TABATHA CHAMBERS MD [address] [place] [address], [phone], [place] - [facility] 05/23/2024 14:21:15 OBGyn Episode No OBEpisode recorded.
== END 2025-04-12 13:57 | disposition home or self-care (01) ==
LOC: HO.MAMMO 13:56
PROVIDERS: PCP Internal Medicine; Visit Provider Internal Medicine
DX: Z12.31 Encounter for screening mammogram for malignant neoplasm of breast (principal)
CPT/HCPCS: 77063; 77067

== ENCOUNTER → 2025-04-12 15:00 | Outpatient (BNV) | payer OTHER, SELFPAY | PROVIDERS: PCP Internal Medicine; Visit Provider Internal Medicine | DX: Z12.31 Encounter for screening mammogram for malignant neoplasm of breast (principal) | CPT/HCPCS: 77063; 77067 ==

== ENCOUNTER 2025-04-24 15:17 | Outpatient (AMB) | payer OTHER, SELFPAY ==
[2025-04-24 15:32] VITALS: BP 110/72; PULSE 68; O2SAT 98; BMI 27.1
--- NOTE | 2025-04-24 15:32 | MHC.OFFVIS ---
Vital Signs 04/24/25 15:32 Height 5 ft 2 in Weight 148 lb BMI 27.1 BP 110/72 Blood Pressure Location Rt brachial Position Sitting Pulse 68 Pulse Source Pulse Oximeter Pulse Oximetry (%) 98 Oxygen Delivery Method Room Air Intake Visit Reasons: Discuss results and [place] Intake Note: Est pt for Transaminitis, hepatic steatosis, US results. Discuss colo. CC; Pt denies any new changes or concerns since last visit. Pt is supposed to discuss possible colo today. Maintenance Leader Required: No Accompanied by: Self / Same As Patient Allergies acetaminophen (From Vicodin) Adverse Reaction (Intermediate, Verified 04/24/25 15:41) Nausea, vomiting, dizziness hydrocodone (From Vicodin) Adverse Reaction (Intermediate, Verified 04/24/25 15:41) Nausea, vomiting, dizziness atorvastatin Adverse Reaction (Mild, Verified 04/24/25 15:41) Swelling HPI HPI Discuss results and [place]: Details: LAST VISIT: Elevated transaminase level Hepatic steatosis Irritable bowel syndrome with constipation Plan FIB-4 fibrosis calculated 1.10?points Advanced fibrosis excluded Approximate fibrosis stage: Antolin 0-1 (Dinh et al 2006) However we will rule out any autoimmune disorders. Patient will be sent for ultrasound of the liver with elastography. Patient was encouraged to follow a low-fat, low-salt, low carb and high protein diet. Patient was encouraged to exercise. Patient will return in 3 months, we will discuss going for colonoscopy. Patient is agreeable to this plan and verbalizes understanding of instructions. She was given the opportunity to ask questions and all questions answered. ? Thank you for allowing me to participate in her care Orders Smooth Muscle Antibody 01/29/25 R79.89 Mitochondrial Antibody 01/29/25 R79.89 Alpha Fetoprotein 01/29/25 R79.89 Hepatitis A,B,C Profile 01/29/25 R79.89 C Reactive Protein 01/29/25 K58.9 HIV Ab/Ag 01/29/25 R79.89 Prothrombin Time INR 01/29/25 R74.8 Ceruloplasmin 01/29/25 R79.89 Liver Panel 01/29/25 R74.01 Ferritin 01/29/25 R74.8 US abdomen delgado w elastography 01/26/25 K76.0 TODAY'S VISIT Patient is here today for follow-up, discuss results of lab values, ultrasound as well as talk about colonoscopy. Patient reports that she has been feeling well. Patient change her diet and reports that her symptoms of acid reflux, abdominal bloating are under control with diet. Patient is moving her bowels without any issues. Currently she is taking Dulcolax as needed. Denies melena, hematochezia, unintentional weight loss or ribbon like stools. Patient denies any dyspepsia, dysphagia or odynophagia. Patient reports that she is eating better. Mostly she is cooking at home. Avoiding fast and greasy food patient also reports making smoothies. Patient reports stable weight. No trouble with anesthesia in the past. No history of sleep apnea. 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 Depression Hepatic steatosis Overweight (BMI 25.0-29.9) Psoriatic arthritis Carpal tunnel syndrome of right wrist Irritable bowel syndrome with constipation Pure hypercholesterolemia Asthma Surgical History Hx of colonoscopy History of tubal ligation Family History Mother Arthritis Diabetes Sister Uterine cancer Maternal Aunt Cervical cancer Colon cancer Maternal Uncle Colon cancer Social History Household Members: Family and Children Housing: Apartment Alcohol intake: never Patient Tobacco Use Status: Never used Tobacco e-Cigarette/Vaping Use: Never Used Second Hand Smoke Exposure: Yes service: No Current occupational status: employed 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 Current occupational exposures/hazards: No Cognitive needs: No Hearing needs: No Vision needs: No Female Reproductive History Menstrual Age of Menarche: 13 Physical Exam Vital Signs: Last Vital Signs Pulse 68 04/24/25 15:32 BP 110/72 04/24/25 15:32 Pulse Ox 98 04/24/25 15:32 Oxygen Delivery Method Room Air 04/24/25 15:32 BMI result Body Mass Index 27.1 Results Reviewed Results Reviewed: Laboratory Tests 01/29/25 07:41 Ferritin 76 C-Reactive Protein 0.10 Ceruloplasmin 22 Alpha Fetoprotein 3.3 Laboratory Tests 01/29/25 02/24/25 07:41 09:25 AST 36 H 35 H ALT 56 H 53 H Alkaline Phosphatase 61 60 Triglycerides 139 Cholesterol 251 H LDL Cholesterol, Calc 183 H HDL Cholesterol 41 25-OH Vitamin D Total 18.7 L Laboratory Tests 01/29/25 07:41 Anti-Mitochondrial Ab NEGATIVE Anti-Smooth Muscle Ab <20 Hepatitis A IgM Ab Nonreactive Hep Bs Antigen Negative Hep Bs Antibody REACTIVE Hep B Core Total Ab Nonreactive Hepatitis C Ab (EIA) Nonreactive ABDOMINAL ULTRASOUND WITH LIVER ELASTOGRAPHY FINDINGS: Liver: The right lobe of the liver measures 15.7 cm in size. The left lobe of the liver measures 10.3 cm in size. The liver demonstrates increased echotexture, consistent with steatosis. There is focal fatty sparing adjacent to the gallbladder. No focal mass or intrahepatic biliary ductal dilatation is identified. There is normal hepatopedal flow in the portal vein. Ultrasound elastography of the liver was performed with 10 separate measurements of the liver parenchyma with the patient in the supine position. Measurements were obtained approximately 2 cm below Sven's capsule and perpendicular to the capsule. Images are of satisfactory quality. The median shear wave velocity is 1.30 m/s (previously 1.74 m/s). The interquartile range/median (IQR/median) is 0.11. Gallbladder and biliary tree: The gallbladder is unremarkable, without evidence of calculi, wall thickening, or pericholecystic fluid. There is no sonographic Mejia sign. The common bile duct is normal in caliber measuring 4 mm. Right Kidney: The right kidney measures 11.5 cm in length. The right kidney is unremarkable, without evidence of masses, hydronephrosis, or calculi. Pancreas: The pancreatic head, neck, and body are unremarkable. The pancreatic tail is obscured by bowel gas. Abdominal aorta and inferior vena cava: The visualized portions of the abdominal aorta and inferior vena cava are normal in caliber. There is no free fluid in the right upper quadrant. US/US abdomen delgado w elastography IMPRESSION: Hepatic steatosis. The median shear wave velocity in the liver is 1.30 m/s, corresponding to a median liver stiffness of 5.11 kPa. The IQR/median value is 0.11. This is indicative of a quality data set. Findings are indicative of a low elastography value which rules out advanced chronic liver disease in asymptomatic patients. This is improved from the prior study. Assessment & Plan Assessment & Plan (1) Hepatic steatosis: Code(s): K76.0 - Fatty (change of) liver, not elsewhere classified Category: Medical (2) Irritable bowel syndrome with constipation: Code(s): K58.1 - Irritable bowel syndrome with constipation Category: Medical (3) Elevated transaminase level: Code(s): R74.01 - Elevation of levels of liver transaminase levels Category: Medical (4) Screen for colon cancer: Code(s): Z12.11 - Encounter for screening for malignant neoplasm of colon Plan Patient will continue current diet. Improved elastography since last ultrasound. Low-fat, low-salt, low carb and high-protein diet recommended. Labs discussed with patient. We will repeat lab work again in 6 months. Patient will be sent for colonoscopy. What to expect before, during and after procedure discussed with patient. Stressed the importance of good bowel prep and clear liquid diet day before procedure. Patient is agreeable to current plan of care and verbalizes understanding of instructions. She was given the opportunity to ask questions and all questions answered. Thank you for allowing me to participate in her care Medications: New bisacodyl (Dulcolax (bisacodyl)) 10 mg (2 x 5 mg) PO BEDTIME 180 tabs 4RF polyethylene glycol 3350 (Miralax) As directed by gastroenterology department at [facility] 238 grams PO ONCE 238 grams 0RF Z12.11 - Encounter for screening for malignant neoplasm of colon Coding Level of Care Code Est Pt Level 4 (05423) Complex EM visit Add On G2211 Diagnoses Hepatic steatosis K76.0 Irritable bowel syndrome with constipation K58.1 Elevated transaminase level R74.01 Screen for colon cancer Z12.11 Time Spent (min) 35 Comment 25 minutes spent with patient and additional 10 minutes spent reviewing her records
--- OUTSIDE RECORDS SUMMARY | 2025-04-24 15:51 | XMS_ITS | Data Portability ---
Author Organization [place] - [facility], Allergy Address [address] [address] Care Team Providers Care Canoe Builder Name Role Phone MICHAEL LORENZ Primary Care Provider Assessment Encounter Date Assessment Date Assessment LastModified by Organization Details LastModified Time 05/23/2024 05/23/2024 Patient describes dysphagia for liquids with frequent cough and clearing of the throat. Fiberoptic laryngoscopy today was benign. Her symptoms have been present for over 5 years. Recommend modified barium swallow. We may review results through the portal [facility] Not available 05/23/2024 14:20:43 Plan of Treatment Reminders Order Date Submit Date Provider Last Modified By Organization Details Last Modified Time Details Appointments None recorded. Lab None recorded. Referral None recorded. Procedures None recorded. Surgeries None recorded. Imaging [place], modified barium swallow study 2023 08 024 [facility] Diagnosit Imaging Dept, [address] [place] [address], [address], 10:35:54 Medication Orders None recorded. Patient TargetsNo targets recorded. Patient InstructionsNo instructions recorded. Reason for Referral None Reported. Results Created Date Observation Date Name Description Value Unit Range Abnormal Flag Note LastModifiedBy Organization Detail LastModifiedTime 08/29/20 24 08/29/2024 kristie kern No observ ation record ed. [email or web address] [facility] ([facility] Central Scheduling) Any [facility], [place], [address], 09/19/2024 12:16:55 08/29/20 24 08/29/2024 xr bariu m swall ow with video and speec h See Note [facility] , a member of [employer] Masha rothman Name: YESSENIA WOODY Date of : 1969 Reason for Exam: dyspha celso Exam Date: 2023 [id number] EST Report Status : Final Orderi ng [...] ribed Date: 2023 12:46 ET Reside nt/PA/ RAKE OPERATOR: Trudi Garnett [email or web address] [facility] (Central Scheduling Radiology) [address] [facility], [place], [address], 09/19/2024 12:16:55 Result Notes None recorded. 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 Procedures Surgical History Date Name Laterality Status Provider Name and Address Organization Details Recorded Time 05/23/2024 FOL_DP completed TABATHA CHAMBERS MD [address] [place] [address], [phone], [place] [facility] 05/23/2024 08:16:21 Imaging Results None recorded. Procedure Notes None recorded. Medical Equipment None Reported. Allergies Allergen ID Allergen Name Allergen Category Reaction Reaction Severity Criticality Documentation Date Start Date Code Code System Note Provider Name and Address Organization Details Recorded Time 792750 acetamino phen / hydrocodo ne medicatio n other Not available Not available 02/29/2024 85393 2 RxNorm React ion: unkno wn, unspe cifie d;; Not Available [facility] 4 01:22:21 Medications Name Sig Start [...] us kit 2018 active Medicatio n ID: [id number] Du ration Value: 28 Brand Name: Humira Pen Send Method: E-Prescri bed Subs Allowed: subs [place] Medica tionGener icName: Humira Pen Not Available Not Available Not Available Linzess 290 mcg capsule 2018 active Medicatio n ID: [id number] Du ration Value: 30 Brand Name: Linzess [...] SNOMED-CT Code Diagnosis ICD10 Code Diagnosis Note [id number] TABATHA CHAMBERS MD [facility] [address] [phone] 05/23/2024 13:36:37 05/23/2024 14:27:22 Dysphagia 02048671 R13.10 Health Concerns Section Related Observation LastModified by Organization Detai ls LastModified Time None Recorded Concern Status LastModified by Organization Details LastModified Time None Recorded Advance Directives Directive None Recorded Payers Insurance Date Sequence Insurance Name Policy Number Policy Parrish Covered Member ID Parrish Member ID Guarantor Name 05/23/2024 1 [facility] [id number] Yessenia Woody [id number] 1 Yessenia Woody 05/23/2024 1 [facility] [id number] Yessenia Woody [id number] 1 Yessenia Woody Notes Date Note Type Note Provider Name and Address Organization Details Recorded Time 05/23/2024 text/html dysphagia with h er saliva and liquidsfrequency is intermittentthroat clearing is non productiveonset earlier than 2019no relief with cough medicinesindicates it is located mid neck to mid chestdenies heartburn - no relief with empiric trial of reflux meds TABATHA CHAMBERS MD [address] [place] [address], [phone], [place] [facility] 05/23/2024 14:21:15 OBGyn Episode No OBEpisode recorded.
--- OUTSIDE RECORDS SUMMARY | 2025-04-24 15:51 | XMS_ITS | Clinical Summary ---
Author Organization [employer] [facility] Address [address] [place] [address] Care Team Providers Care Buffer Copper Name Role Phone Jared Hernandez MD Primary [...] 5 Years) and At-Risk Patients (6 to 49 Years) Aged Out No longer eligible based on patient's age to complete this topic RSV Immunization Patients Under 20 months Aged Out No longer eligible based on patient's age to complete this topic Varicella Vaccines Aged Out No longer eligible based on patient's age to complete this topic Insurance [facility] Care Teams Buffer Copper Relationship Specialty Start Date End Date Jared Hernandez MD [address] [place] [address] PCP - General Internal Medicine 08/29/24
== END 2025-04-24 16:17 | disposition home or self-care (01) ==
LOC: HO.HGI 15:18
PROVIDERS: PCP Internal Medicine; Visit Provider Nurse Practitioner Family
DX: K76.0 Fatty (change of) liver, not elsewhere classified (principal); K58.1 Irritable bowel syndrome with constipation; R74.01 Elevation of levels of liver transaminase levels
CPT/HCPCS: 99214

== ENCOUNTER → 2025-04-24 15:17 | Outpatient (BNVA) | payer OTHER, SELFPAY | PROVIDERS: PCP Internal Medicine; Visit Provider Nurse Practitioner Family | DX: Z71.2 Person consulting for explanation of examination or test findings (principal); Z12.11 Encounter for screening for malignant neoplasm of colon; R74.01 Elevation of levels of liver transaminase levels; K76.0 Fatty (change of) liver, not elsewhere classified | CPT/HCPCS: 99212 ==

== ENCOUNTER 2025-05-23 16:00 | Outpatient (AMB) | payer OTHER, SELFPAY ==
[2025-05-23 16:02] VITALS: BP 118/76; PULSE 86; O2SAT 98; BMI 26.8
--- NOTE | 2025-05-23 16:02 | MHC.PC.OV ---
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 Allergies acetaminophen (From Vicodin) Adverse Reaction (Intermediate, Verified 05/23/25 16:34) Nausea, vomiting, dizziness hydrocodone (From Vicodin) Adverse Reaction (Intermediate, Verified 05/23/25 16:34) Nausea, vomiting, dizziness atorvastatin Adverse Reaction (Mild, Verified 05/23/25 16:34) Swelling Medication List - Last Reconciled 05/23/25 by Jared Hernandez MD albuterol sulfate 1.25 mg (3 mL) continuous nebulization QID PRN 30 days bisacodyl (Dulcolax (bisacodyl)) 10 mg (2 x 5 mg) PO BEDTIME cholecalciferol (vitamin D3) 10 mcg PO DAILY evolocumab (Repatha SureClick) 140 mg subcut Q2W 4 weeks magnesium oxide 400 mg PO BID gkknsttg-cus-yncg-FA-vit K-lut 8 mg iron-400 mcg-50 mcg (Multivitamin Women 50 Plus) 1 tab PO DAILY [nebulizer Use as directed 4 times a day as needed] omega-3 fatty acids 1,000 mg PO DAILY polyethylene glycol 3350 (Miralax) 238 grams PO ONCE Skyrizi (risankizumab-rzaa) 150 mg subcut Q12W NS vitamin E (dl, acetate) 400 units PO BID Tobacco use date assessed: 05/23/25 Dental Screening Dental Screen Date: 05/23/25 Did you have a dental visit in the last 12 months?: No Did you have a dental problem in the last 6 months where you did not have access to dental care?: No Was dental information given to patient?: No HPI [facility] 05/16 HPI Details Patient comes in today for her HDF follow-up visit She went to the ER at [facility] last week on 05/16/25 complaining of recurrent headaches, dizziness, palpitations, chest pains/discomfort and diarrhea and was admitted to the hospital for a couple of days mostly for symptomatic treatment and IV hydration Workups done at the hospital, including serum troponin levels and a coronary CT, all reportedly came back negative/normal She was prescribed some metoprolol ER 25 mg 1/2 tablet daily to help control her palpitations and she currently remains on this States that she was on Hydroxychloroquine at the time and was taking it at 400 mg QD for the past 2.5 weeks for her RA Patient stopped taking her Rx but her symptoms persisted for another 3-4 days after she stopped taking her medication before gradually subsiding States that she contacted her candy mixer, Dr. Jessica at [facility], to inform her that she stopped taking hydroxychloroquine due to the above reasons and was advised that they will explore other alternative treatments for her at her next appointment She has also been referred for Cardiology outpatient evaluation and she has a follow up appointment with cardiology in a couple of weeks on 06/14/25 Patient currently denies any headaches or dizziness Denies any chest pains, no increased shortness of breath No nausea/vomiting, no abdominal pain No change in bowel habits noted 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 Depression Hepatic steatosis Overweight (BMI 25.0-29.9) Psoriatic arthritis Carpal tunnel syndrome of right wrist Irritable bowel syndrome with constipation Pure hypercholesterolemia Asthma Surgical History Hx of colonoscopy History of tubal ligation Family History Mother Arthritis Diabetes Sister Uterine cancer Maternal Aunt Cervical cancer Colon cancer Maternal Uncle Colon cancer Social History Household Members: Family and Children Housing: Apartment Alcohol intake: never Patient Tobacco Use Status: Never used Tobacco e-Cigarette/Vaping Use: Never Used Second Hand Smoke Exposure: Yes service: No Current occupational status: employed 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 1. Little interest or pleasure in doing things: not at all 2. Feeling down, depressed, or hopeless: not at all 3. Trouble falling or staying asleep, or sleeping too much: not at all 4. Feeling tired or having little energy: not at all 5. Poor appetite or overeating: not at all 6. Feeling bad about yourself - or that you are a failure or have let yourself or your family down: not at all 7. Trouble concentrating on things, such as reading the newspaper or watching television: not at all 8. Moving or speaking so slowly that other people could have noticed. Or the opposite - being so fidgety or restless that you have been moving around a lot more than usual: not at all 9. Thoughts that you would be better off or of hurting yourself in some way: not at all Total score: 0 Depression Screening Interpretation: Negative Depression Screening Done: Yes 12282 - PHQ-9 Billing: Yes Source: Developed by Drs. Bonifacio Prince, Shaila Cano, Reyes Palmer and colleagues, with an educational christiane from [employer]. Thrive Questionnaire Date Thrive assessed: 05/23/25 I am a: Patient What is your living situation today?: I choose not to answer this question Within the past 12 months, did the food you bought not last and you didn't have the money to get more?: I choose not to answer this question Within the past 12 months, did you worry whether your food would run out before you got money to buy more?: I choose not to answer this question Do you have trouble paying for medicines?: I choose not to answer this question Do you have trouble getting transportation to medical appointments?: I choose not to answer this question Do you have trouble paying your heating and electricity bill?: I choose not to answer this question Do you have trouble taking care of your child, family member or friend?: I choose not to answer this question Do you have trouble with day-to-day activities such as bathing, preparing meals, shopping, managing finances, etc.?: I choose not to answer this question Are you currently unemployed and looking for a job?: I choose not to answer this question Are you interested in more education?: I choose not to answer this question Please select the resources that you would like help with: None Currently or been in a relationship where the following occur: I choose not to answer THRIVE Score: 0 AUDIT C Alcohol Use Questionnaire (AUDIT-C) 1. How often do you have a drink containing alcohol?: Never 3. How often do you have six or more drinks on one occasion?: Never Total Score: 0 Score Reviewed/Action Taken: Yes JUANITA-7 AMB Questionnaire JUANITA-7 Date JUANITA - 7 assessed: 05/23/25 Feeling nervous, anxious, or on edge: 0 = Not at all Not being able to stop or control worryin = Not at all Worrying too much about different things: 0 = Not at all Trouble relaxin = Not at all Being so restless that it is hard to sit still: 0 = Not at all Becoming easily annoyed or irritable: 0 = Not at all Feeling afraid as if something awful might happen: 0 = Not at all Total JUANITA-7 score (0-4 normal; 5-9 mild; 10-14 moderate; 15-21 severe): 0 Source: Developed by Drs. Bonifacio Prince, Shaila Cano, Reyes Palmer and colleagues, with an educational christiane from [employer]. Review of Systems Const Reports body aches (diffuse), Reports fatigue, Denies fever(s) and Denies headache(s) ENT Denies dysphagia, Denies dizziness, Denies otalgia, Denies headache(s), Reports neck pain, Denies odynophagia and Denies sore throat Card Denies chest pain, Denies rapid heart rate, Denies palpitations and Denies dyspnea Resp Denies chest congestion, Denies cough and Denies dyspnea GI Denies abdominal pain, Denies constipation, Denies dysphagia, Denies diarrhea, Denies nausea, Denies odynophagia and Denies vomiting Denies difficulty voiding, Denies nocturia, Denies dysuria and Denies urinary urgency Musc Reports back pain, Reports myalgias, Reports arthralgias (involving multiple joints), Reports neck pain and Reports stiffness Skin/Breast Denies rash Neuro Denies dizziness and Denies headache(s) Psych Reports anxiety and Reports depression Endo Reports fatigue and Denies palpitations Physical exam (Primary Care) Vital Signs: Last Vital Signs Pulse 86 05/23/25 16:02 BP 118/76 05/23/25 16:02 Pulse Ox 98 05/23/25 16:02 Oxygen Delivery Method Room Air 05/23/25 16:02 BMI result Body Mass Index 26.8 Tobacco/Smoking Status: Tobacco use Status Tobacco use date assessed 05/23/25 05/23/25 16:10 Patient Tobacco Use Status Never used Tobacco 05/23/25 16:10 e-Cigarette/Vaping Use Never Used 05/23/25 16:10 PHQ-9: PHQ-9 Score PHQ-9: Total score 0 05/23/25 16:38 Depression Screening Interpretation: Negative Thrive Assessment: Date of Thrive Assessment Date Thrive assessed 05/23/25 05/23/25 16:10 Currently or been in a relationship where the following occur: I choose not to answer Const General: no acute distress and alert HENMT Ears: TM's normal bilaterally and EAC's normal Throat: Yes posterior oropharynx normal and Yes tonsils normal Neck Neck: Yes supple and No lymphadenopathy Thyroid: Thyroid normal Resp Auscultation: clear to auscultation bilaterally, no rales and no wheezes Cardio Rate: regular rate Rhythm: regular rhythm Heart sounds: no murmurs GI Palpation (GI): Soft to palpation and nontender Auscultation: normal bowel sounds General: Yes no CVA tenderness Back/Spine/Pelvis Back: no CVA tenderness Thoracic/Lumbar Spine: lumbar spinal tenderness Skin Rashes: no rashes Extrem Other: (+) tenderness and swelling noted on several fingers of both hands General: Yes no clubbing, cyanosis or edema Coding Level of Care Code Est Pt Level 4 (68165) Diagnoses Palpitations R00.2 Psoriatic arthritis L40.50 Mild persistent asthma with acute exacerbation J45.31 Asthma severity: mild Asthma persistence: persistent Asthma complication type: with acute exacerbation Pure hypercholesterolemia E78.00 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 K76.0; K74.00 Myalgia M79.10 Irritable bowel syndrome with constipation K58.1 Depression, unspecified depression type F32.A Depression Type: unspecified Overweight (BMI 25.0-29.9) E66.3 Additional Codes PHQ-9 - 09404 - PHQ-9 Billing: Yes ([id number]) Assessment & Plan Assessment & Plan (1) Palpitations: Code(s): R00.2 - Palpitations Category: Social Hx Plan: This is most likely a side effect of her psoriatic arthritis treatment (hydroxychloroquine), which has been stopped Workups done at the hospital at [facility], which reportedly include serial troponins and a coronary CT, all came back negative She is currently on metoprolol ER 25 mg 1/2 tablet QD Follow-up with cardiology as scheduled - she has an appointment with [facility] Cardiology scheduled in a few weeks on 06/14/2025 (2) Psoriatic arthritis: Comment: Methotrexate: October 2013 - stopped due to elevated LFTs; Enbrel: 09/2014- stopped due to fatigue, and feeling sick, injection site reaction; Humira: Nov 2014 to April 2022; Stelara: 01/2023 to 03/2023 - not helpful; Skyrizi: 04/2023 to present Code(s): L40.50 - Arthropathic psoriasis, unspecified Category: Medical Plan: Patient is currently still on Skyrizi 150 mg SQ Q 12 weeks that is being managed by rheumatology (she was started on the Rx by Dr. Hernandez back in April 2023) - she has been tolerating the medication so far and Rx appears to be helping as she's had no significant breakouts of psoriasis so far although she still has recurrent pain of her joints, especially of her fingers on the left hand Rheumatology has apparently discussed with her the option of trying her on Otezla instead, which she declined Follow-up with rheumatology as scheduled (3) Asthma: Code(s): J45.909 - Unspecified asthma, uncomplicated Category: Medical Qualifiers: Asthma severity: mild Asthma persistence: persistent Asthma complication type: with acute exacerbation Qualified Code(s): J45.31 - Mild persistent asthma with (acute) exacerbation Plan: Controlled Continue Breo Ellipta to 200-25 mcg 1 inhalation QD and Albuterol HFA 2 inhalations every 6 hours PRN (Rx refilled) - goal is again to not have to use her Albuterol inhaler more than 3 to 4 times a week Continue Albuterol via nebulizer as well every 6 to 8 hours as needed - she is advised to use her nebulizer rather than her Albuterol inhaler when she has access to her nebulizer (4) Pure hypercholesterolemia: Code(s): E78.00 - Pure hypercholesterolemia, unspecified Category: Medical Plan: Reinforced low cholesterol diet Her cholesterol levels were still elevated when last checked and have not changed much from previous Patient could not tolerate Atorvastatin (edema) in the past and still does NOT wish to take or try anything else for her cholesterol at this time and wants to continue working on her diet alone for now Have cautioned patient that her recent liver fibrosis score is already at F1-F2 (minimal fibrosis) and that high cholesterol alone can contribute to and make liver fibrosis and fatty liver disease worse so she should reconsider addressing this urgently Have advised her of the newer PCSK9 inhibitors as an option and that these have absolutely nothing to do with the statins Patient states that she will look into these and will call us back if she decides to try these newer meds Will recheck her labs and fasting lipids as scheduled next month for follow up (5) 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: Code(s): K76.0 - Fatty (change of) liver, not elsewhere classified; K74.00 - Hepatic fibrosis, unspecified Category: Medical Plan: Her most recent liver fibrosis score is F1-F2 (minimal fibrosis) She is advised that this is most likely related to her FINCH (fatty liver) but her high cholesterol can also contribute to this significantly so she should try to get her cholesterol levels down and better controlled as much as possible (6) Myalgia: Code(s): M79.10 - Myalgia, unspecified site Category: Medical Plan: These were most likely related to her psoriatic arthritis flare up; are also likely partly due to her fibromyalgia She was started on Naproxen by rheumatology previously but patient could not tolerate Rx (due to GI symptoms) She was started on Duloxetine 60 mg QD in the past but it appears that she is no longer on this Rx - she personally remains very opposed to taking medications in general and wants to take as minimum as possible (7) Irritable bowel syndrome with constipation: Code(s): K58.1 - Irritable bowel syndrome with constipation Category: Medical Plan: She was on Linzess 290 mcg QD in the past and her symptoms were apparently well-controlled on the Rx but she self-discontinued the medication at some point - states that her symptoms have not flared up so far since she quit taking her meds Patient has also failed to respond to Amitiza and other laxatives/stool softeners in the past Follow up with GI as scheduled (8) Depression: Code(s): F32.A - Depression, unspecified Category: Medical Qualifiers: Depression Type: unspecified Qualified Code(s): F32.A - Depression, unspecified Plan: She was previously on Duloxetine but she self-discontinued her Rx as well at some point and states that she feels okay without any Rx for her mood disorder (9) Overweight (BMI 25.0-29.9): Code(s): E66.3 - Overweight Category: Medical Plan: Reinforced diet/exercise as tolerated/lose weight Plan Follow-up as scheduled next month Medications: New albuterol sulfate 90 mcg/actuation (Ventolin HFA) 2 puffs inhalation Q6H PRN 8.5 grams 5RF shortness of breath or wheezing 30 days metoprolol succinate ER 12.5 mg (1/2 x 25 mg) PO DAILY 90 tabs 0RF
--- OUTSIDE RECORDS SUMMARY | 2025-05-23 16:19 | XMS_ITS | Clinical Summary ---
Author Organization [employer] Address [address] [place] [address] Care Team Providers Care Crm Architect Name Role Phone Jared Hernandez MD Primary Care Provider [phone] Encounters Date Type Department Care Team Description 05/16/2025 Telephone [facility] Cardiology [facility] [address] [facility] [address] [place] [id number] Jagruti Bell NP from Last 3 Months Social History Tobacco Use Types Packs/Day Years Used Date Smoking Tobacco: Never Assessed Comments Unknown Sex and Gender Information Value Date Recorded Sex Assigned at Not on file Legal Sex Female 11:12 AM EDT Gender Identity Not on file Sexual Orientation Not on file Plan of Treatment Upcoming Encounters Date Type Department Care Team (Late st Contact Info) Description 06/14/2025 9:40 AM EDT Office Visit [facility] [address] [facility] [address] [place] [id number] Jagruti Bell NP [address] [place] [address] Health Maintenance Due Date Last Done Comments [...] 2024 12/03/2021 Colorectal Cancer Screening: Colonoscopy 08/05/2024 HIV Screening 08/05/2024 Hepatitis C Screening 08/05/2024 Social Influencers of Health Screening 08/05/2024 Depression Screening 10/18/2024 Influenza Vaccine (#1) 2025 4, 09/08/2023, 08/12/2022, Additional history exists HIB Vaccines Aged [...] patient's age to complete this topic Insurance JERRY ALVARENGA [id number] [facility] Care Teams Crm Architect Relationship Specialty Start Date End Date Jared Hernandez MD [address] [place] [address] [address] JERRY Alvarenga PCP - General Internal Medicine 08/29/24
--- OUTSIDE RECORDS SUMMARY | 2025-05-23 16:19 | XMS_ITS | Clinical Summary ---
Author Organization [facility] Address [facility] dscovered [facility] [address] [place] [phone] Phone Care Team Providers Care Clinical Resource Director Name Role Phone Jared Hernandez MD Primary Care Provider [phone] Allergies Active Allergy Reactions Criticality Noted Date Comments Acetaminophen Nausea and/or Vomiting 10/19/2024 Atorvastatin Swelling 10/19/2024 Hydrocodone-Acetaminophen Nausea and/or Vomiting 10/19/2024 Medications albuterol 2.5 mg /3 mL (0.083 %) nebulizer solution Take 2.5 mg by nebulization every 6 (six) hours as needed. Active MAGNESIUM OXIDE ORAL Take 400 mg by mouth 2 (two) times a day (once in the morning and once in the afternoon). Active MULTIVITAMIN ORAL Take by mouth daily. Active docosahexaenoic acid/epa (FISH OIL ORAL) Take by mouth daily. Active risankizumab-rza a (SKYRIZI) 150 mg/mL subcutaneous injection pen Inject 150 mg under the skin once every 12 weeks. Active vitamin E acetate (VITAMIN E ORAL) Take 400 Units by mouth 2 (two) times a day. Active Chlorella algae (CHLORELLA MISC) 500 mg by Miscellaneous route 4 (four) times a day. Active Medication-Free Text 2 (two) times a day (once in the morning and once in the afternoon). Liver kidney detox rejuvenate herbal supplement Active Active Problems Problem Noted Date Diagnosed Date Psoriasis 12/16/2024 Overview (12/16/2024): Generalized and rapid progression of psoriasis at time of onset c. 2013 Significant improvement with risankizumab, 02/2024 to current Psoriatic arthritis 11/16/2024 Overview (12/16/2024): Dx'd c. [address] [place] [address] Gr (no h/o arthrocentesis or psoriatic nail involvement) Medication hx: Derm rx'd oral medication (daily) that resulted in ? LFT elevation Adalimumab x6 yrs was very effective for skin disease but resulted in peripheral edema Risankizumab 02/2024 to current ? dactylitis 11/2021 after 1-2 statin doses (patient report) Assessment & Plan (12/16/2024 7:24 PM EST): Full evaluation limited by need for zoom visit today; patient reports risankizumab has been more effective for skin disease than for joint sxs. I will request rheumatology records for review. We discussed distinction between peripheral edema and true joint swelling. May add oral DMARD to risankizumab e.g. methotrexate if there is clear e/o synovitis on in-person exam. Carpal tunnel syndrome, bilateral 11/16/2024 Overview (11/16/2024): EMG/NCS c. showed mild CTS per patient report Assessment & Plan (12/16/2024 7:27 PM EST): May benefit from updated EMG/NCS, which ideally would be obtained in the same location as the initial study in order to facilitate comparison - deferred to PCP. Family History Medical History Relation Comments Cervical cancer Maternal Aunt Colon cancer Maternal Aunt Colon cancer Maternal Uncle Arthritis Mother Diabetes Mother Uterine cancer Sister Relation Status Comments Maternal Aunt Maternal Uncle Mother Sister Social History Tobacco Use Types Packs/Day Years Used Date Smoking Tobacco: Never Assessed Education Answer Date Recorded Are you interested in more education? Not on luis e e 02/15/2023 Are you concerned about learning? Not on file 02/15/2023 No 02/15/2023 No 02/15/2023 Digital Access Answer Date Recorded No 03/14/2023 No 03/14/2023 Reliable internet access at home? Not on file 03/14/2023 Device with a working camera? Not on file Comments Unknown Sex and Gender Information Value Date Recorded Sex Assigned at Not on file Legal Sex Female 5:23 PM EST Gender Identity Not on file Sexual Orientation Not on file Last Filed Vital Signs Vital Sign Reading Time Taken Comments Blood Pressure - - Pulse - - Temperature - - Respiratory Rate - - Oxygen Saturation - - Inhaled Oxygen Concentration - - Weight 66.7 kg (147 lb) 11/16/2024 2:56 PM EST Height 157.5 cm (5' 2 ) 11/16/2024 2:56 PM EST Body Mass Index 26.89 11/16/2024 2:56 PM EST Plan of Treatment Health Maintenance Due Date Last Done Comments LIPID PANEL 1970 DEPRESSION SCREENING 1982 SMOKING Hx and SMOKELESS TOBACCO SCREENING 1983 HEPATITIS C SCREENING 1988 HIV ONE-TIME SCREENING (18-6 5 YEARS) 1988 PAP SMEAR 1991 SCREENING FOR DIABETES 2005 MAMMOGRAM 2010 COLOGUARD 2015 COLONOSCOPY 2015 COLORECTAL CANCER SCREENING 2015 FIT TEST 2015 FOBT 2015 SIGMOIDOSCOPY 2015 VIRTUAL COLONOSCOPY 2015 PNEUMOCOCCAL VACCINES (50+ years) (2 of 2 - PCV) 2020 08/19/2010 ZOSTER VACCINES (1 of 2) 2020 Adult Td,Tdap Booster 01/03/2024 01/02/2014 , 08/19/2010 COVID-19 VACCINE (4 - 2023-2 5 season) 2024 12/03/2021, 02/26/2021, 01/29/2021 HEPATITIS A VACCINES Aged Out No long er eligible based on patient's age to complete this topic HIB VACCINES Aged Out No longer eligi ble based on patient's age to complete this topic MENINGOCOCCAL VACCINES (ACWY) Aged Out No longer eligible based on patient's age to complete this topic MENINGOCOCCAL VACCINES (B) Aged Out N o longer eligible based on patient's age to complete this topic Medical Devices Not on file [place] [address] [place] [address] [place] [address] [place] [address] [employer] [facility] [employer] Care Teams Clinical Resource Director Relationship Specialty Start Date End Date Jared Hernandez MD [address] [place] [address] [place] [address] PCP - General Internal Medicine 05/11/24 Additional Source Comments The information contained in this document represents components of the legal health record. It is not the complete legal health record.[facility]
== END 2025-05-23 16:56 | disposition home or self-care (01) ==
LOC: HO.HMCH 16:01
PROVIDERS: PCP Internal Medicine; Visit Provider Internal Medicine
DX: R00.2 Palpitations (principal); L40.50 Arthropathic psoriasis, unspecified; J45.31 Mild persistent asthma with (acute) exacerbation; E78.00 Pure hypercholesterolemia, unspecified; K76.0 Fatty (change of) liver, not elsewhere classified; K74.00 Hepatic fibrosis, unspecified; M79.10 Myalgia, unspecified site; K58.1 Irritable bowel syndrome with constipation; F32.A Depression, unspecified; E66.3 Overweight

== ENCOUNTER → 2025-05-23 16:00 | Outpatient (BNVA) | payer OTHER, SELFPAY | PROVIDERS: PCP Internal Medicine; Visit Provider Internal Medicine | DX: R00.2 Palpitations (principal); L40.50 Arthropathic psoriasis, unspecified; J45.31 Mild persistent asthma with (acute) exacerbation; E78.00 Pure hypercholesterolemia, unspecified; K76.0 Fatty (change of) liver, not elsewhere classified; K74.00 Hepatic fibrosis, unspecified; M79.10 Myalgia, unspecified site; K58.1 Irritable bowel syndrome with constipation; F32.A Depression, unspecified; E66.3 Overweight; Z68.26 Body mass index [BMI] 26.0-26.9, adult | CPT/HCPCS: 96127; 99212 ==

== ENCOUNTER 2025-05-30 08:22 | Outpatient (AMB) | payer OTHER, SELFPAY ==
--- NOTE | 2025-05-30 08:23 | A.OFFVIS_ITS ---
Vital Signs 05/30/25 08:24 Height 5 ft 2 in Weight 146 lb BMI 26.7 BP 104/70 Blood Pressure Location Rt brachial Position Sitting Pulse 64 Pulse Source Pulse Oximeter Pulse Oximetry (%) 99 Oxygen Delivery Method Room Air Intake Visit Reasons: Abd. pain, frequent BM. Intake Note: Est pt for req visit. Eval of abd pain and frequent BMs. CC: C.O. epigastric pain, constipation and diarrhea, chronic and intermittently since last visit. Pt denies any evidence of bleeding or any additional sx at this time. Director Digital Marketing Required: No Accompanied by: Daughter Allergies acetaminophen (From Vicodin) Adverse Reaction (Intermediate, Verified 05/30/25 08:26) Nausea, vomiting, dizziness hydrocodone (From Vicodin) Adverse Reaction (Intermediate, Verified 05/30/25 08:26) Nausea, vomiting, dizziness atorvastatin Adverse Reaction (Mild, Verified 05/30/25 08:26) Swelling HPI HPI Abd. pain, frequent BM.: Details: LAST VISIT: Hepatic steatosis Irritable bowel syndrome with constipation Elevated transaminase level Screen for colon cancer Plan Patient will continue current diet. Improved elastography since last ultrasound. Low-fat, low-salt, low carb and high-protein diet recommended. Labs discussed with patient. We will repeat lab work again in 6 months. Patient will be sent for colonoscopy. What to expect before, during and after procedure discussed with patient. Stressed the importance of good bowel prep and clear liquid diet day before procedure. Patient is agreeable to current plan of care and verbalizes understanding of instructions. She was given the opportunity to ask questions and all questions answered. ? Thank you for allowing me to participate in her care New bisacodyl (Dulcolax (bisacodyl)) 10 mg (2 x 5 mg) PO BEDTIME 180 tabs 4RF polyethylene glycol 3350 (Miralax) As directed by gastroenterology department at [facility] 238 grams PO ONCE 238 grams 0RF Z12.11 TODAY'S VISIT: Patient is here today for requested visit. About 2 weeks ago patient started new medication hydroxychloroquine and she began to have severe abdominal pain, bloating and diarrhea. Medications stopped. Patient continues to have symptoms depending on what she eats. Patient is eating healthy mainly vegetables makes her on juices and teas. Patient had palpitation and chest pain and went to ED couple weeks ago. Patient had echo and coronary CTA that showed no acute findings. Patient reports postprandial abdominal bloating, postprandial diarrhea. Denies any nausea or vomiting. Denies any acid reflux. Denies dyspepsia, dysphagia or odynophagia. Denies melena, hematochezia, unintentional weight loss or ribbon like stools. 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 Depression Hepatic steatosis Overweight (BMI 25.0-29.9) Psoriatic arthritis Carpal tunnel syndrome of right wrist Irritable bowel syndrome with constipation Pure hypercholesterolemia Asthma Surgical History Hx of colonoscopy History of tubal ligation Family History Mother Arthritis Diabetes Sister Uterine cancer Maternal Aunt Cervical cancer Colon cancer Maternal Uncle Colon cancer Social History Household Members: Family and Children Housing: Apartment Alcohol intake: never Patient Tobacco Use Status: Never used Tobacco e-Cigarette/Vaping Use: Never Used Second Hand Smoke Exposure: Yes service: No Current occupational status: employed 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 Current occupational exposures/hazards: No Cognitive needs: No Hearing needs: No Vision needs: No Female Reproductive History Menstrual Age of Menarche: 13 Review of Systems Const Denies weight gain and Denies weight loss ENT Reports no additional complaints, Denies dysphagia and Denies odynophagia Card Reports no additional complaints Resp Reports no additional complaints GI Denies abdominal pain, Denies belching, Denies melena, Denies bloating, Denies change in bowel habits, Reports constipation, Denies dysphagia, Denies excessive flatus, Reports dyspepsia, Denies heartburn, Denies diarrhea, Denies loose stools, Denies nausea, Denies odynophagia and Denies vomiting Reports no additional complaints Musc Reports no additional complaints Neuro Reports no additional complaints Psych Reports no additional complaints Endo Reports no additional complaints Physical Exam Vital Signs: Last Vital Signs Pulse 64 05/30/25 08:24 BP 104/70 05/30/25 08:24 Pulse Ox 99 05/30/25 08:24 Oxygen Delivery Method Room Air 05/30/25 08:24 BMI result Body Mass Index 26.7 Const General: healthy appearing, no acute distress and well developed Nutritional Appearance: well nourished Orientation/consciousness: patient oriented x3 Resp Effort & Inspection: normal respiratory effort, able to speak in complete sentences, no tracheal deviation and symmetric chest movement Auscultation: clear to auscultation bilaterally Cardio Rate: regular rate GI Inspection: Yes normal to inspection and No distended Palpation (GI): Soft to palpation, not firm, nontender and No hepatosplenomegaly present Auscultation: normal bowel sounds General: Yes no CVA tenderness Back/Spine/Pelvis Back: no CVA tenderness Skin General skin exam: elasticity normal, turgor normal and dry skin Neuro General: patient oriented x3 Psych Appearance: grossly normal Mental Status: mental status grossly normal Assessment & Plan Assessment & Plan (1) Irritable bowel syndrome with constipation: Code(s): K58.1 - Irritable bowel syndrome with constipation Category: Medical (2) Elevated transaminase level: Code(s): R74.01 - Elevation of levels of liver transaminase levels Category: Medical (3) Hepatic steatosis: Code(s): K76.0 - Fatty (change of) liver, not elsewhere classified Category: Medical (4) Postprandial diarrhea: Code(s): K52.9 - Noninfective gastroenteritis and colitis, unspecified (5) Postprandial abdominal bloating: Code(s): R14.0 - Abdominal distension (gaseous) Plan Discussed with patient avoiding dietary triggers. Low FODMAP diet recommended. List of food recommended as well as list of food to avoid given to patient. Patient will try [id number] fiber supplement with pre and probiotics. Take magnesium only at bedtime. Patient will be scheduled for colonoscopy. Follow-up in the office in 5 weeks for re-evaluation. She is agreeable to this plan and verbalizes understanding of instructions. She was given the opportunity to ask questions and all questions answered. Thank you for allowing me to participate in her care Medications: New hydrocortisone 2.5% (Proctosol HC) 1 appl MN BID-QID PRN 30 grams 2RF hemorrhoids K64.9 - Unspecified hemorrhoids Changed From magnesium oxide 400 mg PO BID 180 tabs 3RF To magnesium oxide 400 mg PO BEDTIME 90 tabs 3RF Coding Level of Care Code Est Pt Level 4 (94962) Complex EM visit Add On G2211 Diagnoses Irritable bowel syndrome with constipation K58.1 Elevated transaminase level R74.01 Hepatic steatosis K76.0 Postprandial diarrhea K52.9 Postprandial abdominal bloating R14.0 Time Spent (min) 35 Comment 25 minutes spent with patient and additional 10 minutes spent reviewing her records
[2025-05-30 08:24] VITALS: BP 104/70; PULSE 64; O2SAT 99; BMI 26.7
--- OUTSIDE RECORDS SUMMARY | 2025-05-30 08:32 | XMS_ITS | Clinical Summary ---
Author Organization [facility] Address [address] [place] [address] Care Team Providers Care Commission Specialist Name Role Phone Jared Hernandez MD Primary Care Provider Encounters Date Type Department Care Team Description 05/16/2025 Telephone [facility] - [facility] [address] [facility] [address] [place] [phone] Jagruti Bell NP from Last 3 Months [...] Description 06/14/2025 9:40 AM EDT Office Visit [facility] - [facility] [address] [facility] [address] [place] [phone] Jagruti Bell NP [address] [place] [address] Health Maintenance Due Date Last Done Comments [...] to complete this topic Insurance JERRY ALVARENGA [id number] [facility] Care Teams Commission Specialist Relationship Specialty Start Date End Date Jared Hernandez MD [address] [place] [address] [address] JERRY Alvarenga PCP - General Internal Medicine 08/29/24
--- OUTSIDE RECORDS SUMMARY | 2025-05-30 08:32 | XMS_ITS | Clinical Summary ---
Author Organization [facility] Address [facility] [employer] [facility] [address] [place] [address] Phone Care Team Providers Care Parking Lot Attendant And Cashier Name Role Phone Jared Hernandez MD Primary Care Provider [phone] Allergies Active Allergy Reactions Criticality Noted Date [...] 11/16/2024 Overview (12/16/2024): Dx'd c. [address] [place] [address] Gr (no h/o arthrocentesis or [...] topic Medical Devices Not on file [place] [address] [place] [address] [place] [address] [place] [address] [employer] DIRECT [facility] [employer] DIRECT Care Teams Parking Lot Attendant And Cashier Relationship Specialty Start Date End Date Jared Hernandez MD [address] [place] [address] [place] [address] PCP - General Internal Medicine 05/11/24 Additional Source Comments The information contained in this document represents components of the legal health record. It is not the complete legal health record.[facility]
== END 2025-05-30 08:49 | disposition home or self-care (01) ==
LOC: HO.HGI 08:22
PROVIDERS: PCP Internal Medicine; Visit Provider Nurse Practitioner Family
DX: R74.01 Elevation of levels of liver transaminase levels (principal); K76.0 Fatty (change of) liver, not elsewhere classified; K52.9 Noninfective gastroenteritis and colitis, unspecified; R14.0 Abdominal distension (gaseous)
CPT/HCPCS: 99214

== ENCOUNTER → 2025-05-30 08:22 | Outpatient (BNVA) | payer OTHER, SELFPAY | PROVIDERS: PCP Internal Medicine; Visit Provider Nurse Practitioner Family | DX: K58.1 Irritable bowel syndrome with constipation (principal); R74.01 Elevation of levels of liver transaminase levels; K76.0 Fatty (change of) liver, not elsewhere classified; R14.0 Abdominal distension (gaseous); K64.9 Unspecified hemorrhoids | CPT/HCPCS: 99212 ==

== ENCOUNTER 2025-07-02 07:27 | Outpatient (REF) | payer OTHER, SELFPAY ==
--- OUTSIDE RECORDS SUMMARY | 2025-07-02 07:30 | XMS_ITS | Clinical Summary ---
Author Organization [facility] Address [facility] [employer] [facility] [address] [place] [address] Phone Care Team Providers Care Glazier Artist Name Role Phone Jared Hernandez MD Primary Care Provider [phone] Allergies Active Allergy Reactions Criticality Noted Date [...] 11/16/2024 Overview (12/16/2024): Dx'd c. [address] Gr (no h/o arthrocentesis or [...] HEPATITIS C SCREENING 1988 HIV ONE-TIME SCREENING (18-65 YEARS) 1988 PAP SMEAR 1991 SCREENING FOR DIABETES 2005 MAMMOGRAM 2010 COLOGUARD 2015 COLONOSCOPY 2015 COLORECTAL CANCER SCREENING 2015 FIT TEST 2015 FOBT 2015 SIGMOIDOSCOPY 2015 VIRTUAL COLONOSCOPY 2015 PNEUMOCOCCAL VACCINES (50+ years) (2 of 2 - PCV) 2020 08/19/2010 ZOSTER VACCINES (1 of 2) 2020 Adult Td,Tdap Booster 01/03/2024 01/02/2014, 010 INFLUENZA VACCINE (#1) 2025 , 09/08/2023, 08/12/2022, Additional history exists COVID-19 VACCINE ( - 2024- season) 2025 12/03/2021, 02/26/2021, 01/29/2021 HEPATITIS A VACCINES Aged [...] topic Medical Devices Not on file Insurance [facility] [employer] [place] [address] [place] [address] [employer] [facility] [employer] DIRECT [facility] [employer] [address] [place] [address] [place] [address] [address] [employer] DIRECT Care Teams Glazier Artist Relationship Specialty Start Date End Date Jared Hernandez MD [address] [place] [address] [place] [address] PCP - General Internal Medicine 05/11/24 Additional Source Comments The information contained in this document represents components of the legal health record. It is not the complete legal health record.[facility]
--- OUTSIDE RECORDS SUMMARY | 2025-07-02 07:30 | XMS_ITS | Clinical Summary ---
Author Organization [facility] Address [address] [place] [address] Care Team Providers Care Mechanical Repair Worker Name Role Phone Jared Hernandez MD Primary Care Provider Allergies Active Allergy Reactions Criticality Noted Date Comments Atorvastatin Swelling 10/19/2024 Hydrocodone-Acetaminophen Nausea And Vomiting 0 10/19/2024 Medications MAGNESIUM OXIDE ORAL Take 500 mg by mouth 1 (one) time each day. Active ergocalciferol (Vitamin D2) 1,250 mcg (50,000 unit) capsule Take 1 capsule (50,000 Units total) by mouth 1 (one) time per week. Active metoprolol succinate (TOPROL-XL) 25 mg 24 hr tablet Take 0.5 tablets (12.5 mg total) by mouth 1 (one) time each day. Do not crush or chew. Active VITAMIN E ACETATE ORAL Take by mouth 1 (one) time each day. Active risankizumab-rz aa (SKYRIZI SUBQ) Inject under the skin every 3 (three) months. Active bisacodyL 5 mg tablet Take 10 mg by mouth at bedtime. Active NON FORMULARY OTC Liver- kidney support daily Active multivitamine, geriatric, (Multivitamin 50 Plus) tablet Take 1 tablet by mouth 1 (one) time each day. Active evolocumab (Repatha SureClick) 140 mg/mL pen injector injection Inject 1 mL (140 mg total) under the skin every 14 (fourteen) days. 6 mL 1 06/14/2025 Active Active Problems Problem Noted Date Diagnosed Date Palpitations 06/14/2025 Assessment & Plan (06/14/2025 10:11 AM EDT): The patient's palpitations have improved with initiation of very low-dose beta-nancy. Continue metoprolol at current dose Mixed hyperlipidemia 06/14/2025 Overview (06/14/2025): Statin intolerance with significant myalgia and joint swelling Assessment & Plan (06/14/2025 10:14 AM EDT): The patient reports intolerance to statins with significant myalgias and joint swelling that prohibits her ability to work or even write her name. She does have an elevated LDL at 151 with a significant cardiac risk factor of psoriatic arthritis which is a chronic inflammatory condition leading to premature CAD. Thankfully, she does not have large vessel obstructive CAD based on her coronary CTA, but we need to manage her risk in the long-term. 10-year ASCVD is risk calculator shows an 8.2% chance of having the vascular event in the next 10 years based on her current lipid profile. Therefore, she qualifies for aggressive lipid lowering strategies. I have prescribed Repatha 140 mg to be taken 1 SC injection every 14 days. Certainly, if Praluent is preferred by her insurance, we can prescribe that instead. I wait to hear back from her insurance company to complete the prior authorization process Last lipid 05/15/2025 at [facility] TC 237 TG 203 HDL 45 LDL 151 Abnormal ECG 06/13/2025 Overview (06/14/2025): Inferior early repolarization Assessment & Plan (06/14/2025 10:12 AM EDT): The patient's EKG at [facility] shows inferior early repolarization C/W EKG from 12/2022. Her echocardiogram shows normal LVEF without wall motion abnormalities. Continue periodic surveillance, but no specific intervention is needed Chest pain 06/13/2025 Overview (06/14/2025): - Coronary CTA 05/15/2025 shows no significant CAD - Echocardiogram showed normal LVEF without wall motion abnormalities and no hemodynamically significant valve disease with normal aorta size. Assessment & Plan (06/14/2025 10:11 AM EDT): Continues with the chest tightness sensation that increases with exertion such as climbing the 5 flights of stairs to her apartment. It does is not reproducible with palpation or inspiration. Thankfully, she does not have any large vessel obstruction on her coronary CTA, though she does have risk factors with untreated hyperlipidemia and psoriatic arthritis (a chronic inflammatory condition). As such, will obtain a cardiac PET/ CT stress test to evaluate for microvascular ischemia which may be the etiology of her discomfort. We can adjust therapy accordingly after results of the tests are available to us. She will continue her beta-nancy for now as it serves as an antianginal. At this time, no indication for aspirin Encounters Date Type Department Care Team Description 06/14/2025 9:40 AM EDT Office Visit [facility] - [address] [place] [address] Jagruti Bell NP Chest pain, unspecified type (Primary Dx); Abnormal ECG; Palpitations; Mixed hyperlipidemia 05/16/2025 Telephone [facility] - [address] [place] [address] Jagruti Bell NP from Last 3 Months Medical History Medical History Date Comments Hypercholesterolemia PA (psoriatic arthritis) (CMS/[facility] V24, [facility] V 28) Heart palpitations Social History Tobacco Use Types Packs/Day Years Used Date Smoking Tobacco: Never Smokeless Tobacco: Never Tobacco Cessation:Counseling Given: Not Answered Alcohol Use Standard Drinks/Week Comments Not Currently 0 (1 standard drink = 0.6 oz pur e alcohol) Comments Unknown Sex and Gender Information Value Date Recorded Sex Assigned at Not on file Legal Sex Female 11:12 AM EDT Gender Identity Not on file Sexual Orientation Not on file Obstetrics History Last Filed Vital Signs Vital Sign Reading Time Taken Comments Blood Pressure 98/62 06/14/2025 9:30 AM EDT Pulse 66 06/14/2025 9:30 AM EDT Temperature - - Respiratory Rate - - Oxygen Saturation 97% 06/14/2025 9:30 AM EDT Inhaled Oxygen Concentration - - Weight 65.8 kg (145 lb) 06/14/2025 9:30 AM EDT Height 157.5 cm (5' 2 ) 06/14/2025 9:30 AM EDT Body Mass Index 26.52 06/14/2025 9:30 AM EDT Plan of Treatment Upcoming Encounters Date Type Department Care Team (Late st Contact Info) Description 08/15/2025 11:20 AM EDT Office Visit [facility] - [address] [place] [phone] Jagruti Bell NP [address] [place] [address] Health Maintenance Due Date Last Done Comments Breast Cancer Screening 1970 Hepatitis B Vaccines (1 of 3 - 19+ 3-dose series) 1989 Cervical Cancer Screening: Pap Smear 1991 Pneumococcal Vaccine: 50+ Years (2 of 2 - PCV) 2020 08/19/2010 Zoster Vaccines (1 of 2) 2020 03/10/2011 DTaP,Tdap,and Td Vaccines (3 - Td or Tdap) 01/03/2024 01/02/2014, 08/19/2010 Cholesterol Screening (Lipid Panel) 08/05/2024 Colorectal Cancer Screening: Colonoscopy 08/05/2024 HIV Screening 08/05/2024 Hepatitis C Screening 08/05/2024 Social Influencers of Health Screening 08/05/2024 Depression Screening 10/18/2024 COVID-19 Vaccine ( - season) 2025 12/03/2021, 02/26/2021, 01/29/2021 Influenza Vaccine (#1) 2025 , 09/08/2023, 08/12/2022, Additional history exists MMR Vaccines Aged Out 03/10/2011 No longer eligi ble based on patient's age to complete this topic Varicella Vaccines Aged Out 03/10/2011 No longer eligible based on patient's age to complete this topic HIB Vaccines Aged Out No longer eligi [...] patient's age to complete this topic Insurance [employer] Care Teams Mechanical Repair Worker Relationship Specialty Start Date End Date Jared Hernandez MD [address] [place] [address] [address] JERRY Alvarenga PCP - General Internal Medicine 08/29/24
[2025-07-02 07:47] LABS: MANUAL DIFF FLAG NO
[2025-07-02 08:31] LABS: Hematocrit 39.4 % (37.0-47.0); Hemoglobin 13.2 g/dl (12.0-16.0); Imm Gran Abs Auto 0.01 X10*3/uL (0.00-0.03); Imm Gran Pct Auto 0.2 % (0.0-0.4); Lymphocytes Absolute Auto 1.7 X10*3/uL (1.2-4.9); Mean Corpuscular HGB Conc 33.5 g/dl (31.0-35.0); Mean Corpuscular Hemoglobin 30.4 pg (27.0-33.0); Mean Corpuscular Volume 90.8 fL (80.0-98.0); NRBC Abs Auto 0.000 X10*3/uL (0.0-0.012); NRBC Pct Auto 0.0 /100WBC (0.0-0.2); Platelet Count 239 X10*3/uL (160-400); Red Blood Count 4.34 X10*6/uL (4.20-5.50); White Blood Count 5.4 X10*3/uL (4.8-10.8)
[2025-07-02 08:54] LABS: Alanine Aminotransferase 36 U/L (0-31); Albumin Level 4.7 g/dL (3.5-5.0); Alkaline Phosphatase 59 U/L (39-117); Anion Gap 12 (12-20); Aspartate Amino Transferase 32 U/L (5-31); Blood Urea Nitrogen 11 mg/dL (9-16); Calcium 9.5 mg/dL (8.4-10.2); Carbon Dioxide 26 mmol/L (22-29); Chloride 106 mmol/L (96-108); Cholesterol 243 mg/dL (<200); Estimated Glomerular Filt Rate > 60; HDL Cholesterol 43 mg/dL (>40); Potassium 4.4 mmol/L (3.3-5.1); Sodium 140 mmol/L (135-145); Total Protein 8.0 g/dL (6.5-8.0); Triglycerides 168 mg/dL (<150)
[2025-07-02 09:17] LABS: Appearance Urine Clear; Glucose Urine UA Negative (Negative); PH 5.0 (5.0-9.0); Specific Gravity - Urine 1.020 (1.005-1.025); UMIC TRIGGER UACC YES
[2025-07-02 09:23] LABS: UACC Culture Trigger YES
== END 2025-07-02 07:28 | disposition home or self-care (01) ==
LOC: HO.LAB 07:27
PROVIDERS: Visit Provider Internal Medicine
DX: E78.00 Pure hypercholesterolemia, unspecified (principal); E55.9 Vitamin D deficiency, unspecified; D64.9 Anemia, unspecified; R30.0 Dysuria
CPT/HCPCS: 36415; 80053; 80061; 81001; 81003; 82306; 84443; 85025; 87086; 87147; 99212

== ENCOUNTER 2025-07-02 13:25 | Outpatient (AMB) | payer OTHER, SELFPAY ==
[2025-07-02 13:27] VITALS: BP 122/80; PULSE 62; O2SAT 97; BMI 26.7
--- NOTE | 2025-07-02 13:27 | A.OFFPC_ITS ---
Vital Signs 07/02/25 13:27 Height 5 ft 2 in Weight 146 lb BMI 26.7 BP 122/80 Blood Pressure Location Lt brachial Position Sitting Pulse 62 Pulse Source Pulse Oximeter Pulse Oximetry (%) 97 Oxygen Delivery Method Room Air Intake Visit Reasons: 4 months Automation Technologist Required: No Accompanied by: Self / Same As Patient Allergies acetaminophen (From Vicodin) Adverse Reaction (Intermediate, Verified 07/06/25 14:03) Nausea, vomiting, dizziness hydrocodone (From Vicodin) Adverse Reaction (Intermediate, Verified 07/06/25 14:03) Nausea, vomiting, dizziness atorvastatin Adverse Reaction (Mild, Verified 07/06/25 14:03) Swelling Medication List - Last Reconciled 07/02/25 by Jared Hernandez MD albuterol sulfate 1.25 mg (3 mL) continuous nebulization QID PRN 30 days albuterol sulfate 90 mcg/actuation (Ventolin HFA) 2 puffs inhalation Q6H PRN 30 days bisacodyl (Dulcolax (bisacodyl)) 10 mg (2 x 5 mg) PO BEDTIME cholecalciferol (vitamin D3) 10 mcg PO DAILY evolocumab (Repatha SureClick) 140 mg subcut Q2W 4 weeks hydrocortisone 2.5% (Proctosol HC) 1 appl PA BID-QID PRN magnesium oxide 400 mg PO BEDTIME metoprolol succinate ER 12.5 mg (1/2 x 25 mg) PO DAILY hyjyaeix-div-lywe-FA-vit K-lut 8 mg iron-400 mcg-50 mcg (Multivitamin Women 50 Plus) 1 tab PO DAILY [nebulizer Use as directed 4 times a day as needed] omega-3 fatty acids 1,000 mg PO DAILY Skyrizi (risankizumab-rzaa) 150 mg subcut Q12W NS vitamin E (dl, acetate) 400 units PO BID Tobacco use date assessed: 07/02/25 Dental Screening Dental Screen Date: 07/02/25 Did you have a dental visit in the last 12 months?: No Did you have a dental problem in the last 6 months where you did not have access to dental care?: No Was dental information given to patient?: No HPI 4 months HPI Details Patient comes in today for her follow-up visit States that she feels okay She denies any headaches or dizziness Denies any chest pains, no shortness of breath No nausea/vomiting, no abdominal pain No change in bowel habits noted She had her follow-up labs done earlier today - to discuss her results ON LICENSE OF [facility] Medical History 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 Depression Hepatic steatosis Overweight (BMI 25.0-29.9) Psoriatic arthritis Carpal tunnel syndrome of right wrist Irritable bowel syndrome with constipation Pure hypercholesterolemia Asthma Surgical History Hx of colonoscopy History of tubal ligation Family History Mother Arthritis Diabetes Sister Uterine cancer Maternal Aunt Cervical cancer Colon cancer Maternal Uncle Colon cancer Social History Household Members: Family and Children Housing: Apartment Alcohol intake: never Patient Tobacco Use Status: Never used Tobacco e-Cigarette/Vaping Use: Never Used Second Hand Smoke Exposure: Yes service: No Current occupational status: employed 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 Current occupational exposures/hazards: No Cognitive needs: No Hearing needs: No Vision needs: No Female Reproductive History Menstrual Age of Menarche: 13 Questionnaire Thrive Questionnaire Date Thrive assessed: 02/27/25 I am a: Patient What is your living situation today?: I choose not to answer this question Within the past 12 months, did the food you bought not last and you didn't have the money to get more?: I choose not to answer this question Within the past 12 months, did you worry whether your food would run out before you got money to buy more?: I choose not to answer this question Do you have trouble paying for medicines?: I choose not to answer this question Do you have trouble getting transportation to medical appointments?: I choose not to answer this question Do you have trouble paying your heating and electricity bill?: I choose not to answer this question Do you have trouble taking care of your child, family member or friend?: I choose not to answer this question Do you have trouble with day-to-day activities such as bathing, preparing meals, shopping, managing finances, etc.?: I choose not to answer this question Are you currently unemployed and looking for a job?: I choose not to answer this question Are you interested in more education?: I choose not to answer this question Please select the resources that you would like help with: None Currently or been in a relationship where the following occur: I choose not to answer THRIVE Score: 0 AUDIT C Alcohol Use Questionnaire (AUDIT-C) 1. How often do you have a drink containing alcohol?: Never 3. How often do you have six or more drinks on one occasion?: Never Total Score: 0 Score Reviewed/Action Taken: Yes JUANITA-7 AMB Questionnaire JUANITA-7 Date JUANITA - 7 assessed: 05/23/25 Source: Developed by Drs. Bonifacio Prince, Shaila Cano, Reyes Palmer and colleagues, with an educational christiane from [employer]. Review of Systems Const Reports body aches (diffuse), Reports fatigue, Denies fever(s) and Denies headache(s) ENT Denies dysphagia, Denies dizziness, Denies otalgia, Denies headache(s), Reports neck pain, Denies odynophagia and Denies sore throat Card Denies chest pain, Denies rapid heart rate, Denies palpitations and Denies dyspnea Resp Denies chest congestion, Denies cough and Denies dyspnea GI Denies abdominal pain, Denies constipation, Denies dysphagia, Denies diarrhea, Denies nausea, Denies odynophagia and Denies vomiting Denies difficulty voiding, Denies nocturia, Denies dysuria and Denies urinary urgency Musc Reports back pain, Reports myalgias, Reports arthralgias (involving multiple joints), Reports neck pain and Reports stiffness Skin/Breast Denies rash Neuro Denies dizziness and Denies headache(s) Psych Reports anxiety and Reports depression Endo Reports fatigue and Denies palpitations Physical exam (Primary Care) Vital Signs: Last Vital Signs Pulse 62 07/02/25 13:27 BP 122/80 07/02/25 13:27 Pulse Ox 97 07/02/25 13:27 Oxygen Delivery Method Room Air 07/02/25 13:27 BMI result Body Mass Index 26.7 Tobacco/Smoking Status: Tobacco use Status Tobacco use date assessed 07/02/25 07/02/25 13:33 Patient Tobacco Use Status Never used Tobacco 07/02/25 13:33 e-Cigarette/Vaping Use Never Used 07/02/25 13:33 Thrive Assessment: Date of Thrive Assessment Date Thrive assessed 02/27/25 07/02/25 13:33 Currently or been in a relationship where the following occur: I choose not to answer Const General: no acute distress and alert HENMT Ears: TM's normal bilaterally and EAC's normal Throat: Yes posterior oropharynx normal and Yes tonsils normal Neck Neck: Yes supple and No lymphadenopathy Thyroid: Thyroid normal Resp Auscultation: clear to auscultation bilaterally, no rales and no wheezes Cardio Rate: regular rate Rhythm: regular rhythm Heart sounds: no murmurs GI Palpation (GI): Soft to palpation and nontender Auscultation: normal bowel sounds General: Yes no CVA tenderness Back/Spine/Pelvis Back: no CVA tenderness Thoracic/Lumbar Spine: lumbar spinal tenderness Skin Rashes: no rashes Extrem Other: (+) tenderness and swelling noted on several fingers of both hands General: Yes no clubbing, cyanosis or edema Results Reviewed Results Reviewed: Laboratory Tests 07/02/25 07:45 WBC 5.4 Hgb 13.2 Hct 39.4 Plt Count 239 Sodium 140 Potassium 4.4 Creatinine 0.72 Estimated GFR > 60 Fasting Glucose 94 Calcium 9.5 AST 32 H ALT 36 H Triglycerides 168 H Cholesterol 243 H LDL Cholesterol, Calc 167 H HDL Cholesterol 43 25-OH Vitamin D Total 36.7 TSH 1.99 Ur Specific Adams 1.020 Urine Protein Negative Urine Glucose (UA) Negative Urine Blood Negative Urine Nitrite Negative Ur Leukocyte Esterase Small (1+) H Coding Level of Care Code Est Pt Level 4 (79191) Diagnoses Palpitations R00.2 Psoriatic arthritis L40.50 Mild persistent asthma with acute exacerbation J45.31 Asthma complication type: with acute exacerbation Asthma persistence: persistent Asthma severity: mild Pure hypercholesterolemia E78.00 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 K76.0; K74.00 Myalgia M79.10 Irritable bowel syndrome with constipation K58.1 Depression, unspecified depression type F32.A Depression Type: unspecified Overweight (BMI 25.0-29.9) E66.3 Assessment & Plan Assessment & Plan (1) Palpitations: Code(s): R00.2 - Palpitations Category: Social Hx Plan: This was most likely a side effect of her psoriatic arthritis treatment (hydroxychloroquine), which has been stopped Workups done at the hospital at [facility], which reportedly include serial troponins and a coronary CT, all came back negative She is currently on Metoprolol ER 25 mg 1/2 tablet QD Follow-up with [facility] Cardiology as scheduled (2) Psoriatic arthritis: Comment: Methotrexate: October 2013 - stopped due to elevated LFTs; Enbrel: 09/2014- stopped due to fatigue, and feeling sick, injection site reaction; Humira: Nov 2014 to April 2022; Stelara: 01/2023 to 03/2023 - not helpful; Skyrizi: 04/2023 to present Code(s): L40.50 - Arthropathic psoriasis, unspecified Category: Medical Plan: Patient is currently still on Skyrizi 150 mg SQ Q 12 weeks that is being managed by rheumatology (she was started on the Rx by Dr. Hernandez back in April 2023) - she has been tolerating the medication so far and Rx appears to be helping as she's had no significant breakouts of psoriasis so far although she still has recurrent pain of her joints, especially of her fingers on the left hand Rheumatology has apparently discussed with her the option of trying her on Otezla instead, which she declined Follow-up with rheumatology as scheduled (3) Asthma: Code(s): J45.909 - Unspecified asthma, uncomplicated Category: Medical Qualifiers: Asthma complication type: with acute exacerbation Asthma persistence: persistent Asthma severity: mild Qualified Code(s): J45.31 - Mild persistent asthma with (acute) exacerbation Plan: Controlled Continue Breo Ellipta to 200-25 mcg 1 inhalation QD and Albuterol HFA 2 inhalations every 6 hours PRN (Rx refilled) - goal is again to not have to use her Albuterol inhaler more than 3 to 4 times a week Continue Albuterol via nebulizer as well every 6 to 8 hours as needed - she is advised to use her nebulizer rather than her Albuterol inhaler when she has access to her nebulizer (4) Pure hypercholesterolemia: Code(s): E78.00 - Pure hypercholesterolemia, unspecified Category: Medical Plan: Results of her labs done earlier this morning reviewed and discussed with patient - she is advised that her cholesterol levels are still significantly elevated and have improved only slightly from previous Patient could not tolerate Atorvastatin (edema) in the past and still does NOT wish to take or try anything else for her cholesterol at this time and wants to continue working on her diet alone for now Have cautioned patient that her recent liver fibrosis score is already at F1-F2 (minimal fibrosis) and that high cholesterol alone can contribute to and make li henrry fibrosis and fatty liver disease worse so she should reconsider addressing this urgently Have advised her of the newer PCSK9 inhibitors as an option and that these have absolutely nothing to do with the statins She reports that she has been started on Repatha 140 mg every 2 weeks by Cardiology recently and she will be picking up her prescription and starting on the medication sometime in the next few days Will recheck her labs and fasting lipids in 4 months for follow up (5) 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: Code(s): K76.0 - Fatty (change of) liver, not elsewhere classified; K74.00 - Hepatic fibrosis, unspecified Category: Medical Plan: Her most recent liver fibrosis score is F1-F2 (minimal fibrosis) She is advised that this is most likely related to her FINCH (fatty liver) but her high cholesterol can also contribute to this significantly so she should try to get her cholesterol levels down and better controlled as much as possible (6) Myalgia: Code(s): M79.10 - Myalgia, unspecified site Category: Medical Plan: These were most likely related to her psoriatic arthritis flare up; are also likely partly due to her fibromyalgia She was started on Naproxen by rheumatology previously but patient could not tolerate Rx (due to GI symptoms) She was started on Duloxetine 60 mg QD in the past but it appears that she is no longer on this Rx - she personally remains very opposed to taking medications in general and wants to take as minimum as possible (7) Irritable bowel syndrome with constipation: Code(s): K58.1 - Irritable bowel syndrome with constipation Category: Medical Plan: She was on Linzess 290 mcg QD in the past and her symptoms were apparently well- controlled on the Rx but she self-discontinued the medication at some point - states that her symptoms have not flared up so far since she quit taking her meds Patient has also failed to respond to Amitiza and other laxatives/stool softe ners in the past Follow up with GI as scheduled (8) Depression: Code(s): F32.A - Depression, unspecified Category: Medical Qualifiers: Depression Type: unspecified Qualified Code(s): F32.A - Depression, unspecified Plan: She was previously on Duloxetine but she self-discontinued her Rx as well at some point and states that she feels okay without any Rx for her mood disorder (9) Overweight (BMI 25.0-29.9): Code(s): E66.3 - Overweight Category: Medical Plan: Reinforced diet/exercise as tolerated/lose weight Plan Follow-up in 4 months Orders: Orders Complete Blood Count Auto Diff 4 Months D64.9 - Anemia, unspecified Comprehensive Alloy. Panel Fast 4 Months E78.00 - Pure hypercholesterolemia, unspecified UA CC w/rflx Micro + Cult 4 Months R30.0 - Dysuria Lipid Panel 4 Months E78.00 - Pure hypercholesterolemia, unspecified TSH reflex Free T4 4 Months E78.00 - Pure hypercholesterolemia, unspecified
--- OUTSIDE RECORDS SUMMARY | 2025-07-02 18:39 | XMS_ITS | Clinical Summary ---
Author Organization [facility] Address [facility] [address] [place] [address] Phone Care Team Providers Care Urogynecology Physician Name Role Phone Jared Hernandez MD Primary Care Provider [phone] Allergies Active Allergy Reactions Criticality Noted Date [...] 11/16/2024 Overview (12/16/2024): Dx'd c. [address] [place] rheum Dr. Gr (no h/o arthrocentesis or [...] topic Medical Devices Not on file Insurance [facility] [employer] [place] [address] [address] [employer] DIRECT [facility] [employer] DIRECT [facility] [employer] [address] [place] [address] [place] [address] [employer] DIRECT Care Teams Urogynecology Physician Relationship Specialty Start Date End Date Jared Hernandez MD [address] [place] [address] [place] [address] PCP - General Internal Medicine 05/11/24 Additional Source Comments The information contained in this document represents components of the legal health record. It is not the complete legal health record.[facility]
--- OUTSIDE RECORDS SUMMARY | 2025-07-02 18:39 | XMS_ITS | Clinical Summary ---
Author Organization [facility] Address [address] [place] [address] Care Team Providers Care Gear Grinding Machine Operator Name Role Phone Jared Hernandez MD Primary Care Provider [phone] Allergies Active Allergy Reactions Criticality Noted Date [...] prior authorization process Last lipid 05/15/2025 at [facility] TC 237 TG 203 HDL 45 LDL 151 Abnormal ECG 06/13/2025 Overview (06/14/2025): Inferior early repolarization Assessment & Plan (06/14/2025 10:12 AM EDT): The patient's EKG at [facility] shows inferior early repolarization C/W EKG [...] Description 06/14/2025 9:40 AM EDT Office Visit [facility] [address] [place] [address] Jagruti Bell NP Chest pain, unspecified type (Primary Dx); Abnormal ECG; Palpitations; Mixed hyperlipidemia 05/16/2025 Telephone [facility] [address] [place] [address] Jagruti Bell NP from Last 3 Months Medical History Medical History Date Comments Hypercholesterolemia PA (psoriatic arthritis) (CMS/[facility] V24, [facility] V 28) Heart palpitations Social History Tobacco [...] Description 08/15/2025 11:20 AM EDT Office Visit [facility] - [address] [place] [phone] Jagruti Bell NP [address] [place] [address] Health Maintenance Due Date Last Done Comments [...] patient's age to complete this topic Insurance [facility] PL[employer] Care Teams Gear Grinding Machine Operator Relationship Specialty Start Date End Date Jared Hernandez MD [address] [place] [address] [address] JERRY Alvarenga PCP - General Internal Medicine 08/29/24
== END 2025-07-02 14:23 | disposition home or self-care (01) ==
LOC: HO.HMCH 13:26
PROVIDERS: PCP Internal Medicine; Visit Provider Internal Medicine
DX: R00.2 Palpitations (principal); L40.50 Arthropathic psoriasis, unspecified; J45.31 Mild persistent asthma with (acute) exacerbation; E78.00 Pure hypercholesterolemia, unspecified; K76.0 Fatty (change of) liver, not elsewhere classified; K74.00 Hepatic fibrosis, unspecified; M79.10 Myalgia, unspecified site; K58.1 Irritable bowel syndrome with constipation; F32.A Depression, unspecified; E66.3 Overweight

== ENCOUNTER 2025-07-03 09:43 | Outpatient (REF) | payer OTHER, SELFPAY ==
[2025-07-03 09:57] LABS: MANUAL DIFF FLAG NO
[2025-07-03 10:38] LABS: Hematocrit 38.6 % (37.0-47.0); Hemoglobin 13.1 g/dl (12.0-16.0); Imm Gran Abs Auto 0.01 X10*3/uL (0.00-0.03); Imm Gran Pct Auto 0.2 % (0.0-0.4); Lymphocytes Absolute Auto 1.3 X10*3/uL (1.2-4.9); Mean Corpuscular HGB Conc 33.9 g/dl (31.0-35.0); Mean Corpuscular Hemoglobin 30.8 pg (27.0-33.0); Mean Corpuscular Volume 90.8 fL (80.0-98.0); NRBC Abs Auto 0.000 X10*3/uL (0.0-0.012); NRBC Pct Auto 0.0 /100WBC (0.0-0.2); Platelet Count 242 X10*3/uL (160-400); Red Blood Count 4.25 X10*6/uL (4.20-5.50); White Blood Count 4.4 X10*3/uL (4.8-10.8)
[2025-07-03 11:56] LABS: Alanine Aminotransferase 33 U/L (0-31); Albumin Level 4.6 g/dL (3.5-5.0); Alkaline Phosphatase 56 U/L (39-117); Anion Gap 9 (12-20); Aspartate Amino Transferase 26 U/L (5-31); Blood Urea Nitrogen 12 mg/dL (9-16); Calcium 9.3 mg/dL (8.4-10.2); Carbon Dioxide 27 mmol/L (22-29); Chloride 110 mmol/L (96-108); Estimated Glomerular Filt Rate > 60; Potassium 5.0 mmol/L (3.3-5.1); Sodium 141 mmol/L (135-145); Total Protein 7.7 g/dL (6.5-8.0)
--- OUTSIDE RECORDS SUMMARY | 2025-07-03 12:24 | XMS_ITS | Clinical Summary ---
Author Organization [facility] Address [facility] [address] [place] [address] Phone Care Team Providers Care Mortgage Collector Name Role Phone Jared Hernandez MD Primary Care Provider [phone] Allergies Active Allergy Reactions Criticality Noted Date [...] 11/16/2024 Overview (12/16/2024): Dx'd c. [address] [place] [address] Gr (no h/o arthrocentesis or [...] topic Medical Devices Not on file Insurance [facility] [employer] [address] [place] [address] [employer] DIRECT [facility] [employer] DIRECT [facility] [employer] [address] [place] [address] [place] [address] [employer] DIRECT Care Teams Mortgage Collector Relationship Specialty Start Date End Date Jared Hernandez MD [address] [place] [address] [place] [address] PCP - General Internal Medicine 05/11/24 Additional Source Comments The information contained in this document represents components of the legal health record. It is not the complete legal health record.[facility]
--- OUTSIDE RECORDS SUMMARY | 2025-07-03 12:24 | XMS_ITS | Clinical Summary ---
Author Organization [facility] Address [address] [place] [address] Care Team Providers Care Wind Energy Engineer Name Role Phone Jared Hernandez MD Primary [...] prior authorization process Last lipid 05/15/2025 at [facility] TC 237 TG 203 HDL 45 LDL 151 Abnormal ECG 06/13/2025 Overview (06/14/2025): Inferior early repolarization Assessment & Plan (06/14/2025 10:12 AM EDT): The patient's EKG at [facility] shows inferior early repolarization C/W EKG from [...] Description 06/14/2025 9:40 AM EDT Office Visit [facility] - [address] [place] [address] Jagruti Bell NP Chest pain, unspecified type (Primary Dx); Abnormal ECG; Palpitations; Mixed hyperlipidemia 05/16/2025 Telephone [facility] - [address] [place] [address] Jagruti Bell NP from Last 3 Months Medical History Medical History Date Comments Hypercholesterolemia PA (psoriatic arthritis) (CMS/[facility] V24, [facility] V 28) Heart palpitations Social History [...] Description 08/15/2025 11:20 AM EDT Office Visit [facility] - [address] [place] [phone] Jagruti Bell NP [address] [place] [address] Health Maintenance Due Date Last Done Comments [...] patient's age to complete this topic Insurance [facility] PL[facility] Care Teams Wind Energy Engineer Relationship Specialty Start Date End Date Jared Hernandez MD [address] [place] [address] [address] JERRY Alvarenga PCP - General Internal Medicine 08/29/24
== END 2025-07-03 09:44 | disposition home or self-care (01) ==
LOC: HO.LAB 09:43
PROVIDERS: Student in an Organized Health Care Education/Training Program; PCP Internal Medicine
DX: L40.50 Arthropathic psoriasis, unspecified (principal)
CPT/HCPCS: 36415; 80053; 85025; 85652; 86140

== ENCOUNTER 2025-07-04 09:38 | Outpatient (AMB) | payer OTHER, SELFPAY ==
[2025-07-04 09:47] VITALS: BP 112/68; PULSE 60; O2SAT 100; BMI 26.7
--- NOTE | 2025-07-04 09:47 | A.OFFVIS_ITS ---
Vital Signs 07/04/25 09:47 Height 5 ft 2 in Weight 146 lb BMI 26.7 BP 112/68 Blood Pressure Location Rt brachial Position Sitting Pulse 60 Pulse Source Pulse Oximeter Pulse Oximetry (%) 100 Oxygen Delivery Method Room Air Intake Visit Reasons: 5 week follow up Intake Note: Est pt for mgmt of chronic abd pain + fatty liver. CC: Pt denies any new GI sx or concerns. Pt reports that she stopped taking the bisacodyl as it was causing her to have diarrhea even with only a half the normal dose. Pt is making dietary changes and having bowel movements every other day on average. Release And Technical Records Clerk Required: No Accompanied by: Self / Same As Patient Allergies acetaminophen (From Vicodin) Adverse Reaction (Intermediate, Verified 07/02/25 14:14) Nausea, vomiting, dizziness hydrocodone (From Vicodin) Adverse Reaction (Intermediate, Verified 07/02/25 14:14) Nausea, vomiting, dizziness atorvastatin Adverse Reaction (Mild, Verified 07/02/25 14:14) Swelling HPI HPI 5 week follow up: Details: LAST VISIT Irritable bowel syndrome with constipation Elevated transaminase level Hepatic steatosis Postprandial diarrhea Postprandial abdominal bloating Plan Discussed with patient avoiding dietary triggers. Low FODMAP diet recommended. List of food recommended as well as list of food to avoid given to patient. Patient will try [id number] fiber supplement with pre and probiotics. Take magnesium only at bedtime. Patient will be scheduled for colonoscopy. Follow-up in the office in 5 weeks for re-evaluation. She is agreeable to this plan and verbalizes understanding of instructions. She was given the opportunity to ask questions and all questions answered. ? Thank you for allowing me to participate in her care New hydrocortisone 2.5% (Proctosol HC) 1 appl [place] BID-QID PRN 30 grams 2RF hemorrhoids K64.9 Changed Changed From magnesium oxide 400 mg PO BID 180 tabs 3RF Changed To magnesium oxide 400 mg PO BEDTIME 90 tabs 3RF TODAY'S VISIT Patient is here today for follow-up and to discuss going for colonoscopy. Last colonoscopy in 2018. Patient is overdue for 1. She continues to have occasional postprandial abdominal bloating. Occasional constipation. Tried Dulcolax and unable to take it as caused diarrhea even trying to take a 1 tablet at night time. Patient is taking magnesium oxide. Tries to make herself shakes and follow FODMAP diet as much as she can. Patient denies any issues with anesthesia in the past. No history of sleep apnea. Patient is not taking any anticoagulation medication. Denies any cardiac or respiratory symptoms. 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 Depression Hepatic steatosis Overweight (BMI 25.0-29.9) Psoriatic arthritis Carpal tunnel syndrome of right wrist Irritable bowel syndrome with constipation Pure hypercholesterolemia Asthma Surgical History Hx of colonoscopy History of tubal ligation Family History Mother Arthritis Diabetes Sister Uterine cancer Maternal Aunt Cervical cancer Colon cancer Maternal Uncle Colon cancer Social History Household Members: Family and Children Housing: Apartment Alcohol intake: never Patient Tobacco Use Status: Never used Tobacco e-Cigarette/Vaping Use: Never Used Second Hand Smoke Exposure: Yes service: No Current occupational status: employed 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 Current occupational exposures/hazards: No Cognitive needs: No Hearing needs: No Vision needs: No Female Reproductive History Menstrual Age of Menarche: 13 Review of Systems Const Denies weight gain and Denies weight loss ENT Reports no additional complaints, Denies dysphagia and Denies odynophagia Card Reports no additional complaints Resp Reports no additional complaints GI Denies abdominal pain, Denies belching, Denies melena, Denies bloating, Denies change in bowel habits, Reports constipation, Denies dysphagia, Denies excessive flatus, Reports dyspepsia, Denies heartburn, Denies diarrhea, Denies loose stools, Denies nausea, Denies odynophagia and Denies vomiting Reports no additional complaints Musc Reports no additional complaints Neuro Reports no additional complaints Psych Reports no additional complaints Endo Reports no additional complaints Physical Exam Vital Signs: Last Vital Signs Pulse 60 07/04/25 09:47 BP 112/68 07/04/25 09:47 Pulse Ox 100 07/04/25 09:47 Oxygen Delivery Method Room Air 07/04/25 09:47 BMI result Body Mass Index 26.7 Const General: healthy appearing, no acute distress and well developed Nutritional Appearance: well nourished Orientation/consciousness: patient oriented x3 Resp Effort & Inspection: normal respiratory effort, able to speak in complete sentences, no tracheal deviation and symmetric chest movement Auscultation: clear to auscultation bilaterally Cardio Rate: regular rate GI Inspection: Yes normal to inspection and No distended Palpation (GI): Soft to palpation, not firm, nontender and No hepatosplenomegaly present Auscultation: normal bowel sounds General: Yes no CVA tenderness Back/Spine/Pelvis Back: no CVA tenderness Skin General skin exam: elasticity normal, turgor normal and dry skin Neuro General: patient oriented x3 Psych Appearance: grossly normal Mental Status: mental status grossly normal Results Reviewed Results Reviewed: Laboratory Tests 02/24/25 07/02/25 07/03/25 09:25 07:45 09:55 AST 35 H 32 H 26 ALT 53 H 36 H 33 H Alkaline Phosphatase 60 59 56 FIB-4 INDEX: 1.01?points Advanced fibrosis excluded Approximate fibrosis stage: Antolin 0-1 (Dinh et al 2006) Assessment & Plan Assessment & Plan (1) Irritable bowel syndrome with constipation: Code(s): K58.1 - Irritable bowel syndrome with constipation Category: Medical (2) Elevated transaminase level: Code(s): R74.01 - Elevation of levels of liver transaminase levels Category: Medical (3) Hepatic steatosis: Code(s): K76.0 - Fatty (change of) liver, not elsewhere classified Category: Medical (4) Postprandial diarrhea: Code(s): K52.9 - Noninfective gastroenteritis and colitis, unspecified (5) Postprandial abdominal bloating: Code(s): R14.0 - Abdominal distension (gaseous) (6) Screen for colon cancer: Code(s): Z12.11 - Encounter for screening for malignant neoplasm of colon Plan Message sent to surgical schedulers to book procedure for patient. Patient is overdue for colonoscopy. Patient will continue her bowel management with diet and supplements. She will try to take fiber with pre and probiotics. What to expect before during and after procedure discussed with patient. Stressed the importance of good bowel prep and clear liquid diet day before procedure. I will see patient after the procedure, sooner on as needed basis. Patient is agreeable to this plan and verbalizes understanding of instructions. She was given the opportunity to ask questions and all questions answered. Thank you for allowing me to participate in her care Coding Level of Care Code Est Pt Level 4 (56141) Complex EM visit Add On G2211 Diagnoses Irritable bowel syndrome with constipation K58.1 Elevated transaminase level R74.01 Hepatic steatosis K76.0 Postprandial diarrhea K52.9 Postprandial abdominal bloating R14.0 Screen for colon cancer Z12.11 Time Spent (min) 35 Comment 25 minutes spent with patient and additional 10 minutes spent reviewing her records
--- OUTSIDE RECORDS SUMMARY | 2025-07-04 11:27 | XMS_ITS | Clinical Summary ---
Author Organization [facility] Address [facility] [address] [place] [address] Phone Care Team Providers Care Crime Prevention Worker Name Role Phone Jared Hernandez MD Primary Care Provider [phone] Allergies Active Allergy Reactions Criticality Noted Date [...] 11/16/2024 Overview (12/16/2024): Dx'd c. [address] [place] [address] Gr (no h/o arthrocentesis or [...] topic Medical Devices Not on file Insurance [facility] [employer] [place] [address] CONNE[employer]CARE DIRECT [facility] [employer] DIRECT [facility] [employer] [place] [place] [address] [place] [place] [address] [employer] DIRECT Care Teams Crime Prevention Worker Relationship Specialty Start Date End Date Jared Hernandez MD [address] [place] [address] [place] [address] PCP - General Internal Medicine 05/11/24 Additional Source Comments The information contained in this document represents components of the legal health record. It is not the complete legal health record.[facility]
--- OUTSIDE RECORDS SUMMARY | 2025-07-04 11:27 | XMS_ITS | Clinical Summary ---
Author Organization [facility] Address [address] [place] [address] Care Team Providers Care Sack Filler Name Role Phone Jared Hernandez MD Primary Care Provider [phone] Allergies Active Allergy Reactions Criticality Noted Date [...] authorization process Last lipid 05/15/2025 at [facility] TC 237 TG 203 HDL 45 LDL 151 Abnormal ECG 06/13/2025 Overview (06/14/2025): Inferior early repolarization Assessment & Plan (06/14/2025 10:12 AM EDT): The patient's EKG at [facility] shows inferior early repolarization C/W EKG from [...] Description 06/14/2025 9:40 AM EDT Office Visit [facility] [address] [place] [address] Jagruti Bell NP Chest pain, unspecified type (Primary Dx); Abnormal ECG; Palpitations; Mixed hyperlipidemia 05/16/2025 Telephone [facility] [address] [place] [address] Jagruti Bell NP from Last 3 Months Medical History Medical History Date Comments Hypercholesterolemia PA (psoriatic arthritis) (CMS/[facility] V24, [facility] V 28) Heart palpitations Social History Tobacco [...] Description 08/15/2025 11:20 AM EDT Office Visit [facility] [address] [place] [phone] Jagruti Bell NP [address] [place] [address] Health Maintenance Due Date Last Done Comments [...] patient's age to complete this topic Insurance [facility] PL[facility] Care Teams Sack Filler Relationship Specialty Start Date End Date Jared Hernandez MD [address] [place] [address] [address] JERRY Alvarenga PCP - General Internal Medicine 08/29/24
== END 2025-07-04 10:16 | disposition home or self-care (01) ==
LOC: HO.HGI 09:39
PROVIDERS: PCP Internal Medicine; Visit Provider Nurse Practitioner Family
DX: K76.0 Fatty (change of) liver, not elsewhere classified (principal); K52.9 Noninfective gastroenteritis and colitis, unspecified; R14.0 Abdominal distension (gaseous)
CPT/HCPCS: 99214

== ENCOUNTER → 2025-07-04 09:38 | Outpatient (BNVA) | payer OTHER, SELFPAY | PROVIDERS: PCP Internal Medicine; Visit Provider Nurse Practitioner Family | DX: Z12.11 Encounter for screening for malignant neoplasm of colon (principal); K58.1 Irritable bowel syndrome with constipation; K76.0 Fatty (change of) liver, not elsewhere classified; K52.9 Noninfective gastroenteritis and colitis, unspecified; R74.01 Elevation of levels of liver transaminase levels; R14.0 Abdominal distension (gaseous) | CPT/HCPCS: 99212 ==

== ENCOUNTER 2025-07-06 13:33 | Outpatient (AMB) | payer OTHER, SELFPAY ==
--- OUTSIDE RECORDS SUMMARY | 2025-07-06 13:46 | XMS_ITS | Clinical Summary ---
Author Organization [facility] Address [address] [place] [address] Care Team Providers Care Grain Farmer Name Role Phone Jared Hernandez MD Primary [...] prior authorization process Last lipid 05/15/2025 at [facility] TC 237 TG 203 HDL 45 LDL 151 Abnormal ECG 06/13/2025 Overview (06/14/2025): Inferior early repolarization Assessment & Plan (06/14/2025 10:12 AM EDT): The patient's EKG at [facility] shows inferior early repolarization C/W EKG [...] Description 06/14/2025 9:40 AM EDT Office Visit [facility] [address] [place] [address] Jagruti Bell NP Chest pain, unspecified type (Primary Dx); Abnormal ECG; Palpitations; Mixed hyperlipidemia 05/16/2025 Telephone [facility] [address] [place] [address] Jagruti Bell NP from Last 3 Months Medical History Medical History Date Comments Hypercholesterolemia PA (psoriatic arthritis) (CMS/[facility] V24, [facility] V 28) Heart palpitations Social [...] Description 08/15/2025 11:20 AM EDT Office Visit [facility] - [address] [place] [phone] Jagruti Bell NP [address] [place] [address] Health Maintenance Due Date Last Done Comments [...] patient's age to complete this topic Insurance [facility] [employer] Care Teams Grain Farmer Relationship Specialty Start Date End Date Jared Hernandez MD [address] [place] [address] [address] JERRY Alvarenga PCP - General Internal Medicine 08/29/24
--- OUTSIDE RECORDS SUMMARY | 2025-07-06 13:47 | XMS_ITS | Clinical Summary ---
Author Organization [facility] Address [facility] [employer] [facility] [address] [place] [address] Phone Care Team Providers Care Time Signal Wirer Name Role Phone Jared Hernandez MD Primary Care Provider [phone] Allergies Active Allergy Reactions Criticality Noted Date [...] 11/16/2024 Overview (12/16/2024): Dx'd c. [address] [place] [address] Gr (no h/o arthrocentesis or [...] topic Medical Devices Not on file Insurance [facility] CONNE[employer]CARE [place] [address] [address] [employer]CARE DIRECT [facility] DIRECT [facility] [employer] [address] [address] [place] [address] [employer] DIRECT Care Teams Time Signal Wirer Relationship Specialty Start Date End Date Jared Hernandez MD [address] [place] [address] [place] [address] PCP - General Internal Medicine 05/11/24 Additional Source Comments The information contained in this document represents components of the legal health record. It is not the complete legal health record.[facility]
--- NOTE | 2025-07-06 13:58 | A.OFFVIS_ITS ---
Vital Signs 07/06/25 14:03 Height 5 ft 2 in Weight 149 lb 11.102 oz BMI 27.4 BP 102/64 Blood Pressure Location Lt brachial Position Sitting Pulse 62 Pulse Source Pulse Oximeter Pulse Oximetry (%) 98 Oxygen Delivery Method Room Air Intake Visit Reasons: PsA / labs Intake Note: Patient presents for PsA follow up. Allergies acetaminophen (From Vicodin) Adverse Reaction (Intermediate, Verified 07/06/25 14:03) Nausea, vomiting, dizziness hydrocodone (From Vicodin) Adverse Reaction (Intermediate, Verified 07/06/25 14:03) Nausea, vomiting, dizziness atorvastatin Adverse Reaction (Mild, Verified 07/06/25 14:03) Swelling Medication List - Last Reconciled 07/06/25 by Marisol Jessica MD albuterol sulfate 1.25 mg (3 mL) continuous nebulization QID PRN 30 days albuterol sulfate 90 mcg/actuation (Ventolin HFA) 2 puffs inhalation Q6H PRN 30 days cholecalciferol (vitamin D3) 10 mcg PO DAILY evolocumab (Repatha SureClick) 140 mg subcut Q2W 4 weeks hydrocortisone 2.5% (Proctosol HC) 1 appl [place] BID-QID PRN magnesium oxide 400 mg PO BEDTIME metoprolol succinate ER 12.5 mg (1/2 x 25 mg) PO DAILY [id number]-FA-vit K-lut 8 mg iron-400 mcg-50 mcg (Multivitamin Women 50 Plus) 1 tab PO DAILY [nebulizer Use as directed 4 times a day as needed] omega-3 fatty acids 1,000 mg PO DAILY Skyrizi (risankizumab-rzaa) 150 mg subcut Q12W NS vitamin E (dl, acetate) 400 units PO BID HPI Comments Details: Patient is a 54 y.o. 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 PsA not controlled. Start additional DMARD with leflunomide. If no improvement will switch to otezla Today - Hydroxychloroquine 200mg bid, Lefluomide 10mg and Skyrizi 150mg every 12 weeks - Started the leflunomide and noticed some improvement but had to discontinue after 1 month due to nausea, upset stomach and palpitations - Still having pain and swelling to her hands - Also complaining of chest pain that feels like a band across her chest with a pressure going to the back - Seen and evaluated by cardiology: EKG, ECHO and CT angio normal - No history of GERD Rheumatologic History: PsA Methotrexate- October 2013 stopped due to elevated LFTs, Enbrel- 09/2014- stopped due to fatigue, and feeling sick, injection site reaction. Humira- 11/2014- April 202201/2023-03/2023 Stela, not helpful 04/2023 - Skyrizi HCQ added. self d/c due to side effects 03/2025 - leflunomide. 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 Depression Hepatic steatosis Overweight (BMI 25.0-29.9) Psoriatic arthritis Carpal tunnel syndrome of right wrist Irritable bowel syndrome with constipation Pure hypercholesterolemia Asthma Surgical History Hx of colonoscopy History of tubal ligation Family History Mother Arthritis Diabetes Sister Uterine cancer Maternal Aunt Cervical cancer Colon cancer Maternal Uncle Colon cancer Social History Household Members: Family and Children Housing: Apartment Alcohol intake: never Patient Tobacco Use Status: Never used Tobacco e-Cigarette/Vaping Use: Never Used Second Hand Smoke Exposure: Yes service: No Current occupational status: employed 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 Current occupational exposures/hazards: No Cognitive needs: No Hearing needs: No Vision needs: No Female Reproductive History Menstrual Age of Menarche: 13 Review of Systems Const Details: Review of Systems Constitutional: Denies fever, chills, weight loss ENT: Denies vision changes, eye pain or eye redness, dental caries, dry mouth GI: Denies nausea, vomiting, diarrhea, abdominal pain, change in BM Pulm: Denies SOB, PRAKASH, hemoptysis, wheezing Cards: Denies chest pain, palpitations Skin: Denies Raynaud's, rash, nail changes, photosensitivity, HEAT ENGINEERING TEACHER: Denies headaches, weakness, paresthesias, recurrent falls MSK: as per HPI All other systems reviewed and are unremarkable except noted above Physical Exam Exam Exam: Vital signs reviewed Physical Examination CONSTITUITIONAL Patient alert and cooperative. Well appearing and in no apparent painful distress MSK Hands * Right Hand: Able to make a fist. No swelling. TTP of 2nd MCP and 2nd PIP * Left Hand: Able to make a fist. No swelling. TTP of 3rd MCP and 2nd MCP * Herbedens nodes noted bilaterally Wrists * Right Wrist: Full ROM to flexion and extension. No swelling. Mild TTP * Left Wrist: Full ROM to flexion and extension. No swelling or TTP Elbows * Right Elbow: Full ROM. No swelling or TTP. No TTP of the medial epicondyle. No TTP of the lateral epicondyle * Left Elbow: Full ROM. No swelling or TTP. No TTP of the medial epicondyle. No TTP of the lateral epicondyle Shoulders * Right shoulder: Full ROM. No swelling noted. No TTP of the AC joint. No TTP of the subacromial bursa. No TTP of the posterior shoulder * Left shoulder: Full ROM. No swelling noted. No TTP of the AC joint. No TTP of the subacromial bursa. No TTP of the posterior shoulder Knees * Right knee: Full ROM. No swelling noted. No TTP of the knee joint line. No TTP of pes anserine bursa * Left knee: Full ROM. No swelling noted. No TTP of the knee joint line. No TTP of pes anserine bursa. * Crepitations felt bilaterally Ankles * Right ankle: Good ankle dorsiflexion and plantar flexion. No swelling. No TTP of the ankle joint * Left ankle: Good ankle dorsiflexion and plantar flexion. No swelling. No TTP of the ankle joint Feet * Right foot: Negative squeeze test * Left foot: Negative squeeze test Tender points? * No tenderness to palpation of the bilateral trapezius, supraspinatus, anterior costochondral junctions, bilateral suboccipital muscle insertions SKIN No rashes Vital Signs: Last Vital Signs Pulse 62 07/06/25 14:03 BP 102/64 07/06/25 14:03 Pulse Ox 98 07/06/25 14:03 Oxygen Delivery Method Room Air 07/06/25 14:03 BMI result Body Mass Index 27.4 Results Reviewed Results Reviewed: Laboratory Tests 07/02/25 07/03/25 07:45 09:55 WBC 4.4 L RBC 4.25 Hgb 13.1 Hct 38.6 Plt Count 242 ESR 12 Sodium 141 Potassium 5.0 Chloride 110 H Carbon Dioxide 27 BUN 12 Creatinine 0.69 AST 26 ALT 33 H C-Reactive Protein < 0.10 25-OH Vitamin D Total 36.7 Laboratory Tests 12/01/22 12:27 Rheumatoid Factor < 13.0 SOPHIA Screen NEGATIVE Laboratory Tests 01/29/25 07:41 Hepatitis A IgM Ab Nonreactive Hep Bs Antigen Negative Hep Bs Antibody REACTIVE Hep B Core Total Ab Nonreactive Hepatitis C Ab (EIA) Nonreactive US Abdomen with Elastography 02/2025 FINDINGS: Liver: The right lobe of the liver measures 15.7 cm in size. The left lobe of the liver measures 10.3 cm in size. The liver demonstrates increased echotexture, consistent with steatosis. There is focal fatty sparing adjacent to the gallbladder. No focal mass or intrahepatic biliary ductal dilatation is identified. There is normal hepatopedal flow in the portal vein. Ultrasound elastography of the liver was performed with 10 separate measurements of the liver parenchyma with the patient in the supine position. Measurements were obtained approximately 2 cm below Sven's capsule and perpendicular to the capsule. Images are of satisfactory quality. The median shear wave velocity is 1.30 m/s (previously 1.74 m/s). The interquartile range/median (IQR/median) is 0.11. Gallbladder and biliary tree: The gallbladder is unremarkable, without evidence of calculi, wall thickening, or pericholecystic fluid. There is no sonographic Mejia sign. The common bile duct is normal in caliber measuring 4 mm. Right Kidney: The right kidney measures 11.5 cm in length. The right kidney is unremarkable, without evidence of masses, hydronephrosis, or calculi. Pancreas: The pancreatic head, neck, and body are unremarkable. The pancreatic tail is obscured by bowel gas. Abdominal aorta and inferior vena cava: The visualized portions of the abdominal aorta and inferior vena cava are normal in caliber. There is no free fluid in the right upper quadrant. IMPRESSION: Hepatic steatosis. The median shear wave velocity in the liver is 1.30 m/s, corresponding to a median liver stiffness of 5.11 kPa. The IQR/median value is 0.11. This is indicative of a quality data set. Findings are indicative of a low elastography value which rules out advanced chronic liver disease in asymptomatic patients. This is improved from the prior study. Assessment & Plan Assessment & Plan (1) Psoriatic arthritis: Comment: Methotrexate: October 2013 - stopped due to elevated LFTs; Enbrel: 09/2014- stopped due to fatigue, and feeling sick, injection site reaction; Humira: Nov 2014 to April 2022; Stelara: 01/2023 to 03/2023 - not helpful; Skyrizi: 04/2023 to present Code(s): L40.50 - Arthropathic psoriasis, unspecified Category: Medical Plan: #PsA Patient is a 54 y.o. 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 Still with some mild synovitis on exam. Not able to tolerate any of the conventional synthetic DMARDs. Discussed with patient that this may be the best disease activity that we can get for her. 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: Code(s): Z79.620 - penitentiary (current) use of immunosuppressive biologic Plan: #Long-term IL 23 Inhibitors: Rizankizumab Risks and benefits of IL 23 inhibitors in the management of psoriatic arthritis and psoriasis discussed with the patient Benefits include improved psoriasis and psoriatic arthritis Risks include GI upset, injection site reactions, increased risk of fungal infections and other serious infections (3) penitentiary (current) use of non-steroidal anti-inflammatories (nsaid): Code(s): Z79.1 - equipment operator intermodal yard (current) use of non-steroidal anti-inflammatories (NSAID) Plan: #Long-term Use of NSAIDs Discussed with patient the benefits and risk of NSAIDs for managing the rheumatic condition Benefits include: - Reduced the pain, improved mobility, and increased participation in activities Risks include: - GI upset, potential also worsening or formation (especially in patients > 65 years old) Recommended using proton pump inhibitors (PPIs) for the duration of NSAID use to reduce the risk of gastric ulcers Plan I spent 30 minutes reviewing the record and labs, taking a history, examining the patient, discussing the treatment plan, ordering diagnostic work up and documenting in the medical record Orders: Orders Comprehensive Met. Panel 4 Months Z79.899 - Other oil heaterman (current) drug therapy Erythrocyte Sedimentation Rate 4 Months Z79.899 - Other oil heaterman (current) drug therapy Complete Blood Count Auto Diff 4 Months Z79.899 - Other oil heaterman (current) drug therapy C Reactive Protein 4 Months Z79.899 - Other halfway (current) drug therapy Medications: New nabumetone 500 mg PO BID 60 tabs 5RF 30 days L40.50 - Arthropathic psoriasis, unspecified Refilled Skyrizi (risankizumab-rzaa) 150 mg subcut Q12W 1 mL 1RF NS L40.50 - Arthrop athic psoriasis, unspecified Coding Level of Care Code Est Pt Level 4 (66968) Complex EM visit Add On G2211 Diagnoses Psoriatic arthritis L40.50 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
[2025-07-06 14:03] VITALS: BP 102/64; PULSE 62; O2SAT 98; BMI 27.4
== END 2025-07-06 14:35 | disposition home or self-care (01) ==
LOC: HO.RHES 13:33
PROVIDERS: PCP Internal Medicine; Visit Provider Student in an Organized Health Care Education/Training Program
DX: L40.50 Arthropathic psoriasis, unspecified (principal); Z79.620 Long term (current) use of immunosuppressive biologic; Z79.1 Long term (current) use of non-steroidal anti-inflammatories (NSAID)
CPT/HCPCS: 99214

== ENCOUNTER → 2025-07-06 13:33 | Outpatient (BNVA) | payer OTHER, SELFPAY | PROVIDERS: PCP Internal Medicine; Visit Provider Student in an Organized Health Care Education/Training Program | DX: L40.50 Arthropathic psoriasis, unspecified (principal); Z79.1 Long term (current) use of non-steroidal anti-inflammatories (NSAID); Z79.620 Long term (current) use of immunosuppressive biologic | CPT/HCPCS: 99212 ==